=== PATIENT | male | born 1950 | race Caucasian/White ===

== ENCOUNTER → 2020-05-17 11:05 | Outpatient (CLI) | payer MEDICARE, SELFPAY ==
[2020-05-17] MEDS: COVID-19 VACC #1, MRNA(MOD) 100 MCG/0.5 ML VIAL IM (11:14)
== END ==
PROVIDERS: PCP Family Medicine; Visit Provider Internal Medicine
DX: Z23 Encounter for immunization (principal)
CPT/HCPCS: 0011A; 91301

== ENCOUNTER → 2020-06-14 09:38 | Outpatient (CLI) | payer MEDICARE, SELFPAY ==
[2020-06-14] MEDS: COVID-19 VACC #2, MRNA(MOD) 100 MCG/0.5 ML VIAL IM (09:42)
== END ==
PROVIDERS: PCP Family Medicine; Visit Provider Internal Medicine
DX: Z23 Encounter for immunization (principal)
CPT/HCPCS: 0012A; 91301

== ENCOUNTER → 2020-10-18 08:40 | Outpatient (CLI) | payer MEDICARE, SELFPAY ==
[2020-10-18 09:26] LABS: Add Manual Diff / Slide Review NO; Basophils Absolute Auto 0 /uL (0-100); Basophils Percent Auto 0.9 % (0-2); Eosinophils Absolute Auto 200 /uL (0-450); Eosinophils Percent Auto 3.5 % (2-4); Hematocrit 41.4 % (41-53); Lymphocytes Absolute Auto 1400 /uL (1100-4500); Lymphocytes Percent Auto 29.1 % (25-40); Mean Corpuscular HGB Conc 33.8 % (30-36); Mean Corpuscular Hemoglobin 32.1 PG (26-34); Mean Corpuscular Volume 95.1 fL (80-100); Monocytes Absolute Auto 300 /uL (0-900); Monocytes Percent Auto 6.5 % (3-14); Neutrophils Absolute Auto 2900 /uL (1500-7000); Platelet Count 146 X10^3/uL (150-400); Red Blood Cell Count 4.35 X10^6/uL (4.5-5.9); Red Cell Distribution Width 13.5 % (11.6-14.8); White Blood Cell Count 4.8 X10^3/uL (4.5-11.0)
[2020-10-18 09:35] LABS: Hemoglobin A1C% w Est Avg Glu 5.3 % (4.0-6.0)
[2020-10-18 09:40] LABS: Alanine Aminotransferase 24 IU/L (<50); Albumin 3.6 g/dL (3.5-5.0); Albumin Globulin Ratio 1.4 (1.0-2.8); Alkaline Phosphatase 62 U/L (38-126); Aspartate Aminotransferase 30 IU/L (17-59); BUN Creatinine Ratio 21.3 (6-22); Bilirubin Total 0.4 mg/dL (0.2-1.3); Blood Urea Nitrogen 16 mg/dL (9-20); Calcium 8.9 mg/dL (8.4-10.2); Carbon Dioxide 28 mmol/L (22-32); Chloride 108 mmol/L (98-107); Cholesterol 142 mg/dL (140-199); Estimated Glomerular Filt Rate > 60.0 mL/min (>60); Globulin 2.5 g/dL (1.7-4.1); Glucose 93 mg/dL (80-110); HDL Cholesterol 62 mg/dL (40-60); HEMOLYSIS < 15 (0-50); LDL Cholesterol Calculated 73 mg/dL (<100); Potassium 4.5 mmol/L (3.4-5.1); Sodium 138 mmol/L (137-145); Total Protein 6.1 g/dL (6.3-8.2); Triglycerides 35 mg/dL (35-150)
[2020-10-18 10:10] LABS: Prostate Specific Antigen Scrn 1.15 ng/mL (0.1-4.0)
== END ==
PROVIDERS: PCP Family Medicine; Referring Provider Family Medicine; Visit Provider Family Medicine
DX: E78.2 Mixed hyperlipidemia (principal); G25.0 Essential tremor; N40.1 Benign prostatic hyperplasia with lower urinary tract symptoms; Z12.5 Encounter for screening for malignant neoplasm of prostate; Z85.828 Personal history of other malignant neoplasm of skin
CPT/HCPCS: 36415; 80053; 80061; 83036; 85025; G0103

== ENCOUNTER → 2021-07-31 08:16 | Outpatient (CLI) | payer MEDICARE, SELFPAY ==
[2021-07-31 09:42] LABS: Add Manual Diff / Slide Review NO; Basophils Absolute Auto 0 /uL (0-100); Basophils Percent Auto 1.1 % (0-2); Eosinophils Absolute Auto 200 /uL (0-450); Eosinophils Percent Auto 4.4 % (2-4); Hematocrit 40.9 % (41-53); Lymphocytes Absolute Auto 1700 /uL (1100-4500); Lymphocytes Percent Auto 36.4 % (25-40); Mean Corpuscular HGB Conc 34.2 % (30-36); Mean Corpuscular Hemoglobin 32.6 PG (26-34); Mean Corpuscular Volume 95.1 fL (80-100); Monocytes Absolute Auto 300 /uL (0-900); Monocytes Percent Auto 6.2 % (3-14); Neutrophils Absolute Auto 2400 /uL (1500-7000); Neutrophils Percent Auto 51.9 % (50-75); Platelet Count 145 X10^3/uL (150-400); Red Cell Distribution Width 13.2 % (11.6-14.8); White Blood Cell Count 4.6 X10^3/uL (4.5-11.0)
[2021-07-31 10:02] LABS: Alanine Aminotransferase 21 IU/L (<50); Albumin 3.5 g/dL (3.5-5.0); Albumin Globulin Ratio 1.5 (1.0-2.8); Alkaline Phosphatase 59 U/L (38-126); Aspartate Aminotransferase 27 IU/L (17-59); BUN Creatinine Ratio 20.3 (6-22); Bilirubin Total 0.4 mg/dL (0.2-1.3); Blood Urea Nitrogen 16 mg/dL (9-20); Calcium 8.8 mg/dL (8.4-10.2); Carbon Dioxide 28 mmol/L (22-32); Chloride 106 mmol/L (98-107); Cholesterol 172 mg/dL (140-199); Estimated Glomerular Filt Rate > 60 mL/min (>60); Globulin 2.3 g/dL (1.7-4.1); Glucose 91 mg/dL (80-110); HDL Cholesterol 60 mg/dL (40-60); HEMOLYSIS < 15 (0-50); LDL Cholesterol Calculated 98 mg/dL (<100); Potassium 4.4 mmol/L (3.4-5.1); Sodium 140 mmol/L (137-145); Total Protein 5.8 g/dL (6.3-8.2); Triglycerides 69 mg/dL (35-150)
[2021-07-31 10:31] LABS: Prostate Specific Antigen Scrn 1.37 ng/mL (0.1-4.0)
== END ==
PROVIDERS: PCP Family Medicine; Referring Provider Family Medicine; Visit Provider Family Medicine
DX: E78.2 Mixed hyperlipidemia (principal); Z12.5 Encounter for screening for malignant neoplasm of prostate; G25.0 Essential tremor; N40.1 Benign prostatic hyperplasia with lower urinary tract symptoms
CPT/HCPCS: 36415; 80053; 80061; 85025; G0103

== ENCOUNTER → 2021-08-13 07:44 | Outpatient (CLI) | payer MEDICARE, SELFPAY ==
--- NOTE | 2021-09-05 08:48 | P.HOLT.S_ITS ---
[employer] Report Referral & Results Date Patient Seen: 08/12/21 Requesting provider: Papo Collins Indication: Palpitations Duration of monitoring (days): 14 Diary information: There was 1 patient triggered event and no patient diary entries Patient triggered event was associated with sinus rhythm only Data: Minimum heart rate identified was 30 beats per minute at 06:50 on 08/22/2021 Maximum heart rate was 152 beats per minute at 10:37 on 08/22/2021 Less than 1% of identified beats were ventricular or supraventricular ectopic in origin, which would classify them as rare. Atrial flutter did occur, approximately less than 1% burden, with heart rate ranging between 96 and 141 beats per minute. The longest run was 1 minute 9 seconds in duration No pauses of 3 seconds or longer or runs of SVT or atrial fibrillation or ventricular tachycardia identified on this study Impression: 14 day patient monitor demonstrating rare PACs and PVCs as well as some atrial flutter that was less than 1% burden with above rate ranges Clinical correlation suggested
== END ==
PROVIDERS: Family Provider Family Medicine; PCP Family Medicine; Referring Provider Family Medicine; Visit Provider Family Medicine
DX: R00.2 Palpitations (principal)
CPT/HCPCS: 93246; 93248

== ENCOUNTER → 2021-10-22 08:19 | Outpatient (CLI) | payer MEDICARE, SELFPAY ==
[2021-10-22 09:29] LABS: Add Manual Diff / Slide Review NO; Basophils Absolute Auto 0 /uL (0-100); Basophils Percent Auto 0.9 % (0-2); Eosinophils Absolute Auto 100 /uL (0-450); Eosinophils Percent Auto 2.4 % (2-4); Hematocrit 41.6 % (41-53); Hemoglobin 14.2 g/dL (13.5-17.5); Lymphocytes Absolute Auto 1500 /uL (1100-4500); Lymphocytes Percent Auto 31.8 % (25-40); Mean Corpuscular HGB Conc 34.2 % (30-36); Mean Corpuscular Hemoglobin 32.6 PG (26-34); Mean Corpuscular Volume 95.6 fL (80-100); Monocytes Absolute Auto 300 /uL (0-900); Monocytes Percent Auto 6.4 % (3-14); Neutrophils Absolute Auto 2700 /uL (1500-7000); Neutrophils Percent Auto 58.5 % (50-75); Platelet Count 146 X10^3/uL (150-400); Red Blood Cell Count 4.36 X10^6/uL (4.5-5.9); Red Cell Distribution Width 13.2 % (11.6-14.8); White Blood Cell Count 4.6 X10^3/uL (4.5-11.0)
[2021-10-22 09:54] LABS: BUN Creatinine Ratio 19.5 (6-22); Blood Urea Nitrogen 15 mg/dL (9-20); Calcium 8.8 mg/dL (8.4-10.2); Carbon Dioxide 25 mmol/L (22-32); Chloride 105 mmol/L (98-107); Estimated Glomerular Filt Rate > 60 mL/min (>60); Glucose 91 mg/dL (80-110); HEMOLYSIS 18 (0-50); Potassium 4.4 mmol/L (3.4-5.1); Sodium 138 mmol/L (137-145)
[2021-10-22 10:23] LABS: TSH w/ Reflex to FT4 2.29 uIU/mL (0.47-4.68)
== END ==
PROVIDERS: Family Provider Family Medicine; PCP Family Medicine; Referring Provider Internal Medicine Cardiovascular Disease; Visit Provider Internal Medicine Cardiovascular Disease
DX: I47.1 Supraventricular tachycardia (principal); R00.2 Palpitations
CPT/HCPCS: 36415; 80048; 84443; 85025

== ENCOUNTER → 2021-12-26 13:11 | Outpatient (CLI) | payer MEDICARE, SELFPAY ==
--- NOTE | 2021-12-26 | DI.NM.S_ITS ---
PROCEDURE: NM EXERCISE TREADMILL NON NUC COMPARISON: None. INDICATIONS: Bradycardia, unspecified FINDINGS: The patient exercised for 7 minutes and 4 seconds reaching 99% of maximum predicted heart rate. 10.1 METS, LATONIA -11%. Target heart rate achieved. Mildly hypertensive response to exercise (resting BP 120/80, max BP 220/100mmHg). No angina and no diagnostic ST changes with exercise or during recovery. Occasional PACs during recovery. IMPRESSION: Low risk, normal stress test from ischemia standpoint. No angina during the study. Mildly hypertensive response to exercise (resting BP 120/80, max BP 220/100mmHg). Occasional PACs during recovery. Dictated by: Adrienne Teixeira MD on 12/26/2021 at 17:40 Approved by: Adrienne Teixeira MD on 12/26/2021 at 17:43
--- NOTE | 2021-12-26 | DI.ECHO.S_ITS ---
[facility] +---------+ : : [address] : : : : [id number] : : : : Phone: [phone]+ Echocardiogram Report + + :Name: CYNTHIA MUHAMMAD Study Date: 12/26/2021 Height: 69 in : :[facility] ReadingLocation: Weight: 165 lb : : Gender: Male BSA: 1.9 m2 : :: 1950 Age: 71 yrs BP: 127/74 mmHg: :Reason For Study: BRADYCARDIA : :Ordering Physician: ALIX, : :HI Performed By: Frances Hu : :Referring: HI TEIXEIRA : + + Interpretation Summary 1) Normal left ventricular thickness, size, wall motion, and systolic function (EF 55-60%). 2) The right ventricle is mildly dilated. Right ventricular systolic function is mildly reduced. 3) There is mild to moderate mitral regurgitation. 4) No prior Echo available for comparison. Procedure: A two-dimensional transthoracic echocardiogram with color flow and Doppler was performed. The study quality was technically adequate. There is no prior echocardiogram noted for this patient. The patient was in sinus bradycardia with heart rates between 42-50 bpm during the exam. Left Ventricle: The left ventricle is normal in size and wall thickness. The ejection fraction is estimated to be 55-60%. Left ventricular systolic function appears normal without focal wall motion abnormalities. Diastolic parameters suggest a relaxation abnormality of the left ventricle, consistent with probable normal filling pressures. Right Ventricle: The right ventricle is mildly dilated. Right ventricular systolic function is mildly reduced. Atria: The left atrium is moderately dilated. The right atrium is moderately dilated. There is no Doppler evidence for an interatrial shunt. Mitral Valve: There is mild mitral annular calcification. The mitral valve leaflets appear borderline thickened, but open well. There is mild to moderate mitral regurgitation. Aortic Valve: The aortic valve is trileaflet. The aortic valve opens well. There is no aortic valve stenosis. No aortic regurgitation is present. Tricuspid Valve: The tricuspid valve leaflets are thin and pliable. There is mild tricuspid regurgitation. The right ventricular systolic pressure is estimated to be at least 19 mmHg based on an estimated right atrial pressure of 3 mm Hg. Pulmonic Valve: The pulmonic valve is not well visualized. There is no pulmonic valvular regurgitation. Great Vessels: The aortic root is normal size. The dimensions of the ascending aorta are normal. The IVC is of normal diameter and collapses greater than 50% with a sniff. This suggests a low right atrial pressure of 3 mm Hg. Pericardium/ Pleura There is no pericardial effusion. There is no pleural effusion. MMode/2D Measurements & Calculations LVIDd: 5.1 cm LVOT diam: 2.4 cm LVIDs: 3.8 cm Ao root diam: 3.6 cm FS: 26.2 % asc Aorta Diam: 3.2 cm IVSd: 0.72 cm LVPWd: 0.89 cm LV hill. diameter/BSA (cm/m^2): 2.7 LV sys. diameter/BSA (cm/m^2): 2.0 LA A2 area: 26.6 cm2 RA long axis: 6.0 cm LA A4 area: 23.3 cm2 RA area: 24.9 cm2 LA length (vol): 6.0 cm RA vol: 88.3 ml LA vol: 88.2 ml RA : 46.4 ml/m2 LA vol index: 46.4 ml/m2 IVC diam: 1.5 cm RVD1 (basal): 4.7 cm RVD2 (mid): 4.1 cm TAPSE: 1.4 cm Doppler Measurements & Calculations Ao V2 max: 120.9 cm/sec LVOT Max Reagan: 99.8 cm/sec Ao V2 mean: 76.6 cm/sec LV V1 max P.0 mmHg Ao max P.8 mmHg LV V1 VTI: 22.4 cm Ao mean P.8 mmHg GOLDY(I,D): 4.0 cm2 Ao V2 VTI: 26.2 cm GOLDY(V,D): 3.9 cm2 sev ratio: 0.85 GOLDY indexed to BSA (cm^2/m^2): 2.1 MV E max reagan: 63.7 cm/sec TR max reagan: 200.1 cm/sec MV A max reagan: 45.8 cm/sec TR max P.0 mmHg MV E/A: 1.4 PA pr(Accel): 12.2 mmHg Med Peak E' Reagan: 7.2 cm/sec E/E' med: 8.9 Lat Peak E' Reagan: 9.9 cm/sec E/E' lat: 6.4 E/e' average: 7.6 MV dec time: 0.17 sec MR ERO: 0.11 cm2 MR PISA: 1.6 cm2 SV(LVOT): 104.6 ml MR flow rate: 58.0 cm3/sec MR PISA radius: 0.50 cm Reading Physician:04:55 PM
[2021-12-26 14:41] LABS: COVID19 -Nasal RAPID Negative (Negative)
== END ==
PROVIDERS: Family Provider Family Medicine; PCP Family Medicine; Referring Provider Internal Medicine Cardiovascular Disease; Visit Provider Internal Medicine Cardiovascular Disease
DX: R00.1 Bradycardia, unspecified (principal); I47.1 Supraventricular tachycardia
CPT/HCPCS: 87635; 93017; 93306

== ENCOUNTER → 2022-08-02 08:04 | Outpatient (CLI) | payer MEDICARE, SELFPAY ==
[2022-08-02 09:36] LABS: Basophils Absolute Auto 0 /uL (0-100); Basophils Percent Auto 0.8 % (0-2); Eosinophils Absolute Auto 200 /uL (0-450); Eosinophils Percent Auto 4.7 % (2-4); Hematocrit 41.7 % (41-53); Hemoglobin 14.2 g/dL (13.5-17.5); Lymphocytes Absolute Auto 1400 /uL (1100-4500); Lymphocytes Percent Auto 30.2 % (25-40); Mean Corpuscular Hemoglobin 32.3 PG (26-34); Mean Corpuscular Volume 94.8 fL (80-100); Monocytes Absolute Auto 400 /uL (0-900); Monocytes Percent Auto 7.9 % (3-14); Neutrophils Absolute Auto 2600 /uL (1500-7000); Neutrophils Percent Auto 56.4 % (50-75); Platelet Count 135 X10^3/uL (150-400); White Blood Cell Count 4.7 X10^3/uL (4.5-11.0)
[2022-08-02 09:38] LABS: Add Manual Diff / Slide Review SLIDE REVIEW
[2022-08-02 09:58] LABS: Alanine Aminotransferase 29 IU/L (<50); Albumin 3.6 g/dL (3.5-5.0); Albumin Globulin Ratio 1.4 (1.0-2.8); Alkaline Phosphatase 63 U/L (38-126); Aspartate Aminotransferase 29 IU/L (17-59); BUN Creatinine Ratio 20.5 (6-22); Bilirubin Total 0.8 mg/dL (0.2-1.3); Blood Urea Nitrogen 16 mg/dL (9-20); Calcium 9.4 mg/dL (8.4-10.2); Carbon Dioxide 28 mmol/L (22-32); Chloride 104 mmol/L (98-107); Cholesterol 177 mg/dL (140-199); Estimated Glomerular Filt Rate > 60 mL/min (>60); Globulin 2.6 g/dL (1.7-4.1); Glucose 91 mg/dL (80-110); HDL Cholesterol 64 mg/dL (40-60); HEMOLYSIS < 15 (0-50); LDL Cholesterol Calculated 102 mg/dL (<100); Potassium 4.7 mmol/L (3.4-5.1); Sodium 137 mmol/L (137-145); Total Protein 6.2 g/dL (6.3-8.2); Triglycerides 53 mg/dL (35-150)
[2022-08-02 10:28] LABS: Prostate Specific Antigen Scrn 1.75 ng/mL (0.1-4.0)
[2022-08-02 11:06] LABS: RBC Morphology Normal Morphology
== END ==
PROVIDERS: Family Provider Family Medicine; PCP Family Medicine; Referring Provider Family Medicine; Visit Provider Family Medicine
DX: E78.2 Mixed hyperlipidemia (principal); Z12.5 Encounter for screening for malignant neoplasm of prostate; G25.0 Essential tremor; N40.1 Benign prostatic hyperplasia with lower urinary tract symptoms
CPT/HCPCS: 36415; 80053; 80061; 85025; G0103

== ENCOUNTER 2022-10-04 00:43 | Inpatient (IN) | payer MEDICARE, SELFPAY ==
[2022-10-04] VITALS (16 sets, daily range): BP systolic 104–144; BP diastolic 47–70; PULSE 48–75; RESP 16–20; TEMP 36.1–37.5; O2SAT 92–99; BMI 25.1
--- NOTE | 2022-10-04 00:45 | ED_ITS ---
HPI - Abdominal Pain General Chief Complaint: Abdominal Pain Stated Complaint: abd pain, vomiting Time Seen by Provider: 10/04/22 00:45 History of Present Illness HPI narrative: 72-year-old male nonsmoker without any significant medical history presents with his in the chief complaint of a few hours of worsening and severe abdominal pain. He had been in his normal state of health and they went out to dinner this evening, both eating the same meal and a few hours later he developed gradually worsening severe pain. It is persistent at baseline but has waves of significantly worsening pain. He denies any obvious provocation or palliation nor radiation. He is had multiple episodes of nausea and vomiting without any impact on his symptoms. He is now having difficulty passing gas. He denies any fever or chills. He denies urinary complaints such as dysuria, frequency or urgency. He denies any history of the same. Related Data Previous Rx's Medication Instructions Recorded tamsulosin 0.4 mg capsule 0.4 mg PO DAILY #90 caps 07/25/22 diazepam 5 mg tablet 5 mg PO DAILY PRN anxiety #30 tabs 08/05/22 Allergies Allergy/AdvReac Type Severity Reaction Status Date / Time No Known Drug Allergies Allergy Verified 02/05/22 10:18 Review of Systems Review of Systems Narrative: GENERAL: See HPI HEENT: Denies sinus pain, ear pain, sore throat, difficulty swallowing, dizziness. RESPIRATORY: Denies dyspnea, cough, wheezing, hemoptysis, sputum. CARDIOVASCULAR: Denies chest pain, palpitations, orthopnea, edema, GASTROINTESTINAL: See HPI : Denies dysuria, frequency, incontinence, hematuria, urinary retention. MUSCULOSKELETAL: denies weakness, joint pain, or bony pain SKIN: Denies rash, skin lesions, or other NEUROLOGIC: Denies weakness, headache, numbness, change in speech, confusion, seizures, incoordination. PSYCHIATRIC: No concerning psychosocial issues. 12 point review of systems is negative except for those stated above Patient History Medical History BPH (benign prostatic hyperplasia) Essential tremor History of basal cell carcinoma Hyperlipidemia Medicare annual wellness visit, subsequent Preventative health care Witnessed episode of apnea Social History Smoking Status: Never smoker alcohol intake: current (4 drinks per week wine and beer ) substance use type: does not use Smoking Status: Never smoker Exam Narrative Exam Narrative: GENERAL: [72] year old patient appears stated age. Well-developed patient, in mi ld distress. HEAD: Atraumatic. Normocephalic. EYES: Pupils equal round and reactive. Extraocular motions intact. No scleral icterus. No injection or drainage. ENT: Nose without bleeding, purulent drainage. Throat without erythema, tonsillar hypertrophy or exudate. Airway patent. NECK: Trachea midline. Non tender CARDIOVASCULAR: Regular rate and rhythm without murmurs, gallops, or rubs. RESPIRATORY: Clear to auscultation. Breath sounds equal bilaterally. No wheezes, rales, or rhonchi. GASTROINTESTINAL: Abdomen soft, non-tender, nondistended. EXTREMITIES: No edema or joint tenderness. BACK: Nontender without deformity or crepitance. No flank tenderness. NEURO: AOx3. SKIN: No rash or erythema of visible areas Initial Vital Signs Initial Vital Signs: Vital Signs Temperature 97.8 F 10/04/22 01:06 Pulse Rate 62 10/04/22 01:06 Respiratory Rate 20 10/04/22 01:06 Blood Pressure 138/70 10/04/22 01:06 Pulse Oximetry 99 10/04/22 01:06 Oxygen Delivery Method Room Air 10/04/22 01:06 Course Orders Ordered: ED Orders 10/04/22 00:52 CT abdomen pelvis w con Stat 10/04/22 00:55 Complete Blood Count AUTO DIFF Stat Comprehensive Metabolic Panel Stat Lactate (Lactic Acid) Stat Lipase Stat Magnesium Stat Hydromorphone HCl (Hydromorphone 1 Mg Inj) 1 mg IV NOW ONE Stop: 10/04/22 04:43 Discontinued Medications Hydromorphone HCl (Hydromorphone 0.5 Mg Inj) 0.5 mg IV NOW ONE Stop: 10/04/22 00:52 Last Admin: 10/04/22 01:02 Dose: 0.5 mg Documented By: SEBAS Hydromorphone HCl (Hydromorphone 1 Mg Inj) 1 mg IV NOW ONE Stop: 10/04/22 01:23 Last Admin: 10/04/22 01:25 Dose: 1 mg Documented By: GC Sodium Chloride (Normal Saline 0.9%) 1,000 mls @ 1,000 mls/hr IV BOLUS ONE Stop: 10/04/22 01:50 Last Infusion: 10/04/22 02:02 Dose: 0 mls/hr Documented By: Admin: 10/04/22 01:02 Dose: 1,000 mls/hr Documented By: SEBAS Ondansetron HCl (Ondansetron 4 Mg/2 Ml Inj) 4 mg IV NOW ONE Stop: 10/04/22 00:52 Last Admin: 10/04/22 01:02 Dose: 4 mg Documented By: SEBAS Pantoprazole Sodium (Pantoprazole 40 Mg Vial) 40 mg IV NOW ONE Stop: 10/04/22 00:52 Last Admin: 10/04/22 01:01 Dose: 40 mg Documented By: SEBAS Vital Signs Vital signs: Vital Signs - 8 hr 10/04/22 01:06 10/04/22 02:27 10/04/22 02:28 Temperature 97.8 F Pulse Rate 62 57 L Respiratory Rate 20 Blood Pressure 138/70 129/62 Pulse Oximetry 99 94 Oxygen Delivery Method Room Air 10/04/22 02:28 10/04/22 02:30 10/04/22 02:30 Temperature Pulse Rate 60 60 Respiratory Rate Blood Pressure 127/59 L Pulse Oximetry 92 92 Oxygen Delivery Method 10/04/22 03:00 10/04/22 03:00 10/04/22 03:30 Temperature Pulse Rate 48 L Respiratory Rate Blood Pressure 131/60 124/58 L Pulse Oximetry 93 Oxygen Delivery Method 10/04/22 03:30 Temperature Pulse Rate 51 L Respiratory Rate Blood Pressure Pulse Oximetry 93 Oxygen Delivery Method MDM - Abdominal Pain Lab Data 10/04/22 00:55 10/04/22 00:55 Labs: Lab Results 10/04/22 10/04/22 10/04/22 Range/Units 00:55 00:55 00:55 WBC 11.3 H (4.5-11.0) X10^3/uL RBC 4.65 (4.5-5.9) X10^6/uL Hgb 15.2 (13.5-17.5) g/dL Hct 44.2 (41-53) % MCV 95.0 (80-100) fL MCH 32.6 (26-34) PG MCHC 34.4 (30-36) % RDW 13.4 (11.6-14.8) % Plt Count 155 (150-400) X10^3/uL Neut % (Auto) 82.5 H (50-75) % Lymph % (Auto) 12.4 L (25-40) % [place] % (Auto) 3.5 (3-14) % Eos % (Auto) 1.2 L (2-4) % Baso % (Auto) 0.4 (0-2) % Neut # (Auto) 9300 H (2216-7647) /uL Lymph # (Auto) 1400 (4923-1633) /uL [place] # (Auto) 400 (0-900) /uL Eos # (Auto) 100 (0-450) /uL Baso # (Auto) 0 (0-100) /uL Sodium 135 L (137-145) mmol/L Potassium 3.8 (3.4-5.1) mmol/L Chloride 99 (98-107) mmol/L Carbon Dioxide 28 (22-32) mmol/L BUN 15 (9-20) mg/dL Creatinine 0.84 (0.66-1.25) mg/dL Estimated GFR > 60 (>60) mL/min BUN/Creatinine Ratio 17.9 (6-22) Glucose 98 (80-110) mg/dL Lactate 1.7 (0.7-2.1) mmol/L Calcium 9.5 (8.4-10.2) mg/dL Magnesium 2.0 (1.6-2.3) mg/dL Total Bilirubin 1.0 (0.2-1.3) mg/dL AST 33 (17-59) IU/L ALT 30 (<50) IU/L Alkaline Phosphatase 71 (38-126) U/L Total Protein 7.3 (6.3-8.2) g/dL Albumin 4.3 (3.5-5.0) g/dL Globulin 3.0 (1.7-4.1) g/dL Albumin/Globulin Ratio 1.4 (1.0-2.8) Lipase 150 (23-300) U/L Point of care testing: Urine Dip Bedside Urine Glucose Negative Bedside Urine Bilirubin - Negative Bedside Urine Ketone - Negative Urine Specific Jean 1.015 Bedside Urine Occult Blood - Negative Bedside Urine pH 7.0 Bedside Urine Protein - Negative Bedside Urine Urobilinogen - Negative Bedside Urine Nitrite - Negative Bedside Urine Leukocytes - Negative Esterase MDM Narrative Medical decision making narrative: 72-year-old male with relatively sudden onset and severe periumbilical pain that is largely persistent but associated with waves of unprovoked pain. Labs largely reassuring, imaging demonstrates no surgical finding but does suggest presence of distended bowel loops without a transition point suggesting against the likelihood of bowel obstruction. Patient has had 3 doses of IV pain medications and multiple doses of antiemetics but still has severe pain and is unable to tolerate orals. Thankfully there is no obvious evidence of a surgical diagnosis but patient is not appropriate for discharge and will require hospitalization for ongoing pain control and evaluation. Patient and family understand and agree with the diagnosis and plan. Hospitalist (Mejia) happy to accept patient on her service Discharge Plan Departure Patient Disposition: Admitted as Observation Clinical Impression: Gastroenteritis, Intractable abdominal pain Prescriptions: No Action tamsulosin 0.4 mg capsule 0.4 mg PO DAILY Qty: 90 3RF diazepam 5 mg tablet 5 mg PO DAILY PRN (Reason: anxiety) Qty: 30 5RF Referrals: Papo Collins MD [Primary Care Provider] - Admit Date/Time: 10/04/22 04:47 Admit Provider: Mary Ba
--- NOTE | 2022-10-04 00:52 | DI.CT.S_ITS ---
PROCEDURE: CT ABDOMEN PELVIS W CON INDICATIONS: severe abdominal pain, N/V TECHNIQUE: After the administration of IV contrast, axial sections were acquired from the lung bases to the pubic symphysis. Coronal and sagittal reformats were performed. For radiation dose reduction, the following was used: automated exposure control, adjustment of mA and/or kV according to patient size. COMPARISON: None. FINDINGS: Image quality: Excellent. Lung bases: There is mild dependent atelectasis bilaterally. Heart: Heart is normal in size. ABDOMEN: Liver: There are 2 lobulated cysts within the left hepatic lobe measuring up to 2.6 cm and 1.8 cm. Gallbladder: Appears surgically absent. Biliary ducts: There is mild biliary ductal dilatation, with the common bile duct measuring up to 1.2 cm. No calcified common duct stones or discrete obstructing mass visualized Pancreas: No pancreatic duct dilatation or discrete pancreatic mass. Spleen: Normal in size. Adrenal Glands: No adrenal nodules. Kidneys and Ureters: No hydronephrosis. Stomach and Bowel: There are few mildly fluid distended loops of small bowel measuring up to 3.2 cm in diameter without a single focal transition point. The findings are suggestive of a gastroenteritis. Stomach, small bowel loops, and colon are otherwise normal in caliber and wall thickness. No pericecal inflammatory changes to suggest appendicitis. There is colonic diverticulosis without acute diverticulitis. Peritoneum: No abnormal intraperitoneal fluid. No free air. Ventral Wall: No hernia. Abdominal Nodes: No retroperitoneal or mesenteric adenopathy by size criteria. Vessels: Aorta and inferior vena cava are normal in size. PELVIS: Pelvic Organs: Unremarkable. Bladder: Unremarkable. Pelvic Nodes: No enlarged lymph nodes. Miscellaneous: No inguinal hernias are seen. Bones: Visualized osseous structures demonstrate no suspicious focal lesions. IMPRESSION: 1. Mild fluid distention of the few small bowel loops without a focal transition point to suggest obstruction. The findings are suggestive of a gastroenteritis. 2. Mild biliary ductal dilatation is nonspecific and may reflect sequelae of prior cholecystectomy. Recommend correlation clinically including with laboratory values. Dictated by: Jayme Mathew M.D. on 10/04/2022 at 2:19 Approved by: Jayme Mathew M.D. on 10/04/2022 at 2:25
[2022-10-04] MEDS: PANTOPRAZOLE 40 MG VIAL IV (01:01)
[2022-10-04] MEDS: HYDROMORPHONE 0.5 MG INJ IV ×6 (01:02→18:43)
[2022-10-04] MEDS: ONDANSETRON 4 MG/2 ML INJ IV ×4 (01:02→15:02)
[2022-10-04] MEDS: SODIUM CHLORIDE 0.9% 1,000 ML 1000 ML IV (01:02)
[2022-10-04 01:20] LABS: Lactate (Lactic Acid) 1.7 mmol/L (0.7-2.1)
[2022-10-04 01:21] LABS: Alanine Aminotransferase 30 IU/L (<50); Albumin 4.3 g/dL (3.5-5.0); Albumin Globulin Ratio 1.4 (1.0-2.8); Alkaline Phosphatase 71 U/L (38-126); Aspartate Aminotransferase 33 IU/L (17-59); BUN Creatinine Ratio 17.9 (6-22); Blood Urea Nitrogen 15 mg/dL (9-20); Calcium 9.5 mg/dL (8.4-10.2); Carbon Dioxide 28 mmol/L (22-32); Chloride 99 mmol/L (98-107); Estimated Glomerular Filt Rate > 60 mL/min (>60); Glucose 98 mg/dL (80-110); HEMOLYSIS 17 (0-50); Lipase 150 U/L (23-300); Potassium 3.8 mmol/L (3.4-5.1); Sodium 135 mmol/L (137-145); Total Protein 7.3 g/dL (6.3-8.2)
[2022-10-04 01:23] LABS: Add Manual Diff / Slide Review NO; Basophils Absolute Auto 0 /uL (0-100); Basophils Percent Auto 0.4 % (0-2); Eosinophils Absolute Auto 100 /uL (0-450); Eosinophils Percent Auto 1.2 % (2-4); Hematocrit 44.2 % (41-53); Hemoglobin 15.2 g/dL (13.5-17.5); Lymphocytes Absolute Auto 1400 /uL (1100-4500); Lymphocytes Percent Auto 12.4 % (25-40); Mean Corpuscular HGB Conc 34.4 % (30-36); Mean Corpuscular Hemoglobin 32.6 PG (26-34); Monocytes Absolute Auto 400 /uL (0-900); Monocytes Percent Auto 3.5 % (3-14); Neutrophils Absolute Auto 9300 /uL (1500-7000); Neutrophils Percent Auto 82.5 % (50-75); Platelet Count 155 X10^3/uL (150-400); Red Blood Cell Count 4.65 X10^6/uL (4.5-5.9); Red Cell Distribution Width 13.4 % (11.6-14.8); White Blood Cell Count 11.3 X10^3/uL (4.5-11.0)
[2022-10-04] MEDS: HYDROMORPHONE 1 MG INJ IV ×2 (01:25→04:55)
--- NOTE | 2022-10-04 05:12 | P.HP_ITS ---
History of Present Illness History of Present Illness Date Patient Seen: 10/04/22 Time Patient Seen: 05:13 Chief complaint: abd pain, vomiting Narrative: Margarito lai a 72-year-old male with a past medical history of BPH with lower tract symptoms, basal cell carcinoma, HLD, essential tremor, arterial tachycardia, anxiety, cholecystectomy, YUDITH with CPAP who presented to the ED this evening after having dinner had acute onset of periumbilical abdominal pain without radiation or provocation. In the ED patient's acute abdominal pain continued to come in waves, with continued nausea and vomiting, and failed oral trial despite pain medication and antiemetics. On admit patient's nausea and abdominal pain continues, states he is no longer passing gas, BMs have been normal every other day. He endorses a history of UTI, and urinary retention secondary to BPH, but feels like he is currently emptying his bladder. On admit patient denies chest pain, shortness in breath, headache, changes in vision, difficulty swallowing, speech impairment, weakness, numbness, tingling, difficulty with ambulation, recent falls, head injury, LOC, fever, body aches, chills, cough, recent exposure to illness, urinary incontinence/retention, dysuria, frequency, urgency, hematuria, bowel changes, constipation, incontinence, melena, rashes, recent changes to medication, illness, injury, or trauma. Patient's vitals are stable 97.8, 124/58, 51, 20, 93% on room air. WBC 11.3 with mild left shift neutrophils 9800, remainder of CBC CMP, and liver enzymes are all WNL. Lactate normal, abdominal CT mild fluid distention of the few small bowel loops without a focal transition point-possible gastritis. S/P cholecystectomy- mild biliary duct dilation. Patient admitted for acute abdominal pain with intractable pain, nausea, vomiting. ON LICENSE OF [facility] Medical History BPH (benign prostatic hyperplasia) Essential tremor History of basal cell carcinoma Hyperlipidemia Medicare annual wellness visit, subsequent Preventative health care Witnessed episode of apnea Social History Smoking Status: Never smoker alcohol intake: current (4 drinks per week wine and beer ) substance use type: does not use Meds Home Medications and Allergies Home Medications Medication Instructions Recorded Confirmed Type tamsulosin 0.4 mg capsule 0.4 mg PO DAILY #90 caps 07/25/22 10/04/22 Rx diazepam 5 mg tablet 5 mg PO DAILY PRN anxiety #30 tabs 08/05/22 10/04/22 Rx Allergies Allergy/AdvReac Type Severity Reaction Status Date / Time No Known Drug Allergies Allergy Verified 02/05/22 10:18 Review of Systems Review of Systems Narrative: All 12 point systems reviewed with the patient and are negative except otherwise documented. Exam Vital Signs (past 8 hours): - 10/04/22 01:06 10/04/22 02:27 10/04/22 02:28 Temperature 97.8 F Pulse Rate 62 57 L Respiratory Rate 20 Blood Pressure 138/70 129/62 Pulse Oximetry 99 94 Oxygen Delivery Method Room Air 10/04/22 02:28 10/04/22 02:30 10/04/22 02:30 Temperature Pulse Rate 60 60 Respiratory Rate Blood Pressure 127/59 L Pulse Oximetry 92 92 Oxygen Delivery Method 10/04/22 03:00 10/04/22 03:00 10/04/22 03:30 Temperature Pulse Rate 48 L Respiratory Rate Blood Pressure 131/60 124/58 L Pulse Oximetry 93 Oxygen Delivery Method 10/04/22 03:30 10/04/22 04:09 10/04/22 04:10 Temperature Pulse Rate 51 L 52 L Respiratory Rate Blood Pressure 131/61 Pulse Oximetry 93 98 Oxygen Delivery Method 10/04/22 04:10 10/04/22 04:30 10/04/22 04:30 Temperature Pulse Rate 48 L 57 L Respiratory Rate Blood Pressure 123/61 Pulse Oximetry 98 95 Oxygen Delivery Method Oxygen Delivery Method Room Air Narrative Exam Narrative: General: Patient is a well-developed, well-nourished in no distress at this time. HEENT: Normocephalic, atraumatic, extraocular muscles intact, oral pharynx is clear and mucous membranes are moist. Neck is supple and symmetric, trachea is midline, no adenopathy, no thyroid enlargement, nontender, no masses palpated. Negative for JVD Chest: Normal AP diameter and contour without kyphoscoliosis, Equal chest rise without nasal flaring, retractions, tachypneic or labored breathing. Lungs: Auscultation of all lung epstein are clear without adventitious sounds, wheezes, rhonchi, or rales. Cardio: regular rate and rhythm without murmur, rubs, or gallops, no carotid bruit, no cardiac pulsations present. Abdomen: Soft diffuse mild tenderness with palpation, no distention, negative for organomegaly, or masses. Bowel sounds are hypoactive present in all 4 quadrants without guarding or rebound, no CVA tenderness. Musculoskeletal: Muscle strength and tone are equal, no deformity, crepitus, effusions, cyanosis, clubbing or edema present. Full range of motion intact radial and pedal pulses are normal. Skin: Warm dry and intact without rashes, ulcerations or petechiae. Neuro: Alert and orientated x3, moves all extremities, sensation to touch in tact, no gross deficits noted of cranial nerves. Psych: Patient has a well-kept appearance, appropriate affect, mental status attitude thought context and judgment are appropriate for age. Objective Labs 10/04/22 00:55 10/04/22 00:55 Labs: Laboratory Results - last 24 hr 10/04/22 10/04/22 10/04/22 00:55 00:55 00:55 WBC 11.3 H RBC 4.65 Hgb 15.2 Hct 44.2 MCV 95.0 MCH 32.6 MCHC 34.4 RDW 13.4 Plt Count 155 Neut % (Auto) 82.5 H Lymph % (Auto) 12.4 L [place] % (Auto) 3.5 Eos % (Auto) 1.2 L Baso % (Auto) 0.4 Neut # (Auto) 9300 H Lymph # (Auto) 1400 [place] # (Auto) 400 Eos # (Auto) 100 Baso # (Auto) 0 Sodium 135 L Potassium 3.8 Chloride 99 Carbon Dioxide 28 BUN 15 Creatinine 0.84 Estimated GFR > 60 BUN/Creatinine Ratio 17.9 Glucose 98 Lactate 1.7 Calcium 9.5 Magnesium 2.0 Total Bilirubin 1.0 AST 33 ALT 30 Alkaline Phosphatase 71 Total Protein 7.3 Albumin 4.3 Globulin 3.0 Albumin/Globulin Ratio 1.4 Lipase 150 Assessment & Plan Assessment & Plan narrative: Margarito lai a 72-year-old male with a past medical history of BPH with lower tract symptoms, basal cell carcinoma, HLD, essential tremor, arterial tachycardia, anxiety, cholecystectomy, YUDITH with CPAP admitted for acute abdominal pain with intractable pain, nausea, vomiting. Abdominal pain, acute, periumbilical, with intractable nausea vomiting, acute, present on admission * Possible gastroenteritis, developing SBO, UTI secondary to BPH obstruction. * WBC 11.3, neutrophils 9800, remainder of CBC CMP, and liver enzymes are all WNL. Lactate normal, * Abdominal CT mild fluid distention of the few small bowel loops without a focal transition point-possible gastritis. S/P cholecystectomy- mild biliary duct dilation. * Repeat CBC, CMP, lactate, procalcitonin in a.m. Blood cultures ordered * Continue pain medication, antiemetics * NPO except for sips, chips, meds- until vomiting resolved * BS q.6 while NPO * NS at 80 * Ordered abdominal ultrasound * Occult blood PRN BPH with lower urinary tract symptoms, chronic, present on admission * Continue Flomax * Bladder scans as needed * Urine culture Anxiety, chronic, present on admission * Continue diazepam Code status:full Surrogate decision maker: Gilda Price DVT/VTE prophylaxis: Lovenox and SCDs Disposition: Patient is expected length of stay not to exceed 2 midnights, continue to monitor goal to discharge resolution as the vomiting and acute abdominal pain, monitor for developing SBO. I have utilized all available immediate resources to obtain, update, or review the patient's current medications. I confirmed that the patient's advanced care plan is present, Code status is documented and/or surrogate decision maker is listed in the patient's medical record. I have personally reviewed patient's chart notes from PCP, specialists, diagnostic imaging, and laboratory results.
--- NOTE | 2022-10-04 05:45 | DI.US.S_ITS ---
PROCEDURE: US ABDOMEN LIMITED INDICATIONS: N/V; INTRACTIBLE RANDY-UMBILICAL PAIN; CONCERN FOR ILEUS TECHNIQUE: Real-time scanning was performed of the abdominal, with image documentation. COMPARISON: [facility], CR, XR ABDOMEN MIN 2V, 10/04/2022, 18:27. [facility], CT, CT ABDOMEN PELVIS W CON, 10/04/2022, 1:36. FINDINGS: Prominent fluid-filled loops of small bowel in the right and left abdomen. IMPRESSION: Prominent loops of small bowel in the right and left abdomen. Likely similar to CT abdomen and pelvis earlier today. Dictated by: Byron Mullins M.D. on 10/04/2022 at 19:33 Approved by: Byron Mullins M.D. on 10/04/2022 at 19:35
[2022-10-04] MEDS: SODIUM CHLORIDE 0.9% 1,000 ML 80 ML IV ×2 (05:59→18:43)
[2022-10-04 06:00] LABS: Add Manual Diff / Slide Review NO; Basophils Absolute Auto 0 /uL (0-100); Basophils Percent Auto 0.3 % (0-2); Eosinophils Absolute Auto 0 /uL (0-450); Eosinophils Percent Auto 0.1 % (2-4); Hemoglobin 14.1 g/dL (13.5-17.5); Lymphocytes Absolute Auto 700 /uL (1100-4500); Lymphocytes Percent Auto 7.6 % (25-40); Mean Corpuscular HGB Conc 34.5 % (30-36); Mean Corpuscular Hemoglobin 32.5 PG (26-34); Mean Corpuscular Volume 94.2 fL (80-100); Monocytes Absolute Auto 200 /uL (0-900); Monocytes Percent Auto 1.9 % (3-14); Neutrophils Absolute Auto 7900 /uL (1500-7000); Neutrophils Percent Auto 90.1 % (50-75); Platelet Count 134 X10^3/uL (150-400); Red Blood Cell Count 4.35 X10^6/uL (4.5-5.9); Red Cell Distribution Width 13.2 % (11.6-14.8); White Blood Cell Count 8.7 X10^3/uL (4.5-11.0)
--- NOTE | 2022-10-04 06:00 | PC.NURSE ---
0510 Patient admitted to room 203 accompanied by his spouse Gilda. Oriented to his room showed him how to use his call light, TV & bed controls. Denies any fall for the past 3 months, encouraged to call nursing staff if he needed to get up OOB to the BR. Call light with in reach, will cont. POC & monitor.
[2022-10-04 06:12] LABS: Alanine Aminotransferase 28 IU/L (<50); Albumin 3.7 g/dL (3.5-5.0); Albumin Globulin Ratio 1.5 (1.0-2.8); Alkaline Phosphatase 57 U/L (38-126); Aspartate Aminotransferase 32 IU/L (17-59); BUN Creatinine Ratio 19.2 (6-22); Blood Urea Nitrogen 14 mg/dL (9-20); Calcium 8.8 mg/dL (8.4-10.2); Carbon Dioxide 27 mmol/L (22-32); Chloride 101 mmol/L (98-107); Estimated Glomerular Filt Rate > 60 mL/min (>60); Globulin 2.5 g/dL (1.7-4.1); Glucose 110 mg/dL (80-110); HEMOLYSIS < 15 (0-50); Lactate (Lactic Acid) 0.9 mmol/L (0.7-2.1); Potassium 4.5 mmol/L (3.4-5.1); Sodium 135 mmol/L (137-145); Total Protein 6.2 g/dL (6.3-8.2)
[2022-10-04 06:28] LABS: Procalcitonin 0.04 ng/mL (<0.5)
--- NOTE | 2022-10-04 06:40 | PC.NURSE ---
WAYNE Ba notified with bladder scanned results of 424 cc. Ordered to let pt. void & bladder scan him again checking for PVR. Pt. in the bathroom @ this time trying to urinate. Agustin Mora states I'm okay now after I vomited . Will report to day RN.
--- NOTE | 2022-10-04 08:00 | DI.RAD.S_ITS ---
PROCEDURE: XR CHEST 1V INDICATIONS: acute ABD pain TECHNIQUE: One view of the chest was acquired. COMPARISON: None. FINDINGS: Surgical changes and devices: None. Lungs and pleura: Lungs are clear. No pleural effusions or pneumothorax. Mediastinum: Mediastinal contours appear normal. Heart size is normal. Bones and chest wall: No suspicious bony lesions. Overlying soft tissues appear unremarkable. IMPRESSION: No acute cardiopulmonary findings Approved by: Edward Snyder M.D. on 10/04/2022 at 8:54
[2022-10-04] MEDS: ENOXAPARIN 40 MG/0.4 ML SYRINGE SUBCUT (08:10)
[2022-10-04] MEDS: TAMSULOSIN 0.4 MG CAPSULE PO (08:10)
--- NOTE | 2022-10-04 08:42 | PM.PN.1 ---
Subjective Subjective Interval history: Patient persistently having nausea and vomiting. Some abdominal discomfort with nausea and vomiting is the biggest complaint. Exam Vital Signs (past 8 hours): - 10/04/22 01:06 10/04/22 02:27 10/04/22 02:28 Temperature 97.8 F Pulse Rate 62 57 L Respiratory Rate 20 Blood Pressure 138/70 129/62 Pulse Oximetry 99 94 Oxygen Delivery Method Room Air Oxygen Flow Rate 10/04/22 02:28 10/04/22 02:30 10/04/22 02:30 Temperature Pulse Rate 60 60 Respiratory Rate Blood Pressure 127/59 L Pulse Oximetry 92 92 Oxygen Delivery Method Oxygen Flow Rate 10/04/22 03:00 10/04/22 03:00 10/04/22 03:30 Temperature Pulse Rate 48 L Respiratory Rate Blood Pressure 131/60 124/58 L Pulse Oximetry 93 Oxygen Delivery Method Oxygen Flow Rate 10/04/22 03:30 10/04/22 04:09 10/04/22 04:10 Temperature Pulse Rate 51 L 52 L Respiratory Rate Blood Pressure 131/61 Pulse Oximetry 93 98 Oxygen Delivery Method Oxygen Flow Rate 10/04/22 04:10 10/04/22 04:30 10/04/22 04:30 Temperature Pulse Rate 48 L 57 L Respiratory Rate Blood Pressure 123/61 Pulse Oximetry 98 95 Oxygen Delivery Method Oxygen Flow Rate 10/04/22 05:27 10/04/22 05:05 Temperature 97.0 F L Pulse Rate 51 L Respiratory Rate 16 Blood Pressure 131/57 L Pulse Oximetry 94 94 Oxygen Delivery Method Room Air Oxygen Flow Rate 0 Oxygen Delivery Method Room Air Oxygen Flow Rate 0 Narrative Exam Narrative: General:? In no acute medical distress at this time. Does not appear exhausted however. HEENT:? Normocephalic, atraumatic, extraocular muscles intact. Chest:? Normal AP diameter and contour without kyphoscoliosis. Lungs:? Auscultation of all lung epstein are clear without adventitious sounds, wheezes, rhonchi, or rales. Cardio: regular rate and rhythm without extra sounds or murmurs. Abdomen:? Soft diffuse mild tenderness with palpation, no distention, negative for organomegaly, or masses.? Bowel sounds present. Musculoskeletal:? Muscle strength and tone are equal Neuro:? Alert and orientated x3, moves all extremities, sensation to touch intact Psych:?Mental status attitude thought context and judgment are appropriate for age. Objective Labs 10/04/22 05:48 10/04/22 05:48 Labs: Laboratory Results - last 24 hr 10/04/22 10/04/22 10/04/22 00:55 00:55 00:55 WBC 11.3 H RBC 4.65 Hgb 15.2 Hct 44.2 MCV 95.0 MCH 32.6 MCHC 34.4 RDW 13.4 Plt Count 155 Neut % (Auto) 82.5 H Lymph % (Auto) 12.4 L [place] % (Auto) 3.5 Eos % (Auto) 1.2 L Baso % (Auto) 0.4 Neut # (Auto) 9300 H Lymph # (Auto) 1400 [place] # (Auto) 400 Eos # (Auto) 100 Baso # (Auto) 0 Sodium 135 L Potassium 3.8 Chloride 99 Carbon Dioxide 28 BUN 15 Creatinine 0.84 Estimated GFR > 60 BUN/Creatinine Ratio 17.9 Glucose 98 Lactate 1.7 Calcium 9.5 Magnesium 2.0 Total Bilirubin 1.0 AST 33 ALT 30 Alkaline Phosphatase 71 Total Protein 7.3 Albumin 4.3 Globulin 3.0 Albumin/Globulin Ratio 1.4 Lipase 150 Procalcitonin 10/04/22 10/04/22 10/04/22 05:48 05:48 05:48 WBC 8.7 RBC 4.35 L Hgb 14.1 Hct 41.0 MCV 94.2 MCH 32.5 MCHC 34.5 RDW 13.2 Plt Count 134 L Neut % (Auto) 90.1 H Lymph % (Auto) 7.6 L [place] % (Auto) 1.9 L Eos % (Auto) 0.1 L Baso % (Auto) 0.3 Neut # (Auto) 7900 H Lymph # (Auto) 700 L [place] # (Auto) 200 Eos # (Auto) 0 Baso # (Auto) 0 Sodium 135 L Potassium 4.5 Chloride 101 Carbon Dioxide 27 BUN 14 Creatinine 0.73 Estimated GFR > 60 BUN/Creatinine Ratio 19.2 Glucose 110 Lactate 0.9 Calcium 8.8 Magnesium Total Bilirubin 1.0 AST 32 ALT 28 Alkaline Phosphatase 57 Total Protein 6.2 L Albumin 3.7 Globulin 2.5 Albumin/Globulin Ratio 1.5 Lipase Procalcitonin 0.04 [facility] Medical History BPH (benign prostatic hyperplasia) Essential tremor History of basal cell carcinoma Hyperlipidemia Medicare annual wellness visit, subsequent Preventative health care Witnessed episode of apnea Social History household members: spouse Smoking Status: Never smoker alcohol intake: current substance use type: does not use Assessment & Plan Assessment & Plan narrative: Margarito Price is a 72-year-old male with a past medical history of BPH with lower tract symptoms, basal cell carcinoma, HLD, essential tremor, tachycardia, anxiety, cholecystectomy, YUDITH with CPAP admitted for acute abdominal pain with intractable pain, nausea, vomiting. Abdominal pain, acute, periumbilical, with intractable nausea vomiting, acute, present on admission Possible gastroenteritis, developing SBO, UTI secondary to BPH obstruction - imaging thus far no SBO, cultures pending. WBC 11.3, neutrophils 9800, remainder of CBC CMP, and liver enzymes are all WNL on admission.? Lactate normal. Labs remain unremarkable with WBC now normal, Procalcitonin normal. Abdominal CT mild fluid distention of the few small bowel loops without a focal transition point-possible gastritis. S/P cholecystectomy- mild biliary duct dilation. Consistent only with ileus development Continue pain medication, antiemetics, add haldol for nausea, since still persistent. Order 3 regular scheduled doses to settle. NPO except for sips, chips, meds- until vomiting resolved BS q.6 while NPO NS at 80 Ordered abdominal ultrasound - remains pending Occult blood PRN BPH with lower urinary tract symptoms, chronic, present on admission Continue Flomax Bladder scans as needed Urine culture -pending Anxiety, chronic, present on admission Continue diazepam Code status:full Surrogate decision maker:? Gilda Price DVT/VTE prophylaxis:? Lovenox and SCDs
[2022-10-04] MEDS: HALOPERIDOL 5 MG/ML VIAL 1 MG IV ×3 (09:46→17:02)
--- NOTE | 2022-10-04 10:45 | CM.DANOTE ---
DCP: Patient is a 72yo M that lives in [place], here for abdominal pain and gastroenteritis. Payer: [facility] and self pay PCP: Papo Collins ENTERTAINMENT MANAGER reviewed EMR. ENTERTAINMENT MANAGER spoke with nurse, reported likely home with family no needs. Nurse reports it could be too early in patient's care to determine at this time if patient will have any needs. CM team will continue to monitor throughout patient's stay. From rounds, provider reported that he will have three doses of IV antibiotics and then they will reassess how patient is doing. ENTERTAINMENT MANAGER entered room and introduced self and role. Patient appeared A/Ox4 and appeared to be in a great deal of pain as evidenced by holding stomach, delayed verbal responses, and grimacing throughout the interaction. Patient was accompanied at bedside by spouse/SOFI Vo ([phone]). Patient reported he drives at baseline, uses no DME, and is independent with all ADLs. Patient reports his can transport him home upon d/c. Plan: d/c home with family when medically stable, no needs from CM team at this time, CM team will continue to follow closely. transport home with spouse in POV. CLAUDIO Suazo Discharge Planning/Care Management Advanced directive, confirm from FAMILY Start: 10/04/22 05:36 Freq: Q24H Status: Active Protocol: Document 10/04/22 05:36 MP (Rec: 10/04/22 06:14 MP [id number]) Advance Directive, confirm on record Time 05:36 Person contacted Spouse Copy received No CM Discharge Assessment Start: 10/04/22 10:43 Freq: Status: Active Protocol: Document 10/04/22 10:44 SL (Rec: 10/04/22 10:45 [id number]) Discharge Planning Assessment Assigned Field Seismologist CLAUDIO Suazo DPLAURO/Assigned Designee Name Gilda Price (spouse) Contact Information [phone] Advance Directives? Yes Advance Directives on File Yes History Provided By Patient,Family Member,Medical Record Prior Living Arrangements House Household Members spouse Type of transporation used prior to Drives own vehicle admit Independent with ADL's Yes Is patient alert and oriented? Yes Discharge Plan Home Transportation Arrangement spouse in POV Whiteboard Updated in Patient Room with Yes name and ext. # of Field Seismologist Review Status In Process Next Review Type Continued Stay Review
[2022-10-04] MEDS: METOCLOPRAMIDE 10 MG/2 ML INJ IV (13:46)
[2022-10-04] MEDS: SCOPOLAMINE 1 PATCH TOP (15:26)
--- NOTE | 2022-10-04 16:10 | PC.NURSE ---
Day shift: Patient continues to have nausea and vomiting. Has received zofran, reglan, haldol, scopalamine patch and ativan. MD Gary aware. Emesis is approximately every hour, brownish-yellow in color. Abdominal ultrasound and xray done at 1800. Pt unable to urinate this AM. Bladder scanned after voiding 30mL. Bladder scanned approximately 500cc. Did I&O cath and emptied 450mL at 1040am. Pt complaining of sharp pain in abdomen. Pt has received 0.5mg IV dilaudid Q2-3hours this shift for pain. MD Gary assessed at bedside. No changes in plan for now. Abdomen is not distended. Active bowel sounds. Will continue to monitor.
[2022-10-04] MEDS: LORazepam 2 MG/ML INJ 1 MG IV (17:55)
--- NOTE | 2022-10-04 18:26 | DI.RAD.S_ITS ---
PROCEDURE: XR ABDOMEN MIN 2V INDICATIONS: assess for ileus TECHNIQUE: 2 views of the abdomen were acquired. COMPARISON: None. FINDINGS: Surgical changes and devices: None. Bowel: No pneumoperitoneum. The bowel gas pattern is normal. Moderate fecal debris in the right colon Soft tissues: No masses; visualized solid organ contours appear normal in size. No suspicious abdominal calcifications. Bones: No suspicious bony abnormalities. IMPRESSION: Moderate fecal debris in the right colon. No evidence of ileus Approved by: Edward Snyder M.D. on 10/04/2022 at 18:20
--- NOTE | 2022-10-04 19:39 | PC.NURSE ---
Pt resting at the moment, at the bedside, will wait for wake up before doing a full assessment, in agreement with plan.
[2022-10-05] VITALS (13 sets, daily range): BP systolic 116–144; BP diastolic 42–66; PULSE 48–69; RESP 17–18; TEMP 36.4–38; O2SAT 91–98
[2022-10-05] MEDS: HYDROMORPHONE 0.5 MG INJ IV ×5 (01:06→15:41)
[2022-10-05] MEDS: METOCLOPRAMIDE 10 MG/2 ML INJ IV ×2 (01:07→09:29)
[2022-10-05 05:53] LABS: Add Manual Diff / Slide Review NO; Basophils Absolute Auto 0 /uL (0-100); Basophils Percent Auto 0.3 % (0-2); Eosinophils Absolute Auto 0 /uL (0-450); Eosinophils Percent Auto 0.1 % (2-4); Hematocrit 42.7 % (41-53); Hemoglobin 14.6 g/dL (13.5-17.5); Lymphocytes Absolute Auto 1100 /uL (1100-4500); Lymphocytes Percent Auto 9.6 % (25-40); Mean Corpuscular HGB Conc 34.3 % (30-36); Mean Corpuscular Hemoglobin 32.5 PG (26-34); Mean Corpuscular Volume 94.9 fL (80-100); Monocytes Absolute Auto 700 /uL (0-900); Monocytes Percent Auto 6.4 % (3-14); Neutrophils Absolute Auto 9400 /uL (1500-7000); Neutrophils Percent Auto 83.6 % (50-75); Platelet Count 142 X10^3/uL (150-400); Red Cell Distribution Width 13.3 % (11.6-14.8); White Blood Cell Count 11.3 X10^3/uL (4.5-11.0)
[2022-10-05] MEDS: ONDANSETRON 4 MG/2 ML INJ IV ×2 (05:56→15:09)
[2022-10-05] MEDS: SODIUM CHLORIDE 0.9% 1,000 ML 80 ML IV ×2 (05:57→18:06)
[2022-10-05 05:59] LABS: Alanine Aminotransferase 23 IU/L (<50); Albumin 3.2 g/dL (3.5-5.0); Albumin Globulin Ratio 1.3 (1.0-2.8); Alkaline Phosphatase 43 U/L (38-126); Aspartate Aminotransferase 24 IU/L (17-59); Blood Urea Nitrogen 18 mg/dL (9-20); Calcium 8.3 mg/dL (8.4-10.2); Carbon Dioxide 29 mmol/L (22-32); Chloride 102 mmol/L (98-107); Estimated Glomerular Filt Rate > 60 mL/min (>60); Globulin 2.4 g/dL (1.7-4.1); Glucose 114 mg/dL (80-110); HEMOLYSIS < 15 (0-50); Potassium 4.7 mmol/L (3.4-5.1); Sodium 133 mmol/L (137-145); Total Protein 5.6 g/dL (6.3-8.2)
[2022-10-05] MEDS: TAMSULOSIN 0.4 MG CAPSULE PO (09:29)
[2022-10-05] MEDS: ENOXAPARIN 40 MG/0.4 ML SYRINGE SUBCUT (09:29)
[2022-10-05] MEDS: polyethylene glycoL 3350 17 GM POWD.PACK PO (09:38)
--- NOTE | 2022-10-05 10:06 | P.PN_ITS ---
Subjective Subjective Interval history: Feel somewhat better today. Less pain and no vomiting at this time. Would like some oral intake. Discussed with the patient that his ultrasound of the abdomen and the plain film of the abdomen suggests that the patient's constipation in his right colon has contributed to the gas collections noted on the ultrasound of the abdomen. We will approach this with clear fluids and sennosides at night as well as MiraLax during the day. Patient is aware of this plan and agreeable. Exam Vital Signs (past 8 hours): - 10/05/22 05:09 10/05/22 08:00 Temperature 98.3 F 99.2 F Pulse Rate 50 L 48 L Respiratory Rate 18 17 Blood Pressure 116/46 L 122/42 L Pulse Oximetry 93 93 Oxygen Flow Rate 0 0 Oxygen Delivery Method Room Air Oxygen Flow Rate 0 Narrative Exam Narrative: General:?? In no acute medical distress at this time.? HEENT:? Normocephalic, atraumatic, extraocular muscles intact. Chest:? Normal AP diameter and contour without kyphoscoliosis. Lungs:? Auscultation of all lung epstein are clear without adventitious sounds, wheezes, rhonchi, or rales. Cardio: regular rate and rhythm without extra sounds or murmurs. Abdomen:? Soft diffuse no tenderness with palpation currently, no distention, negative for organomegaly, or masses.? Bowel sounds present. Musculoskeletal:? Muscle strength and tone are equal Neuro:? Alert and orientated x3, moves all extremities, sensation to touch intact Psych:?Mental status attitude thought context and judgment are appropriate for age. Objective Labs 10/05/22 05:36 10/05/22 05:36 Labs: Laboratory Results - last 24 hr 10/05/22 10/05/22 05:36 05:36 WBC 11.3 H RBC 4.50 Hgb 14.6 Hct 42.7 MCV 94.9 MCH 32.5 MCHC 34.3 RDW 13.3 Plt Count 142 L Neut % (Auto) 83.6 H Lymph % (Auto) 9.6 L [place] % (Auto) 6.4 Eos % (Auto) 0.1 L Baso % (Auto) 0.3 Neut # (Auto) 9400 H Lymph # (Auto) 1100 [place] # (Auto) 700 Eos # (Auto) 0 Baso # (Auto) 0 Sodium 133 L Potassium 4.7 Chloride 102 Carbon Dioxide 29 BUN 18 Creatinine 0.90 Estimated GFR > 60 BUN/Creatinine Ratio 20.0 Glucose 114 H Calcium 8.3 L Total Bilirubin 1.0 AST 24 ALT 23 Alkaline Phosphatase 43 Total Protein 5.6 L Albumin 3.2 L Globulin 2.4 Albumin/Globulin Ratio 1.3 [facility] Medical History BPH (benign prostatic hyperplasia) Essential tremor History of basal cell carcinoma Hyperlipidemia Medicare annual wellness visit, subsequent Preventative health care Witnessed episode of apnea Social History household members: spouse Smoking Status: Never smoker alcohol intake: current substance use type: does not use Assessment & Plan Assessment & Plan narrative: Abdominal pain, acute, periumbilical, with intractable nausea vomiting, acute, present on admission * Possible gastroenteritis, developing SBO, UTI secondary to BPH obstruction - imaging thus far no SBO, cultures pending. * WBC 11.3 yesterday and again today., neutrophils 9800 yesterday and 9400 today. Platelets improving.? * Abdominal CT mild fluid distention of the few small bowel loops without a focal transition point-possible gastritis. S/P cholecystectomy- mild biliary duct dilation. Consistent only with ileus development * Continue pain medication, antiemetics, add haldol for nausea, since still persistent. Order 3 regular scheduled doses to settle. Scopolamine was added yesterday for nausea and vomiting. * NPO except for sips, chips, meds-now can progress to clear fluids today. * BS q.6 while NPO * NS at 80 continue. * Ordered abdominal ultrasound -shows loops of small bowel. * Abdomen x-ray shows stool in the right colon. * Occult blood PRNBPH with lower urinary tract symptoms, chronic, present on admission * Continue Flomax * Bladder scans as needed * Urine culture -negative * Blood culture negative * Anxiety, chronic, present on admission-likely contributing to chronic constipation * Continue diazepam * Constipation. Start MiraLax daily and sennosides 17.5 mg q.h.s. daily Code status:full Surrogate decision maker:? Gilda Price DVT/VTE prophylaxis:? Lovenox and SCDs
--- NOTE | 2022-10-05 10:38 | CM.DPC ---
DCP Cont: Per MD, pt making some progress but still lots of stool in his colon and will begin bowel regimen and started on clears today to see how he tolerates. Supportive spouse has remained bedside. Plan: SW to follow for plan of likely d/c home tomorrow Mon if continues to improve and tolerate advancing diet and has more bms. CLAUDIO Lindo
[2022-10-05] MEDS: LORazepam 2 MG/ML INJ 0.5 MG IV (15:41)
--- NOTE | 2022-10-05 18:34 | PC.NURSE ---
Day shift: Pt experiencing urinary retention. Notified MD Gary since PVR was 350. stated not necessary to place Bird unless bladder scan showed over 500mL. Called MD Gary again at 1600 due to continued urinary retention, inability to void, and having 500+ mL still in bladder. She ok'ed Bird placement. Pt stated less discomfort after Bird placed. Pt continues to have mild nausea - controlled today with zofran and reglan. No emesis today. Started on clear liquid diet which pt tolerated. Pt's spouse remains at bedside. Will continue to monitor.
[2022-10-05] MEDS: SENNOSIDES 8.6 MG TABLET 17.2 MG PO (21:41)
[2022-10-05] MEDS: ACETAMINOPHEN 325 MG TABLET 650 MG PO (21:49)
[2022-10-06] VITALS (13 sets, daily range): BP systolic 114–146; BP diastolic 55–88; PULSE 55–105; RESP 17–24; TEMP 36.3–37.8; O2SAT 85–99
[2022-10-06] MEDS: KETOROLAC 10 MG TABLET PO ×3 (01:32→21:22)
[2022-10-06] MEDS: HYDROMORPHONE 0.5 MG INJ IV ×5 (06:19→21:21)
[2022-10-06] MEDS: SODIUM CHLORIDE 0.9% 1,000 ML 80 ML IV (06:19)
[2022-10-06] MEDS: ONDANSETRON 4 MG/2 ML INJ IV (06:19)
[2022-10-06] MEDS: polyethylene glycoL 3350 17 GM POWD.PACK PO (08:25)
[2022-10-06] MEDS: MAGNESIUM HYDROXIDE 30 ML UDC PO (08:25)
[2022-10-06] MEDS: ENOXAPARIN 40 MG/0.4 ML SYRINGE SUBCUT (08:25)
[2022-10-06] MEDS: TAMSULOSIN 0.4 MG CAPSULE PO (08:25)
[2022-10-06] MEDS: BISACODYL 5 MG TABLET 10 MG PO (10:11)
[2022-10-06] MEDS: METOCLOPRAMIDE 10 MG/2 ML INJ IV ×3 (10:17→23:45)
[2022-10-06] MEDS: LORazepam 2 MG/ML INJ 0.5 MG IV (13:10)
--- NOTE | 2022-10-06 13:14 | PM.PN.1 ---
Subjective Subjective Interval history: 72 M admitted with constipation, no bowel movement today thus far. Increased laxitive therapies today. He is tolerating minimal clears thus far. Symptoms have not improved since yesterday. Exam Vital Signs (past 8 hours): - 10/06/22 09:00 10/06/22 09:00 Temperature 97.3 F L Pulse Rate 67 Respiratory Rate 17 Blood Pressure 114/55 L Pulse Oximetry 96 96 Oxygen Flow Rate 0 Oxygen Delivery Method Room Air Oxygen Flow Rate 0 Narrative Exam Narrative: General:?WDWN,? In no acute distress at this time.? HEENT:? Normocephalic, atraumatic, extraocular muscles intact. Chest:? Normal AP diameter and contour without kyphoscoliosis. Lungs:? Auscultation of all lung epstein are clear without adventitious sounds, wheezes, rhonchi, or rales. Cardio: regular rate and rhythm without extra sounds or murmurs. Abdomen: soft with mild distension, tenderness suprapubic area most prominently. Musculoskeletal:? Muscle strength and tone are equal Neuro:? Alert and orientated x3, moves all extremities, sensation to touch intact Psych:?Mental status attitude thought context and judgment are appropriate for age. Objective Labs 10/05/22 05:36 10/05/22 05:36 [facility] Medical History BPH (benign prostatic hyperplasia) Essential tremor History of basal cell carcinoma Hyperlipidemia Medicare annual wellness visit, subsequent Preventative health care Witnessed episode of apnea Social History household members: spouse Smoking Status: Never smoker alcohol intake: current substance use type: does not use Assessment & Plan Assessment & Plan narrative: Abdominal pain, acute, periumbilical, with intractable nausea vomiting, acute, present on admission - Essentially infectious workup has been unremarkable -continue laxitive therapies for constipation, leading to urinary retention requiring gonzalez placement. - currently on miralax, senna. Will add 10 mg bisacodyl, with 5 mg BID PRN. Then progress to suppository or enema if ineffective. Acute urinary retention in setting of chronic BPH - suspect due to constipation and history of BPH - continue flomax, may attempt gonzalez removal prior to discharge if laxitive therapies are successful. - check UA to rule out infection as etiology of retention, though suspect less likely. Code status:full Surrogate decision maker:? Gilda Price DVT/VTE prophylaxis:? Lovenox and SCDs
[2022-10-06 15:39] LABS: Appearance Urine UA CLEAR; Bilirubin Urine UA 1+ (NEGATIVE); Color Urine UA YELLOW; Glucose Urine UA NEGATIVE (Negative); Ketones Urine UA 3+ (NEGATIVE); Leukocyte Esterase Urine UA TRACE (NEGATIVE); Nitrite Urine UA NEGATIVE (Negative); Occult Blood Urine UA 3+ (Negative); Protein Urine UA 1+ (Negative)
[2022-10-06 15:49] LABS: Ictotest Urine Negative (Negative); RBC Urine 10-30/HPF (0-5/HPF); WBC Urine 5-10/HPF (0-5/HPF)
[2022-10-06 15:50] LABS: Bacteria Urine Few (2-10); Culture Indicated Urine Specimen Cultured; Mucus Urine 3+ (Negative); Squamous Epithelial Cell Urine 1-5 /HPF (0-5/HPF)
[2022-10-06] MEDS: BISACODYL 10 MG SUPP PR (16:55)
[2022-10-06] MEDS: cefTRIAXone 1,000 MG in SODIUM CHLORIDE 0.9% 100 ML 200 MG IV (16:55)
--- NOTE | 2022-10-06 18:27 | PC.NURSE ---
Day shift: Pt continues to have nausea and abdominal pain. IV 0.5mg dilaudid, IV reglan, IV zofran, IV ativan given this shift + PO toradol. Pt drank and ate very little. PIV increased to 125ml/hr of NS. Bird has dark yellow/eron output. UA cultured today - bacteria found. Now on IV antibx. Abdomen has hypoactive bowel sounds. Distended across umbilicus area, more on the right than the left. Pt states he hasn't passed any gas. Given PO and FL ducolax today, no BM or flatus yet. OOB with SBA, pt denies dizziness, though he states he feels weak. Will continue to monitor.
[2022-10-06] MEDS: SODIUM CHLORIDE 0.9% 1,000 ML 125 ML IV (18:47)
[2022-10-06] MEDS: ACETAMINOPHEN 325 MG TABLET 650 MG PO (21:22)
[2022-10-06] MEDS: SENNOSIDES 8.6 MG TABLET 17.2 MG PO (21:23)
[2022-10-06] MEDS: BISACODYL 5 MG TABLET PO (23:45)
[2022-10-07] VITALS (70 sets, daily range): BP systolic 92–147; BP diastolic 48–92; PULSE 69–168; RESP 15–31; TEMP 36.6–37.7; O2SAT 87–95
--- NOTE | 2022-10-07 00:16 | PC.NURSE ---
2000: O2 reading 85%, 4L NC placed sating 95%, continuous pulse ox. T: 100.1, tylenol given. RT and hospitalist WAYNE Ba made aware. 2199: HR between 100-110. WAYNE Ba made aware, verbal order parameter for HR < 110.
[2022-10-07] MEDS: dilTIAZem 5 MG/ML SDV 10 MG IV (03:18)
--- NOTE | 2022-10-07 03:20 | DI.ECHO.S_ITS ---
[facility]---------+ [facility] +---------+ : : [address] [place] : : : : [id number] : : : : Phone: [phone]+ Echocardiogram Report + + :Name: CYNTHIA MUHAMMAD Study Date: 10/08/2022 Height: 69 in : :[facility] ReadingLocation: Weight: 173 lb : : Gender: Male BSA: 1.9 m2 : :: 1950 Age: 72 yrs BP: 140/64 mmHg: :Reason For Study: Atrial fibrillation : :Ordering Physician: CAYLA, : :MICHELLE Performed By: Frances Hu : :Referring: MICHELLE KULKARNI : + + Interpretation Summary The left ventricle is normal in size and wall thickness. The ejection fraction is estimated to be 55-60%. LVEF has not changed. There are no focal wall motion abnormalities. Diastolic parameters suggest probable normal left ventricular diastolic function and normal filling pressures. The right ventricle is normal in size and function. The right ventricular systolic pressure is estimated to be at least 31 mmHg based on an estimated right atrial pressure of 3 mm Hg. The left atrium is borderline dilated. Right atrial size is normal. There is mild mitral regurgitation. MR has decreased since prior study. There is no other significant valvular heart disease. The aortic root is normal size. Procedure: A two-dimensional transthoracic echocardiogram with color flow and Doppler was performed. The study quality was technically adequate. Comparison is made with the echocardiogram of 12/26/2021. The patient was in sinus rhythm with heart rates between 70-87 bpm during the exam. Left Ventricle: The left ventricle is normal in size and wall thickness. The ejection fraction is estimated to be 55-60%. There are no focal wall motion abnormalities. Diastolic parameters suggest probable normal left ventricular diastolic function and normal filling pressures. Right Ventricle: The right ventricle is normal in size and function. Atria: The left atrium is borderline dilated. Right atrial size is normal. There is no Doppler evidence for an interatrial shunt. Mitral Valve: There is mild mitral annular calcification. The mitral valve leaflets appear borderline thickened, but open well. There is mild mitral regurgitation. Aortic Valve: The aortic valve is trileaflet. The aortic valve opens well. There is no aortic valve stenosis. No aortic regurgitation is present. Tricuspid Valve: The tricuspid valve leaflets are thin and pliable. There is mild tricuspid regurgitation. The right ventricular systolic pressure is estimated to be at least 31 mmHg based on an estimated right atrial pressure of 3 mm Hg. Pulmonic Valve: The pulmonic valve leaflets are thin and pliable; valve motion is normal. There is a trace or physiologic amount of pulmonic regurgitation. There is no other significant valvular heart disease. Great Vessels: The aortic root is normal size. The dimensions of the ascending aorta are normal. The IVC is of normal diameter and collapses greater than 50% with a sniff. This suggests a low right atrial pressure of 3 mm Hg. Pericardium/ Pleura There is no pericardial effusion. There is no pleural effusion. MMode/2D Measurements & Calculations LVIDd: 5.2 cm LVOT diam: 2.4 cm LVIDs: 3.4 cm Ao root diam: 3.6 cm FS: 33.7 % asc Aorta Diam: 3.4 cm EPSS: 0.63 cm IVSd: 1.1 cm LVPWd: 0.88 cm LV hill. diameter/BSA (cm/m^2): 2.7 LV sys. diameter/BSA (cm/m^2): 1.8 LA A2 area: 21.8 cm2 RA long axis: 4.6 cm LA A4 area: 17.9 cm2 RA area: 16.3 cm2 LA length (vol): 5.3 cm RA vol: 48.6 ml LA vol: 62.4 ml RA : 25.0 ml/m2 LA vol index: 32.1 ml/m2 IVC diam: 1.4 cm RVD1 (basal): 3.6 cm RVD2 (mid): 2.8 cm TAPSE: 2.0 cm Doppler Measurements & Calculations Ao V2 max: 147.1 cm/sec LVOT Max Reagan: 119.9 cm/sec Ao V2 mean: 102.2 cm/sec LV V1 max P.8 mmHg Ao max P.7 mmHg LV V1 VTI: 22.4 cm Ao mean P.7 mmHg GOLDY(I,D): 3.4 cm2 Ao V2 VTI: 29.2 cm GOLDY(V,D): 3.6 cm2 sev ratio: 0.77 GOLDY indexed to BSA (cm^2/m^2): 1.7 MV E max reagan: 70.2 cm/sec TR max reagan: 263.6 cm/sec MV A max reagan: 59.0 cm/sec TR max P.8 mmHg MV E/A: 1.2 PA V2 max: 103.0 cm/sec Med Peak E' Reagan: 10.3 cm/sec PA V2 mean: 75.2 cm/sec E/E' med: 6.8 PA mean P.4 mmHg Lat Peak E' Reagan: 13.0 cm/sec PA pr(Accel): 36.2 mmHg E/E' lat: 5.4 E/e' average: 6.1 MV dec time: 0.16 sec SV(LVOT): 98.2 ml Reading Physician:08:15 AM
--- NOTE | 2022-10-07 03:31 | PC.NURSE ---
Addendum entered by Michael Pearson R.N. 10/07/22 05:21: 0400: Gave report to Ankit SENIOR PRODUCT DESIGNER. Transferred pt to ICU w/ nurse coordinator. Original Note: 0250: This RN noticed pulse ox was off, placed back on finger, HR 150s. Pulse check was irregular and rapid. Nurse Coordinator, RT, SENIOR PRODUCT DESIGNER and Hospitalist WAYNE Ba called. 113/48(70) RR 16 93% 4LNC. EKG completed, brought to hospitalist. Tele placed. SENIOR PRODUCT DESIGNER states A fib RVR, heart rate up to 180s. 0310: 103/57 (64) 92% 4LNC T: 98.5. States 'chest pressure' 3/10, dizzyness, headache 5/10, slight SOB. 0318: 10mg IV Diltiazem given
[2022-10-07 03:33] LABS: Add Manual Diff / Slide Review NO; Basophils Absolute Auto 0 /uL (0-100); Basophils Percent Auto 0.4 % (0-2); Eosinophils Absolute Auto 0 /uL (0-450); Eosinophils Percent Auto 0.7 % (2-4); Hematocrit 43.4 % (41-53); Hemoglobin 14.9 g/dL (13.5-17.5); Lymphocytes Absolute Auto 500 /uL (1100-4500); Lymphocytes Percent Auto 17.3 % (25-40); Mean Corpuscular HGB Conc 34.3 % (30-36); Mean Corpuscular Hemoglobin 32.9 PG (26-34); Mean Corpuscular Volume 95.9 fL (80-100); Monocytes Absolute Auto 300 /uL (0-900); Monocytes Percent Auto 9.2 % (3-14); Neutrophils Absolute Auto 2200 /uL (1500-7000); Neutrophils Percent Auto 72.4 % (50-75); Platelet Count 121 X10^3/uL (150-400); Red Blood Cell Count 4.53 X10^6/uL (4.5-5.9); Red Cell Distribution Width 13.2 % (11.6-14.8); White Blood Cell Count 3.1 X10^3/uL (4.5-11.0)
[2022-10-07 03:41] LABS: Alanine Aminotransferase 20 IU/L (<50); Albumin Globulin Ratio 1.2 (1.0-2.8); Alkaline Phosphatase 38 U/L (38-126); Aspartate Aminotransferase 25 IU/L (17-59); BUN Creatinine Ratio 23.5 (6-22); Bilirubin Total 1.1 mg/dL (0.2-1.3); Blood Urea Nitrogen 19 mg/dL (9-20); Calcium 7.8 mg/dL (8.4-10.2); Carbon Dioxide 26 mmol/L (22-32); Chloride 98 mmol/L (98-107); Estimated Glomerular Filt Rate > 60 mL/min (>60); Globulin 2.6 g/dL (1.7-4.1); Glucose 112 mg/dL (80-110); HEMOLYSIS 17 (0-50); Magnesium 2.3 mg/dL (1.6-2.3); Potassium 4.1 mmol/L (3.4-5.1); Sodium 131 mmol/L (137-145); Total Protein 5.6 g/dL (6.3-8.2)
[2022-10-07 03:52] LABS: Troponin I 0.012 ng/mL (0.01-0.034)
[2022-10-07 04:13] LABS: Free T4, Direct Thyroxine 1.53 ng/dL (0.78-2.19)
[2022-10-07] MEDS: AMIODARONE 150 MG/100 ML PIGGYBACK 600 MG IV (04:15)
[2022-10-07 04:27] LABS: Thyroid Stimulating Hormone 1.39 uIU/mL (0.47-4.68)
--- NOTE | 2022-10-07 04:29 | P.TELICUCN_ITS ---
History of Present Illness Consult details IF CAMERA ACTIVATED, patient seen via real-time interactive audiovisual communication: Camera activated Date Patient Seen: 10/07/22 Chief complaint: abd pain, vomiting Requesting provider: Mary Ba Consent obtained for tele-forex trader care: Yes Patient Location: ICU Provider location (State): [place] Other participants/roles: Bedside RN Narrative: Patient is a 72 year old male with history of YUDITH on CPAP and atrial tachycardia who presents with N/V and abdominal pain. CT abdomen/pelvis showed mild fluid distention in small bowel. UA suggestive of UTI which patient was started on ceftriaone. Early this morning patient went into narrow complex tachycardai with HR 170s. Received diltiazem 10 mg IV and developed hypotension. Transferred to ICU for further management. [facility] Medical History BPH (benign prostatic hyperplasia) Essential tremor History of basal cell carcinoma Hyperlipidemia Medicare annual wellness visit, subsequent Preventative health care Witnessed episode of apnea Social History household members: spouse Smoking Status: Never smoker alcohol intake: current substance use type: does not use Current Medications Current Medications Medications: Home Medications tamsulosin 0.4 mg capsule 0.4 mg PO DAILY #90 caps 07/25/22 [Rx Confirmed 10/04/22] diazepam 5 mg tablet 5 mg PO DAILY PRN anxiety #30 tabs 08/05/22 [Rx Confirmed 10/04/22] Visit Medications (administered) Generic Name Dose Route Start Last Admin Trade Name Freq PRN Reason Stop Dose Admin Acetaminophen 650 mg 10/04/22 05:05 10/06/22 21:22 Acetaminophen 325 Mg Tablet PO 650 mg Q6H PRN Administration Fever/Mild Pain (1-3) Bisacodyl 5 mg 10/06/22 09:15 10/06/22 23:45 Bisacodyl 5 Mg Tablet PO 5 mg BID PRN Administration Constipation Bisacodyl 10 mg 10/06/22 15:52 10/06/22 16:55 Bisacodyl 10 Mg Supp CO 10 mg DAILY PRN Administration Constipation Enoxaparin Sodium 40 mg 10/04/22 09:00 10/06/22 08:25 Enoxaparin 40 Mg/0.4 Ml Syringe SUBCUT 40 mg DAILY REY Administration Hydromorphone HCl 0.5 mg 10/04/22 05:05 10/06/22 21:21 Hydromorphone 0.5 Mg Inj IV 0.5 mg Q2H PRN Administration Pain, Severe (7-10) Sodium Chloride 1,000 mls @ 125 mls/hr 10/04/22 05:15 10/06/22 18:47 Normal Saline 0.9% IV 125 mls/hr CONT REY Administration Ceftriaxone Sodium 1,000 mg/ 100 mls @ 200 mls/hr 10/06/22 16:00 10/06/22 17:25 Sodium Chloride IV 10/13/22 15:59 Infused Q24H REY Infusion Ketorolac Tromethamine 10 mg 10/06/22 09:16 10/06/22 21:22 Ketorolac 10 Mg Tablet PO 10/11/22 09:16 10 mg Q6HR PRN Administration Pain, Mild (1-3) Lorazepam 0.5 mg 10/04/22 18:23 10/06/22 13:10 Lorazepam 2 Mg/Ml Inj IV 0.5 mg Q4HR PRN Administration Anxiety Magnesium Hydroxide 30 ml 10/05/22 21:55 10/06/22 08:25 Magnesium Hydroxide 30 Ml Udc PO 30 ml DAILY PRN Administration Constipation Metoclopramide HCl 10 mg 10/04/22 06:45 10/06/22 23:45 Metoclopramide 10 Mg/2 Ml Inj IV 10 mg Q6HR PRN Administration Nausea And Vomiting Polyethylene Glycol 17 gm 10/06/22 09:00 10/06/22 08:25 Polyethylene Glycol 3350 17 Gm Powd.Pack PO 17 gm DAILY REY Administration Scopolamine 1 patch 10/04/22 15:15 10/04/22 15:26 Scopolamine 1 Patch TOP 1 patch Q72H REY Administration Sennosides 17.2 mg 10/05/22 21:00 10/06/22 21:23 Sennosides 8.6 Mg Tablet PO 17.2 mg BEDTIME REY Administration Tamsulosin HCl 0.4 mg 10/04/22 09:00 10/06/22 08:25 Tamsulosin 0.4 Mg Capsule PO 0.4 mg DAILY REY Administration Exam Vital Signs (past 8 hours): - 10/06/22 21:22 10/06/22 21:22 10/06/22 20:37 Temperature 100.1 F H 100.1 F H Pulse Rate 99 H Respiratory Rate 24 Blood Pressure Pulse Oximetry 93 Oxygen Delivery Method Nasal Cannula Oxygen Flow Rate 4 Fraction of Inspired Oxygen 36 10/06/22 22:38 10/06/22 21:00 10/07/22 00:10 Temperature 99.9 F H 99.1 F Pulse Rate 105 H 88 Respiratory Rate 18 Blood Pressure 129/60 Pulse Oximetry 93 93 Oxygen Delivery Method Nasal Cannula Oxygen Flow Rate 4 4 Fraction of Inspired Oxygen 10/07/22 03:13 10/07/22 03:18 10/07/22 03:36 Temperature Pulse Rate 133 H 154 H 162 H Respiratory Rate 20 Blood Pressure 103/57 L Pulse Oximetry 93 94 Oxygen Delivery Method Nasal Cannula Oximask Oxygen Flow Rate 6 10 Fraction of Inspired Oxygen 44 10/07/22 00:10 10/06/22 22:38 10/07/22 02:50 Temperature 99.9 F H 98.5 F Pulse Rate 160 H Respiratory Rate 18 Blood Pressure 113/48 L Pulse Oximetry 93 93 Oxygen Delivery Method Nasal Cannula Humidification Oxygen Flow Rate 4 4 Fraction of Inspired Oxygen 10/07/22 03:10 10/07/22 03:30 Temperature 98.5 F 98.5 F Pulse Rate 160 H 160 H Respiratory Rate 18 18 Blood Pressure 103/57 L 92/60 Pulse Oximetry 92 93 Oxygen Delivery Method Oxygen Flow Rate 4 4 Fraction of Inspired Oxygen Fraction of Inspired Oxygen 44 SaO2/FiO2 Ratio 211 Oxygen Delivery Method Oximask Oxygen Flow Rate 10 Narrative Exam Narrative: NAD. Sitting up on 10 liters NC. Objective Labs 10/07/22 03:27 10/07/22 03:27 Labs: Laboratory Results - last 24 hr 10/06/22 10/07/22 10/07/22 14:00 03:27 03:27 WBC 3.1 L D RBC 4.53 Hgb 14.9 Hct 43.4 MCV 95.9 MCH 32.9 MCHC 34.3 RDW 13.2 Plt Count 121 L Neut % (Auto) 72.4 Lymph % (Auto) 17.3 L Daniels % (Auto) 9.2 Eos % (Auto) 0.7 L Baso % (Auto) 0.4 Neut # (Auto) 2200 Lymph # (Auto) 500 L Daniels # (Auto) 300 Eos # (Auto) 0 Baso # (Auto) 0 Sodium 131 L Potassium 4.1 Chloride 98 Carbon Dioxide 26 BUN 19 Creatinine 0.81 Estimated GFR > 60 BUN/Creatinine Ratio 23.5 H Glucose 112 H Calcium 7.8 L Magnesium 2.3 Total Bilirubin 1.1 AST 25 ALT 20 Alkaline Phosphatase 38 Troponin I Total Protein 5.6 L Albumin 3.0 L Globulin 2.6 Albumin/Globulin Ratio 1.2 TSH Free T4 Urine Color Yellow Urine Appearance Clear Urine pH 6.0 Ur Specific [place] 1.020 Urine Protein 1+ H Urine Glucose (UA) Negative Urine Ketones 3+ H Urine Occult Blood 3+ H Urine Nitrate Negative Urine Bilirubin 1+ H Ur Bilirubin Confirm Negative Urine Urobilinogen 1.0 Ur Leukocyte Esterase Trace H Urine RBC 10-30/hpf H Urine WBC 5-10/hpf H Ur Squamous Epith Cells 1-5 /hpf Urine Bacteria Few (2-10) H Urine Mucus 3+ H Ur Culture Indicated? Specimen cultured 10/07/22 10/07/22 03:27 03:27 WBC RBC Hgb Hct MCV MCH MCHC RDW Plt Count Neut % (Auto) Lymph % (Auto) Daniels % (Auto) Eos % (Auto) Baso % (Auto) Neut # (Auto) Lymph # (Auto) Daniels # (Auto) Eos # (Auto) Baso # (Auto) Sodium Potassium Chloride Carbon Dioxide BUN Creatinine Estimated GFR BUN/Creatinine Ratio Glucose Calcium Magnesium Total Bilirubin AST ALT Alkaline Phosphatase Troponin I 0.012 Total Protein Albumin Globulin Albumin/Globulin Ratio TSH 1.39 Free T4 1.53 Urine Color Urine Appearance Urine pH Ur Specific [place] Urine Protein Urine Glucose (UA) Urine Ketones Urine Occult Blood Urine Nitrate Urine Bilirubin Ur Bilirubin Confirm Urine Urobilinogen Ur Leukocyte Esterase Urine RBC Urine WBC Ur Squamous Epith Cells Urine Bacteria Urine Mucus Ur Culture Indicated? Assessment & Plan Assessment & Plan narrative: NEURO: -- PT/OT consultation RESP: # Acute hypoxemia respiratory failure -- Secondary to PNA vs volume overload vs PE -- Check CXR -- If CXR remains clear then recommend checking CTA PE study -- HOB elevation -- Aspiration precaution -- Goal SpO2 > 88% CVS: # A fib w/ RVR -- Started on amiodarone gtt -- CHADVASC score 1 -- Check TTE -- High lytes goal -- Goal HR < 110 ID: # UTI -- On ceftriaxone -- Follow up urine cx ENDO: -- Goal BS < 180
[2022-10-07 04:32] LABS: INR 1.2 (0.9-1.3)
[2022-10-07] MEDS: AMIODARONE 360 MG/200 ML PIGGYBACK 33.3 MG IV (04:36)
--- NOTE | 2022-10-07 04:37 | DI.RAD.S_ITS ---
PROCEDURE: XR CHEST 1V INDICATIONS: respiratoru failure TECHNIQUE: One view of the chest was acquired. COMPARISON: Located Within [facility], , XR CHEST 1V, 10/04/2022, 8:35. FINDINGS: Surgical changes and devices: None. Lungs and pleura: Bilateral pulmonary opacities are new when compared to the radiographs from 10/04/2022. No pneumothorax. Questionable small left pleural effusion. No right-sided pleural effusion. Mediastinum: Mediastinal contours appear normal. Heart size is normal. Bones and chest wall: No suspicious bony lesions. Overlying soft tissues appear unremarkable. IMPRESSION: New bilateral pulmonary opacities are suspicious for pneumonia. Questionable small left pleural effusion. There is no significant discrepancy when compared to the overnight preliminary report. Approved by: Jaciel Samuels M.D. on 10/07/2022 at 7:49
[2022-10-07 06:04] LABS: MRSA (Nasal) PCR Not Detected (Not Detect)
[2022-10-07] MEDS: METOCLOPRAMIDE 10 MG/2 ML INJ IV ×2 (06:35→14:30)
[2022-10-07] MEDS: HYDROMORPHONE 0.5 MG INJ IV ×4 (06:35→20:14)
[2022-10-07] MEDS: ENOXAPARIN 40 MG/0.4 ML SYRINGE SUBCUT (08:12)
[2022-10-07] MEDS: TAMSULOSIN 0.4 MG CAPSULE PO (08:13)
[2022-10-07] MEDS: polyethylene glycoL 3350 17 GM POWD.PACK PO (08:13)
[2022-10-07] MEDS: METOPROLOL ER 25 MG TABLET PO (09:29)
[2022-10-07 09:33] LABS: NT-proBNP (BNP-Adult 18+) 1310 pg/mL (<125); Troponin I 0.027 ng/mL (0.01-0.034)
--- NOTE | 2022-10-07 09:55 | PM.PN.EICU ---
Subjective Subjective IF CAMERA ACTIVATED, patient seen via real-time interactive audiovisual communication: Camera activated Consent obtained for tele-segmental paver installer care: Yes Patient Location: ICU Provider location (State): [place] Other participants/roles: bedside nurse, bedside provider Dr. Hanson Interval history: no acute events since admit to ICU Current Medications Current Medications Medications: Home Medications tamsulosin 0.4 mg capsule 0.4 mg PO DAILY #90 caps 07/25/22 [Rx Confirmed 10/04/22] diazepam 5 mg tablet 5 mg PO DAILY PRN anxiety #30 tabs 08/05/22 [Rx Confirmed 10/04/22] Visit Medications (administered) Generic Name Dose Route Start Last Admin Trade Name Freq PRN Reason Stop Dose Admin Acetaminophen 650 mg 10/04/22 05:05 10/06/22 21:22 Acetaminophen 325 Mg Tablet PO 650 mg Q6H PRN Administration Fever/Mild Pain (1-3) Bisacodyl 5 mg 10/06/22 09:15 10/06/22 23:45 Bisacodyl 5 Mg Tablet PO 5 mg BID PRN Administration Constipation Bisacodyl 10 mg 10/06/22 15:52 10/06/22 16:55 Bisacodyl 10 Mg Supp [place] 10 mg DAILY PRN Administration Constipation Hydromorphone HCl 0.5 mg 10/04/22 05:05 10/07/22 06:35 Hydromorphone 0.5 Mg Inj IV 0.5 mg Q2H PRN Administration Pain, Severe (7-10) Ceftriaxone Sodium 1,000 mg/ 100 mls @ 200 mls/hr 10/06/22 16:00 10/06/22 17:25 Sodium Chloride IV 10/13/22 15:59 Infused Q24H REY Infusion Amiodarone HCl/Dextrose 360 mg in 200 mls @ 33.333 mls/hr 10/07/22 03:58 10/07/22 04:36 Nexterone IV 10/07/22 09:57 33.3 mls/hr NOW ONE 33.3 mls/hr Administration Protocol Lorazepam 0.5 mg 10/04/22 18:23 10/06/22 13:10 Lorazepam 2 Mg/Ml Inj IV 0.5 mg Q4HR PRN Administration Anxiety Magnesium Hydroxide 30 ml 10/05/22 21:55 10/06/22 08:25 Magnesium Hydroxide 30 Ml Udc PO 30 ml DAILY PRN Administration Constipation Metoclopramide HCl 10 mg 10/04/22 06:45 10/07/22 06:35 Metoclopramide 10 Mg/2 Ml Inj IV 10 mg Q6HR PRN Administration Nausea And Vomiting Polyethylene Glycol 17 gm 10/06/22 09:00 10/07/22 08:13 Polyethylene Glycol 3350 17 Gm Powd.Pack PO 17 gm DAILY REY Administration Sennosides 17.2 mg 10/05/22 21:00 10/06/22 21:23 Sennosides 8.6 Mg Tablet PO 17.2 mg BEDTIME REY Administration Tamsulosin HCl 0.4 mg 10/04/22 09:00 10/07/22 08:13 Tamsulosin 0.4 Mg Capsule PO 0.4 mg DAILY REY Administration Objective Labs 10/07/22 03:27 10/07/22 03:27 Labs: Laboratory Results - last 24 hr 10/06/22 10/07/22 10/07/22 14:00 03:27 03:27 WBC 3.1 L D RBC 4.53 Hgb 14.9 Hct 43.4 MCV 95.9 MCH 32.9 MCHC 34.3 RDW 13.2 Plt Count 121 L Neut % (Auto) 72.4 Lymph % (Auto) 17.3 L [place] % (Auto) 9.2 Eos % (Auto) 0.7 L Baso % (Auto) 0.4 Neut # (Auto) 2200 Lymph # (Auto) 500 L [place] # (Auto) 300 Eos # (Auto) 0 Baso # (Auto) 0 PT INR Sodium 131 L Potassium 4.1 Chloride 98 Carbon Dioxide 26 BUN 19 Creatinine 0.81 Estimated GFR > 60 BUN/Creatinine Ratio 23.5 H Glucose 112 H Calcium 7.8 L Magnesium 2.3 Total Bilirubin 1.1 AST 25 ALT 20 Alkaline Phosphatase 38 Troponin I NT-Pro-B Natriuret Pep Total Protein 5.6 L Albumin 3.0 L Globulin 2.6 Albumin/Globulin Ratio 1.2 TSH Free T4 Urine Color Yellow Urine Appearance Clear Urine pH 6.0 Ur Specific [place] 1.020 Urine Protein 1+ H Urine Glucose (UA) Negative Urine Ketones 3+ H Urine Occult Blood 3+ H Urine Nitrate Negative Urine Bilirubin 1+ H Ur Bilirubin Confirm Negative Urine Urobilinogen 1.0 Ur Leukocyte Esterase Trace H Urine RBC 10-30/hpf H Urine WBC 5-10/hpf H Ur Squamous Epith Cells 1-5 /hpf Urine Bacteria Few (2-10) H Urine Mucus 3+ H Ur Culture Indicated? Specimen cultured Nasal Screen MRSA (PCR) 10/07/22 10/07/22 10/07/22 03:27 03:27 03:27 WBC RBC Hgb Hct MCV MCH MCHC RDW Plt Count Neut % (Auto) Lymph % (Auto) [place] % (Auto) Eos % (Auto) Baso % (Auto) Neut # (Auto) Lymph # (Auto) [place] # (Auto) Eos # (Auto) Baso # (Auto) PT 14.0 H INR 1.2 Sodium Potassium Chloride Carbon Dioxide BUN Creatinine Estimated GFR BUN/Creatinine Ratio Glucose Calcium Magnesium Total Bilirubin AST ALT Alkaline Phosphatase Troponin I 0.012 NT-Pro-B Natriuret Pep Total Protein Albumin Globulin Albumin/Globulin Ratio TSH 1.39 Free T4 1.53 Urine Color Urine Appearance Urine pH Ur Specific [place] Urine Protein Urine Glucose (UA) Urine Ketones Urine Occult Blood Urine Nitrate Urine Bilirubin Ur Bilirubin Confirm Urine Urobilinogen Ur Leukocyte Esterase Urine RBC Urine WBC Ur Squamous Epith Cells Urine Bacteria Urine Mucus Ur Culture Indicated? Nasal Screen MRSA (PCR) 10/07/22 10/07/22 04:15 08:55 WBC RBC Hgb Hct MCV MCH MCHC RDW Plt Count Neut % (Auto) Lymph % (Auto) [place] % (Auto) Eos % (Auto) Baso % (Auto) Neut # (Auto) Lymph # (Auto) [place] # (Auto) Eos # (Auto) Baso # (Auto) PT INR Sodium Potassium Chloride Carbon Dioxide BUN Creatinine Estimated GFR BUN/Creatinine Ratio Glucose Calcium Magnesium Total Bilirubin AST ALT Alkaline Phosphatase Troponin I 0.027 NT-Pro-B Natriuret Pep 1310 H Total Protein Albumin Globulin Albumin/Globulin Ratio TSH Free T4 Urine Color Urine Appearance Urine pH Ur Specific [place] Urine Protein Urine Glucose (UA) Urine Ketones Urine Occult Blood Urine Nitrate Urine Bilirubin Ur Bilirubin Confirm Urine Urobilinogen Ur Leukocyte Esterase Urine RBC Urine WBC Ur Squamous Epith Cells Urine Bacteria Urine Mucus Ur Culture Indicated? Nasal Screen MRSA (PCR) Not detected Exam Vital Signs (past 8 hours): - 10/07/22 03:13 10/07/22 03:18 10/07/22 03:36 Temperature Pulse Rate 133 H 154 H 162 H Respiratory Rate 20 Blood Pressure 103/57 L Pulse Oximetry 93 94 Oxygen Delivery Method Nasal Cannula Oximask Oxygen Flow Rate 6 10 Fraction of Inspired Oxygen 44 10/07/22 02:50 10/07/22 03:10 10/07/22 03:30 Temperature 98.5 F 98.5 F 98.5 F Pulse Rate 160 H 160 H 160 H Respiratory Rate 18 18 18 Blood Pressure 113/48 L 103/57 L 92/60 Pulse Oximetry 93 92 93 Oxygen Delivery Method Oxygen Flow Rate 4 4 4 Fraction of Inspired Oxygen 10/07/22 04:09 10/07/22 04:09 10/07/22 04:19 Temperature Pulse Rate 145 H Respiratory Rate 28 H Blood Pressure 138/78 100/58 L Pulse Oximetry 91 Oxygen Delivery Method Oxygen Flow Rate Fraction of Inspired Oxygen 10/07/22 04:19 10/07/22 04:24 10/07/22 04:24 Temperature Pulse Rate 158 H 165 H Respiratory Rate 23 22 Blood Pressure 93/54 L Pulse Oximetry 94 94 Oxygen Delivery Method Oxygen Flow Rate Fraction of Inspired Oxygen 10/07/22 04:29 10/07/22 05:00 10/07/22 04:30 Temperature Pulse Rate 156 H Respiratory Rate 22 Blood Pressure 110/51 L Pulse Oximetry 94 93 Oxygen Delivery Method Oximask Oxygen Flow Rate 10 10 Fraction of Inspired Oxygen 10/07/22 04:30 10/07/22 04:39 10/07/22 04:39 Temperature Pulse Rate 156 H 150 H Respiratory Rate 20 24 Blood Pressure 115/58 L Pulse Oximetry 94 94 Oxygen Delivery Method Oxygen Flow Rate 10 10 10 Fraction of Inspired Oxygen 10/07/22 04:56 10/07/22 04:56 10/07/22 05:00 Temperature Pulse Rate 152 H Respiratory Rate 24 Blood Pressure 105/77 99/61 Pulse Oximetry 92 Oxygen Delivery Method Oxygen Flow Rate 10 10 10 Fraction of Inspired Oxygen 10/07/22 05:00 10/07/22 05:17 10/07/22 05:17 Temperature Pulse Rate 160 H 161 H Respiratory Rate 26 H 23 Blood Pressure 108/57 L Pulse Oximetry 93 93 Oxygen Delivery Method Oxygen Flow Rate 10 10 10 Fraction of Inspired Oxygen 10/07/22 05:30 10/07/22 05:30 10/07/22 06:00 Temperature Pulse Rate 148 H 168 H Respiratory Rate 25 H 31 H Blood Pressure 126/56 L Pulse Oximetry 92 91 Oxygen Delivery Method Oxygen Flow Rate 10 10 10 Fraction of Inspired Oxygen 10/07/22 06:00 10/07/22 06:13 10/07/22 06:18 Temperature Pulse Rate 143 H Respiratory Rate 30 H Blood Pressure 139/68 114/59 L Pulse Oximetry 87 L Oxygen Delivery Method Oxygen Flow Rate 10 10 Fraction of Inspired Oxygen 10/07/22 06:18 10/07/22 06:30 10/07/22 06:30 Temperature Pulse Rate 140 H 147 H Respiratory Rate 23 25 H Blood Pressure 100/58 L Pulse Oximetry 94 93 Oxygen Delivery Method Oxygen Flow Rate Fraction of Inspired Oxygen 10/07/22 06:51 10/07/22 06:51 10/07/22 07:00 Temperature Pulse Rate 138 H Respiratory Rate 19 Blood Pressure 109/64 118/60 Pulse Oximetry 92 Oxygen Delivery Method Oxygen Flow Rate Fraction of Inspired Oxygen 10/07/22 07:00 10/07/22 07:52 10/07/22 09:29 Temperature 97.9 F Pulse Rate 143 H 145 H Respiratory Rate 18 Blood Pressure 109/74 Pulse Oximetry 91 Oxygen Delivery Method Oximask Oxygen Flow Rate Fraction of Inspired Oxygen Fraction of Inspired Oxygen 44 SaO2/FiO2 Ratio 211 Oxygen Delivery Method Oximask Oxygen Flow Rate 10 Assessment & Plan Assessment & Plan narrative: patient seen chart/labs/imaging reviewed case discussed on MTD rounds with Dr. Hanson 72 year old male with PMHx of admitted to ICU for acute resp failure afib rvr sepsis 2/2 to UTI currently afebrile, HD stable HR 130s afib on amio drip mental status intact on sat 90s on venturi mask wbc 3.4 cxs -ve to date bnp 1300 trops -veX2 cxr pulm edema suggest -check abg -keep sat above 88% -can use bipap/high flow -check echo -check venous duplex -continue amio -can use esmolol/cardizem drip if bp can tolerate -can do digoxin -lasix 40mg ivp -abx -check final cxs -monitor ins/outs -replace lytes prn -keep glucose 140-180s -gi/dvt ppx -please call eICU if condition changes total ccm time 45 mins
[2022-10-07] MEDS: FUROSEMIDE 20 MG/2 ML VIAL IV (10:00)
[2022-10-07] MEDS: APIXABAN 5 MG TABLET PO (10:21)
[2022-10-07 11:06] LABS: PCO2 ABG 36.1 mmHg (35-45)
[2022-10-07 11:07] LABS: Fractionated Inspired Oxygen 60; HCO3 ABG 25 mmol/L (23-27); Oxygen Saturation ABG 92 % (95-100); PO2 ABG 59 mmHg (80-100); TCO2 ABG 26 mmol/L (23-27)
[2022-10-07 11:08] LABS: pH ABG 7.45 (7.35-7.45)
[2022-10-07] MEDS: ONDANSETRON 4 MG/2 ML INJ IV ×2 (11:17→17:26)
[2022-10-07] MEDS: AMIODARONE 360 MG/200 ML PIGGYBACK 16.7 MG IV (13:15)
--- NOTE | 2022-10-07 14:55 | P.PN_ITS ---
Subjective Subjective Interval history: 72 M admitted with constipation and UTI. Overall he feels quite miserable today. He was able to have a small liquid bowel movement yesterday, but overnight he developed rapid afib with RVR. His BP was soft, started on amiodarone infusion. BP was a bit improved, CXR shows volume overload vs pneumonia. He continues to have abdominal pain, new nausea and emesis again today. Developing respiratory failure as well requiring up to 10 L this morning but improved to 6 this aft ernoon. UPDATE: CTA with aspiration and closed loop bowel obstruction, surgery consult and discussed NG tube placement with patient whom was agreeable. Exam Vital Signs (past 8 hours): - 10/07/22 07:00 10/07/22 07:00 10/07/22 07:52 Temperature 97.9 F Pulse Rate 143 H Respiratory Rate 18 Blood Pressure 118/60 Pulse Oximetry 91 Oxygen Delivery Method Oximask Oxygen Flow Rate 10/07/22 09:29 10/07/22 09:59 10/07/22 09:00 Temperature Pulse Rate 145 H 150 H Respiratory Rate Blood Pressure 109/74 104/67 Pulse Oximetry 92 Oxygen Delivery Method Oximask Oxygen Flow Rate 10/07/22 10:40 10/07/22 07:30 10/07/22 07:30 Temperature 99.8 F H Pulse Rate 138 H Respiratory Rate 19 Blood Pressure 106/58 L Pulse Oximetry 92 Oxygen Delivery Method Oxygen Flow Rate 10/07/22 08:00 10/07/22 08:00 10/07/22 08:30 Temperature Pulse Rate 150 H Respiratory Rate 19 Blood Pressure 95/66 115/60 Pulse Oximetry 92 Oxygen Delivery Method Oxygen Flow Rate 10/07/22 08:30 10/07/22 09:00 10/07/22 09:00 Temperature Pulse Rate 133 H 142 H Respiratory Rate 19 21 Blood Pressure 109/74 Pulse Oximetry 91 91 Oxygen Delivery Method Oxygen Flow Rate 10/07/22 09:30 10/07/22 09:30 10/07/22 10:00 Temperature Pulse Rate 126 H Respiratory Rate 23 Blood Pressure 104/67 119/73 Pulse Oximetry 92 Oxygen Delivery Method Oxygen Flow Rate 10/07/22 10:00 10/07/22 10:30 10/07/22 10:31 Temperature Pulse Rate 137 H 130 H Respiratory Rate 22 24 Blood Pressure 147/58 H Pulse Oximetry 92 91 Oxygen Delivery Method Oxygen Flow Rate 10/07/22 10:31 10/07/22 10:59 10/07/22 11:00 Temperature Pulse Rate 124 H 136 H Respiratory Rate 25 H 22 Blood Pressure 110/60 Pulse Oximetry 91 91 Oxygen Delivery Method Oxygen Flow Rate 10/07/22 11:59 10/07/22 11:00 10/07/22 11:30 Temperature Pulse Rate 137 H Respiratory Rate 23 Blood Pressure 119/74 Pulse Oximetry 91 Oxygen Delivery Method Oximask Oxygen Flow Rate 10/07/22 11:30 10/07/22 12:00 10/07/22 12:00 Temperature Pulse Rate 140 H 136 H Respiratory Rate 25 H 17 Blood Pressure 120/65 Pulse Oximetry 92 93 Oxygen Delivery Method Oxygen Flow Rate 10/07/22 13:21 10/07/22 14:00 10/07/22 12:30 Temperature 98.9 F Pulse Rate Respiratory Rate Blood Pressure 122/92 H Pulse Oximetry 92 Oxygen Delivery Method Oximask Oxygen Flow Rate 10 10/07/22 12:30 10/07/22 13:00 10/07/22 13:00 Temperature Pulse Rate 147 H 133 H Respiratory Rate 17 17 Blood Pressure 103/68 Pulse Oximetry 92 92 Oxygen Delivery Method Oxygen Flow Rate 10/07/22 13:30 10/07/22 13:30 10/07/22 14:00 Temperature Pulse Rate 150 H Respiratory Rate 17 Blood Pressure 103/73 116/78 Pulse Oximetry 91 Oxygen Delivery Method Oxygen Flow Rate 10/07/22 14:00 10/07/22 14:30 Temperature Pulse Rate 135 H 90 Respiratory Rate 17 24 Blood Pressure Pulse Oximetry 91 90 L Oxygen Delivery Method Oxygen Flow Rate 6 Fraction of Inspired Oxygen 44 SaO2/FiO2 Ratio 211 Oxygen Delivery Method Oximask Oxygen Flow Rate 6 Narrative Exam Narrative: General:?fatigued, ill appearing HEENT:? Normocephalic, atraumatic, extraocular muscles intact. Chest:? Normal AP diameter and contour without kyphoscoliosis. Lungs:? Auscultation of all lung epstein are clear without adventitious sounds, wheezes, rhonchi, or rales. Cardio: tachycardic, irregularly irregular without m/r/g. Abdomen: moderate distension with epigastric tenderness, less so suprapubic region today. Musculoskeletal:? Muscle strength and tone are equal Neuro:? Alert and orientated x3, moves all extremities, sensation to touch intact Psych:?Mental status attitude thought context and judgment are appropriate for age. Objective Labs 10/07/22 03:27 10/07/22 03:27 Labs: Laboratory Results - last 24 hr 10/06/22 10/07/22 10/07/22 14:00 03:27 03:27 WBC 3.1 L D RBC 4.53 Hgb 14.9 Hct 43.4 MCV 95.9 MCH 32.9 MCHC 34.3 RDW 13.2 Plt Count 121 L Neut % (Auto) 72.4 Lymph % (Auto) 17.3 L [place] % (Auto) 9.2 Eos % (Auto) 0.7 L Baso % (Auto) 0.4 Neut # (Auto) 2200 Lymph # (Auto) 500 L [place] # (Auto) 300 Eos # (Auto) 0 Baso # (Auto) 0 PT INR ABG pH ABG pCO2 ABG pO2 ABG HCO3 ABG Total CO2 ABG O2 Saturation ABG Base Excess FiO2 Sodium 131 L Potassium 4.1 Chloride 98 Carbon Dioxide 26 BUN 19 Creatinine 0.81 Estimated GFR > 60 BUN/Creatinine Ratio 23.5 H Glucose 112 H Calcium 7.8 L Magnesium 2.3 Total Bilirubin 1.1 AST 25 ALT 20 Alkaline Phosphatase 38 Troponin I NT-Pro-B Natriuret Pep Total Protein 5.6 L Albumin 3.0 L Globulin 2.6 Albumin/Globulin Ratio 1.2 TSH Free T4 Urine Color Yellow Urine Appearance Clear Urine pH 6.0 Ur Specific [place] 1.020 Urine Protein 1+ H Urine Glucose (UA) Negative Urine Ketones 3+ H Urine Occult Blood 3+ H Urine Nitrate Negative Urine Bilirubin 1+ H Ur Bilirubin Confirm Negative Urine Urobilinogen 1.0 Ur Leukocyte Esterase Trace H Urine RBC 10-30/hpf H Urine WBC 5-10/hpf H Ur Squamous Epith Cells 1-5 /hpf Urine Bacteria Few (2-10) H Urine Mucus 3+ H Ur Culture Indicated? Specimen cultured Nasal Screen MRSA (PCR) 10/07/22 10/07/22 10/07/22 03:27 03:27 03:27 WBC RBC Hgb Hct MCV MCH MCHC RDW Plt Count Neut % (Auto) Lymph % (Auto) [place] % (Auto) Eos % (Auto) Baso % (Auto) Neut # (Auto) Lymph # (Auto) [place] # (Auto) Eos # (Auto) Baso # (Auto) PT 14.0 H INR 1.2 ABG pH ABG pCO2 ABG pO2 ABG HCO3 ABG Total CO2 ABG O2 Saturation ABG Base Excess FiO2 Sodium Potassium Chloride Carbon Dioxide BUN Creatinine Estimated GFR BUN/Creatinine Ratio Glucose Calcium Magnesium Total Bilirubin AST ALT Alkaline Phosphatase Troponin I 0.012 NT-Pro-B Natriuret Pep Total Protein Albumin Globulin Albumin/Globulin Ratio TSH 1.39 Free T4 1.53 Urine Color Urine Appearance Urine pH Ur Specific [place] Urine Protein Urine Glucose (UA) Urine Ketones Urine Occult Blood Urine Nitrate Urine Bilirubin Ur Bilirubin Confirm Urine Urobilinogen Ur Leukocyte Esterase Urine RBC Urine WBC Ur Squamous Epith Cells Urine Bacteria Urine Mucus Ur Culture Indicated? Nasal Screen MRSA (PCR) 10/07/22 10/07/22 10/07/22 04:15 08:55 10:15 WBC RBC Hgb Hct MCV MCH MCHC RDW Plt Count Neut % (Auto) Lymph % (Auto) [place] % (Auto) Eos % (Auto) Baso % (Auto) Neut # (Auto) Lymph # (Auto) [place] # (Auto) Eos # (Auto) Baso # (Auto) PT INR ABG pH 7.45 ABG pCO2 36.1 ABG pO2 59 L ABG HCO3 25 ABG Total CO2 26 ABG O2 Saturation 92 L ABG Base Excess 1.0 FiO2 60 Sodium Potassium Chloride Carbon Dioxide BUN Creatinine Estimated GFR BUN/Creatinine Ratio Glucose Calcium Magnesium Total Bilirubin AST ALT Alkaline Phosphatase Troponin I 0.027 NT-Pro-B Natriuret Pep 1310 H Total Protein Albumin Globulin Albumin/Globulin Ratio TSH Free T4 Urine Color Urine Appearance Urine pH Ur Specific [place] Urine Protein Urine Glucose (UA) Urine Ketones Urine Occult Blood Urine Nitrate Urine Bilirubin Ur Bilirubin Confirm Urine Urobilinogen Ur Leukocyte Esterase Urine RBC Urine WBC Ur Squamous Epith Cells Urine Bacteria Urine Mucus Ur Culture Indicated? Nasal Screen MRSA (PCR) Not detected [facility] Medical History BPH (benign prostatic hyperplasia) Essential tremor History of basal cell carcinoma Hyperlipidemia Medicare annual wellness visit, subsequent Preventative health care Witnessed episode of apnea Social History household members: spouse Smoking Status: Never smoker alcohol intake: current substance use type: does not use Assessment & Plan Assessment & Plan narrative: #closed loop bowel obstruction -continued laxitive therapies for constipation initially thinking aws solution architect to urinary retention requiring gonzalez placement based on presenting imaging - worsening distension today on 10/07, consistent with closed loop obstruction. Surgery consulted and NG tube pending placement now. #sepsis secondary to acute cystitis, possible pneumonia, and closed loop obstruction with acute respiratory failure with hypoxia, thrombocytopenia - continue ceftriaxone 1 g q24 which was added with positive UA initially. add flagyl given aspiration and abdominal closed loop obstruction. - lactate 1.4 - CTA showed aspiration likely due to obstruction, will add flagyl and pending surgery consult as above. - respiratory failure complicated by possible heart failure as well as discussed below #paorxysmal atrial fibrillation with RVR - started apixaban with concern for PE, CHADSVASC 1 pending echo however. Will stop given obstruction. - has converted now with amiodarone. Continue amiodarone infusion, transition after to 200 mg BID for 1 week then 100 mg daily after. - patient reports prior history of afib in the past. - no response to oral metoprolol trial today. - most likely #acute heart failure, previously normal EF in 12/2021. - TTE pending - probNp 1310, CXR consistent with volume overload. Did diurese with 20 mg of I V lasix but limited by soft BP. Will stop given obstruction now. -CTA as noted above, started on apixaban for apib with RVR but will stop #hyponatremia - stable, watch closely with obstruction #Acute urinary retention in setting of chronic BPH with acute cystitis - suspect due to constipation and history of BPH - continue flomax, may attempt gonzalez removal prior to discharge if laxitive therapies are successful. - UA positive, started on ceftriaxone as noted above. #myocardial injury - no chest pain, EKG without acute ischemia, trop up to 0.036, will trend until downtrending. Code status:full Surrogate decision maker:? Gilda Price DVT/VTE prophylaxis:? Lovenox and SCDs I spent 45 minutes providing critical care management this patient. This excludes time spent in performing separately billed procedures. Dispo: ICU
--- NOTE | 2022-10-07 15:05 | DI.CT.S_ITS ---
PROCEDURE: CT ANGIO CHEST PE PROTOCOL INDICATIONS: r/o PE, acute respiratory failure TECHNIQUE: After the administration of intravenous contrast, 2 mm thick sections acquired from the pulmonary apices to the posterior costophrenic angles. 3-dimensional maximum intensity projection (MIP) coronal and sagittal reformats were then acquired through the thorax. For radiation dose reduction, the following was used: automated exposure control, adjustment of mA and/or kV according to patient size. COMPARISON: None. FINDINGS: Image quality: Excellent. Pulmonary arteries: Pulmonary arteries are normal in size, and demonstrate no intraluminal filling defects to suggest central pulmonary embolism. Lungs and pleura: Dependent consolidation in the upper lobes. Mixed atelectasis and consolidation in the dependent lower lobes. Small pleural effusions. Mediastinum: Heart size is enlarged, without pericardial effusion. No mediastinal or hilar adenopathy. Thoracic aorta is normal in caliber and enhancement. The esophagus is significantly distended with fluid. Bones and chest wall: No suspicious bony lesions. Ribs and thoracic spine appear intact throughout. Thyroid gland is unremarkable. No axillary or supraclavicular adenopathy. Abdomen: Please see dedicated abdomen pelvis CT. IMPRESSION: Dependent consolidation in the upper and lower lobes, with associated pleural effusions. Differential includes multifocal infection or aspiration. The esophagus is significantly fluid distended, again favoring aspiration in this setting. Please see dedicated abdominal CT for further discussion. No pulmonary embolus. Dictated by: Roberto Nelson M.D. on 10/07/2022 at 15:42 Approved by: Roberto Nelson M.D. on 10/07/2022 at 15:46
--- NOTE | 2022-10-07 15:12 | DI.CT.S_ITS ---
PROCEDURE: CT ABDOMEN PELVIS W CON INDICATIONS: worsening abdominal distension, nausea vomiting TECHNIQUE: After the administration of oral and intravenous contrast, axial sections were acquired from the lung bases to the pubic symphysis. Coronal and sagittal reformats were performed. For radiation dose reduction, the following was used: automated exposure control, adjustment of mA and/or kV according to patient size. COMPARISON:[facility], CT, CT ABDOMEN PELVIS W CON, 10/04/2022, 1:36. FINDINGS: Image quality: Excellent. Lung bases: Please see dedicated chest CT for further discussion. Heart: No significant findings. ABDOMEN: Liver: Hepatic cysts are present. Gallbladder: Absent. Biliary ducts: Within normal limits, status post cholecystectomy. Pancreas: Unremarkable. Spleen: Unremarkable. Adrenal Glands: Unremarkable. Kidneys and Ureters: Unremarkable. Stomach and Bowel: Severe distension of the stomach and small bowel. There are 2 transition points in the right mid abdomen (series 4, image 20 and series 4, image 21), most consistent with a closed loop bowel obstruction. The distal bowel is significantly decompressed. There is enhancement of the bowel. Peritoneum: No free air. Moderate volume ascites. Ventral Wall: No hernia. Abdominal Nodes: No retroperitoneal or mesenteric adenopathy by size criteria. Vessels: Aorta and inferior vena cava are normal in size. PELVIS: Pelvic Organs: Unremarkable. Bladder: Decompressed around a Bird catheter. Pelvic Nodes: No enlarged lymph nodes. Miscellaneous: No inguinal hernias are seen. Bones: Unremarkable. IMPRESSION: Closed loop bowel obstruction. Moderate volume ascites. Please see dedicated chest CT for further discussion. Findings discussed with Dr. Hanson at time of report. Dictated by: Roberto Nelson M.D. on 10/07/2022 at 15:47 Approved by: Roberto Nelson M.D. on 10/07/2022 at 15:54
--- NOTE | 2022-10-07 15:46 | PC.NURSE ---
Addendum entered by Shikha Jewell R.N. 10/07/22 18:35: Pt ordered NG tube to LIS. Ordered anxiety medication given prior to insertion per Dr. Hanson (see MAR). NG tube insertion x3, pt vomited NG out, third attempt was placed, 1L out in canister within 15 mins. Auscultation for placement. CXR ordered and obtained, awaiting results for placement. Pt resting comfortably in bed, HOB 45 degrees, watching TV with spouse. Pt reports less discomfort in abdomen. Care ongoing. Will continue to monitor. Original Note: Day shift: Pt A&Ox4. O2 90-92% 10L on oxymask. Telemetry atrial fib RVR, pt c/o SOB and a headache, pain in epigastric/diaphragm/chest. Provider Dr. Hanson and teleICU provider aware. Ordered pain medication provided (See MAR). HR 130's-160's Afib, provider aware. . Pt on amiodarone gtt. Pt experienced emesis, treated with ordered antiemetic (See MAR). Pt O2 90-92% weaned down to 6L NC. Pt rested comfortable. Pt experienced another episode of emesis. Pt cardiac rhythm converted to NSR, provider notified and at bedside. EKG confirmed. Pt transported to CT scan with this RN and pulmonology technician. Pt back in room at approximately 1540, VSS, 93% on 6L NC, call light within reach, pt able to makes needs known, bed alarm active. Spouse at bedside. Will continue to monitor, care ongoing.
[2022-10-07 16:17] LABS: Lactate (Lactic Acid) 1.4 mmol/L (0.7-2.1)
[2022-10-07 16:18] LABS: BUN Creatinine Ratio 20.4 (6-22); Blood Urea Nitrogen 20 mg/dL (9-20); Calcium 7.6 mg/dL (8.4-10.2); Carbon Dioxide 30 mmol/L (22-32); Chloride 94 mmol/L (98-107); Estimated Glomerular Filt Rate > 60 mL/min (>60); Glucose 125 mg/dL (80-110); HEMOLYSIS < 15 (0-50); Sodium 131 mmol/L (137-145)
[2022-10-07 16:29] LABS: Troponin I 0.036 ng/mL (0.01-0.034)
[2022-10-07] MEDS: LORazepam 2 MG/ML INJ 0.5 MG IV (16:43)
[2022-10-07] MEDS: cefTRIAXone 1,000 MG in SODIUM CHLORIDE 0.9% 100 ML 200 MG IV (16:56)
--- NOTE | 2022-10-07 17:07 | PM.EICU.INT ---
Teleintensivist Intervention Date/Time Was camera activated?: Yes Time Patient Seen: 17:07 Issue(s) Addressed Issue(s): Abnormal labs, Arrhythmia and Fluid/Nutrition Other:: CT findings of closed loop obstruction Intervention(s) :: patient with persistent nausea and vomting no ab pain noted lactate 1.3 CT results noted, ?closed loop obstruction suggest -npo, place NGT -restart ivf -start abx -repeat lactate -surgery contacted by Dr. Hanson Plan discussed with: Physician/provider
--- NOTE | 2022-10-07 17:52 | DI.RAD.S_ITS ---
PROCEDURE: XR CHEST 1V INDICATIONS: NG tube placement TECHNIQUE: One view of the chest was acquired. COMPARISON: [facility], CR, XR CHEST 1V, 10/07/2022, 4:48. FINDINGS: Surgical changes and devices: There is a new nasogastric tube extending to the gastroesophageal junction. The side port is demonstrated in the distal esophagus. Lungs and pleura: There are persistent confluent bibasilar airspace opacities consistent with consolidation. Small left and probable small right pleural effusions are demonstrated. No pneumothorax. Mediastinum: Mediastinal contours appear unchanged. Heart size is normal. Bones and chest wall: No suspicious bony lesions. Overlying soft tissues appear unremarkable. IMPRESSION: 1. Bibasilar confluent consolidation likely representing pneumonia appear increased. 2. Nasogastric tube extends to the gastroesophageal junction. Recommend further advancement into the stomach. 3. Small left and probable small right pleural effusions redemonstrated. Dictated by: Jayme Mathew M.D. on 10/07/2022 at 20:32 Approved by: Jayme Mathew M.D. on 10/07/2022 at 20:38
[2022-10-07] MEDS: metroNIDAZOLE 500 MG/100 ML PIGGYBACK 100 MG IV (18:05)
[2022-10-07] MEDS: LACTATED RINGERS 1,000 ML 100 ML IV (18:33)
--- NOTE | 2022-10-07 20:39 | PM.ICURNDS ---
- Date Patient Seen: 10/07/22 Time Patient Seen: 20:39 :: This patient was seen via real time interactive two-way audiovisual telecommunication. Note: no change since last eval. 1000c from NGT surgery eval pending check lactate q4 please call eICU if condition changes
--- NOTE | 2022-10-07 20:47 | P.CONS_ITS ---
History of Present Illness Consult details Date Patient Seen: 10/07/22 Time Patient Seen: 20:49 Chief complaint: abd pain, vomiting Reason for consult: SBO Requesting provider: Ruben Hanson Narrative: Presented feeling unwell with abdominal pain and vomiting. Last BM was watery stool yesterday. SOB, Hypoxia, poorly compensated new Afib. Workup with CXR, labs and CT scans show pneumonia, SBO, urinary retention, hyponatremia. Radiology read of SBO was possible closed loop that is not supported with physical exam and normal lactic acid. Meds Home Medications and Allergies Home Medications Medication Instructions Recorded Confirmed Type tamsulosin 0.4 mg capsule 0.4 mg PO DAILY #90 caps 07/25/22 10/04/22 Rx diazepam 5 mg tablet 5 mg PO DAILY PRN anxiety #30 tabs 08/05/22 10/04/22 Rx Allergies Allergy/AdvReac Type Severity Reaction Status Date / Time No Known Drug Allergies Allergy Verified 02/05/22 10:18 Review of Systems Review of Systems ROS: Yes All systems reviewed with the patient and are negative except as otherwise documented Exam Vital Signs (past 8 hours): - 10/07/22 13:21 10/07/22 14:00 10/07/22 13:00 Temperature 98.9 F Pulse Rate Respiratory Rate Blood Pressure 103/68 Pulse Oximetry 92 Oxygen Delivery Method Oximask Oxygen Flow Rate 10 10/07/22 13:00 10/07/22 13:30 10/07/22 13:30 Temperature Pulse Rate 133 H 150 H Respiratory Rate 17 17 Blood Pressure 103/73 Pulse Oximetry 92 91 Oxygen Delivery Method Oxygen Flow Rate 10/07/22 14:00 10/07/22 14:00 10/07/22 14:30 Temperature Pulse Rate 135 H 90 Respiratory Rate 17 24 Blood Pressure 116/78 Pulse Oximetry 91 90 L Oxygen Delivery Method Oxygen Flow Rate 6 10/07/22 15:05 10/07/22 15:59 10/07/22 17:57 Temperature Pulse Rate 77 Respiratory Rate Blood Pressure Pulse Oximetry 91 93 Oxygen Delivery Method Oximask Oximask Oxygen Flow Rate 6 10 10/07/22 18:02 10/07/22 15:00 10/07/22 15:00 Temperature Pulse Rate 85 79 Respiratory Rate 20 15 Blood Pressure 128/59 L 117/57 L Pulse Oximetry 90 L Oxygen Delivery Method Oxygen Flow Rate 10/07/22 15:14 10/07/22 15:32 10/07/22 15:33 Temperature Pulse Rate 80 80 Respiratory Rate 16 Blood Pressure 112/55 L Pulse Oximetry 90 L Oxygen Delivery Method Oxygen Flow Rate 10/07/22 16:00 10/07/22 16:00 10/07/22 16:30 Temperature Pulse Rate 73 75 Respiratory Rate 19 20 Blood Pressure 120/57 L Pulse Oximetry 93 94 Oxygen Delivery Method Oxygen Flow Rate 10/07/22 17:00 10/07/22 17:00 10/07/22 17:30 Temperature Pulse Rate 69 79 Respiratory Rate 16 24 Blood Pressure 113/58 L Pulse Oximetry 93 90 L Oxygen Delivery Method Oxygen Flow Rate 10/07/22 18:00 10/07/22 18:00 10/07/22 18:30 Temperature Pulse Rate 79 75 Respiratory Rate 22 18 Blood Pressure 128/59 L Pulse Oximetry 91 94 Oxygen Delivery Method Oxygen Flow Rate 10/07/22 19:00 10/07/22 19:01 10/07/22 19:01 Temperature Pulse Rate 73 78 Respiratory Rate 23 24 Blood Pressure 109/66 Pulse Oximetry 92 91 Oxygen Delivery Method Oxygen Flow Rate Fraction of Inspired Oxygen 44 SaO2/FiO2 Ratio 211 Oxygen Delivery Method Oximask Oxygen Flow Rate 10 Narrative Exam Narrative: NGT in place with grossly heme positive in tubing. sitting up in bed. No complaint of abdominal pain. supplimental oxygen. Const General: cooperative, in distress, ill appearing and lethargic Nutritional Appearance: average body habitus Orientation: alert, awake and oriented x3 HENMT Head: normocephalic and atraumatic Ears: hearing grossly normal bilaterally Face and sinus: normal facial exam Mouth: oral mucosae normal Eyes Sclera: sclerae normal Neck Neck: trachea midline Resp Effort & Inspection: abnormal respiratory pattern Cardio Rate: regular rate GI Palpation: soft Other: not tender, small bowel visible through thin abdominal wall as dilated. Skin General: atrophy Neuro Cognition: normal cognition Speech: speech normal Psych Mental Status: mental status grossly normal Judgment: judgment good Objective Labs 10/07/22 03:27 10/07/22 15:50 Labs: Laboratory Results - last 24 hr 10/07/22 10/07/22 10/07/22 03:27 03:27 03:27 WBC 3.1 L D RBC 4.53 Hgb 14.9 Hct 43.4 MCV 95.9 MCH 32.9 MCHC 34.3 RDW 13.2 Plt Count 121 L Neut % (Auto) 72.4 Lymph % (Auto) 17.3 L Parmer % (Auto) 9.2 Eos % (Auto) 0.7 L Baso % (Auto) 0.4 Neut # (Auto) 2200 Lymph # (Auto) 500 L Parmer # (Auto) 300 Eos # (Auto) 0 Baso # (Auto) 0 PT INR ABG pH ABG pCO2 ABG pO2 ABG HCO3 ABG Total CO2 ABG O2 Saturation ABG Base Excess FiO2 Sodium 131 L Potassium 4.1 Chloride 98 Carbon Dioxide 26 BUN 19 Creatinine 0.81 Estimated GFR > 60 BUN/Creatinine Ratio 23.5 H Glucose 112 H Lactate Calcium 7.8 L Magnesium 2.3 Total Bilirubin 1.1 AST 25 ALT 20 Alkaline Phosphatase 38 Troponin I 0.012 NT-Pro-B Natriuret Pep Total Protein 5.6 L Albumin 3.0 L Globulin 2.6 Albumin/Globulin Ratio 1.2 TSH Free T4 Nasal Screen MRSA (PCR) 10/07/22 10/07/22 10/07/22 03:27 03:27 04:15 WBC RBC Hgb Hct MCV MCH MCHC RDW Plt Count Neut % (Auto) Lymph % (Auto) Parmer % (Auto) Eos % (Auto) Baso % (Auto) Neut # (Auto) Lymph # (Auto) Parmer # (Auto) Eos # (Auto) Baso # (Auto) PT 14.0 H INR 1.2 ABG pH ABG pCO2 ABG pO2 ABG HCO3 ABG Total CO2 ABG O2 Saturation ABG Base Excess FiO2 Sodium Potassium Chloride Carbon Dioxide BUN Creatinine Estimated GFR BUN/Creatinine Ratio Glucose Lactate Calcium Magnesium Total Bilirubin AST ALT Alkaline Phosphatase Troponin I NT-Pro-B Natriuret Pep Total Protein Albumin Globulin Albumin/Globulin Ratio TSH 1.39 Free T4 1.53 Nasal Screen MRSA (PCR) Not detected 10/07/22 10/07/22 10/07/22 08:55 10:15 15:50 WBC RBC Hgb Hct MCV MCH MCHC RDW Plt Count Neut % (Auto) Lymph % (Auto) Parmer % (Auto) Eos % (Auto) Baso % (Auto) Neut # (Auto) Lymph # (Auto) Parmer # (Auto) Eos # (Auto) Baso # (Auto) PT INR ABG pH 7.45 ABG pCO2 36.1 ABG pO2 59 L ABG HCO3 25 ABG Total CO2 26 ABG O2 Saturation 92 L ABG Base Excess 1.0 FiO2 60 Sodium 131 L Potassium 4.0 Chloride 94 L Carbon Dioxide 30 BUN 20 Creatinine 0.98 Estimated GFR > 60 BUN/Creatinine Ratio 20.4 Glucose 125 H Lactate Calcium 7.6 L Magnesium Total Bilirubin AST ALT Alkaline Phosphatase Troponin I 0.027 0.036 H NT-Pro-B Natriuret Pep 1310 H Total Protein Albumin Globulin Albumin/Globulin Ratio TSH Free T4 Nasal Screen MRSA (PCR) 10/07/22 15:50 WBC RBC Hgb Hct MCV MCH MCHC RDW Plt Count Neut % (Auto) Lymph % (Auto) Parmer % (Auto) Eos % (Auto) Baso % (Auto) Neut # (Auto) Lymph # (Auto) Parmer # (Auto) Eos # (Auto) Baso # (Auto) PT INR ABG pH ABG pCO2 ABG pO2 ABG HCO3 ABG Total CO2 ABG O2 Saturation ABG Base Excess FiO2 Sodium Potassium Chloride Carbon Dioxide BUN Creatinine Estimated GFR BUN/Creatinine Ratio Glucose Lactate 1.4 Calcium Magnesium Total Bilirubin AST ALT Alkaline Phosphatase Troponin I NT-Pro-B Natriuret Pep Total Protein Albumin Globulin Albumin/Globulin Ratio TSH Free T4 Nasal Screen MRSA (PCR) PFSH Medical History BPH (benign prostatic hyperplasia) Essential tremor History of basal cell carcinoma Hyperlipidemia Medicare annual wellness visit, subsequent Preventative health care Witnessed episode of apnea Surgical History Hx laparoscopic cholecystectomy Previous back surgery S/P laparoscopic hernia repair Social History household members: spouse Tobacco & Substance Use Smoking Status: Never smoker alcohol intake: current substance use type: does not use Assessment & Plan Assessment & Plan narrative: Multiple issues in play: poorly compensated new Afib hypoxia with possible pneumonia neutropenia SBO w/o evidence of ischemia likely adhesive disease electrolyte embalance UTI with urinary retention Plan: close observation, NPO, NGT decompression for SBO. Medical team managing pulmonary, cardiac and urinary retention with efforts to correct electrolytes. Time Spent With Patient Time with patient: 30 to 49 minutes with 50% spent counseling/coordinating care
[2022-10-07 21:15] LABS: Lactate (Lactic Acid) 1.6 mmol/L (0.7-2.1)
[2022-10-08] VITALS (58 sets, daily range): BP systolic 109–143; BP diastolic 55–92; PULSE 67–145; RESP 15–36; TEMP 36.7–37.2; O2SAT 87–94
--- NOTE | 2022-10-08 | DI.RAD.S_ITS ---
PROCEDURE: XR GASTROGRAFIN CHALLENGE COMPARISON: [facility], CT, CT ABDOMEN PELVIS W CON, 10/07/2022, 15:14. INDICATIONS: SBO FINDINGS: Multiple moderately distended small bowel loops are present. No significant filling of the colon. IMPRESSION: Small-bowel obstruction. Dictated by: Arianne Marquez M.D. on 10/08/2022 at 18:08 Approved by: Arianne Marquez M.D. on 10/08/2022 at 18:08
[2022-10-08] MEDS: AMIODARONE 360 MG/200 ML PIGGYBACK 16.7 MG IV ×2 (01:33→16:57)
[2022-10-08] MEDS: metroNIDAZOLE 500 MG/100 ML PIGGYBACK 100 MG IV ×3 (01:34→17:04)
[2022-10-08] MEDS: HYDROMORPHONE 0.5 MG INJ IV ×4 (01:35→23:50)
[2022-10-08 03:34] LABS: Add Manual Diff / Slide Review NO; Basophils Absolute Auto 0 /uL (0-100); Basophils Percent Auto 0.1 % (0-2); Eosinophils Absolute Auto 100 /uL (0-450); Eosinophils Percent Auto 0.9 % (2-4); Hematocrit 41.9 % (41-53); Hemoglobin 14.3 g/dL (13.5-17.5); Lymphocytes Absolute Auto 700 /uL (1100-4500); Lymphocytes Percent Auto 7.3 % (25-40); Mean Corpuscular HGB Conc 34.2 % (30-36); Mean Corpuscular Hemoglobin 32.6 PG (26-34); Mean Corpuscular Volume 95.1 fL (80-100); Monocytes Absolute Auto 400 /uL (0-900); Monocytes Percent Auto 4.7 % (3-14); Neutrophils Absolute Auto 8100 /uL (1500-7000); Platelet Count 129 X10^3/uL (150-400); Red Cell Distribution Width 13.1 % (11.6-14.8); White Blood Cell Count 9.3 X10^3/uL (4.5-11.0)
[2022-10-08 03:38] LABS: Lactate (Lactic Acid) 1.2 mmol/L (0.7-2.1)
[2022-10-08 03:40] LABS: Alanine Aminotransferase 19 IU/L (<50); Albumin 2.8 g/dL (3.5-5.0); Alkaline Phosphatase 37 U/L (38-126); Aspartate Aminotransferase 22 IU/L (17-59); Bilirubin Total 0.7 mg/dL (0.2-1.3); Blood Urea Nitrogen 22 mg/dL (9-20); Calcium 7.7 mg/dL (8.4-10.2); Carbon Dioxide 29 mmol/L (22-32); Chloride 96 mmol/L (98-107); Estimated Glomerular Filt Rate > 60 mL/min (>60); Globulin 2.8 g/dL (1.7-4.1); Glucose 117 mg/dL (80-110); HEMOLYSIS < 15 (0-50); Magnesium 2.4 mg/dL (1.6-2.3); Potassium 3.9 mmol/L (3.4-5.1); Sodium 131 mmol/L (137-145); Total Protein 5.6 g/dL (6.3-8.2)
[2022-10-08] MEDS: BENZOCAINE/MENTHOL 1 LOZ PKT 1 EACH PO ×2 (07:51→17:03)
[2022-10-08] MEDS: LACTATED RINGERS 1,000 ML 100 ML IV (08:46)
--- NOTE | 2022-10-08 09:13 | PM.PN.1 ---
Subjective Subjective Interval history: Patient feeling better overall today. Belly feels less distended with NG tube. Surg to order gastrografin today. Went back into A-fib RVR while on amio drip this morning. Exam Vital Signs (past 8 hours): - 10/08/22 03:00 10/08/22 05:00 10/08/22 07:55 Temperature 98.4 F Pulse Rate 67 Respiratory Rate 18 Blood Pressure 121/58 L Pulse Oximetry 91 93 91 Oxygen Delivery Method Oximask Oximask Oxygen Flow Rate 10 10 9 10/08/22 07:00 10/08/22 07:00 10/08/22 01:30 Temperature Pulse Rate 75 Respiratory Rate 28 H Blood Pressure Pulse Oximetry 93 91 Oxygen Delivery Method Oximask Oximask Oxygen Flow Rate 9 10/08/22 02:00 10/08/22 02:01 10/08/22 02:01 Temperature Pulse Rate 82 76 Respiratory Rate 16 20 Blood Pressure 137/61 Pulse Oximetry 90 L 91 Oxygen Delivery Method Oxygen Flow Rate 10/08/22 02:30 10/08/22 03:00 10/08/22 03:00 Temperature Pulse Rate 68 75 Respiratory Rate 15 21 Blood Pressure 133/63 Pulse Oximetry 92 89 L Oxygen Delivery Method Oxygen Flow Rate 10/08/22 03:30 10/08/22 04:00 10/08/22 04:00 Temperature Pulse Rate 75 67 Respiratory Rate 23 18 Blood Pressure 116/57 L Pulse Oximetry 91 93 Oxygen Delivery Method Oxygen Flow Rate 10/08/22 04:30 10/08/22 05:00 10/08/22 05:00 Temperature Pulse Rate 70 68 Respiratory Rate 20 19 Blood Pressure 121/58 L Pulse Oximetry 94 93 Oxygen Delivery Method Oxygen Flow Rate 10/08/22 05:30 10/08/22 06:00 10/08/22 06:00 Temperature Pulse Rate 70 82 Respiratory Rate 20 27 H Blood Pressure 140/64 Pulse Oximetry 92 92 Oxygen Delivery Method Oxygen Flow Rate 10/08/22 06:30 10/08/22 07:00 10/08/22 07:00 Temperature Pulse Rate 74 71 Respiratory Rate 22 19 Blood Pressure 131/63 Pulse Oximetry 92 91 Oxygen Delivery Method Oxygen Flow Rate 10/08/22 07:30 10/08/22 08:00 10/08/22 08:00 Temperature Pulse Rate 74 78 Respiratory Rate 20 26 H Blood Pressure 143/67 H Pulse Oximetry 93 92 Oxygen Delivery Method Oxygen Flow Rate 10/08/22 07:45 10/08/22 08:45 10/08/22 08:46 Temperature 98.1 F 99.0 F Pulse Rate 83 Respiratory Rate 18 Blood Pressure Pulse Oximetry 92 93 Oxygen Delivery Method Oximask Oxygen Flow Rate 9 9 Fraction of Inspired Oxygen 44 SaO2/FiO2 Ratio 211 Oxygen Delivery Method Oximask Oxygen Flow Rate 9 Narrative Exam Narrative: General:?fatigued appearing, NG in place HEENT:? Normocephalic, atraumatic, extraocular muscles intact. Chest:? Normal AP diameter and contour without kyphoscoliosis. Lungs:? Auscultation of all lung epstein are clear without adventitious sounds, wheezes, rhonchi, or rales. Cardio: tachycardic, irregularly irregular without m/r/g. Abdomen: moderate distension now with less tenderness, soft Musculoskeletal:? Muscle strength and tone are equal Neuro:? Alert and orientated x3, moves all extremities, sensation to touch intact Psych:?Mental status attitude thought context and judgment are appropriate for age. Objective Labs 10/08/22 03:18 10/08/22 03:18 Labs: Laboratory Results - last 24 hr 10/07/22 10/07/22 10/07/22 08:55 10:15 15:50 WBC RBC Hgb Hct MCV MCH MCHC RDW Plt Count Neut % (Auto) Lymph % (Auto) Coffey % (Auto) Eos % (Auto) Baso % (Auto) Neut # (Auto) Lymph # (Auto) [place]offey # (Auto) Eos # (Auto) Baso # (Auto) ABG pH 7.45 ABG pCO2 36.1 ABG pO2 59 L ABG HCO3 25 ABG Total CO2 26 ABG O2 Saturation 92 L ABG Base Excess 1.0 FiO2 60 Sodium 131 L Potassium 4.0 Chloride 94 L Carbon Dioxide 30 BUN 20 Creatinine 0.98 Estimated GFR > 60 BUN/Creatinine Ratio 20.4 Glucose 125 H Lactate Calcium 7.6 L Magnesium Total Bilirubin AST ALT Alkaline Phosphatase Troponin I 0.027 0.036 H NT-Pro-B Natriuret Pep 1310 H Total Protein Albumin Globulin Albumin/Globulin Ratio 10/07/22 10/07/22 10/08/22 15:50 20:58 03:18 WBC 9.3 D RBC 4.40 L Hgb 14.3 Hct 41.9 MCV 95.1 MCH 32.6 MCHC 34.2 RDW 13.1 Plt Count 129 L Neut % (Auto) 87.0 H Lymph % (Auto) 7.3 L [place]offey % (Auto) 4.7 Eos % (Auto) 0.9 L Baso % (Auto) 0.1 Neut # (Auto) 8100 H Lymph # (Auto) 700 L Coffey # (Auto) 400 Eos # (Auto) 100 Baso # (Auto) 0 ABG pH ABG pCO2 ABG pO2 ABG HCO3 ABG Total CO2 ABG O2 Saturation ABG Base Excess FiO2 Sodium Potassium Chloride Carbon Dioxide BUN Creatinine Estimated GFR BUN/Creatinine Ratio Glucose Lactate 1.4 1.6 Calcium Magnesium Total Bilirubin AST ALT Alkaline Phosphatase Troponin I NT-Pro-B Natriuret Pep Total Protein Albumin Globulin Albumin/Globulin Ratio 10/08/22 10/08/22 03:18 03:18 WBC RBC Hgb Hct MCV MCH MCHC RDW Plt Count Neut % (Auto) Lymph % (Auto) [place]offey % (Auto) Eos % (Auto) Baso % (Auto) Neut # (Auto) Lymph # (Auto) [place]offey # (Auto) Eos # (Auto) Baso # (Auto) ABG pH ABG pCO2 ABG pO2 ABG HCO3 ABG Total CO2 ABG O2 Saturation ABG Base Excess FiO2 Sodium 131 L Potassium 3.9 Chloride 96 L Carbon Dioxide 29 BUN 22 H Creatinine 0.88 Estimated GFR > 60 BUN/Creatinine Ratio 25.0 H Glucose 117 H Lactate 1.2 Calcium 7.7 L Magnesium 2.4 H Total Bilirubin 0.7 AST 22 ALT 19 Alkaline Phosphatase 37 L Troponin I NT-Pro-B Natriuret Pep Total Protein 5.6 L Albumin 2.8 L Globulin 2.8 Albumin/Globulin [facility] 1.0 [facility] Medical History BPH (benign prostatic hyperplasia) Essential tremor History of basal cell carcinoma Hyperlipidemia Medicare annual wellness visit, subsequent Preventative health care Witnessed episode of apnea Surgical History Hx laparoscopic cholecystectomy Previous back surgery S/P laparoscopic hernia repair Social History household members: spouse Smoking Status: Never smoker alcohol intake: current substance use type: does not use Assessment & Plan Assessment & Plan narrative: #closed loop bowel obstruction - per CT abd on 10/07 - worsening distension on 10/07, consistent with closed loop obstruction. Surgery consulted and NG tube now in place. - f/u gastrografin study #sepsis secondary to acute cystitis, possible pneumonia, with acute respiratory failure with hypoxia, thrombocytopenia - continue ceftriaxone 1 g q24 which was added with positive UA initially. added flagyl given aspiration and abdominal closed loop obstruction. - CTA showed aspiration likely due to obstruction, will add flagyl and pending surgery consult as above. - respiratory failure complicated by possible heart failure as well as discussed below - held IVF and will likely trial lasix due to effusions seen on CT chest - still on 9L oxymask, wean as able #paroxysmal atrial fibrillation with RVR - started apixaban with concern for PE, CHADSVASC 1 so does not meet criteria for anticoag. - has converted now with amiodarone, but went back into RVR AM of 10/08 so amio bolus given and amio rate increased. - patient reports prior history of afib in the past. - will start metop succ once tolerating po - echo as below #acute diastolic heart failure, previously normal EF in 12/2021. - Echo 10/07 with EF 55-60%, RVSP 31, improved mild MR, and borderline dilated LA - probNp 1310, CXR consistent with volume overload. Did diurese with 20 mg of IV lasix but limited by soft BP. Will stop given obstruction now. - will trial lasix if BP can handle it #hyponatremia - stable, watch closely with obstruction #Acute urinary retention in setting of chronic BPH with acute cystitis - suspect due to constipation and history of BPH - continue flomax, may attempt gonzalez removal prior to discharge - UA positive, started on ceftriaxone as noted above. #myocardial injury - no chest pain, EKG without acute ischemia, trop up to 0.036, will trend until downtrending Code status:full Surrogate decision maker:? Gilda Price DVT/VTE prophylaxis:? Lovenox and SCDs I spent 45 minutes providing critical care management this patient. This excludes time spent in performing separately billed procedures. Dispo: ICU
--- NOTE | 2022-10-08 09:22 | PM.PN.EICU ---
Subjective Subjective IF CAMERA ACTIVATED, patient seen via real-time interactive audiovisual communication: Camera activated Consent obtained for tele-eyelet operator care: Yes Patient Location: ICU Provider location (State): [place] Other participants/roles: Bedside RN and hospitalist Dr. Hedrick Interval history: No acute issues overnight. Converted to SR. Cx negative to date. Current Medications Current Medications Medications: Home Medications tamsulosin 0.4 mg capsule 0.4 mg PO DAILY #90 caps 07/25/22 [Rx Confirmed 10/04/22] diazepam 5 mg tablet 5 mg PO DAILY PRN anxiety #30 tabs 08/05/22 [Rx Confirmed 10/04/22] Visit Medications (administered) Generic Name Dose Route Start Last Admin Trade Name Freq PRN Reason Stop Dose Admin Acetaminophen 650 mg 10/04/22 05:05 10/06/22 21:22 Acetaminophen 325 Mg Tablet PO 650 mg Q6H PRN Administration Fever/Mild Pain (1-3) Benzocaine 1 each 10/08/22 07:44 10/08/22 07:51 Benzocaine/Menthol 1 Dominic Pkt PO 1 each Q1HR PRN Administration Sore Throat Bisacodyl 5 mg 10/06/22 09:15 10/06/22 23:45 Bisacodyl 5 Mg Tablet PO 5 mg BID PRN Administration Constipation Bisacodyl 10 mg 10/06/22 15:52 10/06/22 16:55 Bisacodyl 10 Mg Supp IA 10 mg DAILY PRN Administration Constipation Hydromorphone HCl 0.5 mg 10/04/22 05:05 10/08/22 01:35 Hydromorphone 0.5 Mg Inj IV 0.5 mg Q2H PRN Administration Pain, Severe (7-10) Ceftriaxone Sodium 1,000 mg/ 100 mls @ 200 mls/hr 10/06/22 16:00 10/07/22 18:05 Sodium Chloride IV 10/13/22 15:59 Infused Q24H REY Infusion Metronidazole 500 mg in 100 mls @ 100 mls/hr 10/07/22 17:15 10/08/22 08:44 Flagyl IV 100 mls/hr Q8H REY Administration Lorazepam 0.5 mg 10/04/22 18:23 10/07/22 16:43 Lorazepam 2 Mg/Ml Inj IV 0.5 mg Q4HR PRN Administration Anxiety Magnesium Hydroxide 30 ml 10/05/22 21:55 10/06/22 08:25 Magnesium Hydroxide 30 Ml Udc PO 30 ml DAILY PRN Administration Constipation Metoclopramide HCl 10 mg 10/04/22 06:45 10/07/22 14:30 Metoclopramide 10 Mg/2 Ml Inj IV 10 mg Q6HR PRN Administration Nausea And Vomiting Ondansetron HCl 4 mg 10/07/22 11:12 10/07/22 17:26 Ondansetron 4 Mg/2 Ml Inj IV 4 mg Q4HR PRN Administration Nausea And Vomiting Polyethylene Glycol 17 gm 10/06/22 09:00 10/08/22 08:20 Polyethylene Glycol 3350 17 Gm Powd.Pack PO Not Given DAILY [facility] Sennosides 17.2 mg 10/05/22 21:00 10/07/22 20:15 Sennosides 8.6 Mg Tablet PO Not Given BEDTIME [facility] Tamsulosin HCl 0.4 mg 10/04/22 09:00 10/08/22 08:20 Tamsulosin 0.4 Mg Capsule PO Not Given DAILY REY Objective Labs 10/08/22 03:18 10/08/22 03:18 Labs: Laboratory Results - last 24 hr 10/07/22 10/07/22 10/07/22 08:55 10:15 15:50 WBC RBC Hgb Hct MCV MCH MCHC RDW Plt Count Neut % (Auto) Lymph % (Auto) [place] % (Auto) Eos % (Auto) Baso % (Auto) Neut # (Auto) Lymph # (Auto) [place] # (Auto) Eos # (Auto) Baso # (Auto) ABG pH 7.45 ABG pCO2 36.1 ABG pO2 59 L ABG HCO3 25 ABG Total CO2 26 ABG O2 Saturation 92 L ABG Base Excess 1.0 FiO2 60 Sodium 131 L Potassium 4.0 Chloride 94 L Carbon Dioxide 30 BUN 20 Creatinine 0.98 Estimated GFR > 60 BUN/Creatinine Ratio 20.4 Glucose 125 H Lactate Calcium 7.6 L Magnesium Total Bilirubin AST ALT Alkaline Phosphatase Troponin I 0.027 0.036 H NT-Pro-B Natriuret Pep 1310 H Total Protein Albumin Globulin Albumin/Globulin Ratio 10/07/22 10/07/22 10/08/22 15:50 20:58 03:18 WBC 9.3 D RBC 4.40 L Hgb 14.3 Hct 41.9 MCV 95.1 MCH 32.6 MCHC 34.2 RDW 13.1 Plt Count 129 L Neut % (Auto) 87.0 H Lymph % (Auto) 7.3 L [place] % (Auto) 4.7 Eos % (Auto) 0.9 L Baso % (Auto) 0.1 Neut # (Auto) 8100 H Lymph # (Auto) 700 L [place] # (Auto) 400 Eos # (Auto) 100 Baso # (Auto) 0 ABG pH ABG pCO2 ABG pO2 ABG HCO3 ABG Total CO2 ABG O2 Saturation ABG Base Excess FiO2 Sodium Potassium Chloride Carbon Dioxide BUN Creatinine Estimated GFR BUN/Creatinine Ratio Glucose Lactate 1.4 1.6 Calcium Magnesium Total Bilirubin AST ALT Alkaline Phosphatase Troponin I NT-Pro-B Natriuret Pep Total Protein Albumin Globulin Albumin/Globulin Ratio 10/08/22 10/08/22 03:18 03:18 WBC RBC Hgb Hct MCV MCH MCHC RDW Plt Count Neut % (Auto) Lymph % (Auto) [place] % (Auto) Eos % (Auto) Baso % (Auto) Neut # (Auto) Lymph # (Auto) [place] # (Auto) Eos # (Auto) Baso # (Auto) ABG pH ABG pCO2 ABG pO2 ABG HCO3 ABG Total CO2 ABG O2 Saturation ABG Base Excess FiO2 Sodium 131 L Potassium 3.9 Chloride 96 L Carbon Dioxide 29 BUN 22 H Creatinine 0.88 Estimated GFR > 60 BUN/Creatinine Ratio 25.0 H Glucose 117 H Lactate 1.2 Calcium 7.7 L Magnesium 2.4 H Total Bilirubin 0.7 AST 22 ALT 19 Alkaline Phosphatase 37 L Troponin I NT-Pro-B Natriuret Pep Total Protein 5.6 L Albumin 2.8 L Globulin 2.8 Albumin/Globulin Ratio 1.0 Exam Vital Signs (past 8 hours): - 10/08/22 03:00 10/08/22 05:00 10/08/22 07:55 Temperature 98.4 F Pulse Rate 67 Respiratory Rate 18 Blood Pressure 121/58 L Pulse Oximetry 91 93 91 Oxygen Delivery Method Oximask Oximask Oxygen Flow Rate 10 10 9 10/08/22 07:00 10/08/22 07:00 10/08/22 01:30 Temperature Pulse Rate 75 Respiratory Rate 28 H Blood Pressure Pulse Oximetry 93 91 Oxygen Delivery Method Oximask Oximask Oxygen Flow Rate 9 10/08/22 02:00 10/08/22 02:01 10/08/22 02:01 Temperature Pulse Rate 82 76 Respiratory Rate 16 20 Blood Pressure 137/61 Pulse Oximetry 90 L 91 Oxygen Delivery Method Oxygen Flow Rate 10/08/22 02:30 10/08/22 03:00 10/08/22 03:00 Temperature Pulse Rate 68 75 Respiratory Rate 15 21 Blood Pressure 133/63 Pulse Oximetry 92 89 L Oxygen Delivery Method Oxygen Flow Rate 10/08/22 03:30 10/08/22 04:00 10/08/22 04:00 Temperature Pulse Rate 75 67 Respiratory Rate 23 18 Blood Pressure 116/57 L Pulse Oximetry 91 93 Oxygen Delivery Method Oxygen Flow Rate 10/08/22 04:30 10/08/22 05:00 10/08/22 05:00 Temperature Pulse Rate 70 68 Respiratory Rate 20 19 Blood Pressure 121/58 L Pulse Oximetry 94 93 Oxygen Delivery Method Oxygen Flow Rate 10/08/22 05:30 10/08/22 06:00 10/08/22 06:00 Temperature Pulse Rate 70 82 Respiratory Rate 20 27 H Blood Pressure 140/64 Pulse Oximetry 92 92 Oxygen Delivery Method Oxygen Flow Rate 10/08/22 06:30 10/08/22 07:00 10/08/22 07:00 Temperature Pulse Rate 74 71 Respiratory Rate 22 19 Blood Pressure 131/63 Pulse Oximetry 92 91 Oxygen Delivery Method Oxygen Flow Rate 10/08/22 07:30 10/08/22 08:00 10/08/22 08:00 Temperature Pulse Rate 74 78 Respiratory Rate 20 26 H Blood Pressure 143/67 H Pulse Oximetry 93 92 Oxygen Delivery Method Oxygen Flow Rate 10/08/22 07:45 10/08/22 08:45 10/08/22 08:46 Temperature 98.1 F 99.0 F Pulse Rate 83 Respiratory Rate 18 Blood Pressure Pulse Oximetry 92 93 Oxygen Delivery Method Oximask Oxygen Flow Rate 9 9 Fraction of Inspired Oxygen 44 SaO2/FiO2 Ratio 211 Oxygen Delivery Method Oximask Oxygen Flow Rate 9 Narrative Exam Narrative: NAD Assessment & Plan Assessment & Plan narrative: NEURO: -- PT/OT -- Encourage early mobility RESP: # Acute hypoxemia respiratory failure -- Secondary to PNA vs volume overload -- CTA PE study negative -- STop IVF -- If remains hypoxemia then may need gentle diuresis to seek net negative fluid balance -- HOB elevation -- Aspiration precaution -- Goal SpO2 > 88% CVS: # A fib w/ RVR -- Converted to SR -- CHADVASC score 1 -- High lytes goal -- Goal HR < 110 ID: # UTI -- Cx negative to date -- Cont ceftriaxone X 5 days ENDO: -- Goal BS < 180
[2022-10-08] MEDS: AMIODARONE 150 MG/100 ML PIGGYBACK 600 MG IV (10:36)
[2022-10-08] MEDS: AMIODARONE 360 MG/200 ML PIGGYBACK 33.3 MG IV (10:53)
[2022-10-08] MEDS: METOCLOPRAMIDE 10 MG/2 ML INJ IV ×2 (11:01→18:50)
--- NOTE | 2022-10-08 11:33 | PM.PN.1 ---
Subjective Subjective Date Patient Seen: 10/08/22 Time Patient Seen: 11:33 Interval history: Patient feeling better, no flatus, NGT causing sore throat. Exam Vital Signs (past 8 hours): - 10/08/22 05:00 10/08/22 07:55 10/08/22 07:00 Temperature 98.4 F Pulse Rate 67 Respiratory Rate 18 Blood Pressure 121/58 L Pulse Oximetry 93 91 Oxygen Delivery Method Oximask Oximask Oxygen Flow Rate 10 9 10/08/22 07:00 10/08/22 04:00 10/08/22 04:00 Temperature Pulse Rate 67 Respiratory Rate 18 Blood Pressure 116/57 L Pulse Oximetry 93 93 Oxygen Delivery Method Oximask Oxygen Flow Rate 9 10/08/22 04:30 10/08/22 05:00 10/08/22 05:00 Temperature Pulse Rate 70 68 Respiratory Rate 20 19 Blood Pressure 121/58 L Pulse Oximetry 94 93 Oxygen Delivery Method Oxygen Flow Rate 10/08/22 05:30 10/08/22 06:00 10/08/22 06:00 Temperature Pulse Rate 70 82 Respiratory Rate 20 27 H Blood Pressure 140/64 Pulse Oximetry 92 92 Oxygen Delivery Method Oxygen Flow Rate 10/08/22 06:30 10/08/22 07:00 10/08/22 07:00 Temperature Pulse Rate 74 71 Respiratory Rate 22 19 Blood Pressure 131/63 Pulse Oximetry 92 91 Oxygen Delivery Method Oxygen Flow Rate 10/08/22 07:30 10/08/22 08:00 10/08/22 08:00 Temperature Pulse Rate 74 78 Respiratory Rate 20 26 H Blood Pressure 143/67 H Pulse Oximetry 93 92 Oxygen Delivery Method Oxygen Flow Rate 10/08/22 07:45 10/08/22 08:45 10/08/22 08:46 Temperature 98.1 F 99.0 F Pulse Rate 83 Respiratory Rate 18 Blood Pressure Pulse Oximetry 92 93 Oxygen Delivery Method Oximask Oxygen Flow Rate 9 9 10/08/22 08:30 10/08/22 09:00 10/08/22 09:00 Temperature Pulse Rate 79 76 Respiratory Rate 22 24 Blood Pressure 132/60 Pulse Oximetry 91 93 Oxygen Delivery Method Oxygen Flow Rate Fraction of Inspired Oxygen 44 SaO2/FiO2 Ratio 211 Oxygen Delivery Method Oximask Oxygen Flow Rate 9 Narrative Exam Narrative: abdomen is soft and non tender. decreased distention and prominent small bowel loops. NGT dark green c/w past the pylorus. NGT output with ice chip consumption is modest. Objective Labs 10/08/22 03:18 10/08/22 03:18 Labs: Laboratory Results - last 24 hr 10/07/22 10/07/22 10/07/22 15:50 15:50 20:58 WBC RBC Hgb Hct MCV MCH MCHC RDW Plt Count Neut % (Auto) Lymph % (Auto) [place] % (Auto) Eos % (Auto) Baso % (Auto) Neut # (Auto) Lymph # (Auto) [place] # (Auto) Eos # (Auto) Baso # (Auto) Sodium 131 L Potassium 4.0 Chloride 94 L Carbon Dioxide 30 BUN 20 Creatinine 0.98 Estimated GFR > 60 BUN/Creatinine Ratio 20.4 Glucose 125 H Lactate 1.4 1.6 Calcium 7.6 L Magnesium Total Bilirubin AST ALT Alkaline Phosphatase Troponin I 0.036 H Total Protein Albumin Globulin Albumin/Globulin Ratio 10/08/22 10/08/22 10/08/22 03:18 03:18 03:18 WBC 9.3 D RBC 4.40 L Hgb 14.3 Hct 41.9 MCV 95.1 MCH 32.6 MCHC 34.2 RDW 13.1 Plt Count 129 L Neut % (Auto) 87.0 H Lymph % (Auto) 7.3 L [place] % (Auto) 4.7 Eos % (Auto) 0.9 L Baso % (Auto) 0.1 Neut # (Auto) 8100 H Lymph # (Auto) 700 L [place] # (Auto) 400 Eos # (Auto) 100 Baso # (Auto) 0 Sodium 131 L Potassium 3.9 Chloride 96 L Carbon Dioxide 29 BUN 22 H Creatinine 0.88 Estimated GFR > 60 BUN/Creatinine Ratio 25.0 H Glucose 117 H Lactate 1.2 Calcium 7.7 L Magnesium 2.4 H Total Bilirubin 0.7 AST 22 ALT 19 Alkaline Phosphatase 37 L Troponin I Total Protein 5.6 L Albumin 2.8 L Globulin 2.8 Albumin/Globulin Ratio 1.0 [facility] Medical History BPH (benign prostatic hyperplasia) Essential tremor History of basal cell carcinoma Hyperlipidemia Medicare annual wellness visit, subsequent Preventative health care Witnessed episode of apnea Surgical History Hx laparoscopic cholecystectomy Previous back surgery S/P laparoscopic hernia repair Social History household members: spouse Smoking Status: Never smoker alcohol intake: current substance use type: does not use Assessment & Plan Assessment & Plan narrative: Multiple medical issues, all improving. SBO appears clinically to be resolving Plan: Gastrografin challenge. Time Spent With Patient Time with patient: 30 to 49 minutes with 50% spent counseling/coordinating care
[2022-10-08] MEDS: ONDANSETRON 4 MG/2 ML INJ IV (13:17)
[2022-10-08] MEDS: cefTRIAXone 1,000 MG in SODIUM CHLORIDE 0.9% 100 ML 200 MG IV (16:33)
[2022-10-08] MEDS: ENOXAPARIN 40 MG/0.4 ML SYRINGE SUBCUT (16:57)
--- NOTE | 2022-10-08 20:28 | PM.ICURNDS ---
- Date Patient Seen: 10/08/22 Time Patient Seen: 20:29 :: This patient was seen via real time interactive two-way audiovisual telecommunication. Note: Patient went back in A fib w/ RVR. Restarted back on amiodarone gtt per protocol. NGT output ~2 liters. Will hold off on diuresis given concern for ? dehydration. D/w bedside RN.
[2022-10-09] VITALS (60 sets, daily range): BP systolic 107–189; BP diastolic 55–105; PULSE 71–136; RESP 15–32; TEMP 36.1–37.4; O2SAT 70–95; BMI 25.6
--- NOTE | 2022-10-09 | PATH_ITS ---
[facility] Accession Number: [id number] No. of containers..01 Tissue . 01 Material submitted: . small bowel - SMALL BOWL . 01 Diagnosis: Small Bowel, Segmental Resection: Segment of small bowel with gross stricture and focal erosion, consistent with mucosal ischemia. Negative for granulomas, dysplasia or malignancy. MRV 10/16/2022 1724 Local . 01 Electronically signed: . Vazquez Bonilla MD, PhD, Pathologist NPI- [id number] . 01 Gross description: . The specimen is received in formalin, labeled with the patient's name, , and small bowel, and consists of a single unopened segment of small bowel measuring 11.5 cm in length and up to 3.5 cm in diameter. A moderate amount of attached yellow mesenteric fat is noted. The serosal surface is shrestha, smooth, and unremarkable. Both ends are stapled. The bowel is opened to reveal a possible area of constriction measuring 2.8 cm in circumference and located 1.8 cm from the closest surgical edge. The remaining bowel wall shows the usual shrestha, plicated folds with no polyps or lesions seen, and measuring 5.8 cm in circumference. No further abnormalities are seen. [employer] sections are submitted as follows: A1: [employer] shave of each margin. A2: Area of constriction in relation to closest margin, perpendicular (inked blue). A3: [employer] of normal appearing bowel wall. ([id number]) /Logan 10/11/2022 1627 Local . 01 Pathologist provided ICD-10: K56.609 . 01 CPT . 755926 Specimen Comment: A courtesy copy of this report has been sent to [phone] Performed at: 01 [facility] [address] [facility], [place], [place] [id number] MD Jayme Castle MD Phone: [phone]
[2022-10-09] MEDS: metroNIDAZOLE 500 MG/100 ML PIGGYBACK 100 MG IV ×3 (00:58→18:35)
[2022-10-09] MEDS: BENZOCAINE/MENTHOL 1 LOZ PKT 1 EACH PO ×2 (04:25→08:29)
[2022-10-09] MEDS: AMIODARONE 180 MG/100 ML PIGGYBACK 16.7 MG IV (04:28)
[2022-10-09 05:00] LABS: Add Manual Diff / Slide Review NO; Basophils Absolute Auto 0 /uL (0-100); Basophils Percent Auto 0.1 % (0-2); Eosinophils Absolute Auto 100 /uL (0-450); Hematocrit 41.7 % (41-53); Hemoglobin 14.3 g/dL (13.5-17.5); Lymphocytes Absolute Auto 600 /uL (1100-4500); Lymphocytes Percent Auto 4.8 % (25-40); Mean Corpuscular HGB Conc 34.4 % (30-36); Mean Corpuscular Hemoglobin 32.5 PG (26-34); Mean Corpuscular Volume 94.3 fL (80-100); Monocytes Absolute Auto 600 /uL (0-900); Monocytes Percent Auto 4.9 % (3-14); Neutrophils Absolute Auto 11700 /uL (1500-7000); Neutrophils Percent Auto 89.2 % (50-75); Platelet Count 167 X10^3/uL (150-400); Red Blood Cell Count 4.42 X10^6/uL (4.5-5.9); Red Cell Distribution Width 13.1 % (11.6-14.8); White Blood Cell Count 13.1 X10^3/uL (4.5-11.0)
--- NOTE | 2022-10-09 05:00 | DI.RAD.S_ITS ---
PROCEDURE: XR ABDOMEN 1V INDICATIONS: follow up gastrografin study TECHNIQUE: One view of the abdomen acquired. COMPARISON: [facility], CT, CT ABDOMEN PELVIS W CON, 10/07/2022, 15:14. [facility], CR, XR GASTROGRAFIN CHALLENGE, 10/08/2022, 14:56. FINDINGS: Surgical changes and devices: There is a nasogastric tube in the stomach. Bowel: Oral contrast is present. Small bowel loops remains dilated measuring up to 4.4 cm in diameter. Distal small bowel is not well seen. There may be oral contrast in colon. Soft tissues: No suspicious abdominal calcifications. Visualized solid organ contours appear normal in size. Bones: No suspicious bony lesions. IMPRESSION: 1. Persistent small bowel obstruction. 2. There may be oral contrast in colon. Obstruction may be partial. No significant discrepancy with the generation engineer radiology preliminary report. Dictated by: Dylon Donald M.D. on 10/09/2022 at 8:42 Approved by: Dylon oDnald M.D. on 10/09/2022 at 8:47
[2022-10-09 05:13] LABS: Alanine Aminotransferase 17 IU/L (<50); Albumin 2.9 g/dL (3.5-5.0); Albumin Globulin Ratio 1.1 (1.0-2.8); Alkaline Phosphatase 47 U/L (38-126); Aspartate Aminotransferase 21 IU/L (17-59); BUN Creatinine Ratio 25.6 (6-22); Bilirubin Total 0.5 mg/dL (0.2-1.3); Blood Urea Nitrogen 22 mg/dL (9-20); Calcium 8.1 mg/dL (8.4-10.2); Carbon Dioxide 35 mmol/L (22-32); Chloride 95 mmol/L (98-107); Estimated Glomerular Filt Rate > 60 mL/min (>60); Globulin 2.6 g/dL (1.7-4.1); Glucose 117 mg/dL (80-110); HEMOLYSIS < 15 (0-50); Magnesium 2.4 mg/dL (1.6-2.3); Potassium 3.6 mmol/L (3.4-5.1); Sodium 135 mmol/L (137-145); Total Protein 5.5 g/dL (6.3-8.2)
[2022-10-09 05:24] LABS: Troponin I 0.013 ng/mL (0.01-0.034)
--- NOTE | 2022-10-09 05:35 | PC.NURSE ---
Patient converted from A-fib 120s to SR 73 @ 0308 10/09 per tele. patient's Vital signs remain stable.
[2022-10-09] MEDS: ENOXAPARIN 40 MG/0.4 ML SYRINGE SUBCUT (08:29)
--- NOTE | 2022-10-09 08:34 | CM.DPC ---
Addendum entered by CLAUDIO Lindo 10/09/22 14:07: ADD: Per MD and Surgeon, plan is exploratory lap today due to pt's ongoing lack of bowel function return. BF Original Note: DCP Cont: Per MD, pt did not tolerate advancing diet and now with SBO and NG tube initiated and pt moved to ICU due to AFIB and medical needs and pt currently on 9LO2 oximask. Pt remains not medically stable to discharge and MD will order PT eval when pt more medically appropriate. Plan: SW to follow closely for pt's medical progress and eventual PT eval to confirm if pt still safe for return home with spouse or if HH vs SNF needed at d/c. CLAUDIO Lindo
[2022-10-09] MEDS: HYDROMORPHONE 0.5 MG INJ IV ×6 (08:37→23:52)
--- NOTE | 2022-10-09 09:25 | P.CALLCOV_ITS ---
Call Coverage Note Note Date of Patient Contact: 10/09/22 Time of Patient Contact: 09:26 Narrative of Care Provided: 72-year-old man history of abdominal surgery open cholecystectomy and laparoscopic inguinal hernia repair were admitted hospital with a small-bowel obstruction. He is developed pneumonia likely aspiration secondary to the bowel obstruction as well as AFib with RVR. He is failing to progress in regards to his bowel obstruction. Gastrografin challenge reviewed demonstrates no passage into the colon and he is had no return of bowel function after nearly a week in the hospital with a nasogastric tube. Discussed with the patient and his courtney barrios recommendations that we proceed to the operating room today for an exploratory laparotomy. Overview of the operation was discussed. Operative risks including infection, hemorrhage, damage to surrounding structures, anastomotic leak, embolism, stroke, heart attack and were discussed. Questions have been answered and they are in agreement with this plan. Exploratory laparotomy today
--- NOTE | 2022-10-09 09:27 | P.TELICUPN_ITS ---
Subjective Subjective IF CAMERA ACTIVATED, patient seen via real-time interactive audiovisual communication: Camera activated Date Patient Seen: 10/09/22 Consent obtained for tele-commercial carpet installer care: Yes Patient Location: ICU Provider location (State): [place] Other participants/roles: Bedside WINSTON Pimentel Interval history: COnverted back to SR this morning around 3:45 am. AXR showed persistent SBO and plan for OR today. Current Medications Current Medications Medications: Home Medications tamsulosin 0.4 mg capsule 0.4 mg PO DAILY #90 caps 07/25/22 [Rx Confirmed 10/04/22] diazepam 5 mg tablet 5 mg PO DAILY PRN anxiety #30 tabs 08/05/22 [Rx Confirmed 10/04/22] Visit Medications (administered) Generic Name Dose Route Start Last Admin Trade Name Freq PRN Reason Stop Dose Admin Acetaminophen 650 mg 10/04/22 05:05 10/06/22 21:22 Acetaminophen 325 Mg Tablet PO 650 mg Q6H PRN Administration Fever/Mild Pain (1-3) Benzocaine 1 each 10/08/22 07:44 10/09/22 08:29 Benzocaine/Menthol 1 Dominic Pkt PO 1 each Q1HR PRN Administration Sore Throat Bisacodyl 5 mg 10/06/22 09:15 10/06/22 23:45 Bisacodyl 5 Mg Tablet PO 5 mg BID PRN Administration Constipation Bisacodyl 10 mg 10/06/22 15:52 10/06/22 16:55 Bisacodyl 10 Mg Supp RI 10 mg DAILY PRN Administration Constipation Enoxaparin Sodium 40 mg 10/08/22 16:45 10/09/22 08:29 Enoxaparin 40 Mg/0.4 Ml Syringe SUBCUT 40 mg DAILY REY Administration Hydromorphone HCl 0.5 mg 10/04/22 05:05 10/09/22 08:37 Hydromorphone 0.5 Mg Inj IV 0.5 mg Q2H PRN Administration Pain, Severe (7-10) Ceftriaxone Sodium 1,000 mg/ 100 mls @ 200 mls/hr 10/06/22 16:00 10/08/22 16:33 Sodium Chloride IV 10/13/22 15:59 200 mls/hr Q24H REY Administration Metronidazole 500 mg in 100 mls @ 100 mls/hr 10/07/22 17:15 10/09/22 08:29 Flagyl IV 100 mls/hr Q8H REY Administration Amiodarone HCl/Dextrose 180 mg in 100 mls @ 16.7 mls/hr 10/09/22 05:00 10/09/22 04:28 Nexterone IV 10/09/22 11:00 16.7 mls/hr CONT REY Administration Protocol Lorazepam 0.5 mg 10/04/22 18:23 10/07/22 16:43 Lorazepam 2 Mg/Ml Inj IV 0.5 mg Q4HR PRN Administration Anxiety Magnesium Hydroxide 30 ml 10/05/22 21:55 10/06/22 08:25 Magnesium Hydroxide 30 Ml Udc PO 30 ml DAILY PRN Administration Constipation Metoclopramide HCl 10 mg 10/04/22 06:45 10/08/22 18:50 Metoclopramide 10 Mg/2 Ml Inj IV 10 mg Q6HR PRN Administration Nausea And Vomiting Metoprolol Succinate 12.5 mg 10/09/22 09:00 10/09/22 08:25 Metoprolol Er 25 Mg Tablet PO Not Given DAILY [facility] Ondansetron HCl 4 mg 10/07/22 11:12 10/08/22 13:17 Ondansetron 4 Mg/2 Ml Inj IV 4 mg Q4HR PRN Administration Nausea And Vomiting Polyethylene Glycol 17 gm 10/06/22 09:00 10/09/22 08:25 Polyethylene Glycol 3350 17 Gm Powd.Pack PO Not Given DAILY [facility] Sennosides 17.2 mg 10/05/22 21:00 10/08/22 20:08 Sennosides 8.6 Mg Tablet PO Not Given BEDTIME [facility] Tamsulosin HCl 0.4 mg 10/04/22 09:00 10/09/22 08:25 Tamsulosin 0.4 Mg Capsule PO Not Given DAILY [facility] Objective Labs 10/09/22 04:13 10/09/22 04:13 Labs: Laboratory Results - last 24 hr 10/09/22 10/09/22 10/09/22 04:13 04:13 04:13 WBC 13.1 H RBC 4.42 L Hgb 14.3 Hct 41.7 MCV 94.3 MCH 32.5 MCHC 34.4 RDW 13.1 Plt Count 167 Neut % (Auto) 89.2 H Lymph % (Auto) 4.8 L [place] % (Auto) 4.9 Eos % (Auto) 1.0 L Baso % (Auto) 0.1 Neut # (Auto) 83586 H Lymph # (Auto) 600 L [place] # (Auto) 600 Eos # (Auto) 100 Baso # (Auto) 0 Sodium 135 L Potassium 3.6 Chloride 95 L Carbon Dioxide 35 H BUN 22 H Creatinine 0.86 Estimated GFR > 60 BUN/Creatinine Ratio 25.6 H Glucose 117 H Calcium 8.1 L Magnesium 2.4 H Total Bilirubin 0.5 AST 21 ALT 17 Alkaline Phosphatase 47 Troponin I 0.013 Total Protein 5.5 L Albumin 2.9 L Globulin 2.6 Albumin/Globulin Ratio 1.1 Exam Vital Signs (past 8 hours): - 10/09/22 03:00 10/09/22 03:19 10/09/22 06:55 Temperature Pulse Rate 114 H Respiratory Rate 20 Blood Pressure 107/60 128/62 Pulse Oximetry 91 90 L 92 Oxygen Delivery Method Oximask Oxygen Flow Rate 9 7 7 10/09/22 07:00 10/09/22 01:30 10/09/22 02:00 Temperature Pulse Rate 122 H Respiratory Rate 21 Blood Pressure 110/58 L Pulse Oximetry 92 91 Oxygen Delivery Method Oximask Oxygen Flow Rate 9 10/09/22 02:00 10/09/22 02:30 10/09/22 03:00 Temperature Pulse Rate 114 H 126 H Respiratory Rate 22 21 Blood Pressure 107/60 Pulse Oximetry 89 L 91 Oxygen Delivery Method Oxygen Flow Rate 10/09/22 03:00 10/09/22 03:30 10/09/22 04:00 Temperature Pulse Rate 122 H 120 H Respiratory Rate 22 23 Blood Pressure 112/55 L Pulse Oximetry 90 L 92 Oxygen Delivery Method Oxygen Flow Rate 10/09/22 04:00 10/09/22 04:30 10/09/22 05:00 Temperature Pulse Rate 71 76 Respiratory Rate 20 26 H Blood Pressure 143/66 H Pulse Oximetry 89 L 91 Oxygen Delivery Method Oxygen Flow Rate 10/09/22 05:00 10/09/22 05:30 10/09/22 06:00 Temperature Pulse Rate 82 75 Respiratory Rate 19 22 Blood Pressure 128/62 Pulse Oximetry 93 91 Oxygen Delivery Method Oxygen Flow Rate 10/09/22 06:00 10/09/22 06:30 10/09/22 07:00 Temperature Pulse Rate 75 76 Respiratory Rate 22 23 Blood Pressure 137/63 Pulse Oximetry 91 92 Oxygen Delivery Method Oxygen Flow Rate 10/09/22 07:00 10/09/22 07:00 10/09/22 08:51 Temperature 99.3 F Pulse Rate 83 Respiratory Rate 25 H Blood Pressure Pulse Oximetry 90 L Oxygen Delivery Method Oximask Oxygen Flow Rate 7 10/09/22 07:30 10/09/22 08:00 10/09/22 08:00 Temperature Pulse Rate 81 71 Respiratory Rate 25 H 26 H Blood Pressure 131/63 Pulse Oximetry 91 93 Oxygen Delivery Method Oxygen Flow Rate 10/09/22 08:30 Temperature Pulse Rate 80 Respiratory Rate 24 Blood Pressure Pulse Oximetry 92 Oxygen Delivery Method Oxygen Flow Rate Fraction of Inspired Oxygen 44 SaO2/FiO2 Ratio 211 Oxygen Delivery Method Oximask Oxygen Flow Rate 7 Assessment & Plan Assessment & Plan narrative: NEURO: -- PT/OT -- Encourage early mobility RESP: # Acute hypoxemia respiratory failure -- Secondary to PNA vs volume overload -- CTA PE study negative -- Down to 7 liters NC -- Strict I/O -- Encourage IS -- HOB elevation -- Aspiration precaution -- Goal SpO2 > 88% CVS: # A fib w/ RVR -- Converted to SR this morning -- CHADVASC score 1 -- High lytes goal -- Goal HR < 110 -- If goes back to rapid A fib then will start digoxin load GI: # SBO -- Repeat AXR showed persistent SBO -- Plan for OR today ID: # UTI -- Cx negative to date -- Cont ceftriaxone X 5 days ENDO: -- Goal BS < 180 Time Spent With Patient Time with patient: 30 to 49 minutes with 50% spent counseling/coordinating care
[2022-10-09] MEDS: METOCLOPRAMIDE 10 MG/2 ML INJ IV (12:59)
--- NOTE | 2022-10-09 13:25 | PM.PN.1 ---
Subjective Subjective Date Patient Seen: 10/09/22 Interval history: Pt with persistent SBO, scheduled for OR this afternoon. High output from NG. He converted back to SR, amio drip discontinued by tele road design draftsperson. Continued high O2 requirements, currently 8 L mask, and on abx for asp pneumonia. Exam Vital Signs (past 8 hours): - 10/09/22 06:55 10/09/22 07:00 10/09/22 05:30 Temperature Pulse Rate 75 Respiratory Rate 22 Blood Pressure 128/62 Pulse Oximetry 92 92 91 Oxygen Delivery Method Oximask Oxygen Flow Rate 7 9 10/09/22 06:00 10/09/22 06:00 10/09/22 06:30 Temperature Pulse Rate 75 76 Respiratory Rate 22 23 Blood Pressure 128/62 Pulse Oximetry 91 92 Oxygen Delivery Method Oxygen Flow Rate 10/09/22 07:00 10/09/22 07:00 10/09/22 07:00 Temperature Pulse Rate 83 Respiratory Rate 25 H Blood Pressure 137/63 Pulse Oximetry 90 L Oxygen Delivery Method Oximask Oxygen Flow Rate 10/09/22 08:51 10/09/22 07:30 10/09/22 08:00 Temperature 99.3 F Pulse Rate 81 Respiratory Rate 25 H Blood Pressure 131/63 Pulse Oximetry 91 Oxygen Delivery Method Oxygen Flow Rate 7 10/09/22 08:00 10/09/22 08:30 10/09/22 11:00 Temperature Pulse Rate 71 80 Respiratory Rate 26 H 24 Blood Pressure Pulse Oximetry 93 92 91 Oxygen Delivery Method Oximask Oxygen Flow Rate 8 10/09/22 11:00 10/09/22 09:00 10/09/22 09:00 Temperature Pulse Rate 83 Respiratory Rate 24 Blood Pressure 138/66 Pulse Oximetry 88 L Oxygen Delivery Method Oximask Oxygen Flow Rate 10/09/22 09:30 10/09/22 10:00 10/09/22 10:00 Temperature Pulse Rate 83 86 Respiratory Rate 22 27 H Blood Pressure 139/63 Pulse Oximetry 88 L 86 L Oxygen Delivery Method Oxygen Flow Rate 10/09/22 10:30 10/09/22 11:16 10/09/22 11:30 Temperature Pulse Rate 81 80 72 Respiratory Rate 24 23 Blood Pressure Pulse Oximetry 89 L 90 L 91 Oxygen Delivery Method Oxygen Flow Rate 10/09/22 12:00 Temperature Pulse Rate 75 Respiratory Rate 23 Blood Pressure Pulse Oximetry 93 Oxygen Delivery Method Oxygen Flow Rate Fraction of Inspired Oxygen 44 SaO2/FiO2 Ratio 211 Oxygen Delivery Method Oximask Oxygen Flow Rate 8 Narrative Exam Narrative: Gen: alert, pleasant cooperative, looks relatively comfortable Lungs: able to speak full sentences, rt base crackles, no wheeze CV: regular Ext: no edema Neuro: nl speech and affect Objective Labs 10/09/22 04:13 10/09/22 04:13 Labs: Laboratory Results - last 24 hr 10/09/22 10/09/22 10/09/22 04:13 04:13 04:13 WBC 13.1 H RBC 4.42 L Hgb 14.3 Hct 41.7 MCV 94.3 MCH 32.5 MCHC 34.4 RDW 13.1 Plt Count 167 Neut % (Auto) 89.2 H Lymph % (Auto) 4.8 L [place] % (Auto) 4.9 Eos % (Auto) 1.0 L Baso % (Auto) 0.1 Neut # (Auto) 25130 H Lymph # (Auto) 600 L [place] # (Auto) 600 Eos # (Auto) 100 Baso # (Auto) 0 Sodium 135 L Potassium 3.6 Chloride 95 L Carbon Dioxide 35 H BUN 22 H Creatinine 0.86 Estimated GFR > 60 BUN/Creatinine Ratio 25.6 H Glucose 117 H Calcium 8.1 L Magnesium 2.4 H Total Bilirubin 0.5 AST 21 ALT 17 Alkaline Phosphatase 47 Troponin I 0.013 Total Protein 5.5 L Albumin 2.9 L Globulin 2.6 Albumin/Globulin Ratio 1.1 PFSH Medical History BPH (benign prostatic hyperplasia) Essential tremor History of basal cell carcinoma Hyperlipidemia Medicare annual wellness visit, subsequent Preventative health care Witnessed episode of apnea Surgical History Hx laparoscopic cholecystectomy Previous back surgery S/P laparoscopic hernia repair Social History household members: spouse Smoking Status: Never smoker alcohol intake: current substance use type: does not use Assessment & Plan Assessment & Plan narrative: #closed loop bowel obstruction ?- per CT abd on 10/07 ?- worsening distension on 10/07, consistent with closed loop obstruction. Surgery consulted and NG tube now in place. ?- f/u gastrografin study indicated persistent obstruction - to OR 10/09 #sepsis secondary to aspiration pneumonia, with acute respiratory failure with hypoxia, thrombocytopenia ?- continue ceftriaxone and metronidazole ?- CTA showed aspiration likely due to obstruction ?- still on 7-8L oxymask, wean as able #paroxysmal atrial fibrillation with RVR ?- converted with amiodarone, but went back into RVR AM of 10/08 so amio bolus given and amio rate increased, converted to SR 10/09 and amio d/c'd ?- patient reports prior history of afib in the past. ?- will start metop succ once tolerating po ?- echo as below #possible acute diastolic heart failure, previously normal EF in 12/2021. ?- Echo 10/07 with EF 55-60%, RVSP 31, improved mild MR, and borderline dilated LA, low RA pressure ?- probNp 1310, CXR consistent with volume overload. Did diurese with 20 mg of IV lasix but limited by soft BP, and Lasix discontinued ?- resp failure is probably due to asp pneumonia - cont aff Lasix #hyponatremia ?- stable, watch closely with obstruction #Acute urinary retention in setting of chronic BPH with acute cystitis ?- suspect due to constipation and history of BPH ?- resume flomax when able to take po - urine cx negative #elevated troponin, non-significant ?- no chest pain, EKG without acute ischemia, trop up to 0.036, then declined Code status:full Surrogate decision maker:? Gilda Price DVT/VTE prophylaxis:? Lovenox and SCDs
[2022-10-09] MEDS: LACTATED RINGERS 1,000 ML 100 ML IV ×2 (15:38→20:00)
--- NOTE | 2022-10-09 15:53 | PM.PREOP ---
Pre-operative Note Interval Note History & Physical reviewed/Exam performed by Physician: Yes Changes to H&P: No
--- NOTE | 2022-10-09 16:19 | SUR.OPER ---
Supine on padded OR bed, head on pillow, arms secured on padded arm boards at <90 degrees abduction, legs uncrossed, safety belt at thigh, tape over blanket over lower legs.
--- NOTE | 2022-10-09 17:27 | P.OP_ITS ---
Operative Date/Time/Diagnoses Date of procedure: 10/09/22 Time of procedure: 17:27 Pre-op diagnosis: Small-bowel obstruction Post-op diagnosis: same Procedure & Clinicians Procedure: Exploratory laparotomy Small-bowel resection Same procedure as scheduled: Yes Indications: Small-bowel obstruction with failure to resolve with conservative therapy Surgeon: Sam Angel Click Yes if Unassisted: Yes Anesthesia Type: General Operative Notes Findings: Single tight adhesive band within the right lower quadrant. The bowel directly underlying the adhesion has a well demarcated area of ischemia Specimen(s): other (Small-bowel) Estimated Blood Loss (mL): 50 Procedure in detail: Patient was brought to the operating room placed supine on the table. Bilateral lower extremity compression devices were applied. General anesthesia was induced and he was intubated with an endotracheal tube. He received Zosyn prior skin incision. He was then prepped and draped in sterile fashion. Surgical time-out performed. A lower midline incision was made. The subcutaneous tissue was divided the fascia was grasped elevated and sharply incised the abdomen was entered atraumatically. Upon entry to the abdomen there was some simple fluid within the pelvis and dilated loops of small bowel. A single adhesive band within the right lower quadrant was identified as the point of transition over the mid small bowel. The band was divided and the small bowel was then run in its entirety from the ligament of Treitz to the terminal ileum. The area of the small bowel over which the adhesion had been had a sharply delineated line of white ischemia. My concern was the ischemia progressing to necrosis and the refore a small-bowel resection was performed. A window within the mesentery was made on either side and using the BETTY stapler the bowel was divided with the blue load 60 mm. The mesentery was then divided using the LigaSure. Specimen labeled small bowel was then passed off the field. A iorl-od-emsu anastomosis was then formed. An enterotomy was made in each limb and the bowel was decompressed with suction. The common channel was inspected it was widely patent and hemostatic. The common opening was then closed with running 3-0 PDS suture. The suture line was then imbricated with interrupted silk suture. Crotch stitch was placed with silk suture and the mesenteric defect was reapproximated using a running silk suture. The anastomosis was tested and content move freely across it with no expression of succus and it was well perfused. The abdomen was copiously irrigated and then the fascia was closed with a running 1. PDS suture. The subcutaneous tissue was reapproximated using Vicryl suture and skin closed with michelle. The patient was extubated and transferred to recovery in stable condition. Post-operative Condition: stable Disposition: ICU
--- NOTE | 2022-10-09 17:37 | DI.RAD.S_ITS ---
PROCEDURE: XR CHEST 1V INDICATIONS: low oxygen saturation TECHNIQUE: One view of the chest was acquired. COMPARISON: [facility], CR, XR CHEST 1V, 10/07/2022, 17:48. [facility], CR, XR CHEST 1V, 10/07/2022, 4:48. FINDINGS: Surgical changes and devices: Gastric tube tip and side port project over the stomach. Lungs and pleura: Worsening bibasilar airspace opacities. Mediastinum: Mediastinal contours appear normal. Heart size is normal. Bones and chest wall: No suspicious bony lesions. Overlying soft tissues appear unremarkable. IMPRESSION: Worsening bibasilar airspace opacities. Interval advancement of the gastric tube, which projects over the appropriate position. Dictated by: Roberto Nelson M.D. on 10/09/2022 at 18:02 Approved by: Roberto Nelson M.D. on 10/09/2022 at 18:03
--- NOTE | 2022-10-09 17:54 | SUR.PHASEI ---
attempted to call report to icu
--- NOTE | 2022-10-09 20:14 | PM.ICURNDS ---
- Date Patient Seen: 10/09/22 Time Patient Seen: 20:14 :: This patient was seen via real time interactive two-way audiovisual telecommunication. Note: Patient is s/p ex-lap w/ small bowel resection and extubated to NC. Remains in SR and off amiodarone gtt. On ceftriaxone/flagyl. D/w bedside RN.
[2022-10-09] MEDS: cefTRIAXone 1,000 MG in SODIUM CHLORIDE 0.9% 100 ML 200 MG IV (21:09)
[2022-10-10] VITALS (46 sets, daily range): BP systolic 120–158; BP diastolic 63–74; PULSE 63–114; RESP 13–33; TEMP 36.3–36.8; O2SAT 88–96
[2022-10-10] MEDS: LORazepam 2 MG/ML INJ 0.5 MG IV ×2 (01:01→18:44)
[2022-10-10] MEDS: metroNIDAZOLE 500 MG/100 ML PIGGYBACK 100 MG IV ×3 (01:15→16:31)
--- NOTE | 2022-10-10 02:30 | PC.NURSE ---
1245- Patient awoke very agitated and stated that he was having difficulty sleeping. Rn asked patient if he was in pain? Patient stated his pain was a 2/10. Rn asked if patient needed something to help him relax so he could sleep? Patient states I guess I do you see I am not sleeping. Medicated per order for anxiety. 4350- Patient resting comfortably at this time. Will monitor.
[2022-10-10] MEDS: HYDROMORPHONE 0.5 MG INJ IV (02:59)
--- NOTE | 2022-10-10 05:34 | PM.PN.EICU ---
Subjective Subjective IF CAMERA ACTIVATED, patient seen via real-time interactive audiovisual communication: Camera activated Consent obtained for tele-loan officer assistant care: Yes Patient Location: ICU Provider location (State): [place] Other participants/roles: RN, hospitalist Interval history: Patient Summary: 72 yo Man with PMH of YUDITH on CPA and atrial tachycardia who was admitted 10/04 with n/v and abdominal pain and found to have SBO. U/a suggestive of possible UTI but urine culture neg. 10/07: Patient then went into SVT and transferred to ICU for further management. Initially pt. was started on dilt drip but BP dropped so patient switched to Amio drip. Oxygen requirement increased to 10 L. Chest CTA neg for PE but did show aspiration PNA. CTA of abd confirmed closed loop bowel obstruction. 10/09: patient converted back to NSR and Amio drip stopped. Patient had persistent bowel obstruction despite NGT so went to OR for ex-lap and found to have tight adhesive band within RLQ with bowel underlying adhesion with small area of ischemia. Pt. had smal-bowel resection. EBL 50 cc. Recent events: Patient remains in NSR. Patient's pox is 88-90% on 10L mask. BP stable. CBC and renal function stable. Patient still has high NGT output and bowel sounds are absent. Nurse reports patient had some momentions of confusion and anxiety. Current Medications Current Medications Medications: Home Medications tamsulosin 0.4 mg capsule 0.4 mg PO DAILY #90 caps 07/25/22 [Rx Confirmed 10/04/22] diazepam 5 mg tablet 5 mg PO DAILY PRN anxiety #30 tabs 08/05/22 [Rx Confirmed 10/04/22] Visit Medications (administered) Generic Name Dose Route Start Last Admin Trade Name Freq PRN Reason Stop Dose Admin Acetaminophen 650 mg 10/04/22 05:05 10/06/22 21:22 Acetaminophen 325 Mg Tablet PO 650 mg Q6H PRN Administration Fever/Mild Pain (1-3) Benzocaine 1 each 10/08/22 07:44 10/09/22 08:29 Benzocaine/Menthol 1 Dominic Pkt PO 1 each Q1HR PRN Administration Sore Throat Bisacodyl 5 mg 10/06/22 09:15 10/06/22 23:45 Bisacodyl 5 Mg Tablet PO 5 mg BID PRN Administration Constipation Bisacodyl 10 mg 10/06/22 15:52 10/06/22 16:55 Bisacodyl 10 Mg Supp FL 10 mg DAILY PRN Administration Constipation Enoxaparin Sodium 40 mg 10/08/22 16:45 10/09/22 08:29 Enoxaparin 40 Mg/0.4 Ml Syringe SUBCUT 40 mg DAILY REY Administration Hydromorphone HCl 0.5 mg 10/09/22 18:27 10/10/22 02:59 Hydromorphone 0.5 Mg Inj IV 0.5 mg Q2H PRN Administration Pain, Moderate (4-6) Metronidazole 500 mg in 100 mls @ 100 mls/hr 10/07/22 17:15 10/10/22 02:25 Flagyl IV 10/13/22 18:14 Infused Q8H REY Infusion Lactated Ringer's 1,000 mls @ 100 mls/hr 10/09/22 20:00 10/09/22 20:00 Lactated Ringers IV 100 mls/hr CONT REY Administration Ceftriaxone Sodium 1,000 mg/ 100 mls @ 200 mls/hr 10/09/22 21:00 10/09/22 21:39 Sodium Chloride IV Infused Q24H REY Infusion Lorazepam 0.5 mg 10/04/22 18:23 10/10/22 01:01 Lorazepam 2 Mg/Ml Inj IV 0.5 mg Q4HR PRN Administration Anxiety Magnesium Hydroxide 30 ml 10/05/22 21:55 10/06/22 08:25 Magnesium Hydroxide 30 Ml Udc PO 30 ml DAILY PRN Administration Constipation Metoclopramide HCl 10 mg 10/04/22 06:45 10/09/22 12:59 Metoclopramide 10 Mg/2 Ml Inj IV 10 mg Q6HR PRN Administration Nausea And Vomiting Metoprolol Succinate 12.5 mg 10/09/22 09:00 10/09/22 08:25 Metoprolol Er 25 Mg Tablet PO Not Given DAILY [facility] Ondansetron HCl 4 mg 10/07/22 11:12 10/08/22 13:17 Ondansetron 4 Mg/2 Ml Inj IV 4 mg Q4HR PRN Administration Nausea And Vomiting Polyethylene Glycol 17 gm 10/06/22 09:00 10/09/22 08:25 Polyethylene Glycol 3350 17 Gm Powd.Pack PO Not Given DAILY [facility] Sennosides 17.2 mg 10/05/22 21:00 10/09/22 21:09 Sennosides 8.6 Mg Tablet PO Not Given BEDTIME [facility] Tamsulosin HCl 0.4 mg 10/04/22 09:00 10/09/22 08:25 Tamsulosin 0.4 Mg Capsule PO Not Given DAILY [facility] Objective Labs 10/10/22 04:07 10/10/22 04:07 Exam Vital Signs (past 8 hours): - 10/09/22 22:41 10/09/22 22:00 10/09/22 22:00 Temperature 97.5 F L Pulse Rate 78 85 Respiratory Rate 21 23 Blood Pressure 141/71 H 141/71 H Pulse Oximetry 88 L 90 L Oxygen Delivery Method Oxygen Flow Rate 7 10/09/22 22:30 10/09/22 23:00 10/09/22 23:00 Temperature Pulse Rate 80 Respiratory Rate 15 Blood Pressure Pulse Oximetry 88 L 88 L Oxygen Delivery Method CPAP CPAP Oxygen Flow Rate 7 10/10/22 01:52 10/10/22 03:00 10/10/22 03:00 Temperature 97.5 F L Pulse Rate 86 Respiratory Rate 19 Blood Pressure 138/65 Pulse Oximetry 88 L 89 L Oxygen Delivery Method Oximask Oximask Oxygen Flow Rate 11 10 10/10/22 04:39 Temperature 97.3 F L Pulse Rate 75 Respiratory Rate 17 Blood Pressure 145/68 H Pulse Oximetry 89 L Oxygen Delivery Method Oxygen Flow Rate 10 Fraction of Inspired Oxygen 44 SaO2/FiO2 Ratio 211 Oxygen Delivery Method Oximask Oxygen Flow Rate 10 Narrative Exam Narrative: Patient seen over [address] way audio visual system. He is currently calm, pleasant, and conversant. 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 Will switch from Dilaudid to morphine to see if patient prefers it over dilaudid as he felt he had very strange dreams while on dilaudid Ativan prn anxiety/agitation. If confusion worsens with ativan consider using Dex drip instead as Benzos can worsen delirium CV: Patient currently in NSR and BP stable. -keep K > 4, Mg > 2 Pulm: given pox is 88-90 % on 10L oximask, will switch to high flow nasal cannula ID: continue Ceftriaxone and Flagyl for aspiration PNA GI: NPO for now given absent bowel sounds and high NGT output still FEN/Renal: Replace K and Mag as needed. PPx: lovenox CCT spent 50 min
[2022-10-10 05:39] LABS: Add Manual Diff / Slide Review NO; Basophils Absolute Auto 0 /uL (0-100); Eosinophils Absolute Auto 0 /uL (0-450); Hemoglobin 14.2 g/dL (13.5-17.5); Lymphocytes Absolute Auto 400 /uL (1100-4500); Lymphocytes Percent Auto 3.5 % (25-40); Mean Corpuscular HGB Conc 33.8 % (30-36); Mean Corpuscular Hemoglobin 32.4 PG (26-34); Mean Corpuscular Volume 95.9 fL (80-100); Monocytes Absolute Auto 500 /uL (0-900); Monocytes Percent Auto 4.1 % (3-14); Neutrophils Absolute Auto 11500 /uL (1500-7000); Neutrophils Percent Auto 92.4 % (50-75); Platelet Count 190 X10^3/uL (150-400); Red Blood Cell Count 4.38 X10^6/uL (4.5-5.9); Red Cell Distribution Width 13.3 % (11.6-14.8); White Blood Cell Count 12.5 X10^3/uL (4.5-11.0)
[2022-10-10 05:44] LABS: BUN Creatinine Ratio 28.6 (6-22); Blood Urea Nitrogen 24 mg/dL (9-20); Calcium 7.8 mg/dL (8.4-10.2); Carbon Dioxide 34 mmol/L (22-32); Chloride 98 mmol/L (98-107); Estimated Glomerular Filt Rate > 60 mL/min (>60); Glucose 140 mg/dL (80-110); HEMOLYSIS < 15 (0-50); Potassium 3.9 mmol/L (3.4-5.1); Sodium 136 mmol/L (137-145)
[2022-10-10 05:53] LABS: Magnesium 2.4 mg/dL (1.6-2.3)
[2022-10-10] MEDS: LACTATED RINGERS 1,000 ML 100 ML IV (06:26)
[2022-10-10] MEDS: POTASSIUM CHLORIDE IN WATER 10 MEQ/100 ML PIGGYBACK 100 MEQ IV (06:42)
[2022-10-10] MEDS: BENZOCAINE/MENTHOL 1 LOZ PKT 1 EACH PO (08:13)
[2022-10-10] MEDS: ENOXAPARIN 40 MG/0.4 ML SYRINGE SUBCUT (08:13)
--- NOTE | 2022-10-10 09:37 | P.PN_ITS ---
Subjective Subjective Interval history: Patient's adhesion lysis surgery went well yesterday. He is in NSR and off amio drip. NG tube still with lots of output. He would like to work with PT today. No gas production yet. Exam Vital Signs (past 8 hours): - 10/10/22 01:52 10/10/22 03:00 10/10/22 03:00 Temperature 97.5 F L Pulse Rate 86 Respiratory Rate 19 Blood Pressure 138/65 Pulse Oximetry 88 L 89 L Oxygen Delivery Method Oximask Oximask Oxygen Flow Rate 11 10 10/10/22 04:39 10/10/22 06:47 10/10/22 07:00 Temperature 97.3 F L Pulse Rate 75 Respiratory Rate 17 18 Blood Pressure 145/68 H Pulse Oximetry 89 L 93 Oxygen Delivery Method Heated High Flow Oxygen Flow Rate 10 35 10/10/22 07:00 10/10/22 07:00 10/10/22 07:00 Temperature Pulse Rate 112 H Respiratory Rate 21 Blood Pressure 140/70 Pulse Oximetry 91 Oxygen Delivery Method Heated High Flow Oxygen Flow Rate 10/10/22 07:30 10/10/22 08:00 10/10/22 08:00 Temperature Pulse Rate 73 75 Respiratory Rate 17 19 Blood Pressure 150/69 H Pulse Oximetry 93 93 Oxygen Delivery Method Oxygen Flow Rate 10/10/22 08:30 Temperature 98 F Pulse Rate 72 Respiratory Rate 25 H Blood Pressure Pulse Oximetry 93 Oxygen Delivery Method Oxygen Flow Rate Fraction of Inspired Oxygen 44 SaO2/FiO2 Ratio 211 Oxygen Delivery Method Heated High Flow Oxygen Flow Rate 35 Narrative Exam Narrative: Gen: alert, pleasant cooperative, looks relatively comfortable Lungs: able to speak full sentences, rt base crackles, no wheeze Abd: Tender to palpation, absent bowel sounds CV: regular Ext: no edema Neuro: nl speech and affect Objective Labs 10/10/22 04:07 10/10/22 04:07 Labs: Laboratory Results - last 24 hr 10/10/22 10/10/22 10/10/22 04:07 04:07 04:07 WBC 12.5 H RBC 4.38 L Hgb 14.2 Hct 42.0 MCV 95.9 MCH 32.4 MCHC 33.8 RDW 13.3 Plt Count 190 Neut % (Auto) 92.4 H Lymph % (Auto) 3.5 L [place] % (Auto) 4.1 Eos % (Auto) 0.0 L Baso % (Auto) 0.0 Neut # (Auto) 66431 H Lymph # (Auto) 400 L [place] # (Auto) 500 Eos # (Auto) 0 Baso # (Auto) 0 Sodium 136 L Potassium 3.9 Chloride 98 Carbon Dioxide 34 H BUN 24 H Creatinine 0.84 Estimated GFR > 60 BUN/Creatinine Ratio 28.6 H Glucose 140 H Calcium 7.8 L Magnesium 2.4 H PFSH Medical History BPH (benign prostatic hyperplasia) Essential tremor History of basal cell carcinoma Hyperlipidemia Medicare annual wellness visit, subsequent Preventative health care Witnessed episode of apnea Surgical History Hx laparoscopic cholecystectomy Previous back surgery S/P laparoscopic hernia repair Social History household members: spouse Smoking Status: Never smoker alcohol intake: current substance use type: does not use Assessment & Plan Assessment & Plan narrative: #closed loop bowel obstruction ?- per CT abd on 10/07 ?- worsening distension on 10/07, consistent with closed loop obstruction. Surgery consulted and NG tube now in place. ?- gastrografin study indicated persistent obstruction - gen surg took to OR 10/09 and performed lysis of adhesions and partial small bowel resection due to necrotic tissue - continue NG per gen surg to suction - no gas or bowel sounds present yet - able to work with PT on 10/10 #sepsis secondary to aspiration pneumonia, with acute respiratory failure with hypoxia, thrombocytopenia ?- continue ceftriaxone and metronidazole ?- CTA showed aspiration likely due to obstruction ?- now on HFNC #paroxysmal atrial fibrillation, with RVR resolved ?- converted with amiodarone, but went back into RVR AM of 10/08 so amio bolus given and amio rate increased, converted to SR 10/09 and amio d/c'd - continues to be NSR currently ?- patient reports prior history of afib in the past. ?- will start metop succ once tolerating po ?- echo as below #possible acute diastolic heart failure, previously normal EF in 12/2021. ?- Echo 10/07 with EF 55-60%, RVSP 31, improved mild MR, and borderline dilated LA, low RA pressure ?- probNp 1310, CXR consistent with volume overload. Did diurese with 20 mg of IV lasix but limited by soft BP, and Lasix discontinued ?- resp failure is probably due to asp pneumonia #hyponatremia ?- stable, watch closely with obstruction #Acute urinary retention in setting of chronic BPH with acute cystitis ?- suspect due to constipation and history of BPH ?- resume flomax when able to take po - urine cx negative #elevated troponin, non-significant ?- no chest pain, EKG without acute ischemia, trop up to 0.036, then declined Code status: full Surrogate decision maker:? Gilda Price DVT/VTE prophylaxis:? Lovenox and SCDs Dispo: Pending improvement in resp failure, SBO. Multiple days.
--- NOTE | 2022-10-10 12:24 | PT.IIE ---
Current Diagnoses Noninfective gastroenteritis and colitis, unspecified (10/06/22) Surgery Performed Operation Date: 10/09/22 17:00 Actual Procedures p Exploratory Laparotomy with bowel resection - Sam Angel MD Surgical History (Last Reviewed 10/07/22 @ 20:52 by Yojana Blanchard MD) Hx laparoscopic cholecystectomy Previous back surgery S/P laparoscopic hernia repair Medical History (Last Reviewed 10/07/22 @ 20:52 by Yojana Blanchard MD) BPH (benign prostatic hyperplasia) Essential tremor History of basal cell carcinoma Hyperlipidemia Medicare annual wellness visit, subsequent Preventative health care Witnessed episode of apnea Physical Therapy Inpatient Evaluation/Re-Eval M1 PT/OT-IP Prior Functional Status Start: 10/10/22 12:09 Freq: NEEDED Status: Active Protocol: Document 10/10/22 12:09 ES (Rec: 10/10/22 12:24 ES [id number]) Medical Review Prior Functional Status Medical History Reviewed Yes Communication Indep Mobility and Gait Indep without AD Activities of Daily Living and IADL's Indep Prior Functional Level (Other details) Able to drive Social History Household Members spouse Living Arrangements House Number of Floors (Floors) One Floor Number of Stairs To Enter/Railing? 2 LINDA with B rails Additional Social History Comment No AD at home. No O2 at baseline, wears CPAP at night. Spouse will be available as needed. M2 PT-IP Current Condition Start: 10/10/22 12:09 Freq: NEEDED Status: Active Protocol: Document 10/10/22 12:09 ES (Rec: 10/10/22 12:24 ES [id number]) Physical Therapy Current Condition Current Condition Evaluation Date 10/10/22 Treatment Diagnosis S/p small bowel resection, weakness Onset Date 10/09/22 M3 PT-IP Subjective Start: 10/10/22 12:09 Freq: NEEDED Status: Active Protocol: Document 10/10/22 12:09 ES (Rec: 10/10/22 12:24 ES [id number]) Subjective Physical Therapy Visit Type Type Initial Evaluation Visit Start Time 11:44 Visit Stop Time 12:07 Total Visit Minutes 23 Physical Therapy Visit Comments Patient Comments Patient agreeable to work with PT, wanting to get out of bed . Spouse present. Therapy Pain Assessment Pain When Pain Assessed During Mobility Pain Present Pain Present Pain Reported Location Bilateral Lower Abdomen Intensity 10 Scale Used Numeric (0 - 10) Description With Movement Pain Management Techniques Modification of Treatment,Re- positioning M4 PT-IP Mobility and Gait Start: 10/10/22 12:09 Freq: NEEDED Status: Active Protocol: Document 10/10/22 12:09 ES (Rec: 10/10/22 12:24 ES [id number]) PT-Bed Mobility Assessment Rolling Type of Rolling Log Rolling,Roll to Left Level of Assist Minimal Assistance Supine to Sit Supine to Sit Moderate Assistance,Head of Bed Elevated,Bedrails Scooting Scooting to Edge of Bed Minimal Assistance PT-Transfer Assessment Sit to and From Stand Sit to and from Stand Minimal Assistance,Use of Upper Extremities Equipment Transfer Assistive Device Gait Belt,Front Wheeled Walker Transfers Transfer Destination Chair Transfer Technique Stand Step Pivot Transfer Ability Level of Assist Minimal Assistance Comments Mobility Comments Increased pain with transitional movements. Instructed patient in log rolling technique to reduce abdominal strain. Instructed in splinting abdominals with pillow during coughing to reduce pain. Increased time required during all activity due to pain, weakness, and management of lines. SPO2 maintained >90% on hiflow during all activity. Gait Assessment Comments Gait Comments Transfers only due to limitation with hiflow machine . PT-Balance Assessment Sitting Balance and Reactions Static Sitting Balance Ability Good Dynamic Sitting Balance Ability Good Standing Balance and Reactions Static Standing Balance Ability Fair Dynamic Standing Balance Ability Fair Device Used FWW M5 PT-IP Objective Assessments Start: 10/10/22 12:09 Freq: NEEDED Status: Active Protocol: Document 10/10/22 12:09 ES (Rec: 10/10/22 12:24 ES [id number]) Orientation Orientation/Cognition Level of Alertness Alert Orientation Name,Age,Birthday,Month,Date, Year,Day of Week,Place, Situation Language Function Ability No Deficits Noted Safety Awareness Understands Safety Issues Memory Description No Deficits Noted Gross Range of Motion Upper Extremity ROM Assessment Within Functional Limits Lower Extremity ROM Assessment Within Functional Limits Strength Comments Strength Comments Strength not formally tested due to abdominal precautions. ABle to move all limbs against gravity and able to fully WB in standing. M6 PT-IP Treatment Start: 10/10/22 12:09 Freq: NEEDED Status: Active Protocol: Document 10/10/22 12:09 ES (Rec: 10/10/22 12:24 ES [id number]) Physical Therapy Treatment Education Education Provided Safety M7 PT-IP Assessment and Plan Start: 10/10/22 12:09 Freq: NEEDED Status: Active Protocol: Document 10/10/22 12:09 ES (Rec: 10/10/22 12:24 ES [id number]) PT Summary Assessment and Plan Potential Rehabilitation Potential Excellent Status of Condition at Evaluation Unstable Summary Impairments Pain,Strength,Balance,Bed Mobility,Transfers,Gait, Activity Tolerance Assessment Summary Patient is a 72 year old male POD 1 s/p small bowel resection. He demonstrates general weakness and abdominal pain contributing to difficulty with bed mobility, transfers, and gait. He tolerated activity maintaining SPO2 >90% on hiflow throughout visit. He had increased abdominal pain with transitional movements and coughing. He had dizziness/ lightheadedness upon initial standing, though did not worsen with further activity. He will benefit from skilled therapy to increase strength and activity tolerance to be able to return to independent level for a safe d/c home. Goals Bed Mobility Goal Independent Transfer Goal Independent,Front Wheeled Walker Gait Goal Independent,Front Wheel Walker Gait Distance 150 ft Other Goals Patient will be able to ascend /descend 2 stairs with B rails with supervision. Days to Meet Goals 7 Frequency of Treatment Frequency Of Treatment Once a Day Treatment Plan Physical Therapy Treatment Plan Bed Mobility Training,Transfer Training,Gait Training, Therapeutic Exercise,Discharge Planning Precautions Abdominal Surgery Precautions Log Roll,Lifting Restrictions, Gait Belt above Incisional Area Other Precautions NG tube, hiflow Recommendations To Nursing Amount of Assist Needed 1 Person Assist Discharge Recommendations PT Discharge Recommendations Home with Assistance Equipment Needed for Home Before May need FWW Discharge Transportation Needs at Discharge Private Vehicle
[2022-10-10] MEDS: MORPHINE 2 MG/ML INJ 1 MG IV (16:35)
--- NOTE | 2022-10-10 19:32 | PM.PN.1 ---
Subjective Subjective Date Patient Seen: 10/10/22 Time Patient Seen: 19:32 Interval history: Doing fine without any major complaints today. Denies nausea denies flatus from below. He still has an NG tube in place the total 24 hour output is 800 cc. Exam Vital Signs (past 8 hours): - 10/10/22 12:00 10/10/22 13:02 10/10/22 15:00 Temperature Pulse Rate 82 80 Respiratory Rate 28 H 18 Blood Pressure Pulse Oximetry 88 L 92 94 Oxygen Delivery Method Heated High Flow Oxygen Flow Rate 35 10/10/22 15:00 10/10/22 12:30 10/10/22 13:00 Temperature Pulse Rate 110 H 73 Respiratory Rate 29 H 28 H Blood Pressure Pulse Oximetry 92 92 Oxygen Delivery Method Heated High Flow Oxygen Flow Rate 10/10/22 13:30 10/10/22 14:00 10/10/22 14:30 Temperature Pulse Rate 80 69 80 Respiratory Rate 22 13 28 H Blood Pressure Pulse Oximetry 93 96 94 Oxygen Delivery Method Oxygen Flow Rate 10/10/22 15:00 10/10/22 15:30 10/10/22 16:00 Temperature 97.8 F Pulse Rate 75 89 112 H Respiratory Rate 18 21 26 H Blood Pressure 120/66 Pulse Oximetry 93 92 95 Oxygen Delivery Method Oxygen Flow Rate 10/10/22 16:30 10/10/22 17:00 10/10/22 17:30 Temperature Pulse Rate 79 80 69 Respiratory Rate 23 23 18 Blood Pressure Pulse Oximetry 93 95 95 Oxygen Delivery Method Oxygen Flow Rate 10/10/22 18:00 10/10/22 18:38 10/10/22 19:14 Temperature 98.2 F Pulse Rate 73 75 Respiratory Rate 22 18 Blood Pressure Pulse Oximetry 95 95 Oxygen Delivery Method High Flow Nasal Cannula Oxygen Flow Rate 10/10/22 19:16 Temperature Pulse Rate 75 Respiratory Rate 18 Blood Pressure Pulse Oximetry 95 Oxygen Delivery Method Oxygen Flow Rate Fraction of Inspired Oxygen 44 SaO2/FiO2 Ratio 211 Oxygen Delivery Method High Flow Nasal Cannula Oxygen Flow Rate 35 Narrative Exam Narrative: Patient is awake alert oriented and in no acute distress he is thin and frail appearing. He has an O2 support in his nose and an NG tube in place. The wound is clean dry and intact with the OR dressing in place. Appropriately tender The abdomen is still moderately distended. Objective Labs 10/10/22 04:07 10/10/22 04:07 Labs: Laboratory Results - last 24 hr 10/10/22 10/10/22 10/10/22 04:07 04:07 04:07 WBC 12.5 H RBC 4.38 L Hgb 14.2 Hct 42.0 MCV 95.9 MCH 32.4 MCHC 33.8 RDW 13.3 Plt Count 190 Neut % (Auto) 92.4 H Lymph % (Auto) 3.5 L [place] % (Auto) 4.1 Eos % (Auto) 0.0 L Baso % (Auto) 0.0 Neut # (Auto) 41090 H Lymph # (Auto) 400 L [place] # (Auto) 500 Eos # (Auto) 0 Baso # (Auto) 0 Sodium 136 L Potassium 3.9 Chloride 98 Carbon Dioxide 34 H BUN 24 H Creatinine 0.84 Estimated GFR > 60 BUN/Creatinine Ratio 28.6 H Glucose 140 H Calcium 7.8 L Magnesium 2.4 H PFSH Medical History BPH (benign prostatic hyperplasia) Essential tremor History of basal cell carcinoma Hyperlipidemia Medicare annual wellness visit, subsequent Preventative health care Witnessed episode of apnea Surgical History Hx laparoscopic cholecystectomy Previous back surgery S/P laparoscopic hernia repair Social History household members: spouse Smoking Status: Never smoker alcohol intake: current substance use type: does not use Assessment & Plan Assessment and plan (1) Intractable abdominal pain: Status: Acute Assessment & Plan narrative: Postop day 1 status post exploratory laparotomy for small bowel obstruction. He had a small-bowel resection. Intraoperative findings included: Single tight adhesive band within the right lower quadrant.? The bowel directly underlying the adhesion has a well demarcated area of ischemia Today he has an NG tube on low intermittent suction. He still has a distended abdomen and I would continue the NG tube. It is okay to clamp the tube for physical therapy I would continue to attempt to mobilize the patient as much as he can tolerate. Pain control, and DVT prophylaxis.
--- NOTE | 2022-10-10 20:30 | PM.ICURNDS ---
- :: This patient was seen via real time interactive two-way audiovisual telecommunication. pt remians on HFNC, he is no NAD, no majopr change in plan for now, will hold further IVF HR in NSr, and HD sobeida remains on abx will monitor
[2022-10-10] MEDS: cefTRIAXone 1,000 MG in SODIUM CHLORIDE 0.9% 100 ML 200 MG IV (21:02)
[2022-10-10] MEDS: MORPHINE 2 MG/ML INJ IV (21:02)
[2022-10-11] VITALS (60 sets, daily range): BP systolic 134–148; BP diastolic 65–71; PULSE 39–146; RESP 17–36; TEMP 36.7–37.1; O2SAT 90–97
[2022-10-11] MEDS: BENZOCAINE/MENTHOL 1 LOZ PKT 1 EACH PO (00:09)
[2022-10-11] MEDS: LORazepam 2 MG/ML INJ 0.5 MG IV ×3 (00:09→07:49)
[2022-10-11] MEDS: MORPHINE 2 MG/ML INJ IV (01:31)
--- NOTE | 2022-10-11 03:37 | PC.NURSE ---
Addendum entered by Suzie Pandey R.N. 10/11/22 05:19: 0515- Patient still restless. Abdomen assessed. Faint hypoactive bowel tones appreciated. Abdomen is slightly distended but soft. will monitor. Original Note: 0330- Patient has been restless and has not slept since 1:30AM. Medicated for pain and anxiety per orders. Patient unable to express what is bothering him. He is oriented but appears uncomfortable. Repositioned and reassessed physical assessment unchanged. Will monitor.
[2022-10-11 04:50] LABS: Add Manual Diff / Slide Review NO; Basophils Absolute Auto 0 /uL (0-100); Basophils Percent Auto 0.1 % (0-2); Eosinophils Absolute Auto 0 /uL (0-450); Eosinophils Percent Auto 0.1 % (2-4); Hematocrit 38.9 % (41-53); Hemoglobin 13.2 g/dL (13.5-17.5); Lymphocytes Absolute Auto 800 /uL (1100-4500); Lymphocytes Percent Auto 5.6 % (25-40); Mean Corpuscular HGB Conc 33.9 % (30-36); Mean Corpuscular Hemoglobin 32.4 PG (26-34); Mean Corpuscular Volume 95.7 fL (80-100); Monocytes Absolute Auto 900 /uL (0-900); Neutrophils Absolute Auto 13200 /uL (1500-7000); Neutrophils Percent Auto 88.2 % (50-75); Platelet Count 207 X10^3/uL (150-400); Red Blood Cell Count 4.07 X10^6/uL (4.5-5.9); Red Cell Distribution Width 13.4 % (11.6-14.8); White Blood Cell Count 14.9 X10^3/uL (4.5-11.0)
[2022-10-11 05:00] LABS: BUN Creatinine Ratio 34.6 (6-22); Blood Urea Nitrogen 27 mg/dL (9-20); Calcium 7.6 mg/dL (8.4-10.2); Carbon Dioxide 35 mmol/L (22-32); Chloride 101 mmol/L (98-107); Estimated Glomerular Filt Rate > 60 mL/min (>60); Glucose 123 mg/dL (80-110); HEMOLYSIS < 15 (0-50); Potassium 3.3 mmol/L (3.4-5.1); Sodium 140 mmol/L (137-145)
--- NOTE | 2022-10-11 08:52 | PM.PN.1 ---
Subjective Subjective Interval history: Patient had some delirium overnight. Still on 40L/40% HFNC. Less output from NG today. Exam Vital Signs (past 8 hours): - 10/11/22 01:00 10/11/22 04:00 10/11/22 04:00 Temperature Pulse Rate 66 Respiratory Rate 23 Blood Pressure Pulse Oximetry 94 92 Oxygen Delivery Method Heated High Flow Heated High Flow Oxygen Flow Rate 40 10/11/22 01:30 10/11/22 02:00 10/11/22 02:30 Temperature Pulse Rate 71 61 72 Respiratory Rate 25 H 18 19 Blood Pressure Pulse Oximetry 94 95 95 Oxygen Delivery Method Oxygen Flow Rate 10/11/22 03:00 10/11/22 03:30 10/11/22 04:00 Temperature Pulse Rate 61 124 H 61 Respiratory Rate 18 17 21 Blood Pressure Pulse Oximetry 95 93 92 Oxygen Delivery Method Oxygen Flow Rate 10/11/22 04:30 10/11/22 05:00 10/11/22 05:23 Temperature 98.0 F Pulse Rate 146 H 80 65 Respiratory Rate 27 H 19 22 Blood Pressure 148/65 H Pulse Oximetry 93 92 93 Oxygen Delivery Method Oxygen Flow Rate 10/11/22 03:00 10/11/22 08:00 10/11/22 08:00 Temperature Pulse Rate 70 Respiratory Rate 18 Blood Pressure Pulse Oximetry 94 91 Oxygen Delivery Method Heated High Flow Heated High Flow Oxygen Flow Rate Fraction of Inspired Oxygen 44 SaO2/FiO2 Ratio 211 Oxygen Delivery Method Heated High Flow Oxygen Flow Rate 40 Narrative Exam Narrative: Gen: alert, pleasant cooperative, ill-appearing Lungs: able to speak full sentences, rt base crackles, no wheeze Abd: Tender to palpation, potentially minimal vs absent bowel sounds CV: regular rate Ext: no edema Neuro: nl speech and affect Objective Labs 10/11/22 04:25 10/11/22 04:25 Labs: Laboratory Results - last 24 hr 10/11/22 10/11/22 04:25 04:25 WBC 14.9 H RBC 4.07 L Hgb 13.2 L Hct 38.9 L MCV 95.7 MCH 32.4 MCHC 33.9 RDW 13.4 Plt Count 207 Neut % (Auto) 88.2 H Lymph % (Auto) 5.6 L [place] % (Auto) 6.0 Eos % (Auto) 0.1 L Baso % (Auto) 0.1 Neut # (Auto) 55364 H Lymph # (Auto) 800 L [place] # (Auto) 900 Eos # (Auto) 0 Baso # (Auto) 0 Sodium 140 Potassium 3.3 L Chloride 101 Carbon Dioxide 35 H BUN 27 H Creatinine 0.78 Estimated GFR > 60 BUN/Creatinine Ratio 34.6 H Glucose 123 H Calcium 7.6 L PFSH Medical History BPH (benign prostatic hyperplasia) Essential tremor History of basal cell carcinoma Hyperlipidemia Medicare annual wellness visit, subsequent Preventative health care Witnessed episode of apnea Surgical History Hx laparoscopic cholecystectomy Previous back surgery S/P laparoscopic hernia repair Social History household members: spouse Smoking Status: Never smoker alcohol intake: current substance use type: does not use Assessment & Plan Assessment & Plan narrative: #closed loop bowel obstruction ?- per CT abd on 10/07 ?- worsening distension on 10/07, consistent with closed loop obstruction. Surgery consulted and NG tube now in place. ?- gastrografin study indicated persistent obstruction - gen surg took to OR 10/09 and performed lysis of adhesions and partial small bowel resection due to necrotic tissue - continue NG per gen surg to suction - no gas, possible slight BS present - able to work with PT on 10/10 and get up to chair -changed morphine to fentanyl IV due to delirium -started TPN on 10/11 #sepsis secondary to aspiration pneumonia, with acute respiratory failure with hypoxia, thrombocytopenia ?- changed abx to zosyn given lack of improvement in O2 ?- CTA showed aspiration likely due to obstruction ?- now on HFNC #paroxysmal atrial fibrillation, with RVR resolved ?- converted with amiodarone, but went back into RVR AM of 10/08 so amio bolus given and amio rate increased, converted to SR 10/09 and amio d/c'd - continues to be NSR currently ?- patient reports prior history of afib in the past. ?- will start metop succ once tolerating po ?- echo as below #possible acute diastolic heart failure, previously normal EF in 12/2021. ?- Echo 10/07 with EF 55-60%, RVSP 31, improved mild MR, and borderline dilated LA, low RA pressure ?- probNp 1310, CXR consistent with volume overload. Did diurese with 20 mg of IV lasix but limited by soft BP, and Lasix discontinued ?- resp failure is probably due to asp pneumonia #hyponatremia ?- stable, watch closely with obstruction #Acute urinary retention in setting of chronic BPH ?- suspect due to constipation and history of BPH ?- resume flomax when able to take po - urine cx negative - gonzalez in place #elevated troponin, non-significant ?- no chest pain, EKG without acute ischemia, trop up to 0.036, then declined Code status: full Surrogate decision maker:? Gilda Price DVT/VTE prophylaxis:? Lovenox and SCDs Dispo: Pending improvement in resp failure, SBO. Multiple days.
[2022-10-11] MEDS: ENOXAPARIN 40 MG/0.4 ML SYRINGE SUBCUT (09:16)
[2022-10-11] MEDS: POTASSIUM CHLORIDE IN WATER 10 MEQ/100 ML PIGGYBACK 100 MEQ IV ×2 (09:17→11:21)
[2022-10-11] MEDS: PIPERACILLIN/TAZO 4.5 GM in SODIUM CHLORIDE 0.9% 100 ML IV (09:30)
[2022-10-11] MEDS: LACTATED RINGERS 1,000 ML 100 ML IV (10:03)
--- NOTE | 2022-10-11 10:41 | PC.NURSE ---
3518--rounds w/ Dr Darby; at bedside; order to place PICC and start TPN per pharmacy
--- NOTE | 2022-10-11 10:46 | PC.NURSE ---
1025--pt's HR dropping to low 40s; walked down and gave Dr Hedrick a status report
--- NOTE | 2022-10-11 11:27 | PT-IP ANOTE ---
per rounds, pt has not eaten since 10/06 and plan is to have TPN given today. talked with nurse and stated that pt has cardiac issues going on and per spouse, pt has not eaten since 10/03. pt still waiting for TPN tube set up and per nurse maybe in an hour or so. pt is also still on high flow O2. nurse stated that ICU doctor wants pt to mobilize and get out of the bed. talked with hospitalist and agreed to hold PT today. Pt can transfer to the chair with nursing care. informed nurse of pt's mobility assistance for transfers of min A. Talked with pt and spouse on holding PT today and agreed. also agreed to get out of the bed with nursing staff. will f/u.
--- NOTE | 2022-10-11 12:23 | P.PN_ITS ---
Subjective Subjective Date Patient Seen: 10/11/22 Time Patient Seen: 12:23 Interval history: Doing well postop day 2 following small-bowel resection. He does not believe he is passed any gas yet. NG tube output has decreased significantly since yesterday. Exam Vital Signs (past 8 hours): - 10/11/22 04:30 10/11/22 05:00 10/11/22 05:23 Temperature 98.0 F Pulse Rate 146 H 80 65 Respiratory Rate 27 H 19 22 Blood Pressure 148/65 H Pulse Oximetry 93 92 93 Oxygen Delivery Method Oxygen Flow Rate 10/11/22 08:00 10/11/22 08:00 10/11/22 08:53 Temperature 98.1 F Pulse Rate 62 Respiratory Rate 23 Blood Pressure 134/65 Pulse Oximetry 91 93 Oxygen Delivery Method Heated High Flow Heated High Flow Oxygen Flow Rate 40 10/11/22 05:19 10/11/22 05:19 10/11/22 05:30 Temperature Pulse Rate 52 L 52 L Respiratory Rate 20 19 Blood Pressure 148/65 H Pulse Oximetry 94 93 Oxygen Delivery Method Oxygen Flow Rate 10/11/22 06:00 10/11/22 06:30 10/11/22 07:00 Temperature Pulse Rate 52 L 64 52 L Respiratory Rate 19 25 H 23 Blood Pressure Pulse Oximetry 94 95 93 Oxygen Delivery Method Oxygen Flow Rate 10/11/22 07:30 10/11/22 08:00 10/11/22 08:22 Temperature Pulse Rate 54 L 57 L Respiratory Rate 23 18 Blood Pressure 134/65 Pulse Oximetry 90 L 91 Oxygen Delivery Method Oxygen Flow Rate 10/11/22 08:22 10/11/22 08:30 10/11/22 09:00 Temperature Pulse Rate 52 L 65 49 L Respiratory Rate 22 20 Blood Pressure 134/65 Pulse Oximetry 93 95 Oxygen Delivery Method Oxygen Flow Rate 10/11/22 09:34 Temperature Pulse Rate 55 L Respiratory Rate 18 Blood Pressure 134/65 Pulse Oximetry 93 Oxygen Delivery Method Oxygen Flow Rate Fraction of Inspired Oxygen 44 SaO2/FiO2 Ratio 211 Oxygen Delivery Method Heated High Flow Oxygen Flow Rate 40 Narrative Exam Narrative: Abdomen soft, appropriately tender to palpation Dressings intact Objective Labs 10/11/22 04:25 10/11/22 04:25 Labs: Laboratory Results - last 24 hr 10/11/22 10/11/22 04:25 04:25 WBC 14.9 H RBC 4.07 L Hgb 13.2 L Hct 38.9 L MCV 95.7 MCH 32.4 MCHC 33.9 RDW 13.4 Plt Count 207 Neut % (Auto) 88.2 H Lymph % (Auto) 5.6 L [place] % (Auto) 6.0 Eos % (Auto) 0.1 L Baso % (Auto) 0.1 Neut # (Auto) 85385 H Lymph # (Auto) 800 L [place] # (Auto) 900 Eos # (Auto) 0 Baso # (Auto) 0 Sodium 140 Potassium 3.3 L Chloride 101 Carbon Dioxide 35 H BUN 27 H Creatinine 0.78 Estimated GFR > 60 BUN/Creatinine Ratio 34.6 H Glucose 123 H Calcium 7.6 L PFSH Medical History BPH (benign prostatic hyperplasia) Essential tremor History of basal cell carcinoma Hyperlipidemia Medicare annual wellness visit, subsequent Preventative health care Witnessed episode of apnea Surgical History Hx laparoscopic cholecystectomy Previous back surgery S/P laparoscopic hernia repair Social History household members: spouse Smoking Status: Never smoker alcohol intake: current substance use type: does not use Assessment & Plan Assessment and plan (1) Postoperative examination: Status: Acute Plan Okay to discontinue NG tube Start clear liquid diet when he is passing gas.
--- NOTE | 2022-10-11 12:23 | PC.NURSE ---
1215--Dr Lopez here to see pt; spoke w/ pt and ; orders rec'd; NG discontinued; pt tolerated well
--- NOTE | 2022-10-11 12:42 | P.TELICUPN_ITS ---
Subjective Subjective IF CAMERA ACTIVATED, patient seen via real-time interactive audiovisual communication: Camera activated Consent obtained for tele-senior training specialist care: Yes Patient Location: ICU Provider location (State): [place] Other participants/roles: RN Interval history: pt remains on lws, absent bowel sounds, still on 40% HFNC Current Medications Current Medications Medications: Home Medications tamsulosin 0.4 mg capsule 0.4 mg PO DAILY #90 caps 07/25/22 [Rx Confirmed ] diazepam 5 mg tablet 5 mg PO DAILY PRN anxiety #30 tabs 08/05/22 [Rx Confirmed 10/04/22] Visit Medications (administered) Generic Name Dose Route Start Last Admin Trade Name Freq PRN Reason Stop Dose Admin Acetaminophen 650 mg 10/04/22 05:05 10/06/22 21:22 Acetaminophen 325 Mg Tablet PO 650 mg Q6H PRN Administration Fever/Mild Pain (1-3) Benzocaine 1 each 10/08/22 07:44 10/11/22 00:09 Benzocaine/Menthol 1 Dominic Pkt PO 1 each Q1HR PRN Administration Sore Throat Bisacodyl 5 mg 10/06/22 09:15 10/06/22 23:45 Bisacodyl 5 Mg Tablet PO 5 mg BID PRN Administration Constipation Bisacodyl 10 mg 10/06/22 15:52 10/06/22 16:55 Bisacodyl 10 Mg Supp [place] 10 mg DAILY PRN Administration Constipation Enoxaparin Sodium 40 mg 10/08/22 16:45 10/11/22 09:16 Enoxaparin 40 Mg/0.4 Ml Syringe SUBCUT 40 mg DAILY REY Administration Lactated Ringer's 1,000 mls @ 100 mls/hr 10/09/22 20:00 10/11/22 10:03 Lactated Ringers IV 100 mls/hr CONT REY Administration POTASSIUM CHLORIDE IN WATER 10 meq in 100 mls @ 100 mls/hr 10/11/22 09:00 10/11/22 11:21 Potassium Cl 10 Meq/100 Ml Malu IV 10/11/22 12:59 100 mls/hr Q1H REY Administration Lorazepam 0.5 mg 10/04/22 18:23 10/11/22 07:49 Lorazepam 2 Mg/Ml Inj IV 0.5 mg Q4HR PRN Administration Anxiety Magnesium Hydroxide 30 ml 10/05/22 21:55 10/06/22 08:25 Magnesium Hydroxide 30 Ml Udc PO 30 ml DAILY PRN Administration Constipation Metoclopramide HCl 10 mg 10/04/22 06:45 10/09/22 12:59 Metoclopramide 10 Mg/2 Ml Inj IV 10 mg Q6HR PRN Administration Nausea And Vomiting Ondansetron HCl 4 mg 10/07/22 11:12 10/08/22 13:17 Ondansetron 4 Mg/2 Ml Inj IV 4 mg Q4HR PRN Administration Nausea And Vomiting Polyethylene Glycol 17 gm 10/06/22 09:00 10/11/22 09:01 Polyethylene Glycol 3350 17 Gm Powd.Pack PO Not Given DAILY [facility] Sennosides 17.2 mg 10/05/22 21:00 10/10/22 21:03 Sennosides 8.6 Mg Tablet PO Not Given BEDTIME [facility] Tamsulosin HCl 0.4 mg 10/04/22 09:00 10/11/22 09:01 Tamsulosin 0.4 Mg Capsule PO Not Given DAILY [facility] Objective Labs 10/11/22 04:25 10/11/22 04:25 Labs: Laboratory Results - last 24 hr 10/11/22 10/11/22 04:25 04:25 WBC 14.9 H RBC 4.07 L Hgb 13.2 L Hct 38.9 L MCV 95.7 MCH 32.4 MCHC 33.9 RDW 13.4 Plt Count 207 Neut % (Auto) 88.2 H Lymph % (Auto) 5.6 L [place] % (Auto) 6.0 Eos % (Auto) 0.1 L Baso % (Auto) 0.1 Neut # (Auto) 36956 H Lymph # (Auto) 800 L [place] # (Auto) 900 Eos # (Auto) 0 Baso # (Auto) 0 Sodium 140 Potassium 3.3 L Chloride 101 Carbon Dioxide 35 H BUN 27 H Creatinine 0.78 Estimated GFR > 60 BUN/Creatinine Ratio 34.6 H Glucose 123 H Calcium 7.6 L Exam Vital Signs (past 8 hours): - 10/11/22 05:00 10/11/22 05:23 10/11/22 08:00 Temperature 98.0 F Pulse Rate 80 65 Respiratory Rate 19 22 Blood Pressure 148/65 H Pulse Oximetry 92 93 Oxygen Delivery Method Heated High Flow Oxygen Flow Rate 10/11/22 08:00 10/11/22 08:53 10/11/22 05:19 Temperature 98.1 F Pulse Rate 62 Respiratory Rate 23 Blood Pressure 134/65 148/65 H Pulse Oximetry 91 93 Oxygen Delivery Method Heated High Flow Oxygen Flow Rate 40 10/11/22 05:19 10/11/22 05:30 10/11/22 06:00 Temperature Pulse Rate 52 L 52 L 52 L Respiratory Rate 20 19 19 Blood Pressure Pulse Oximetry 94 93 94 Oxygen Delivery Method Oxygen Flow Rate 10/11/22 06:30 10/11/22 07:00 10/11/22 07:30 Temperature Pulse Rate 64 52 L 54 L Respiratory Rate 25 H 23 23 Blood Pressure Pulse Oximetry 95 93 90 L Oxygen Delivery Method Oxygen Flow Rate 10/11/22 08:00 10/11/22 08:22 10/11/22 08:22 Temperature Pulse Rate 57 L 52 L Respiratory Rate 18 22 Blood Pressure 134/65 Pulse Oximetry 91 93 Oxygen Delivery Method Oxygen Flow Rate 10/11/22 08:30 10/11/22 09:00 10/11/22 09:34 Temperature Pulse Rate 65 49 L 55 L Respiratory Rate 20 18 Blood Pressure 134/65 134/65 Pulse Oximetry 95 93 Oxygen Delivery Method Oxygen Flow Rate 10/11/22 12:00 10/11/22 12:00 Temperature Pulse Rate Respiratory Rate Blood Pressure Pulse Oximetry 94 Oxygen Delivery Method Heated High Flow Heated High Flow Oxygen Flow Rate 40 Fraction of Inspired Oxygen 44 SaO2/FiO2 Ratio 211 Oxygen Delivery Method Heated High Flow Oxygen Flow Rate 40 Narrative Exam Narrative: surrogate ofr exam is primary team Assessment & Plan Assessment & Plan narrative: Assessment SBP s/p exlap and small bowel resection 10/09/22 Aspiration PNA acute hypoxic respiratory failure Delirium SVT(afib/aflutter)-now resolved h/o of YUDITH on CPAP 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 on morphine, may need to consider fentanyl CV: Patient currently in NSR and BP stable. -keep K > 4, Mg > 2 Pulm: cont HFNC ID: continue Ceftriaxone and Flagyl for aspiration PNA GI: NPO for now given absent bowel sounds and high NGT output still. plan to start TPN FEN/Renal: Replace K and Mag as needed. PPx: lovenox pt encuraged to walk from bed to chair as tolerated with assistnace CCT spent 50 min
[2022-10-11] MEDS: POTASSIUM CHLORIDE IN WATER 10 MEQ/100 ML PIGGYBACK 50 MEQ IV ×2 (13:07→15:23)
[2022-10-11] MEDS: PIPERACILLIN/TAZO 3.375 GM in SODIUM CHLORIDE 0.9% 100 ML IV ×2 (13:30→21:00)
--- NOTE | 2022-10-11 14:33 | DI.RAD.S_ITS ---
PROCEDURE: XR CHEST FOR PICC 1V INDICATIONS: post PICC placement COMPARISON: [facility], CR, XR CHEST 1V, 10/09/2022, 17:33. FINDINGS: PICC was placed by the intravenous therapy team from the right side. Fluoroscopic spot film demonstrates the tip of PICC projecting to the area of superior right SVC. Bibasilar airspace opacities described on the prior study on 10/09/2022 demonstrate significantly improved aeration. There is tenting of the right hemidiaphragm, unchanged. IMPRESSION: 1. The tip of the PICC line projects to the superior SVC. 2. Bibasilar airspace opacities demonstrate improved aeration. Dictated by: Jay Jay Bautista M.D. on 10/11/2022 at 14:24 Approved by: Jay Jay Bautista M.D. on 10/11/2022 at 14:25
[2022-10-11] MEDS: ACETAMINOPHEN IV 1,000 MG/100 ML VIAL 400 MG IV (17:20)
[2022-10-11] MEDS: AA 5 %/CALCIUM/LYTES/DEXT 20 % 1,000 ML with MULTIVITAMIN 10 ML, TRACE ELEMENTS 1 ML, F... 42.208 ML IV (18:10)
[2022-10-11] MEDS: LACTATED RINGERS 1,000 ML 50 ML IV (19:42)
--- NOTE | 2022-10-11 20:50 | P.ICUMDRN_ITS ---
- Date Patient Seen: 10/11/22 :: This patient was seen via real time interactive two-way audiovisual telecommunic ation. Note: 72 yo. male w/ SBO s/p laparotomy 10/09 on TPN; also w/ acute hypoxic respiratory failure due aspiration pneumonia; on metronidazole and Zosyn. Remains on HFNC. Spoke w/ RN; no changes to plan @ present.
[2022-10-11] MEDS: SENNOSIDES 8.6 MG TABLET 17.2 MG PO (21:00)
--- NOTE | 2022-10-11 21:28 | PC.NURSE ---
2100- Patient resting comfortably denies pain. Taking PO without nausea or vomiting. C/O feeling tired. BT hypoactive but present. NGT out. Will monitor closely.
[2022-10-12] VITALS (42 sets, daily range): BP systolic 120–158; BP diastolic 56–69; PULSE 44–194; RESP 16–30; TEMP 36.8–37.1; O2SAT 89–98
[2022-10-12] MEDS: LORazepam 2 MG/ML INJ 0.5 MG IV (01:56)
[2022-10-12] MEDS: fentaNYL 100 MCG/2 ML INJ 25 MCG IV (03:48)
[2022-10-12] MEDS: PIPERACILLIN/TAZO 3.375 GM in SODIUM CHLORIDE 0.9% 100 ML IV ×3 (05:19→21:37)
[2022-10-12 06:10] LABS: Add Manual Diff / Slide Review NO; Basophils Absolute Auto 0 /uL (0-100); Basophils Percent Auto 0.1 % (0-2); Eosinophils Absolute Auto 100 /uL (0-450); Hematocrit 39.9 % (41-53); Hemoglobin 13.4 g/dL (13.5-17.5); Lymphocytes Absolute Auto 1200 /uL (1100-4500); Lymphocytes Percent Auto 8.5 % (25-40); Mean Corpuscular HGB Conc 33.5 % (30-36); Mean Corpuscular Hemoglobin 32.4 PG (26-34); Mean Corpuscular Volume 96.6 fL (80-100); Monocytes Absolute Auto 800 /uL (0-900); Monocytes Percent Auto 5.8 % (3-14); Neutrophils Absolute Auto 11500 /uL (1500-7000); Neutrophils Percent Auto 84.6 % (50-75); Platelet Count 200 X10^3/uL (150-400); Red Blood Cell Count 4.13 X10^6/uL (4.5-5.9); Red Cell Distribution Width 13.5 % (11.6-14.8); White Blood Cell Count 13.6 X10^3/uL (4.5-11.0)
[2022-10-12 06:20] LABS: BUN Creatinine Ratio 32.4 (6-22); Blood Urea Nitrogen 23 mg/dL (9-20); Calcium 7.7 mg/dL (8.4-10.2); Carbon Dioxide 30 mmol/L (22-32); Chloride 104 mmol/L (98-107); Estimated Glomerular Filt Rate > 60 mL/min (>60); Glucose 139 mg/dL (80-110); HEMOLYSIS < 15 (0-50); Magnesium 2.2 mg/dL (1.6-2.3); Phosphorous 2.1 mg/dL (2.3-3.7); Potassium 3.3 mmol/L (3.4-5.1); Sodium 138 mmol/L (137-145); Triglycerides 86 mg/dL (35-150)
[2022-10-12 06:27] LABS: Prealbumin 9.5 mg/dL (17.6-36.0)
--- NOTE | 2022-10-12 07:13 | P.TELICUPN_ITS ---
Subjective Subjective IF CAMERA ACTIVATED, patient seen via real-time interactive audiovisual communication: Camera activated Consent obtained for tele-counselor nurses' association care: Yes Patient Location: ICU Provider location (State): [place] Other participants/roles: RN, hospitalist Interval history: Patient Summary: 72 yo Man with PMH of YUDITH on CPA and atrial tachycardia who was admitted 10/04 with n/v and abdominal pain and found to have SBO.? U/a suggestive of possible UTI but urine culture neg.? 10/07: Patient then went into SVT and transferred to ICU for further management.? Initially pt. was started on dilt drip but BP dropped so patient switched to Amio drip. Oxygen requirement increased to 10 L. Chest CTA neg for PE but did show aspiration PNA.? CTA of abd confirmed closed loop bowel obstruction. 10/09: patient converted back to NSR and Amio drip stopped. Patient had persistent bowel obstruction despite NGT so went to OR for ex-lap and found to have tight adhesive band within RLQ with bowel underlying adhesion with small area of ischemia. Pt. had smal-bowel resection. EBL 50 cc. 10/10: Patient remains in NSR.? Patient's pox is 88-90% on 10L maskn so switched to HFNC. Patient still has high NGT output and bowel sounds are absent.? 10/11: bowel sounds still absent so TPN started. Pt. switched from Ceftriaxone and Flagul to Zosyn. Recent events: Patient still on HFNC 40L fIO2 40%. Pt. remains in NSR. BP stable. Current Medications Current Medications Medications: Home Medications tamsulosin 0.4 mg capsule 0.4 mg PO DAILY #90 caps 07/25/22 [Rx Confirmed ] diazepam 5 mg tablet 5 mg PO DAILY PRN anxiety #30 tabs 08/05/22 [Rx Confirmed 10/04/22] Visit Medications (administered) Generic Name Dose Route Start Last Admin Trade Name Freq PRN Reason Stop Dose Admin Acetaminophen 650 mg 10/04/22 05:05 10/06/22 21:22 Acetaminophen 325 Mg Tablet PO 650 mg Q6H PRN Administration Fever/Mild Pain (1-3) Benzocaine 1 each 10/08/22 07:44 10/11/22 00:09 Benzocaine/Menthol 1 Dominic Pkt PO 1 each Q1HR PRN Administration Sore Throat Bisacodyl 5 mg 10/06/22 09:15 10/06/22 23:45 Bisacodyl 5 Mg Tablet PO 5 mg BID PRN Administration Constipation Bisacodyl 10 mg 10/06/22 15:52 10/06/22 16:55 Bisacodyl 10 Mg Supp [place] 10 mg DAILY PRN Administration Constipation Enoxaparin Sodium 40 mg 10/08/22 16:45 10/11/22 09:16 Enoxaparin 40 Mg/0.4 Ml Syringe SUBCUT 40 mg DAILY REY Administration Fentanyl 25 mcg 10/11/22 18:37 10/12/22 03:48 Fentanyl 100 Mcg/2 Ml Inj IV 25 mcg Q3H PRN Administration Pain, Severe (7-10) Piperacillin Sod/Tazobactam 100 mls @ 25 mls/hr 10/11/22 13:00 10/12/22 05:19 Sod 3.375 gm/ Sodium Chloride IV 25 mls/hr Q8H REY Administration Multivitamins 10 ml/ Chromium/ 1,013 mls @ 42.208 mls/hr 10/11/22 18:00 10/11/22 18:10 Copper/Manganese/Seleni/Zn 1 IV 10/12/22 17:59 42.208 mls/hr ml/ Famotidine 20 mg/ Amino 1800 ONE Administration Acids/Electrolytes Acetaminophen 1,000 mg in 100 mls @ 400 mls/hr 10/11/22 15:24 10/11/22 17:57 Ofirmev IV Infused Q6H PRN Infusion Pain, Mild (1-3) Lactated Ringer's 1,000 mls @ 50 mls/hr 10/11/22 19:00 10/11/22 19:42 Lactated Ringers IV 50 mls/hr CONT REY Administration Magnesium Hydroxide 30 ml 10/05/22 21:55 10/06/22 08:25 Magnesium Hydroxide 30 Ml Udc PO 30 ml DAILY PRN Administration Constipation Metoclopramide HCl 10 mg 10/04/22 06:45 10/09/22 12:59 Metoclopramide 10 Mg/2 Ml Inj IV 10 mg Q6HR PRN Administration Nausea And Vomiting Ondansetron HCl 4 mg 10/07/22 11:12 10/08/22 13:17 Ondansetron 4 Mg/2 Ml Inj IV 4 mg Q4HR PRN Administration Nausea And Vomiting Polyethylene Glycol 17 gm 10/06/22 09:00 10/11/22 09:01 Polyethylene Glycol 3350 17 Gm Powd.Pack PO Not Given DAILY [facility] Sennosides 17.2 mg 10/05/22 21:00 10/11/22 21:00 Sennosides 8.6 Mg Tablet PO 17.2 mg BEDTIME REY Administration Tamsulosin HCl 0.4 mg 10/04/22 09:00 10/11/22 09:01 Tamsulosin 0.4 Mg Capsule PO Not Given DAILY [facility] Objective Labs 10/12/22 05:10 10/12/22 05:10 Labs: Laboratory Results - last 24 hr 10/12/22 10/12/22 10/12/22 05:10 05:10 05:10 WBC 13.6 H RBC 4.13 L Hgb 13.4 L Hct 39.9 L MCV 96.6 MCH 32.4 MCHC 33.5 RDW 13.5 Plt Count 200 Neut % (Auto) 84.6 H Lymph % (Auto) 8.5 L [place] % (Auto) 5.8 Eos % (Auto) 1.0 L Baso % (Auto) 0.1 Neut # (Auto) 85628 H Lymph # (Auto) 1200 [place] # (Auto) 800 Eos # (Auto) 100 Baso # (Auto) 0 Sodium 138 Potassium 3.3 L Chloride 104 Carbon Dioxide 30 BUN 23 H Creatinine 0.71 Estimated GFR > 60 BUN/Creatinine Ratio 32.4 H Glucose 139 H Calcium 7.7 L Phosphorus 2.1 L Magnesium 2.2 Prealbumin 9.5 L Triglycerides 86 Exam Vital Signs (past 8 hours): - 10/12/22 00:00 10/11/22 23:34 10/12/22 00:00 Temperature 98.3 F Pulse Rate 55 L Respiratory Rate 22 Blood Pressure 138/67 Pulse Oximetry 94 94 Oxygen Delivery Method Heated High Flow Heated High Flow Oxygen Flow Rate 40 10/12/22 04:07 10/12/22 04:00 10/12/22 04:00 Temperature 98.2 F Pulse Rate 54 L Respiratory Rate 30 H Blood Pressure 120/56 L Pulse Oximetry 94 94 Oxygen Delivery Method Heated High Flow Heated High Flow Oxygen Flow Rate 40 10/11/22 23:21 10/11/22 23:21 10/11/22 23:30 Temperature Pulse Rate 55 L 45 L Respiratory Rate 27 H 23 Blood Pressure 138/67 Pulse Oximetry 93 95 Oxygen Delivery Method Oxygen Flow Rate 10/12/22 00:00 10/12/22 00:30 10/12/22 01:00 Temperature Pulse Rate 44 L 57 L 50 L Respiratory Rate 23 29 H 23 Blood Pressure Pulse Oximetry 94 95 93 Oxygen Delivery Method Oxygen Flow Rate 10/12/22 01:30 10/12/22 02:00 10/12/22 02:30 Temperature Pulse Rate 49 L 45 L 44 L Respiratory Rate 22 25 H 27 H Blood Pressure Pulse Oximetry 95 94 94 Oxygen Delivery Method Oxygen Flow Rate 10/12/22 03:00 10/12/22 03:30 10/12/22 03:41 Temperature Pulse Rate 194 H 56 L Respiratory Rate 25 H 29 H Blood Pressure 120/56 L Pulse Oximetry 94 94 Oxygen Delivery Method Oxygen Flow Rate 10/12/22 03:41 10/12/22 04:00 10/12/22 02:00 Temperature Pulse Rate 53 L 53 L 60 Respiratory Rate 27 H 22 18 Blood Pressure Pulse Oximetry 94 94 96 Oxygen Delivery Method Oxygen Flow Rate Fraction of Inspired Oxygen 40 SaO2/FiO2 Ratio 211 Oxygen Delivery Method Heated High Flow Oxygen Flow Rate 40 Assessment & Plan Assessment & Plan narrative: Assessment SBP s/p exlap and small bowel resection 10/09/22 Aspiration PNA acute hypoxic respiratory failure Delirium SVT(afib/aflutter)-now resolved h/o of YUDITH on CPAP 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 -keep K > 4, Mg > 2 Pulm: Currently on HFNC 40L 40% with Pox in 90's ID: continue Zosyn for aspiration PNA GI: continue TPN -defer to surgeon when ok to try clear liquid PO diet FEN/Renal: Repl replace electrolytes as needed. PPx: lovenox CCT spent 35 min
[2022-10-12] MEDS: POTASSIUM PHOSPHATE 15 MMOL in SODIUM CHLORIDE 0.9% 250 ML 63.75 MMOL IV (08:11)
[2022-10-12] MEDS: POTASSIUM CHLORIDE IN WATER 10 MEQ/100 ML PIGGYBACK 100 MEQ IV ×2 (08:11→09:49)
--- NOTE | 2022-10-12 08:32 | PT.IPTN ---
Current Diagnoses Noninfective gastroenteritis and colitis, unspecified (10/06/22) Unspecified abdominal pain (10/06/22) Encounter for follow-up examination after completed treatment for conditions other than malignant neoplasm (10/06/22) Surgery Performed Operation Date: 10/09/22 17:00 Actual Procedures p Exploratory Laparotomy with bowel resection - Sam Angel MD Physical Therapy Treatment Note M2 PT-IP Current Condition Start: 10/10/22 12:09 Freq: NEEDED Status: Active Protocol: Document 10/10/22 12:09 ES (Rec: 10/10/22 12:24 ES [id number]) Physical Therapy Current Condition Current Condition Evaluation Date 10/10/22 Treatment Diagnosis S/p small bowel resection, weakness Onset Date 10/09/22 M3 PT-IP Subjective Start: 10/10/22 12:09 Freq: NEEDED Status: Active Protocol: Document 10/12/22 08:25 MB (Rec: 10/12/22 08:32 MB [id number]) Subjective Physical Therapy Visit Type Type Treatment Note Visit Start Time 08:00 Visit Stop Time 08:25 Total Visit Minutes 25 Number of WORD PROCESSOR Visits 0 Physical Therapy Visit Comments Patient Comments Okay when PT asks pt how he is doing. Therapy Pain Assessment Pain When Pain Assessed During Mobility Pain Present Pain Present Pain Reported Location R ear area Intensity 4 Scale Used Watson-Bell (Faces) Description Acute,Tender,With Movement Pain Behaviors Facial Grimacing,Guarding, Holding Area Pain Management Techniques Modification of Treatment,Re- positioning M4 PT-IP Mobility and Gait Start: 10/10/22 12:09 Freq: NEEDED Status: Active Protocol: Document 10/12/22 08:25 MB (Rec: 10/12/22 08:32 MB [id number]) PT-Transfer Assessment Sit to and From Stand Sit to and from Stand Contact Guard Assistance,1 Person Assistance,Use of Upper Extremities Equipment Transfer Assistive Device Gait Belt,Front Wheeled Walker Orthotic/Prosthetic Devices or Brace: No Comments Mobility Comments Pt with many lines donned, PICC often beeping and nsg checking it. Cleared to work with PT and sit to stands chosen for strengthening and mobility in setting of many lines including HFNC. Pt performs two sets of 5 reps of sit to stand from chair to RW requiring cues for hand placement, increased time, pushing up from chair and then reaching for walker and standing tall once standing. PT manages lines. HR stays in the low 50s-60s BPM and O2 sats in the mid 90s on HFNC during treatment. PT-Balance Assessment Sitting Balance and Reactions Static Sitting Balance Ability Good Dynamic Sitting Balance Ability Good Comments Other Balance Tests/Deviations/Treatment 2WW used for standing balance : today, UE support on chair and walker for balance M5 PT-IP Objective Assessments Start: 10/10/22 12:09 Freq: NEEDED Status: Active Protocol: Document 10/10/22 12:09 ES (Rec: 10/10/22 12:24 ES [id number]) Orientation Orientation/Cognition Level of Alertness Alert Orientation Name,Age,Birthday,Month,Date, Year,Day of Week,Place, Situation Language Function Ability No Deficits Noted Safety Awareness Understands Safety Issues Memory Description No Deficits Noted Gross Range of Motion Upper Extremity ROM Assessment Within Functional Limits Lower Extremity ROM Assessment Within Functional Limits Strength Comments Strength Comments Strength not formally tested due to abdominal precautions. ABle to move all limbs against gravity and able to fully WB in standing. M6 PT-IP Treatment Start: 10/10/22 12:09 Freq: NEEDED Status: Active Protocol: Document 10/12/22 08:25 MB (Rec: 10/12/22 08:32 MB [id number]) Physical Therapy Treatment Exercises Exercises Ankle Pumps,Gluteal Sets,Quad Sets Other Treatments Other Treatment Performed Sitting exercises: 10 reps QS and GS, AP x20 reps, shoulder rolls, re-ed pt in use of incentive spirometer M7 PT-IP Assessment and Plan Start: 10/10/22 12:09 Freq: NEEDED Status: Active Protocol: Document 10/12/22 08:25 MB (Rec: 10/12/22 08:32 MB [id number]) PT Summary Assessment and Plan Potential Rehabilitation Potential Good Status of Condition at Evaluation Evolving Summary Assessment Summary Pt progressing well towards mobility today in setting of ICU, many lines and HFNC. He feels better since tube feeding started. Frequency of Treatment Frequency Of Treatment Once a Day
[2022-10-12] MEDS: ENOXAPARIN 40 MG/0.4 ML SYRINGE SUBCUT (08:54)
[2022-10-12] MEDS: polyethylene glycoL 3350 17 GM POWD.PACK PO (08:54)
[2022-10-12] MEDS: TAMSULOSIN 0.4 MG CAPSULE PO (08:54)
[2022-10-12 09:23] LABS: Magnesium 2.1 mg/dL (1.6-2.3)
[2022-10-12] MEDS: diazePAM 5 MG TABLET PO ×2 (09:47→20:09)
--- NOTE | 2022-10-12 10:40 | DIET.CONS2 ---
Dietary Inpatient Consultation Note Admission Date: 10/06/2022 09:55 Pt initiated on TPN last evening due to 5d little/no PO with NG on LIS. Pt started on Clinimix E 1L at 42mL/h with 250mL IVFE. This morning pts K+ 3.3 L, Mg 2.1 WNL, phos 2.1 L. Recc continuing TPN at current rate with 100mg thiamine daily. Pt NG out this morning with 10% full liquid breakfast consumed. Will follow for TPN d/c vs. advancement. Diet: 10/12/22 Breakfast Full Liquid Diet Diet Modifications: Nutrition Percent Meal Consumed 10% 10/12/22 09:23 Electronically Signed by: Sabina Jett 10/12/22 10:40 Clinical Dietitian [address] [id number]
--- NOTE | 2022-10-12 12:55 | PM.PN.1 ---
Subjective Subjective Interval history: Feels much better. Beginning to take in full fluids. No bowel movement yet but feels that things are beginning to move in his abdomen. Eager to get better. Still on 40L/40% HFNC. Less output from NG today. Exam Vital Signs (past 8 hours): - 10/12/22 08:00 10/12/22 05:03 10/12/22 05:30 Temperature 98.7 F Pulse Rate 56 L 54 L 50 L Respiratory Rate 21 24 27 H Blood Pressure 120/56 L Pulse Oximetry 94 95 96 Oxygen Delivery Method Oxygen Flow Rate 40 Fraction of Inspired Oxygen 40 10/12/22 06:00 10/12/22 06:30 10/12/22 07:00 Temperature Pulse Rate 50 L 75 57 L Respiratory Rate 26 H 27 H 25 H Blood Pressure Pulse Oximetry 96 95 95 Oxygen Delivery Method Oxygen Flow Rate Fraction of Inspired Oxygen 10/12/22 07:30 10/12/22 08:00 10/12/22 08:30 Temperature Pulse Rate 56 L 58 L 63 Respiratory Rate 28 H 28 H 19 Blood Pressure Pulse Oximetry 94 97 Oxygen Delivery Method Oxygen Flow Rate Fraction of Inspired Oxygen 10/12/22 08:00 10/12/22 08:00 10/12/22 10:13 Temperature Pulse Rate 53 L Respiratory Rate 18 Blood Pressure Pulse Oximetry 96 98 Oxygen Delivery Method Heated High Flow Heated High Flow Oxygen Flow Rate 40 Fraction of Inspired Oxygen 10/12/22 12:00 10/12/22 12:00 10/12/22 09:00 Temperature Pulse Rate 58 L Respiratory Rate 30 H Blood Pressure Pulse Oximetry 97 Oxygen Delivery Method Heated High Flow Heated High Flow Oxygen Flow Rate 40 Fraction of Inspired Oxygen 10/12/22 09:30 10/12/22 10:00 10/12/22 10:30 Temperature Pulse Rate 55 L 55 L 55 L Respiratory Rate 25 H 24 26 H Blood Pressure Pulse Oximetry 97 98 97 Oxygen Delivery Method Oxygen Flow Rate Fraction of Inspired Oxygen 10/12/22 11:00 10/12/22 11:30 10/12/22 12:00 Temperature Pulse Rate 54 L 61 58 L Respiratory Rate 27 H 28 H 21 Blood Pressure Pulse Oximetry 89 L 92 97 Oxygen Delivery Method Oxygen Flow Rate Fraction of Inspired Oxygen 10/12/22 12:14 10/12/22 12:14 10/12/22 12:30 Temperature Pulse Rate 62 53 L Respiratory Rate Blood Pressure 133/60 Pulse Oximetry 96 98 Oxygen Delivery Method Oxygen Flow Rate Fraction of Inspired Oxygen Fraction of Inspired Oxygen 40 SaO2/FiO2 Ratio 211 Oxygen Delivery Method Heated High Flow Oxygen Flow Rate 40 Narrative Exam Narrative: Gen: alert, pleasant cooperative, in no acute medical distress Lungs: able to speak full sentences, rt base minimal crackles, no wheeze Abd: Tender to palpation, essentially minimal vs absent bowel sounds CV: regular rate Ext: no edema Neuro: nl speech and affect Objective Labs 10/12/22 05:10 10/12/22 05:10 Labs: Laboratory Results - last 24 hr 10/12/22 10/12/22 10/12/22 05:10 05:10 05:10 WBC 13.6 H RBC 4.13 L Hgb 13.4 L Hct 39.9 L MCV 96.6 MCH 32.4 MCHC 33.5 RDW 13.5 Plt Count 200 Neut % (Auto) 84.6 H Lymph % (Auto) 8.5 L [place] % (Auto) 5.8 Eos % (Auto) 1.0 L Baso % (Auto) 0.1 Neut # (Auto) 74249 H Lymph # (Auto) 1200 [place] # (Auto) 800 Eos # (Auto) 100 Baso # (Auto) 0 Sodium 138 Potassium 3.3 L Chloride 104 Carbon Dioxide 30 BUN 23 H Creatinine 0.71 Estimated GFR > 60 BUN/Creatinine Ratio 32.4 H Glucose 139 H Calcium 7.7 L Phosphorus 2.1 L Magnesium 2.2 Prealbumin 9.5 L Triglycerides 86 10/12/22 09:05 WBC RBC Hgb Hct MCV MCH MCHC RDW Plt Count Neut % (Auto) Lymph % (Auto) [place] % (Auto) Eos % (Auto) Baso % (Auto) Neut # (Auto) Lymph # (Auto) [place] # (Auto) Eos # (Auto) Baso # (Auto) Sodium Potassium Chloride Carbon Dioxide BUN Creatinine Estimated GFR BUN/Creatinine Ratio Glucose Calcium Phosphorus Magnesium 2.1 Prealbumin Triglycerides [facility] Medical History BPH (benign prostatic hyperplasia) Essential tremor History of basal cell carcinoma Hyperlipidemia Medicare annual wellness visit, subsequent Preventative health care Witnessed episode of apnea Surgical History Hx laparoscopic cholecystectomy Previous back surgery S/P laparoscopic hernia repair Social History household members: spouse Smoking Status: Never smoker alcohol intake: current substance use type: does not use Assessment & Plan Assessment & Plan narrative: #closed loop bowel obstruction ?- per CT abd on 10/07 ?- worsening distension on 10/07, consistent with closed loop obstruction. Surgery consulted and NG tube now in place. ?- gastrografin study indicated persistent obstruction ?- gen surg took to OR 10/09 and performed lysis of adhesions and partial small bowel resection due to necrotic tissue ?- continue NG per gen surg to suction ?- no gas, possible slight BS present ?- able to work with PT on 10/10 and get up to chair ?-changed morphine to fentanyl IV due to delirium. No delirium today ?-started TPN on 10/11, continuing #sepsis secondary to aspiration pneumonia, with acute respiratory failure with hypoxia, thrombocytopenia ?- changed abx to Zosyn given lack of improvement in O2, Zosyn has been completed. ?- CTA showed aspiration likely due to obstruction ?- now on HFNC #paroxysmal atrial fibrillation, with RVR resolved ?- converted with amiodarone, but went back into RVR AM of 10/08 so amio bolus given and amio rate increased, converted to SR 10/09 and amio d/c'd ?- continues to be NSR currently ?- patient reports prior history of afib in the past. ?- will start metop succ once tolerating po ?- echo as below #possible acute diastolic heart failure, previously normal EF in 12/2021. ?- Echo 10/07 with EF 55-60%, RVSP 31, improved mild MR, and borderline dilated LA, low RA pressure ?- probNp 1310, CXR consistent with volume overload. Did diurese with 20 mg of IV lasix but limited by soft BP, and Lasix discontinued, we will recheck BNP tomorrow ?- resp failure is probably due to asp pneumonia, continue to monitor #hyponatremia ?- stable, watch closely with obstruction #Acute urinary retention in setting of chronic BPH ?- suspect due to constipation and history of BPH ?- resume flomax when able to take po, this has been restarted ?- urine cx negative ?- gonzalez in place, draining well #elevated troponin, non-significant ?- no chest pain, EKG without acute ischemia, trop up to 0.036, then declined Code status: full Surrogate decision maker:? Gilda Price DVT/VTE prophylaxis:? Lovenox and SCDs Dispo: Pending improvement in resp failure, SBO. Multiple days.
--- NOTE | 2022-10-12 15:42 | P.PN_ITS ---
Subjective Subjective Date Patient Seen: 10/12/22 Time Patient Seen: 15:42 Interval history: Patient is sleeping. Per there has been no flatus yet. Nausea or vomiting. Exam Vital Signs (past 8 hours): - 10/12/22 08:00 10/12/22 08:00 10/12/22 08:30 Temperature 98.7 F Pulse Rate 56 L 58 L 63 Respiratory Rate 21 28 H 19 Blood Pressure 120/56 L Pulse Oximetry 94 97 Oxygen Delivery Method Oxygen Flow Rate 40 Fraction of Inspired Oxygen 40 10/12/22 08:00 10/12/22 08:00 10/12/22 10:13 Temperature Pulse Rate 53 L Respiratory Rate 18 Blood Pressure Pulse Oximetry 96 98 Oxygen Delivery Method Heated High Flow Heated High Flow Oxygen Flow Rate 40 Fraction of Inspired Oxygen 10/12/22 12:00 10/12/22 12:00 10/12/22 09:00 Temperature Pulse Rate 58 L Respiratory Rate 30 H Blood Pressure Pulse Oximetry 97 Oxygen Delivery Method Heated High Flow Heated High Flow Oxygen Flow Rate 40 Fraction of Inspired Oxygen 10/12/22 09:30 10/12/22 10:00 10/12/22 10:30 Temperature Pulse Rate 55 L 55 L 55 L Respiratory Rate 25 H 24 26 H Blood Pressure Pulse Oximetry 97 98 97 Oxygen Delivery Method Oxygen Flow Rate Fraction of Inspired Oxygen 10/12/22 11:00 10/12/22 11:30 10/12/22 12:00 Temperature Pulse Rate 54 L 61 58 L Respiratory Rate 27 H 28 H 21 Blood Pressure Pulse Oximetry 89 L 92 97 Oxygen Delivery Method Oxygen Flow Rate Fraction of Inspired Oxygen 10/12/22 12:14 10/12/22 12:14 10/12/22 12:30 Temperature Pulse Rate 62 53 L Respiratory Rate Blood Pressure 133/60 Pulse Oximetry 96 98 Oxygen Delivery Method Oxygen Flow Rate Fraction of Inspired Oxygen 10/12/22 12:55 10/12/22 12:00 10/12/22 13:00 Temperature Pulse Rate 54 L 119 H Respiratory Rate 16 Blood Pressure 133/60 133/60 Pulse Oximetry 97 97 Oxygen Delivery Method Oxygen Flow Rate 40 Fraction of Inspired Oxygen 40 Fraction of Inspired Oxygen 40 SaO2/FiO2 Ratio 211 Oxygen Delivery Method Heated High Flow Oxygen Flow Rate 40 Narrative Exam Narrative: Abdomen soft Sleeping Objective Labs 10/12/22 05:10 10/12/22 05:10 Labs: Laboratory Results - last 24 hr 10/12/22 10/12/22 10/12/22 05:10 05:10 05:10 WBC 13.6 H RBC 4.13 L Hgb 13.4 L Hct 39.9 L MCV 96.6 MCH 32.4 MCHC 33.5 RDW 13.5 Plt Count 200 Neut % (Auto) 84.6 H Lymph % (Auto) 8.5 L [place] % (Auto) 5.8 Eos % (Auto) 1.0 L Baso % (Auto) 0.1 Neut # (Auto) 51650 H Lymph # (Auto) 1200 [place] # (Auto) 800 Eos # (Auto) 100 Baso # (Auto) 0 Sodium 138 Potassium 3.3 L Chloride 104 Carbon Dioxide 30 BUN 23 H Creatinine 0.71 Estimated GFR > 60 BUN/Creatinine Ratio 32.4 H Glucose 139 H Calcium 7.7 L Phosphorus 2.1 L Magnesium 2.2 Prealbumin 9.5 L Triglycerides 86 10/12/22 09:05 WBC RBC Hgb Hct MCV MCH MCHC RDW Plt Count Neut % (Auto) Lymph % (Auto) [place] % (Auto) Eos % (Auto) Baso % (Auto) Neut # (Auto) Lymph # (Auto) [place] # (Auto) Eos # (Auto) Baso # (Auto) Sodium Potassium Chloride Carbon Dioxide BUN Creatinine Estimated GFR BUN/Creatinine Ratio Glucose Calcium Phosphorus Magnesium 2.1 Prealbumin Triglycerides [facility] Medical History BPH (benign prostatic hyperplasia) Essential tremor History of basal cell carcinoma Hyperlipidemia Medicare annual wellness visit, subsequent Preventative health care Witnessed episode of apnea Surgical History Hx laparoscopic cholecystectomy Previous back surgery S/P laparoscopic hernia repair Social History household members: spouse Smoking Status: Never smoker alcohol intake: current substance use type: does not use Assessment & Plan Assessment and plan (1) Postoperative examination: Status: Acute Plan Await flatus before advancing diet
--- NOTE | 2022-10-12 16:15 | PC.NURSE ---
1600--pt has been on o2/4l/nc and o2 sat mid 90s; pt oob and ambulated approx 100ft in halls w/ walker and gait belt; returned to chair; o2 sat 95%; pt tolerated well
[2022-10-12] MEDS: [UNRECOGNIZED DRUG - OTHER] IV (18:21)
[2022-10-12] MEDS: POTASSIUM CHLORIDE IV (18:21)
[2022-10-12] MEDS: LYTES IV (18:21)
[2022-10-12] MEDS: DEXT IV (18:21)
[2022-10-12] MEDS: CALCIUM IV (18:21)
--- NOTE | 2022-10-12 19:02 | PC.NURSE ---
1849--pt called and reported passing flatus; up to bathroom ; feels like he needs to have a BM; he will call when done
[2022-10-12] MEDS: ACETAMINOPHEN 325 MG TABLET 650 MG PO (20:09)
[2022-10-13] VITALS (11 sets, daily range): BP systolic 118–149; BP diastolic 58–70; PULSE 56–65; RESP 15–20; TEMP 36.2–37.2; O2SAT 92–96
--- NOTE | 2022-10-13 01:55 | PC.NURSE ---
Spoke with Dr Rdz about difficult patency of Piccline, patient has had multiple IV sites, some of them being Ultrasound guided PIVs, patient refusing another poke at this time. Tolerating full liquid diet without nausea, passing flatus, and having loose BMs now. Verbal order to stop TPN, LR DC'd, keep abx ordered, reassess in am. Patient wore own C-pap for awhile, now on RA SpO2 94% VSS.
[2022-10-13 04:50] LABS: Add Manual Diff / Slide Review NO; Basophils Absolute Auto 0 /uL (0-100); Basophils Percent Auto 0.1 % (0-2); Eosinophils Absolute Auto 200 /uL (0-450); Eosinophils Percent Auto 1.5 % (2-4); Hematocrit 38.7 % (41-53); Lymphocytes Absolute Auto 1400 /uL (1100-4500); Lymphocytes Percent Auto 11.1 % (25-40); Mean Corpuscular HGB Conc 33.6 % (30-36); Mean Corpuscular Hemoglobin 32.3 PG (26-34); Mean Corpuscular Volume 96.2 fL (80-100); Monocytes Absolute Auto 500 /uL (0-900); Monocytes Percent Auto 4.1 % (3-14); Neutrophils Absolute Auto 10900 /uL (1500-7000); Neutrophils Percent Auto 83.2 % (50-75); Platelet Count 175 X10^3/uL (150-400); Red Blood Cell Count 4.02 X10^6/uL (4.5-5.9); Red Cell Distribution Width 13.5 % (11.6-14.8)
[2022-10-13 05:05] LABS: BUN Creatinine Ratio 25.8 (6-22); Blood Urea Nitrogen 16 mg/dL (9-20); Calcium 7.7 mg/dL (8.4-10.2); Carbon Dioxide 25 mmol/L (22-32); Chloride 106 mmol/L (98-107); Estimated Glomerular Filt Rate > 60 mL/min (>60); Glucose 101 mg/dL (80-110); HEMOLYSIS < 15 (0-50); Potassium 3.5 mmol/L (3.4-5.1); Sodium 136 mmol/L (137-145)
[2022-10-13 05:07] LABS: Phosphorous 2.9 mg/dL (2.3-3.7)
[2022-10-13 05:15] LABS: NT-proBNP (BNP-Adult 18+) 1290 pg/mL (<125)
[2022-10-13] MEDS: PIPERACILLIN/TAZO 3.375 GM in SODIUM CHLORIDE 0.9% 100 ML IV ×3 (05:36→21:00)
[2022-10-13] MEDS: diazePAM 5 MG TABLET PO (09:20)
[2022-10-13] MEDS: ENOXAPARIN 40 MG/0.4 ML SYRINGE SUBCUT (09:20)
[2022-10-13] MEDS: TAMSULOSIN 0.4 MG CAPSULE PO (09:20)
[2022-10-13] MEDS: FUROSEMIDE 40 MG TABLET PO (09:20)
--- NOTE | 2022-10-13 09:48 | PT.IPTN ---
Current Diagnoses Noninfective gastroenteritis and colitis, unspecified (10/06/22) Unspecified abdominal pain (10/06/22) Encounter for follow-up examination after completed treatment for conditions other than malignant neoplasm (10/06/22) Surgery Performed Operation Date: 10/09/22 17:00 Actual Procedures p Exploratory Laparotomy with bowel resection - Sam Angel MD Physical Therapy Treatment Note M2 PT-IP Current Condition Start: 10/10/22 12:09 Freq: NEEDED Status: Active Protocol: Document 10/10/22 12:09 ES (Rec: 10/10/22 12:24 ES [id number]) Physical Therapy Current Condition Current Condition Evaluation Date 10/10/22 Treatment Diagnosis S/p small bowel resection, weakness Onset Date 10/09/22 M3 PT-IP Subjective Start: 10/10/22 12:09 Freq: NEEDED Status: Active Protocol: Document 10/13/22 09:48 JH (Rec: 10/13/22 11:15 [id number]) Subjective Physical Therapy Visit Type Type Treatment Note Visit Start Time 09:22 Visit Stop Time 09:48 Total Visit Minutes 26 Physical Therapy Visit Comments Patient Comments Pt feels okay. better than previous day when PT asked how he was doing. He was willing to get up and walk. Spouse present. Therapy Pain Assessment Location Bilateral Lower Abdomen Scale Used verbal doable Description With Movement M4 PT-IP Mobility and Gait Start: 10/10/22 12:09 Freq: NEEDED Status: Active Protocol: Document 10/13/22 09:48 JH (Rec: 10/13/22 11:15 [id number]) PT-Transfer Assessment Sit to and From Stand Sit to and from Stand Contact Guard Assistance,1 Person Assistance,Use of Upper Extremities Equipment Transfer Assistive Device Gait Belt,Front Wheeled Walker Transfers Transfer Destination Toilet Transfer Technique Stand Step Pivot Transfer Ability Level of Assist Contact Guard Assistance Comments Mobility Comments Nurse disconnected from IV for gait training. Pt was sitting in chair when encountered by PT. Required minimal assistance to scoot forawrd and stand with walker. Pt walked 110ft down [place] and back to toilet. cueing for trunk posture and position of walker while walking was needed. SpO2 on monitor was 92 pinky;96 index finger. Portable SpO2 on index finger while walking was 88-93. Pt was left on toilet with call light. Gait Assessment Gait Gait Assistance Required: Contact Guard Assistance Distance (Feet) 110 Able to Maintain Weight Bearing Status Yes During Gait Assistive Devices Assistive Device Gait Belt,Front Wheeled Walker Gait Deviations General Gait Pattern Step-to Gait Factors Limiting Gait Function Factors Limiting Gait Function Decreased Activity Tolerance, Decreased Strength,Pain,Poor Balance M5 PT-IP Objective Assessments Start: 10/10/22 12:09 Freq: NEEDED Status: Active Protocol: Document 10/10/22 12:09 ES (Rec: 10/10/22 12:24 ES [id number]) Orientation Orientation/Cognition Level of Alertness Alert Orientation Name,Age,Birthday,Month,Date, Year,Day of Week,Place, Situation Language Function Ability No Deficits Noted Safety Awareness Understands Safety Issues Memory Description No Deficits Noted Gross Range of Motion Upper Extremity ROM Assessment Within Functional Limits Lower Extremity ROM Assessment Within Functional Limits Strength Comments Strength Comments Strength not formally tested due to abdominal precautions. ABle to move all limbs against gravity and able to fully WB in standing. M6 PT-IP Treatment Start: 10/10/22 12:09 Freq: NEEDED Status: Active Protocol: Document 10/12/22 08:25 MB (Rec: 10/12/22 08:32 MB [id number]) Physical Therapy Treatment Exercises Exercises Ankle Pumps,Gluteal Sets,Quad Sets Other Treatments Other Treatment Performed Sitting exercises: 10 reps QS and GS, AP x20 reps, shoulder rolls, re-ed pt in use of incentive spirometer M7 PT-IP Assessment and Plan Start: 10/10/22 12:09 Freq: NEEDED Status: Active Protocol: Document 10/13/22 09:48 (Rec: 10/13/22 11:15 [id number]) PT Summary Assessment and Plan Potential Rehabilitation Potential Good Status of Condition at Evaluation Evolving Summary Impairments Pain,Strength,Balance,Bed Mobility,Gait,Activity Tolerance Assessment Summary Pt is progressing well and is willing to move. Pt is walking on room air w/ stable SpO2. He does have pain with mobility that may be affecting his ROM . Is feeling better from food intake, hopes it will stay down. PT continues to recommend home discharge w/ assist. Pt may benefit from home health therapy services to progress towards baseline. Goals Bed Mobility Goal Independent Transfer Goal Independent,Front Wheeled Walker Gait Goal Independent,Front Wheel Walker Gait Distance 150 ft Other Goals Patient will be able to ascend /descend 2 stairs with B rails with supervision. Days to Meet Goals 7 Frequency of Treatment Frequency Of Treatment Once a Day Treatment Plan Physical Therapy Treatment Plan Bed Mobility Training,Transfer Training,Gait Training, Therapeutic Exercise,Discharge Planning Precautions Abdominal Surgery Precautions Log Roll,Lifting Restrictions, Gait Belt above Incisional Area Recommendations To Nursing Amount of Assist Needed 1 Person Assist Discharge Recommendations PT Discharge Recommendations Home with Assistance,Home Health Equipment Needed for Home Before Will likely need FWW Discharge Transportation Needs at Discharge Private Vehicle Treatment was provided by Maryam Briones, SPT and supervised by Nora Christie, PT, DPT. I personally reviewed this note and agree with its contents.
--- NOTE | 2022-10-13 09:52 | P.PN_ITS ---
Subjective Subjective Date Patient Seen: 10/13/22 Time Patient Seen: 09:52 Interval history: Margarito had several bowel movements last night. He is feeling better overall. Exam Vital Signs (past 8 hours): - 10/13/22 04:00 10/13/22 03:00 Temperature 97.2 F L Pulse Rate 57 L Respiratory Rate 20 Blood Pressure 149/67 H Pulse Oximetry 93 94 Oxygen Delivery Method Room Air Oxygen Flow Rate 0 Fraction of Inspired Oxygen 40 SaO2/FiO2 Ratio 211 Oxygen Delivery Method Room Air Oxygen Flow Rate 0 Narrative Exam Narrative: Sitting in the chair Const General: No acute distress Objective Labs 10/13/22 04:00 10/13/22 04:00 Labs: Laboratory Results - last 24 hr 10/13/22 10/13/22 10/13/22 04:00 04:00 04:00 WBC 13.0 H RBC 4.02 L Hgb 13.0 L Hct 38.7 L MCV 96.2 MCH 32.3 MCHC 33.6 RDW 13.5 Plt Count 175 Neut % (Auto) 83.2 H Lymph % (Auto) 11.1 L [place] % (Auto) 4.1 Eos % (Auto) 1.5 L Baso % (Auto) 0.1 Neut # (Auto) 23403 H Lymph # (Auto) 1400 [place] # (Auto) 500 Eos # (Auto) 200 Baso # (Auto) 0 Sodium 136 L Potassium 3.5 Chloride 106 Carbon Dioxide 25 BUN 16 Creatinine 0.62 L Estimated GFR > 60 BUN/Creatinine Ratio 25.8 H Glucose 101 Calcium 7.7 L Phosphorus 2.9 Magnesium 2.0 NT-Pro-B Natriuret Pep 10/13/22 04:00 WBC RBC Hgb Hct MCV MCH MCHC RDW Plt Count Neut % (Auto) Lymph % (Auto) [place] % (Auto) Eos % (Auto) Baso % (Auto) Neut # (Auto) Lymph # (Auto) [place] # (Auto) Eos # (Auto) Baso # (Auto) Sodium Potassium Chloride Carbon Dioxide BUN Creatinine Estimated GFR BUN/Creatinine Ratio Glucose Calcium Phosphorus Magnesium NT-Pro-B Natriuret Pep 1290 H [facility] Medical History BPH (benign prostatic hyperplasia) Essential tremor History of basal cell carcinoma Hyperlipidemia Medicare annual wellness visit, subsequent Preventative health care Witnessed episode of apnea Surgical History Hx laparoscopic cholecystectomy Previous back surgery S/P laparoscopic hernia repair Social History household members: spouse Smoking Status: Never smoker alcohol intake: current substance use type: does not use Assessment & Plan Assessment and plan (1) Postoperative examination: Status: Acute Plan Advance diet We can stop the parenteral nutrition after the current bag finishes
--- NOTE | 2022-10-13 11:23 | OT.IP.EVAL ---
Current Diagnoses Noninfective gastroenteritis and colitis, unspecified (10/06/22) Unspecified abdominal pain (10/06/22) Encounter for follow-up examination after completed treatment for conditions other than malignant neoplasm (10/06/22) Surgery Performed Operation Date: 10/09/22 17:00 Actual Procedures p Exploratory Laparotomy with bowel resection - Sam Angel MD Past Medical History (Last Reviewed 10/07/22 @ 20:52 by Yojana Blanchard MD) BPH (benign prostatic hyperplasia) Essential tremor History of basal cell carcinoma Hyperlipidemia Medicare annual wellness visit, subsequent Preventative health care Witnessed episode of apnea Surgical History (Last Reviewed 10/07/22 @ 20:52 by Yojana Blanchard MD) Hx laparoscopic cholecystectomy Previous back surgery S/P laparoscopic hernia repair Occupational Therapy Inpatient Evaluation/Re-Eval M1 PT/OT-IP Prior Functional Status Start: 10/10/22 12:09 Freq: NEEDED Status: Active Protocol: Document 10/13/22 11:27 CGR (Rec: 10/13/22 11:40 CGR [id number]) Medical Review Prior Functional Status Medical History Reviewed Yes Communication Indep Mobility and Gait Indep without AD Activities of Daily Living and IADL's Indep Prior Functional Level (Other details) Able to drive Social History Household Members spouse Living Arrangements House Number of Floors (Floors) One Floor Number of Stairs To Enter/Railing? 2 LINDA with B rails Home Environment Standard Height Toilet,Walk in Shower,Tub/Shower,Built-In Shower Seat Home Equipment Hand Held Shower,Grab Bars In Shower Employment Status Retired Additional Social History Comment No AD at home. No O2 at baseline, wears CPAP at night. Spouse will be available as needed. M2 OT-IP Current Condition Start: 10/13/22 11:26 Freq: Status: Active Protocol: Document 10/13/22 11:27 CGR (Rec: 10/13/22 11:40 CGR [id number]) Occupational Therapy Current Condition Current Condition Evaluation Date 10/13/22 Treatment Diagnosis small bowel resection Diagnosis Onset Date 10/06/22 M3 OT- IP Subjective and Pain Start: 10/13/22 11:26 Freq: Status: Active Protocol: Document 10/13/22 11:27 CGR (Rec: 10/13/22 11:40 CGR [id number]) OT- Subjective Occupational Therapy Visit Type Type Initial Evaluation Visit Start Time 11:00 Visit Stop Time 11:23 Total Visit Minutes 23 Notes Pt resting in chair when OT entered. Pt's is present throughout session. OT Pain Assessment Pain When Pain Assessed At Rest Pain Present Pain Present Denied Pain M4 OT- IP ADL's Start: 10/13/22 11:26 Freq: Status: Active Protocol: Document 10/13/22 11:27 CGR (Rec: 10/13/22 11:40 CGR [id number]) OT [id number] Comments OT Self-Feeding Comments not meal time OT ADL-Grooming General Evaluation Grooming Ability Standby Assistance Areas Needing Assistance Face Washing Comments OT Grooming Comments standing at sink OT ADL-Oral Care General Eval Oral Care Ability Standby Assistance Areas of Assistance Brushing Teeth,Retrieving/Set- Up of Items Comments Oral Care Comments standing at sink for brushing teeth. OT ADL-Dressing General Eval Lower Body Dressing Ability Standby Assistance Areas Needing Assistance Socks Comments OT Dressing Comments Pt was able to doff and don socks seated in chair OT ADL-Toileting General Evaluation Toileting Ability Standby Assistance Comments OT Toileting Comments simulated toileting seated on toilet OT ADL-Bathing Comments OT Bathing Comments not performed M5 OT- IP IADL's Start: 10/13/22 11:26 Freq: Status: Active Protocol: Document 10/13/22 11:27 CGR (Rec: 10/13/22 11:40 CGR [id number]) OT-Instrumental Activities of Daily Living Deficits IADL Deficits Identified No Deficits Home Safety Awareness Awareness of Need for Assistance at Home Good Awareness Ability to Problem Solve Emergency Able to Problem Solve Situations Medication Management Medication Management No Deficits Identified Money Management Money Management No Deficits Identified Meal Preparation Meal Preparation Caregiver Provides Assist Pulp Cooker Pulp Cooker Caregiver Provides Assist Driving Driving Comments 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 M6 OT- IP Functional Cognition Start: 10/13/22 11:26 Freq: Status: Active Protocol: Document 10/13/22 11:27 CGR (Rec: 10/13/22 11:40 CGR [id number]) Cognitive Factors Limiting Selfcare Function Cognitive Ability Level of Alertness Alert Patient Orientation Name,Age,Birthday,Month,Date, Year,Day of Week,Place, Situation Attention Span Ability Capable of Focused Attention, Capable of Sustained Attention Ability to Follow Commands Able to Follow Multi-Step Commands OT- Vision and Hearing OT- Hearing Assessment OT- Hearing Assessment WFL OT- Vision Assessment Visual Acuity WFL Visual Attentiveness WFL Occular Pursuits WFL Visual Convergence WFL Vision Assessment Comments Pt has bifocals present in the hospital M7 OT- IP Mobility and Balance Start: 10/13/22 11:26 Freq: Status: Active Protocol: Document 10/13/22 11:27 CGR (Rec: 10/13/22 11:40 CGR [id number]) OT-Transfer Assessment Sit to and From Stand Sit to and from Stand Standby Assistance Transfers Transfer Ability Standby Assistance Technique Transfer Destination Chair,Toilet Transfer Technique Stand Step Pivot Devices Transfer Assistive Devices Gait Belt,Front Wheeled Walker Comments Mobility Comments Pt ambulates slowly with FWW and SBA OT- Balance Assessment Sitting Balance and Reactions Static Sitting Balance Ability Good Dynamic Sitting Balance Ability Good M8 OT- IP Objective Assessments Start: 10/13/22 11:26 Freq: Status: Active Protocol: Document 10/13/22 11:27 CGR (Rec: 10/13/22 11:40 CGR [id number]) OT Gross Range of Motion Upper Extremity Range of Motion Assessment Within Functional Limits OT Strength Upper Extremity Strength Assessment Within Functional Limits Comments Strength Comments 4+/5 OT- Coordination Assessment Upper Extremity Finger to Nose Test Within Functional Limits Finger Tapping Test Within Functional Limits OT-Muscle Tone Assessment Muscle Tone WNL Yes OT Sensation Assessment Edema Edema Present Edema Comments BLE with edema and RUE at PICC line site. M9 OT- IP Assessment and Plan Start: 10/13/22 11:26 Freq: Status: Active Protocol: Document 10/13/22 11:27 CGR (Rec: 10/13/22 11:40 CGR [id number]) OT Summary Assessment and Plan Potential Rehabilitation Potential Good Analytic Complexity at Evaluation Moderate Summary OT Impairments Balance,Functional Mobility, Dressing,Toileting,Bathing, Toilet Transfers,Shower Transfers,Activity Tolerance Progress Towards Goals Progressing Toward Goals Assessment Summary Pt presents as a moderate complexity evaluation s/p admit for small bowel resection. Pt presents with poor endurance, limited functional mobility and deficits to his balance that will impact his ability to perform ADLs. Pt is likely safe for discharge home when medically appropriate but could benefit from OT services while hospitalized. Goals Dressing Goal Independent Toileting Goal Independent Bathing Goal Independent Toilet Transfer Goal Independent Shower Transfer Goal Independent Days to Meet Goals 10 Frequency of Treatment Frequency Of Treatment Once a Day Treatment Plan OT Treatment Plan ADL Training,Functional Mobility,Patient/Family Education,Discharge Planning Other Treatment Recommendations and Next shower, endurance training. Treatment Focus Discharge Recommendations OT Discharge Recommendations Home with Assistance Home Equipment Needs 2ww Transportation Needs at Discharge Private Vehicle
--- NOTE | 2022-10-13 14:00 | PM.PN.1 ---
Subjective Subjective Interval history: Eating well and having adequate bowel movements. Eager to have his Gonzalez removed. We will do trial of void. Stability of his vitals does not need to have telemetry monitoring. Exam Vital Signs (past 8 hours): - 10/13/22 07:00 10/13/22 07:00 10/13/22 08:00 Temperature 98.1 F Pulse Rate 62 Respiratory Rate 16 Blood Pressure 134/64 Pulse Oximetry 93 93 Oxygen Delivery Method Room Air Room Air Oxygen Flow Rate 0 10/13/22 11:00 10/13/22 12:00 Temperature 97.9 F Pulse Rate 65 Respiratory Rate 15 Blood Pressure 118/58 L Pulse Oximetry 95 95 Oxygen Delivery Method Room Air Oxygen Flow Rate 0 Fraction of Inspired Oxygen 40 SaO2/FiO2 Ratio 211 Oxygen Delivery Method Room Air Oxygen Flow Rate 0 Narrative Exam Narrative: Gen: alert, pleasant cooperative, in no acute medical distress Lungs: speaks full sentences, rt base no crackles, no wheeze Abd: Minimal tender to palpation, bowel sounds present CV: regular rate Ext: no edema Neuro: nl speech and affect Objective Labs 10/13/22 04:00 10/13/22 04:00 Labs: Laboratory Results - last 24 hr 10/13/22 10/13/22 10/13/22 04:00 04:00 04:00 WBC 13.0 H RBC 4.02 L Hgb 13.0 L Hct 38.7 L MCV 96.2 MCH 32.3 MCHC 33.6 RDW 13.5 Plt Count 175 Neut % (Auto) 83.2 H Lymph % (Auto) 11.1 L Buchanan % (Auto) 4.1 Eos % (Auto) 1.5 L Baso % (Auto) 0.1 Neut # (Auto) 32007 H Lymph # (Auto) 1400 Buchanan # (Auto) 500 Eos # (Auto) 200 Baso # (Auto) 0 Sodium 136 L Potassium 3.5 Chloride 106 Carbon Dioxide 25 BUN 16 Creatinine 0.62 L Estimated GFR > 60 BUN/Creatinine Ratio 25.8 H Glucose 101 Calcium 7.7 L Phosphorus 2.9 Magnesium 2.0 NT-Pro-B Natriuret Pep 10/13/22 04:00 WBC RBC Hgb Hct MCV MCH MCHC RDW Plt Count Neut % (Auto) Lymph % (Auto) Buchanan % (Auto) Eos % (Auto) Baso % (Auto) Neut # (Auto) Lymph # (Auto) Buchanan # (Auto) Eos # (Auto) Baso # (Auto) Sodium Potassium Chloride Carbon Dioxide BUN Creatinine Estimated GFR BUN/Creatinine Ratio Glucose Calcium Phosphorus Magnesium NT-Pro-B Natriuret Pep 1290 H [facility] Medical History BPH (benign prostatic hyperplasia) Essential tremor History of basal cell carcinoma Hyperlipidemia Medicare annual wellness visit, subsequent Preventative health care Witnessed episode of apnea Surgical History Hx laparoscopic cholecystectomy Previous back surgery S/P laparoscopic hernia repair Social History household members: spouse Smoking Status: Never smoker alcohol intake: current substance use type: does not use Assessment & Plan Assessment & Plan narrative: #closed loop bowel obstruction ?- per CT abd on 10/07 ?- worsening distension on 10/07, consistent with closed loop obstruction. Surgery consulted and NG tube now in place. ?- gastrografin study indicated persistent obstruction ?- gen surg took to OR 10/09 and performed lysis of adhesions and partial small bowel resection due to necrotic tissue ?- continue NG per gen surg to suction ?- no gas, possible slight BS present ?- able to work with PT on 10/10 and get up to chair ?-changed morphine to fentanyl IV due to delirium.? No delirium today ?-started TPN on 10/11, now has been stopped due to eating well #sepsis secondary to aspiration pneumonia, with acute respiratory failure with hypoxia, thrombocytopenia ?- changed abx to Zosyn given lack of improvement in O2, Zosyn has been completed. ?- CTA showed aspiration likely due to obstruction ?- was on HFNC, now tapered off O2 #paroxysmal atrial fibrillation, with RVR resolved ?- converted with amiodarone, but went back into RVR AM of 10/08 so amio bolus given and amio rate increased, converted to SR 10/09 and amio d/c'd ?- continues to be NSR currently ?- patient reports prior history of afib in the past. ?- will start metop succ once tolerating po ?- echo as below #possible acute diastolic heart failure, previously normal EF in 12/2021. ?- Echo 10/07 with EF 55-60%, RVSP 31, improved mild MR, and borderline dilated LA, low RA pressure ?- probNp 1310, CXR consistent with volume overload. Did diurese with 20 mg of IV lasix but limited by soft BP, and Lasix discontinued, BNP 1290, initiated furosemide 40 mg daily. ?- resp failure is probably due to asp pneumonia, continue to monitor #hyponatremia ?- stable, watch closely with obstruction #Acute urinary retention in setting of chronic BPH ?- suspect due to constipation and history of BPH ?- resume flomax when able to take po, this has been restarted ?- urine cx negative ?- gonzalez in place, draining well, today will do trial of void with gonzalez out #elevated troponin, non-significant ?- no chest pain, EKG without acute ischemia, trop up to 0.036, then declined - vitals stable, can go off telemtry Code status: full Surrogate decision maker:? Gilda Price DVT/VTE prophylaxis:? Lovenox and SCDs Dispo: Multiple days. Expect discharge directly home.
[2022-10-13] MEDS: POTASSIUM CHLORIDE 20 MEQ/15 ML UDC 40 MEQ PO (15:20)
--- NOTE | 2022-10-13 15:48 | DIET.CONS2 ---
Dietary Inpatient Consultation Note Admission Date: 10/06/2022 09:55 Pt having multiple BMs, TPN to stop once bag complete this afternoon per surgery. Pt on general diet. Diet: 10/13/22 Lunch Regular [General (Regular) Diet] Diet Modifications: Nutrition Percent Meal Consumed 50% 10/13/22 12:00 Percent Meal Consumed 50% 10/13/22 10:06 Percent Meal Consumed 15% 10/12/22 18:08 Percent Meal Consumed 10% 10/12/22 13:05 Percent Meal Consumed 10% 10/12/22 09:23 Electronically Signed by: Sabina Jett 10/13/22 15:48 Clinical Dietitian [address] [address]
--- NOTE | 2022-10-13 16:01 | CM.DPC ---
DCP Continued: [facility] reviewed EMR. Per rounds, patient could benefit from a PT/OT eval. [facility] placed orders for PT/OT initial eval. Per rounds, TPN has been stopped due to patient eating well. Per PT/OT note, they recommend home with assistance from family at this time. PT/OT recommended a walker upon d/c. [facility] unable to meet with patient today. Follow up with patient and family in morning for d/c plan. Plan: d/c home with family assistance when medically stable. Patient will need a walker upon d/c. Transport in POV. CM team will continue to follow closely. CLAUDIO Suazo
[2022-10-14 02:00] VITALS: O2SAT 96
[2022-10-14 04:00] VITALS: BP 151/71; PULSE 56; RESP 16; TEMP 36.8; O2SAT 96
[2022-10-14 04:48] LABS: Add Manual Diff / Slide Review NO; Basophils Absolute Auto 0 /uL (0-100); Basophils Percent Auto 0.1 % (0-2); Eosinophils Absolute Auto 300 /uL (0-450); Eosinophils Percent Auto 2.1 % (2-4); Hematocrit 37.8 % (41-53); Hemoglobin 12.8 g/dL (13.5-17.5); Lymphocytes Absolute Auto 1500 /uL (1100-4500); Mean Corpuscular HGB Conc 33.8 % (30-36); Mean Corpuscular Hemoglobin 32.1 PG (26-34); Monocytes Absolute Auto 600 /uL (0-900); Monocytes Percent Auto 4.9 % (3-14); Neutrophils Absolute Auto 10200 /uL (1500-7000); Neutrophils Percent Auto 80.9 % (50-75); Platelet Count 187 X10^3/uL (150-400); Red Blood Cell Count 3.98 X10^6/uL (4.5-5.9); Red Cell Distribution Width 13.2 % (11.6-14.8); White Blood Cell Count 12.6 X10^3/uL (4.5-11.0)
[2022-10-14] MEDS: PIPERACILLIN/TAZO 3.375 GM in SODIUM CHLORIDE 0.9% 100 ML IV (04:56)
[2022-10-14 05:02] LABS: Alanine Aminotransferase 44 IU/L (<50); Albumin 2.3 g/dL (3.5-5.0); Albumin Globulin Ratio 0.9 (1.0-2.8); Alkaline Phosphatase 56 U/L (38-126); Aspartate Aminotransferase 60 IU/L (17-59); BUN Creatinine Ratio 18.8 (6-22); Bilirubin Total 0.7 mg/dL (0.2-1.3); Blood Urea Nitrogen 13 mg/dL (9-20); C-Reactive Protein Quant 6.7 mg/dL (<1.0); Calcium 7.5 mg/dL (8.4-10.2); Carbon Dioxide 24 mmol/L (22-32); Chloride 104 mmol/L (98-107); Estimated Glomerular Filt Rate > 60 mL/min (>60); Globulin 2.5 g/dL (1.7-4.1); Glucose 93 mg/dL (80-110); HEMOLYSIS < 15 (0-50); Potassium 3.7 mmol/L (3.4-5.1); Sodium 133 mmol/L (137-145); Total Protein 4.8 g/dL (6.3-8.2)
--- NOTE | 2022-10-14 05:47 | PC.NURSE ---
0545- Patient slept soundly most of the night. He has no distress and did not require any pain medication. Lungs are dim at the bases and otherwise clear. Stable will monitor.
[2022-10-14 06:00] VITALS: O2SAT 96
[2022-10-14 09:00] VITALS: BP 149/67; PULSE 64; RESP 15; O2SAT 95
--- NOTE | 2022-10-14 09:20 | PT.IPTN ---
Current Diagnoses Noninfective gastroenteritis and colitis, unspecified (10/06/22) Unspecified abdominal pain (10/06/22) Encounter for follow-up examination after completed treatment for conditions other than malignant neoplasm (10/06/22) Surgery Performed Operation Date: 10/09/22 17:00 Actual Procedures p Exploratory Laparotomy with bowel resection - Sam Angel MD Physical Therapy Treatment Note M2 PT-IP Current Condition Start: 10/10/22 12:09 Freq: NEEDED Status: Active Protocol: Document 10/10/22 12:09 ES (Rec: 10/10/22 12:24 ES [id number]) Physical Therapy Current Condition Current Condition Evaluation Date 10/10/22 Treatment Diagnosis S/p small bowel resection, weakness Onset Date 10/09/22 M3 PT-IP Subjective Start: 10/10/22 12:09 Freq: NEEDED Status: Active Protocol: Document 10/14/22 09:20 AB (Rec: 10/14/22 12:44 AB [id number]) Subjective Physical Therapy Visit Type Type Treatment Note Visit Start Time 09:20 Visit Stop Time 10:00 Total Visit Minutes 40 Number of TIRE WORKER Visits 0 Physical Therapy Visit Comments Patient Comments agreeable to do PT M4 PT-IP Mobility and Gait Start: 10/10/22 12:09 Freq: NEEDED Status: Active Protocol: Document 10/14/22 09:20 AB (Rec: 10/14/22 12:44 AB [id number]) PT-Bed Mobility Assessment Rolling Type of Rolling Log Rolling Level of Assist Maximal Assistance Supine to Sit Supine to Sit Maximum Assistance Sit to Supine Sit to Supine Maximum Assistance PT-Transfer Assessment Sit to and From Stand Sit to and from Stand Contact Guard Assistance,1 Person Assistance,Use of Upper Extremities Equipment Transfer Assistive Device Gait Belt,Front Wheeled Walker Orthotic/Prosthetic Devices or Brace: No Gait Assessment Gait Gait Assistance Required: Contact Guard Assist,1 Person Assist Distance (Feet) 60 Able to Maintain Weight Bearing Status Yes During Gait Assistive Devices Assistive Device Gait Belt,Front Wheeled Walker Orthotic/Prosthetic Devices or Brace: No Gait Deviations General Gait Pattern Decreased Stride Length, Decreased Feet Clearance, Narrow Based Gait,Step-to Gait Factors Limiting Gait Function Factors Limiting Gait Function Decreased Activity Tolerance, Decreased Strength,Limited Range of Motion,Pain,Poor Balance,Poor Safety Awareness Comments Gait Comments pt sitting on the chair. spouse in room with pt. pt and spouse hoping for pt to go home today. O2 sat at RA 97%. Caregiver training conducted. educated spouse on how to put and use safety belt and how to assist pt. spouse was able to put safety belt on pt and assisted pt with sit to stand CGA. spouse ambulated pt in the hallway using FWW CGA ~ 60 ft. assisted pt to the stairs. educated pt and spouse on stair climbing. pt completed up/down steps using B rails min A provided by spouse. assisted pt back to his room. ambulated from w/c to EOB using FWW with spouse assistiing. pt completed sit< >supine log roll max A with spouse assisting. educated spouse on how to assist pt and completed safely. pt wanting to sit on the chair. ambulated from EOB to chair using FWW ~ 12 ft. positioned on the chair. call light and table placed within reach. pt and spouse wanting a FWW dispensed through the hospital . Obtained FWW order. Checked back on pt and pt stated that his spouse went to borrow a FWW from the [employer]ist. Stair Climbing Assessment Evaluation Level of Assist On Stairs Minimal Assistance Devices Stair Climbing Assistive Devices Left Railing,Right Railing Technique/Endurance Stair Climbing Direction Ascend and Descend Stair Climbing Technique Step to Step Number of Steps Climbed 3 Stair Climbing Set # Repetitions (reps) 1 M5 PT-IP Objective Assessments Start: 10/10/22 12:09 Freq: NEEDED Status: Active Protocol: Document 10/10/22 12:09 ES (Rec: 10/10/22 12:24 ES [id number]) Orientation Orientation/Cognition Level of Alertness Alert Orientation Name,Age,Birthday,Month,Date, Year,Day of Week,Place, Situation Language Function Ability No Deficits Noted Safety Awareness Understands Safety Issues Memory Description No Deficits Noted Gross Range of Motion Upper Extremity ROM Assessment Within Functional Limits Lower Extremity ROM Assessment Within Functional Limits Strength Comments Strength Comments Strength not formally tested due to abdominal precautions. ABle to move all limbs against gravity and able to fully WB in standing. M6 PT-IP Treatment Start: 10/10/22 12:09 Freq: NEEDED Status: Active Protocol: Document 10/14/22 09:20 AB (Rec: 10/14/22 12:44 AB [id number]) Physical Therapy Treatment Education Education Provided Precautions,Safety M7 PT-IP Assessment and Plan Start: 10/10/22 12:09 Freq: NEEDED Status: Active Protocol: Document 10/14/22 09:20 AB (Rec: 10/14/22 12:44 AB [id number]) PT Summary Assessment and Plan Potential Rehabilitation Potential Good Summary Impairments Pain,ROM,Strength,Balance, Coordination,Sensation,Tone, Cognition,Bed Mobility, Transfers,Gait,Activity Tolerance Progress Towards Goals Slow Progress due to Medical Issues,Slow Progress due to Activity Tolerance Assessment Summary pt requiring CGA to min A with mobility using FWW. Caregiver training was conducted and spouse was able to assist pt safely. Pt and spouse decided to borrow a FWW from the [employer]ist. pt plans to go home with spouse. pt may go home when medically stable. Goals Bed Mobility Goal Independent Transfer Goal Independent,Front Wheeled Walker Gait Goal Independent,Front Wheel Walker Gait Distance 150 ft Other Goals Patient will be able to ascend /descend 2 stairs with B rails with supervision. Days to Meet Goals 5 Frequency of Treatment Frequency Of Treatment Once a Day Treatment Plan Physical Therapy Treatment Plan Bed Mobility Training,Transfer Training,Gait Training, Therapeutic Exercise,Discharge Planning Precautions Abdominal Surgery Precautions Log Roll,Lifting Restrictions, Gait Belt above Incisional Area Recommendations To Nursing Amount of Assist Needed 1 Person Assist Discharge Recommendations PT Discharge Recommendations Home with Assistance,Home Health Transportation Needs at Discharge Private Vehicle
[2022-10-14] MEDS: ENOXAPARIN 40 MG/0.4 ML SYRINGE SUBCUT (10:15)
[2022-10-14] MEDS: FUROSEMIDE 40 MG TABLET PO (10:17)
[2022-10-14] MEDS: TAMSULOSIN 0.4 MG CAPSULE PO (10:17)
[2022-10-14] MEDS: ACETAMINOPHEN 325 MG TABLET 650 MG PO (10:21)
--- NOTE | 2022-10-14 10:35 | OT.IP.TRT ---
Current Diagnoses Noninfective gastroenteritis and colitis, unspecified (10/06/22) Unspecified abdominal pain (10/06/22) Encounter for follow-up examination after completed treatment for conditions other than malignant neoplasm (10/06/22) Surgery Performed Operation Date: 10/09/22 17:00 Actual Procedures p Exploratory Laparotomy with bowel resection - Sam Angel MD Occupational Therapy Treatment Note M2 OT-IP Current Condition Start: 10/13/22 11:26 Freq: Status: Active Protocol: Document 10/13/22 11:27 [facility] (Rec: 10/13/22 11:40 CGR [id number]) Occupational Therapy Current Condition Current Condition Evaluation Date 10/13/22 Treatment Diagnosis small bowel resection Diagnosis Onset Date 10/06/22 M3 OT- IP Subjective and Pain Start: 10/13/22 11:26 Freq: Status: Active Protocol: Document 10/14/22 10:36 [facility] (Rec: 10/14/22 10:41 [facility] [id number]) OT- Subjective Occupational Therapy Visit Type Type Treatment Note Visit Start Time 10:27 Visit Stop Time 10:35 Total Visit Minutes 8 Occupational Therapy Visit Comments Patient Comments Pt not wanting to shower as did yesterday. Patient/Caregiver Goals To go home OT Pain Assessment Pain When Pain Assessed At Rest Pain Present Pain Present Denied Pain M4 OT- IP ADL's Start: 10/13/22 11:26 Freq: Status: Active Protocol: Document 10/14/22 10:36 [facility] (Rec: 10/14/22 10:41 [facility] [id number]) OT [id number] Comments OT Self-Feeding Comments not meal time OT ADL-Grooming Comments OT Grooming Comments not performed OT ADL-Oral Care Comments Oral Care Comments Not performed OT ADL-Dressing Comments OT Dressing Comments Not performed. OT ADL-Toileting Comments OT Toileting Comments Not performed, suggested pt bring the urinal home to use at night. OT ADL-Bathing Comments OT Bathing Comments Pt states showered yesterday. M5 OT- IP IADL's Start: 10/13/22 11:26 Freq: Status: Active Protocol: Document 10/13/22 11:27 [facility] (Rec: 10/13/22 11:40 [facility] [id number]) OT-Instrumental Activities of Daily Living Deficits IADL Deficits Identified No Deficits Home Safety Awareness Awareness of Need for Assistance at Home Good Awareness Ability to Problem Solve Emergency Able to Problem Solve Situations Medication Management Medication Management No Deficits Identified Money Management Money Management No Deficits Identified Meal Preparation Meal Preparation Caregiver Provides Assist Middle Card Tender Middle Card Tender Caregiver Provides Assist Driving Driving Comments 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 M6 OT- IP Functional Cognition Start: 10/13/22 11:26 Freq: Status: Active Protocol: Document 10/13/22 11:27 [facility] (Rec: 10/13/22 11:40 [facility] [id number]) Cognitive Factors Limiting Selfcare Function Cognitive Ability Level of Alertness Alert Patient Orientation Name,Age,Birthday,Month,Date, Year,Day of Week,Place, Situation Attention Span Ability Capable of Focused Attention, Capable of Sustained Attention Ability to Follow Commands Able to Follow Multi-Step Commands OT- Vision and Hearing OT- Hearing Assessment OT- Hearing Assessment WFL OT- Vision Assessment Visual Acuity WFL Visual Attentiveness WFL Occular Pursuits WFL Visual Convergence WFL Vision Assessment Comments Pt has bifocals present in the hospital M7 OT- IP Mobility and Balance Start: 10/13/22 11:26 Freq: Status: Active Protocol: Document 10/13/22 11:27 [facility] (Rec: 10/13/22 11:40 [facility] [id number]) OT-Transfer Assessment Sit to and From Stand Sit to and from Stand Standby Assistance Transfers Transfer Ability Standby Assistance Technique Transfer Destination Chair,Toilet Transfer Technique Stand Step Pivot Devices Transfer Assistive Devices Gait Belt,Front Wheeled Walker Comments Mobility Comments Pt ambulates slowly with FWW and SBA OT- Balance Assessment Sitting Balance and Reactions Static Sitting Balance Ability Good Dynamic Sitting Balance Ability Good M8 OT- IP Objective Assessments Start: 10/13/22 11:26 Freq: Status: Active Protocol: Document 10/13/22 11:27 [facility] (Rec: 10/13/22 11:40 [facility] [id number]) OT Gross Range of Motion Upper Extremity Range of Motion Assessment Within Functional Limits OT Strength Upper Extremity Strength Assessment Within Functional Limits Comments Strength Comments 4+/5 OT- Coordination Assessment Upper Extremity Finger to Nose Test Within Functional Limits Finger Tapping Test Within Functional Limits OT-Muscle Tone Assessment Muscle Tone WNL Yes OT Sensation Assessment Edema Edema Present Edema Comments BLE with edema and RUE at PICC line site. M9 OT- IP Assessment and Plan Start: 10/13/22 11:26 Freq: Status: Active Protocol: Document 10/14/22 10:36 [facility] (Rec: 10/14/22 10:41 [facility] [id number]) OT Summary Assessment and Plan Potential Rehabilitation Potential Good Analytic Complexity at Evaluation Moderate Summary OT Impairments Balance,Functional Mobility, Dressing,Toileting,Bathing, Toilet Transfers,Shower Transfers,Activity Tolerance Progress Towards Goals Progressing Toward Goals Assessment Summary Able to go over energy conservations needs for ADL and mobility needs. Suggested to get a shower chair and FWW for home use. Pt has a supportive to assist with pt needs at home. Goals Dressing Goal Independent Toileting Goal Independent Bathing Goal Independent Toilet Transfer Goal Independent Days to Meet Goals 9 Frequency of Treatment Frequency Of Treatment Once a Day Treatment Plan OT Treatment Plan ADL Training,Functional Mobility,Patient/Family Education,Discharge Planning Discharge Recommendations OT Discharge Recommendations Home with Assistance Home Equipment Needs FWW, shower chair Transportation Needs at Discharge Private Vehicle
--- NOTE | 2022-10-14 12:29 | CM.DPC ---
DCP Continued: MEDICINAL CHEMIST reviewed EMR. from nursing staff, patient will d/c today home. From PT/OT note, patient only needs a walker for safe d/c. MEDICINAL CHEMIST entered room and reintroduced self and role. Patient was resting in chair and appeared A/Ox4. Patient was accompanied by Gilda Tran. Patient is eager to go home. Patient will transport home with spouse in POV. MEDICINAL CHEMIST placed verbal reback order for a walker for home per provider's approval in rounds. OT called MEDICINAL CHEMIST to let CM team know picked up a walker from outside the hospital. MEDICINAL CHEMIST confirmed with patient and spouse they have a walker. Spouse reports she has one in the car. Plan: D/c home today with spouse in POV with walker. CM team will continue to follow as needed. CLAUDIO Suazo
--- NOTE | 2022-10-14 12:48 | PM.DS.1 ---
History of Present Illness History of Present Illness Date Patient Seen: 10/14/22 Time Patient Seen: 12:48 Chief complaint: abd pain, vomiting Narrative: Per admitting provider, Margarito Price is a 72-year-old male with a past medical history of BPH with lower tract symptoms, basal cell carcinoma, HLD, essential tremor, arterial tachycardia, anxiety, cholecystectomy, YUDITH with CPAP who presented to the ED this evening after having dinner had acute onset of periumbilical abdominal pain without radiation or provocation. In the ED patient's acute abdominal pain continued to come in waves, with continued nausea and vomiting, and failed oral trial despite pain medication and antiemetics. On admit patient's nausea and abdominal pain continues, states he is no longer passing gas, BMs have been normal every other day. He endorses a history of UTI, and urinary retention secondary to BPH, but feels like he is currently emptying his bladder. On admit patient denies chest pain, shortness in breath, headache, changes in vision, difficulty swallowing, speech impairment, weakness, numbness, tingling, difficulty with ambulation, recent falls, head injury, LOC, fever, body aches, chills, cough, recent exposure to illness, urinary incontinence/retention, dysuria, frequency, urgency, hematuria, bowel changes, constipation, incontinence, melena, rashes, recent changes to medication, illness, injury, or trauma. Patient's vitals are stable 97.8, 124/58, 51, 20, 93% on room air. WBC 11.3 with mild left shift neutrophils 9800, remainder of CBC CMP, and liver enzymes are all WNL. Lactate normal, abdominal CT mild fluid distention of the few small bowel loops without a focal transition point-possible gastritis. S/P cholecystectomy- mild biliary duct dilation. Patient admitted for acute abdominal pain with intractable pain, nausea, vomiting. Discharge Providers Provider Date of admission: 10/06/22 09:55 Discharge Date: 10/14/22 Primary care physician: Papo Collins MD Consults: 10/07/22 04:01 Consult to Tele-software deployment engineer Routine Comment: Consulting Provider: Lauri [employer]intensiv[employer] Reason for consultation: [employer] Has provider been notified: Yes 10/07/22 09:30 Consult to Tele-software deployment engineer Routine Comment: Consulting Provider: Lauri [employer] Reason for consultation: [employer] 10/07/22 16:42 Consult to General Surgery Routine Comment: Consulting Provider: Yojana Blanchard Reason for consultation: closed loop bowel obstruction Has provider been notified: Yes 10/10/22 10:47 Consult to Physical Therapy Evaluate & Treat Comment: gen surg said can clamp NG for PT Physician Instructions: Evaluate and Treat 10/11/22 10:11 Consult After Hours PICC Line RN Routine Comment: 10/12/22 10:29 Consult to Dietitian, Adult Routine Comment: Reason For Exam: TPN 10/13/22 11:10 Consult to Physical Therapy Evaluate & Treat Comment: Physician Instructions: Evaluate and Treat 10/13/22 11:11 Consult to Occupational Therapy Evaluate & Treat Comment: Physician Instructions: Evaluate and treat 10/13/22 13:53 Consult to Occupational Therapy Evaluate & Treat Comment: Physician Instructions: Evaluate and treat 10/14/22 10:18 Consult to Home Health Routine Comment: Reason For Exam: FWW for home use Discharge provider: Ruben Hanson DO Summary Hospital Course Discharge Diagnosis: #closed loop bowel obstruction #sepsis secondary to aspiration pneumonia, with acute respiratory failure with hypoxia, thrombocytopenia #paroxysmal atrial fibrillation, with RVR, now resolved #hyponatremia #Acute urinary retention in setting of chronic BPH, with possible acute cystitis, likely present on admission now resolved. #elevated troponin, myocardial injury #ruled out diastolic heart failure. Hospital Course: This is a 72 year old male with a PMH fo BPH, paroxysmal afib who was initially admitted for urinary retention and UTI, thought to be due to constipation. He continued to have worsening abdominal pain, and subsequent vomiting despite aggressive laxitive therapies. He was started on ceftriaxone initially when UA resulted with probable infection though cultures provded to be negative. He also developed afib with RVR that due to hypotension required amiodarone infusion. Tele-software deployment engineer services were consulted while he was moved to the ICU. Repeat CT scan showed a possible closed loop bowel obstruction, general surgery was consulted whom did not believe it to be truly closed loop and attempted conservative management with NG tube decompression. This obstruction also led to likely aspiration that was noted on CT imaging with development of sepsis and acute respiratory failure with hypoxic. He was started on antibiotic therapy with improvement in respiratory status and was not requiring supplemental oxygen at the time of discharge. Acute heart failure in the setting of RVR was considered, however given clinical scenario and reassuring echocardiogram this is considered less likely though diuresis was attempted. He was also started on TPN given lack of oral intake for quite some time. He unfortunately did not have resolution of his obstruction with conservative management and underwent exploratory laparotomy with small bowel resection with general surgery with lysis of adhesions. He had slow return of bowel function after surgery, but overall continued to improve. At the time of discharge, he was having small liquid bowel movements and tolerating a diet, he was able to ambulate with a walker and was seen by therapies and recommended for discharge home. He will complete treatment for aspiration pneumonia at home with augmentin for another 4 days. Recommend discussion with primary care regarding anticoagulation for afib given his reported history, though at this time risks likely outweigh benefits after recent abdominal surgery and risk for bleeding and he has no significant risk factors (CHADS-VASC) for stroke other than his age. Time Spent with Patient Time spent: Greater than 30 minutes Exam Vital Signs (past 8 hours): - 10/14/22 06:00 10/14/22 09:00 10/14/22 08:00 Pulse Rate 64 Respiratory Rate 15 Blood Pressure 149/67 H Pulse Oximetry 96 95 Oxygen Delivery Method Room Air Room Air Oxygen Flow Rate 0 Fraction of Inspired Oxygen 40 SaO2/FiO2 Ratio 211 Oxygen Delivery Method Room Air Oxygen Flow Rate 0 Narrative Exam Narrative: Gen: alert, pleasant cooperative, in no acute medical distress Lungs: speaks full sentences, rt base no crackles, no wheeze Abd: Minimal tender to palpation, bowel sounds present CV: regular rate Ext: no edema Neuro: nl speech and affect Objective Labs 10/14/22 04:08 10/14/22 04:08 Labs: Laboratory Results - last 24 hr 10/14/22 10/14/22 04:08 04:08 WBC 12.6 H RBC 3.98 L Hgb 12.8 L Hct 37.8 L MCV 95.0 MCH 32.1 MCHC 33.8 RDW 13.2 Plt Count 187 Neut % (Auto) 80.9 H Lymph % (Auto) 12.0 L [place] % (Auto) 4.9 Eos % (Auto) 2.1 Baso % (Auto) 0.1 Neut # (Auto) 10892 H Lymph # (Auto) 1500 [place] # (Auto) 600 Eos # (Auto) 300 Baso # (Auto) 0 Sodium 133 L Potassium 3.7 Chloride 104 Carbon Dioxide 24 BUN 13 Creatinine 0.69 Estimated GFR > 60 BUN/Creatinine Ratio 18.8 Glucose 93 Calcium 7.5 L Total Bilirubin 0.7 AST 60 H ALT 44 Alkaline Phosphatase 56 C-Reactive Protein 6.7 H Total Protein 4.8 L Albumin 2.3 L Globulin 2.5 Albumin/Globulin Ratio 0.9 L PFSH Medical History BPH (benign prostatic hyperplasia) Essential tremor History of basal cell carcinoma Hyperlipidemia Medicare annual wellness visit, subsequent Preventative health care Witnessed episode of apnea Surgical History Hx laparoscopic cholecystectomy Previous back surgery S/P laparoscopic hernia repair Social History household members: spouse Smoking Status: Never smoker alcohol intake: current substance use type: does not use Discharge Plan Discharge Plan Patient Disposition: Home Provider Discharge Comment: You were admitted to the hospital initially with a UTI, this was complicated by a bowel obstruction that was later found and you had to have surgery to improve the obstruction. You have not had opiate pain medications while here, continue tylenol/acetaminophen at home, you can take up to 4g per day (8 tabs extra strenth or 12 tabs regular strength). Please follow up with primary care provider as soon as possible to review hospitalization. You are being continued on antiboitics for a presumed aspiration pneumonia that happened due to vomiting in the setting of your bowel obstruction. The surgical office will typically schedule a follow up visit for you in a couple of weeks. Discharge orders & Medications Prescriptions: New amoxicillin-pot clavulanate 875-125 mg tablet 1 tab PO BID 4 Days Qty: 8 0RF ondansetron HCl 4 mg tablet 4 mg PO Q8H PRN (Reason: nausea and vomiting) Qty: 30 0RF Continued tamsulosin 0.4 mg capsule 0.4 mg PO DAILY Qty: 90 3RF diazepam 5 mg tablet 5 mg PO DAILY PRN (Reason: anxiety) Qty: 30 5RF Follow up/Referrals: Papo Collins MD [Primary Care Provider] - Diet/Activity/Treatments Diet: Diet as Tolerated and Regular Activity: As tolerated, no heavy lifting more than 10-15 lbs after surgery for 6 weeks. Visit Report/Discharge Packet Instructions: DI for Small Bowel Obstruction, Ondansetron, Amoxicillin and Clavulanic Acid, [facility]: Wound Care Stand Alone Forms: Patient Portal/API, Stroke Signs & Symptoms Discharge Data Primary Care Provider: Papo Collins Discharges patient from system. Discharge Date/Time: 10/14/22 14:10
--- NOTE | 2022-10-14 15:03 | PC.NURSE ---
Patient looking forward to his discharge home today. Worked with PT and obtained FWW for home use. Patient tolerating breakfast and lunch today, denies nausea. Patient had another loose BM this morning, and voiding in toilet without difficulty. Rusty RN reviewed discharge instructions with patient. Aquacel dressing in place to his midline abdominal incision. Patient and his have no further questions or concerns prior to discharge. Patient was escorted out via WC with all his belongings to home with his .
== END 2022-10-14 14:10 | disposition home or self-care (01) | DRG 329 ==
LOC: ED 00:51 → AC 04:47 → ICU 10-07 06:39
PROVIDERS: Internal Medicine; Internal Medicine Critical Care Medicine; Neuromusculoskeletal Medicine, Sports Medicine; Student in an Organized Health Care Education/Training Program; Surgery; Admitting Provider Nurse Practitioner Family; Emergency Provider Emergency Medicine; Family Provider Family Medicine; PCP Family Medicine; Visit Provider Nurse Practitioner Family
PROC: 0DB80ZZ Excision of Small Intestine, Open Approach (ICD-10-PCS; CPT 49000; principal; 2022-10-09 17:00)
DX: K56.50 Intestinal adhesions [bands], unspecified as to partial versus complete obstruction (principal); A41.9 Sepsis, unspecified organism; J96.01 Acute respiratory failure with hypoxia; J69.0 Pneumonitis due to inhalation of food and vomit; R65.20 Severe sepsis without septic shock; N30.00 Acute cystitis without hematuria; K55.9 Vascular disorder of intestine, unspecified; E87.1 Hypo-osmolality and hyponatremia; N40.1 Benign prostatic hyperplasia with lower urinary tract symptoms; F41.9 Anxiety disorder, unspecified; R33.8 Other retention of urine; I48.0 Paroxysmal atrial fibrillation; D69.6 Thrombocytopenia, unspecified; Z20.822 Contact with and (suspected) exposure to COVID-19
CPT/HCPCS: 36415; 36569; 36600; 44120; 71045; 71275; 74018; 74019; 74177; 76705; 80048; 80053; 81001; 81003; 82805; 82962; 83605; 83690; 83735; 83880; 84100; 84134; 84145; 84439; 84443; 84478; 84484; 85025; 85610; 86140; 87040; 87086; 87797; 93005; 93306; 94667; 94760; 94762; 96374; 96375; 96376; 97110; 97116; 97162; 97166; 97530; 97535; 99284; G0378; B4189; C9113; J0131; J0282; J0696; J1100; J1170; J1630; J1642; J1650; J1940; J2060; J2270; J2405; J2543; J2765; J3010; J3480; Q9967

== ENCOUNTER 2023-06-17 09:49 | Day surgery (SDC) | payer MEDICARE, SELFPAY ==
[2023-05-21 10:32] VITALS: BMI 25.1
[2023-06-17] VITALS (14 sets, daily range): BP systolic 119–151; BP diastolic 53–77; PULSE 53–82; RESP 12–17; TEMP 36.2–36.6; O2SAT 93–97; BMI 24.7
[2023-06-17] MEDS: LACTATED RINGERS 1,000 ML 21 ML IV (10:03)
--- NOTE | 2023-06-17 11:04 | PM.PREOP ---
Pre-operative Note Interval Note History & Physical reviewed/Exam performed by Physician: Yes Changes to H&P: No
[2023-06-17] MEDS: CEFAZOLIN 2 GM/100 ML PREMIX 100 ML IV (11:20)
--- NOTE | 2023-06-17 11:39 | SUR.OPER ---
Supine on padded OR bed, head on pillow, arms secured on padded arm boards at <90 degrees abduction, legs uncrossed, safety belt at thigh, tape over blanket over lower legs.
[2023-06-17] MEDS: BUPIVACAINE 0.25% (PF) VIAL 30 ML INJ (11:41)
[2023-06-17] MEDS: BUPIVACAINE LIPOSOME 266 MG/20 ML VIAL INJ (12:15)
[2023-06-17] MEDS: HYDROMORPHONE 1 MG INJ IV ×4 (13:24→14:10)
[2023-06-17] MEDS: OXYCODONE IR 5 MG TABLET PO ×2 (13:26→13:57)
--- NOTE | 2023-06-17 13:28 | PM.OP.1 ---
Operative Date/Time/Diagnoses Date of procedure: 06/17/23 Time of procedure: 16:58 Pre-op diagnosis: Incisional hernia Post-op diagnosis: same Procedure & Clinicians Procedure: Open repair 8 cm incisional hernia Same procedure as scheduled: Yes Indications: Margarito is a 73-year-old man with a history of open cholecystectomy who developed a small-bowel obstruction requiring an emergency exploratory laparotomy and enterectomy. He has subsequently developed a symptomatic incisional hernia. He is here today for an elective open ventral hernia repair after discussing the risks benefits and alternatives to the operation. Surgeon: Sam Angel Click Yes if Unassisted: Yes Anesthesia Type: General Operative Notes Findings: 8 cm fascial defect superior to the umbilicus. Specimen(s): none sent Estimated Blood Loss (mL): 20 Procedure in detail: Patient was brought to the operating room placed supine on the table. Bilateral lower extremity compression devices were applied. They received 2 g of Ancef prior to skin incision. Prepped and draped in sterile fashion, ioban was placed. Time-out was performed. A midline incision was made superior to the umbilicus with a knife. The previous midline scar was excised. The subcutaneous tissue was divided to expose the midline fascia. The fascia had a 8 cm defect extending from the umbilicus. The fascia was grasped elevated and sharply opened. There was minimal adhesive tissue within the abdomen. A towel was then placed over the visceral content to protect it out of harms way. Hernia sac was excised. The retromuscular space was entered by incising the posterior rectus sheath approximately 1 cm from its edge. The retromuscular plane was developed using electrocautery with care to protect the neurovascular structures. The retrorectus space was developed in the same fashion on the contralateral side. The spaces were then connected superiorly and inferiorly near the umbilicus. The posterior sheath was then closed with 2-0 vicryl. I selected a Bard 12 cm polypropelene soft tissue mesh placed in the retro rectus space with the anti-adhesive surface towards the abdomen. The mesh was anchored with interrupted Ethibond in transfascial fashion in in multiple locations using the anthony rodriguez device such that the mesh lay under physiologic tension. The anterior sheath/ linea alba was then closed with a running Vicryl suture without tension. Hemostasis was checked. The subcutaneous tissue was then reapproximated using Vicryl skin closed with running 4-0 Monocryl followed by the application of Dermabond. Patient emerged from anesthesia was extubated and transferred to recovery room in stable condition. Complications: none Post-operative Condition: stable Disposition: same day surgery
[2023-06-17] MEDS: LACTATED RINGERS 1,000 ML 42 ML IV (13:40)
[2023-06-17] MEDS: ACETAMINOPHEN IV 1,000 MG/100 ML VIAL 400 MG IV (13:55)
--- NOTE | 2023-06-17 14:56 | SUR.PHASEII ---
Bladder scan shows 321 cc urine. unable to void. Spoke with Dr Angel. will give more IV fluids and see how patient does. If cannot void in an hour will discuss further care.
[2023-06-17] MEDS: ONDANSETRON 4 MG/2 ML INJ IV (15:10)
--- NOTE | 2023-06-17 17:01 | SUR.PHASEII ---
Updated Dr Angel via phone on patient status. Straight cath performed. 250 cc clear yellow urine drained from bladder without issue. Patient tolerated well. at bedside. DC instructions given in great detail. questions invited and answered. states understanding.
== END 2023-06-17 17:16 | disposition home or self-care (01) ==
PROVIDERS: Family Provider Family Medicine; PCP Family Medicine; Referring Provider Surgery; Visit Provider Surgery
PROC: (CPT 49593; principal; 2023-06-17 11:30)
DX: K43.2 Incisional hernia without obstruction or gangrene (principal)
CPT/HCPCS: 49593; C9290; J0136; J0690; J1170; J2405; J2704; J3010

== ENCOUNTER 2023-06-18 11:38 | Emergency (ER) | payer MEDICARE, SELFPAY ==
[2023-05-21 10:32] VITALS: BMI 25.1
[2023-06-18 11:40] VITALS: BP 148/65; PULSE 65; RESP 18; O2SAT 99; BMI 24.7
[2023-06-18] MEDS: LIDOCAINE 2% (GLYDO) 6 ML GEL TOP (12:06)
--- NOTE | 2023-06-18 12:08 | PC.NURSE ---
patient had surgery on the abd for ventral hernia repair yesterday. He cannot urinate well. he had scant urine amounts since his straight cath yesterday. He has 324 mls on bladder scan today. His surgical sight is covered with a aquacel type dressing. The skin around it appears well. no drainage, redness, swelling. he has not had a BM since before his surgery yesterday. He is taking opioids for pain. last dose was at 9am today
--- NOTE | 2023-06-18 12:15 | ED_ITS ---
<Statement entered by Lionel Davis MD - 06/18/23 18:11> I was immediately available in the department for consultation. Documentation has been reviewed. I agree with assessment and plan. HPI - Male Genitourinary General Chief complaint: Urogenital-Male Stated complaint: not urinating, had surgery t-1 Time Seen by Provider: 06/18/23 11:49 Source: patient Mode of arrival: Ambulatory History of Present Illness HPI Narrative: 73-year-old male with past medical history BPH, hyperlipidemia presents to the ED with 1 day of urinary hesitancy. Patient had a ventral hernia repair performed by Dr. Angel yesterday and discharged home. Patient states that since then he has not been able to fully empty his bladder. He has had just a small dribble of urine a few times. Patient takes tamsulosin daily for BPH. Patient also endorses some nausea and abdominal pain at the site of the incision. Patient denies fever, chills, chest pain, shortness of breath, lightheadedness, dizziness, syncope. Related Data Previous Rx's Medication Instructions Recorded tamsulosin 0.4 mg capsule 0.4 mg PO DAILY #90 caps 07/25/22 diazepam 5 mg tablet 5 mg PO DAILY PRN anxiety #30 tabs 08/05/22 ondansetron HCl 4 mg tablet 4 mg PO Q8H PRN nausea and 10/14/22 vomiting #30 tabs acetaminophen 325 mg capsule 650 mg (2 x 325 mg) PO QID PRN 06/17/23 (Tylenol) pain #60 caps docusate sodium 100 mg capsule 100 mg PO BID #30 caps 06/17/23 (Colace) ibuprofen 200 mg tablet 400 mg (2 x 200 mg) PO Q6H #60 tabs 06/17/23 ondansetron 4 mg disintegrating 4 mg PO Q6H PRN nausea and 06/17/23 tablet vomiting #20 tabs oxycodone 5 mg tablet 5 mg PO Q6H PRN pain #20 tabs 06/17/23 Allergies Allergy/AdvReac Type Severity Reaction Status Date / Time No Known Drug Allergies Allergy Verified 06/17/23 10:12 Review of Systems Constitutional Constitutional: Denies chills, Denies fatigue, Denies fever(s), Denies frequent falls, Denies lethargy and Denies weakness Eyes Eyes: Denies change in vision, Denies eye discharge, Denies irritation and Denies loss of vision ENT Ears, Nose, Mouth, and Throat: Denies change in voice, Denies dizziness, Denies neck pain, Denies sore throat and Denies throat swelling Cardiovascular Cardiovascular: Denies chest pain, Denies irregular heart rhythm, Denies lightheadedness, Denies palpitations, Denies dyspnea, Denies dyspnea on exertion and Denies orthopnea Respiratory Respiratory: Denies cough, Denies dyspnea, Denies dyspnea on exertion and Denies wheezing Gastrointestinal Gastrointestinal: Reports abdominal pain, Denies change in bowel habits, Denies diarrhea, Reports nausea and Denies vomiting Genitourinary Genitourinary: Reports urinary hesitancy Musculoskeletal Musculoskeletal: Denies neck pain and Denies numbness Integumentary/Breasts Skin/Breast: Denies pruritus, Denies erythema, Denies rash and Denies wounds Neurologic Neurologic: Denies behavioral changes, Denies confusion, Denies dizziness, Denies frequent falls, Denies loss of vision, Denies numbness and Denies weakness Psychiatric Psychiatric: Denies anxiety, Denies behavioral changes, Denies confusion, Denies depression, Denies homicidal ideation and Denies suicidal ideation Endocrine Endocrine: Denies fatigue, Denies flushing and Denies palpitations Hematologic/Lymphatic Hematologic/Lymphatic: Denies easy bruising Allergic/Immunologic Allergic/Immunologic: Denies urticaria, Denies throat swelling and Denies wheezing Patient History Medical History Witnessed episode of apnea Medicare annual wellness visit, subsequent Preventative health care Essential tremor History of basal cell carcinoma Hyperlipidemia BPH (benign prostatic hyperplasia) Surgical History Previous back surgery S/P laparoscopic hernia repair Hx laparoscopic cholecystectomy Social History household members: spouse Smoking Status: Never smoker alcohol intake: current substance use type: does not use Smoking Status: Never smoker alcohol intake frequency: a few times a week Alcohol type: beer Substance Use Type: does not use Exam Narrative Exam Narrative: Const General:?cooperative, healthy appearing and comfortable HENMT Head:?normal to inspection Ears:?hearing grossly normal bilaterally Nose:?external nose normal Face and sinus:?normal facial exam and sinuses nontender Mouth:?oral mucosae normal Throat:?posterior oropharynx normal Eyes General:?appearance normal, both eyes and all related structures Neck Neck:?normal visual inspection and no lymphadenopathy noted Resp Effort & Inspection:?normal respiratory effort Auscultation:?clear to auscultation bilaterally Cardio Rate:?regular rate Rhythm:?regular rhythm GI Incision from ventral hernia intact, appears normal. Normal bowel sounds. No tenderness to palpation of lower abdomen. Neuro General:?patient alert, patient awake and patient oriented x3 Initial Vital Signs Initial Vital Signs: Vital Signs Pulse Rate 65 06/18/23 11:40 Respiratory Rate 18 06/18/23 11:40 Blood Pressure 148/65 H 06/18/23 11:40 Pulse Oximetry 99 06/18/23 11:40 Oxygen Delivery Method Room Air 06/18/23 11:40 Course Orders Ordered: ED Orders 06/18/23 12:22 CBC Auto Diff [Complete Blood Count AUTO DIFF] Stat CMP [Comprehensive Metabolic Panel] Stat Lipase Stat Urine Culture Stat Urine Microscopic Stat Discontinued Medications Ibuprofen (Ibuprofen 400 Mg Tablet) 400 mg PO NOW ONE Stop: 06/18/23 12:14 Last Admin: 06/18/23 12:45 Dose: 400 mg Documented By: GUMARO Lidocaine HCl (Lidocaine 2% (Glydo) 6 Ml Gel) 6 ml TOP NOW ONE Stop: 06/18/23 11:57 Last Admin: 06/18/23 12:06 Dose: 6 ml Documented By: GUMARO Vital Signs Vital signs: Vital Signs - 8 hr 06/18/23 11:40 Pulse Rate 65 Respiratory Rate 18 Blood Pressure 148/65 H Pulse Oximetry 99 Oxygen Delivery Method Room Air MDM - Male Genitourinary Lab Data 06/18/23 12:22 06/18/23 12:22 Labs: Lab Results 06/18/23 Range/Units 12:22 WBC 11.3 H (4.5-11.0) X10^3/uL RBC 4.22 L (4.5-5.9) X10^6/uL Hgb 13.6 (13.5-17.5) g/dL Hct 39.9 L (41-53) % MCV 94.5 (80-100) fL MCH 32.3 (26-34) PG MCHC 34.2 (30-36) % RDW 13.6 (11.6-14.8) % Plt Count 141 L (150-400) X10^3/uL Neut % (Auto) 78.5 H (50-75) % Lymph % (Auto) 14.0 L (25-40) % [place] % (Auto) 6.6 (3-14) % Eos % (Auto) 0.2 L (2-4) % Baso % (Auto) 0.7 (0-2) % Neut # (Auto) 8900 H (9261-3589) /uL Lymph # (Auto) 1600 (5677-8883) /uL [place] # (Auto) 700 (0-900) /uL Eos # (Auto) 0 (0-450) /uL Baso # (Auto) 100 (0-100) /uL Sodium 130 L (137-145) mmol/L Potassium 4.3 (3.4-5.1) mmol/L Chloride 101 (98-107) mmol/L Carbon Dioxide 27 (22-32) mmol/L BUN 15 (9-20) mg/dL Creatinine 0.81 (0.66-1.25) mg/dL Estimated GFR > 60 (>60) mL/min BUN/Creatinine Ratio 18.5 (6-22) Glucose 102 (80-110) mg/dL Calcium 9.1 (8.4-10.2) mg/dL Total Bilirubin 0.9 (0.2-1.3) mg/dL AST 29 (17-59) IU/L ALT 20 (<50) IU/L Alkaline Phosphatase 49 (38-126) U/L Total Protein 6.3 (6.3-8.2) g/dL Albumin 3.7 (3.5-5.0) g/dL Globulin 2.6 (1.7-4.1) g/dL Albumin/Globulin Ratio 1.4 (1.0-2.8) Lipase 56 (23-300) U/L Urine RBC 0-1/hpf D (0-5/HPF) Urine WBC None seen (0-5/HPF) Ur Squamous Epith Cells 0-1 /hpf (0-5/HPF) Urine Bacteria None seen (None) Vol Urine Centrifuged 10ml (spun) Urine Dip Bedside Urine Glucose Negative Bedside Urine Bilirubin - Negative Bedside Urine Ketone +/- 5 Urine Specific [place] 1.025 Bedside Urine Occult Blood +/- Bedside Urine pH 6.0 Bedside Urine Protein - Negative Bedside Urine Urobilinogen - Negative Bedside Urine Nitrite - Negative Bedside Urine Leukocytes - Negative Esterase MDM Narrative Medical decision making narrative: 73-year-old male with past medical history BPH, hyperlipidemia presents to the ED with 1 day of urinary hesitancy. Concern for urinary retention versus UTI versus pyelonephritis versus other. Will obtain UA, labs. Bladder scan shows 324 mL of urine. Will insert Bird catheter. Will give ibuprofen since patient is due for his dose. Labs within normal limits. UA without UTI. Patient fitted with a Bird catheter. Recommend follow-up with Urology. Recommend follow-up with Dr. Angel as scheduled for postop. ED return precautions discussed with patient. Patient verbalized understanding. Medical records reviewed: Yes Discharge Plan Departure Patient Disposition: Home Clinical Impression: Acute urinary retention Instructions: How to Care for Your Bird Catheter -- Male, DI for Urinary Retention in Men Activity Restrictions/Additional Instructions: You were evaluated in the ED today for urinary difficulties. It appears that you were having some urinary retention after your hernia surgery, which is not uncommon. You have been fitted with a Bird catheter to aid with urinary drainage. Your kidney function today was normal and your urine is not infected. Please follow-up with [facility] at [phone] as soon as possible. Please follow-up with Dr. Angel as scheduled for postop. Return to the ED if you have worsening symptoms, persistent vomiting. Prescriptions: No Action tamsulosin 0.4 mg capsule 0.4 mg PO DAILY Qty: 90 3RF diazepam 5 mg tablet 5 mg PO DAILY PRN (Reason: anxiety) Qty: 30 5RF ondansetron HCl 4 mg tablet 4 mg PO Q8H PRN (Reason: nausea and vomiting) Qty: 30 0RF ibuprofen 200 mg tablet 400 mg PO Q6H Qty: 60 0RF acetaminophen [Tylenol] 325 mg capsule 650 mg PO QID PRN (Reason: pain) Qty: 60 0RF docusate sodium [Colace] 100 mg capsule 100 mg PO BID Qty: 30 0RF oxycodone 5 mg tablet 5 mg PO Q6H PRN (Reason: pain) Qty: 20 0RF ondansetron 4 mg tablet,disintegrating 4 mg PO Q6H PRN (Reason: nausea and vomiting) Qty: 20 0RF Referrals: Papo Collins MD [Primary Care Provider] - Stand Alone Forms: Patient Portal/API
[2023-06-18 12:43] LABS: Add Manual Diff / Slide Review NO; Basophils Absolute Auto 100 /uL (0-100); Basophils Percent Auto 0.7 % (0-2); Eosinophils Absolute Auto 0 /uL (0-450); Eosinophils Percent Auto 0.2 % (2-4); Hematocrit 39.9 % (41-53); Hemoglobin 13.6 g/dL (13.5-17.5); Lymphocytes Absolute Auto 1600 /uL (1100-4500); Mean Corpuscular HGB Conc 34.2 % (30-36); Mean Corpuscular Hemoglobin 32.3 PG (26-34); Mean Corpuscular Volume 94.5 fL (80-100); Monocytes Absolute Auto 700 /uL (0-900); Monocytes Percent Auto 6.6 % (3-14); Neutrophils Absolute Auto 8900 /uL (1500-7000); Neutrophils Percent Auto 78.5 % (50-75); Platelet Count 141 X10^3/uL (150-400); Red Blood Cell Count 4.22 X10^6/uL (4.5-5.9); Red Cell Distribution Width 13.6 % (11.6-14.8); White Blood Cell Count 11.3 X10^3/uL (4.5-11.0)
[2023-06-18] MEDS: IBUPROFEN 400 MG TABLET PO (12:45)
[2023-06-18 12:58] LABS: Alanine Aminotransferase 20 IU/L (<50); Albumin 3.7 g/dL (3.5-5.0); Albumin Globulin Ratio 1.4 (1.0-2.8); Alkaline Phosphatase 49 U/L (38-126); Aspartate Aminotransferase 29 IU/L (17-59); BUN Creatinine Ratio 18.5 (6-22); Bilirubin Total 0.9 mg/dL (0.2-1.3); Blood Urea Nitrogen 15 mg/dL (9-20); Calcium 9.1 mg/dL (8.4-10.2); Carbon Dioxide 27 mmol/L (22-32); Chloride 101 mmol/L (98-107); Estimated Glomerular Filt Rate > 60 mL/min (>60); Globulin 2.6 g/dL (1.7-4.1); Glucose 102 mg/dL (80-110); HEMOLYSIS < 15 (0-50); Lipase 56 U/L (23-300); Potassium 4.3 mmol/L (3.4-5.1); Sodium 130 mmol/L (137-145); Total Protein 6.3 g/dL (6.3-8.2)
[2023-06-18 12:59] LABS: Urine Volume 10mL (spun)
[2023-06-18 13:00] LABS: Bacteria Urine None Seen; RBC Urine 0-1/HPF (0-5/HPF); Squamous Epithelial Cell Urine 0-1 /HPF (0-5/HPF); WBC Urine None Seen (0-5/HPF)
== END 2023-06-18 13:19 | disposition home or self-care (01) ==
PROVIDERS: Emergency Provider Student in an Organized Health Care Education/Training Program; Family Provider Family Medicine; PCP Family Medicine
DX: R33.8 Other retention of urine (principal)
CPT/HCPCS: 51702; 51798; 80053; 81003; 81015; 83690; 85025; 87086; 99283

== ENCOUNTER 2023-06-20 10:25 | Observation (INO) | payer MEDICARE, SELFPAY ==
[2023-05-21 10:32] VITALS: BMI 25.1
[2023-06-20] VITALS (16 sets, daily range): BP systolic 142–214; BP diastolic 62–89; PULSE 62–98; RESP 17–32; TEMP 36.5–36.8; O2SAT 92–98; BMI 25.1
--- NOTE | 2023-06-20 10:34 | ED.GENADULT ---
HPI - General Adult General Chief complaint: Nausea/Vomiting/Diarrhea Stated complaint: surgery T-3/ pain and nausea Time Seen by Provider: 06/20/23 10:32 History of Present Illness HPI narrative: 73-year-old male with history of tremor, hyperlipidemia, BPH, cholecystectomy, small-bowel obstruction, enterectomy who presents with pain and nausea postoperatively. He states he felt overall okay after his hernia surgery a few days ago, then yesterday stopped his oxycodone as he felt he was constipated. Since then, he is developed worsening periumbilical pain, not radiating, without clear provoking or palliating factors factors. He has had nausea and vomiting, nonbloody. He has been passing some stool, also nonbloody, and passing gas. He denies trauma. No fevers or chills. He denies taking blood thinning medications. Spouse here with him. Per chart review, he recently had surgery with Dr. Angel for hernia. He was also seen in ER on May with urinary hesitancy, with Bird catheter placed. Related Data Previous Rx's Medication Instructions Recorded tamsulosin 0.4 mg capsule 0.4 mg PO DAILY #90 caps 07/25/22 diazepam 5 mg tablet 5 mg PO DAILY PRN anxiety #30 tabs 08/05/22 ondansetron HCl 4 mg tablet 4 mg PO Q8H PRN nausea and 10/14/22 vomiting #30 tabs acetaminophen 325 mg capsule 650 mg (2 x 325 mg) PO QID PRN 06/17/23 (Tylenol) pain #60 caps docusate sodium 100 mg capsule 100 mg PO BID #30 caps 06/17/23 (Colace) ibuprofen 200 mg tablet 400 mg (2 x 200 mg) PO Q6H #60 tabs 06/17/23 ondansetron 4 mg disintegrating 4 mg PO Q6H PRN nausea and 06/17/23 tablet vomiting #20 tabs oxycodone 5 mg tablet 5 mg PO Q6H PRN pain #20 tabs 06/17/23 Allergies Allergy/AdvReac Type Severity Reaction Status Date / Time No Known Drug Allergies Allergy Verified 06/17/23 10:12 Review of Systems Review of Systems Narrative: Constitutional: no fever, no chills Eyes: no visual disturbance, no discharge Ears, Nose, Mouth, Throat: no rhinorrhea, no sore throat Cardiovascular: no chest pain, no palpitations Respiratory: no cough, no shortness of breath Gastrointestinal: + abdominal pain, + vomiting, no diarrhea Genitourinary: no dysuria, no hematuria Musculoskeletal: no back pain, no neck stiffness Skin: no rash, no wound Neurological: no focal weakness, no focal numbness Patient History Medical History Witnessed episode of apnea Medicare annual wellness visit, subsequent Preventative health care Essential tremor History of basal cell carcinoma Hyperlipidemia BPH (benign prostatic hyperplasia) Surgical History Previous back surgery S/P laparoscopic hernia repair Hx laparoscopic cholecystectomy Social History household members: spouse Smoking Status: Never smoker alcohol intake: current substance use type: does not use Smoking Status: Never smoker alcohol intake frequency: a few times a week Alcohol type: beer Substance Use Type: does not use Exam Narrative Exam Narrative: Const: Appears uncomfortable from abdominal pain, non toxic appearing; anxious, remains conversant, pleasant Eyes: PERRLA, EOMI ENT: mucous membranes moist Neck: supple, non-tender Resp: no respiratory distress, clear to auscultation bilaterally Card: regular rate and rhythm, no murmurs Abd: Surgical wound appears clean, dry, intact without erythema, fluctuance, induration, discharge, and is only mildly tender; however, there is diffuse abdominal tenderness, though without rigidity or rebound or guarding Back: no T or L spine tenderness, no CVA tenderness bilaterally Extrem: no deformities, no swelling bilateral lower extremities Neuro: ANOx4, [employer] grossly intact, grossly intact sensation and strength all extremities Skin: no rash, warm and dry Initial Vital Signs Initial Vital Signs: Vital Signs Pulse Rate 92 H 06/20/23 10:35 Blood Pressure 145/72 H 06/20/23 10:35 Pulse Oximetry 98 06/20/23 10:35 Course Course Course Narrative: This patient presents with abdominal pain after recent hernia surgery that is most suggestive of postoperative pain in the setting of stopping narcotics, however with a broad differential I have considered including but not limited to intra-abdominal infection/abscess, seroma, hematoma, wound dehiscence, bowel obstruction, pyelonephritis, nephrolithiasis, among others. I am obtaining CBC, CMP, lipase, urinalysis, CT abdomen and pelvis with contrast. I am giving fluids, Zofran, Dilaudid and will closely reassessed. Patient and spouse agree with plan. EKG NSR without acute ischemia or immediately concerning interval prolongation on my review. CBC reassuring, with no leukocytosis or anemia or thrombocytopenia. There is neutrophilic predominance similar to prior. Chemistry with borderline hyponatremia, creatinine within normal limits, no LFT elevation. Lipase reassuring. UA with blood suitable for follow-up, no clear infection. Information given to patient about this. Note patient with no abdominal or flank pain, no clear urinary symptoms. CT with evidence of recurring ventral hernia with probable obstruction. Consulting General Surgery. Adding lactate. I spoke with Dr. Blanchard who kindly accepts on review of case with me. Adding NG tube, with chest x-ray to follow up. Updating patient who remains stable, more comfortable after medication. Lactate mildly elevated. Pain has improved. Radiology read of CT: FINDINGS: Lower thorax: The lung bases are clear. Heart size normal. Small hiatal hernia. Liver: Normal in size and attenuation. No contour deformity present. Biliary system: Cholecystectomy. Mild central intrahepatic bile duct prominence. Pancreas: Unremarkable without mass or inflammation evident. Spleen: Normal in size and density. Adrenals: Normal morphology and density. Reproductive system: Unremarkable as visualized. Urinary system: Normal renal size and attenuation. No renal calculi, hydronephrosis, or solid mass present. Bird catheter in the bladder Gastrointestinal system: Small-bowel obstruction associated with ventral hernia containing a small loop of bowel with dilated small bowel measure up to 4 cm decompressed bowel distal to the hernia. Trace intraperitoneal free air and subcutaneous ventral free air consistent with recent surgery. Small bowel side to side anastomosis noted in the left upper quadrant. Suture line appears intact. Small amount of free fluid in the pelvis as well. Perihepatic free fluid Appendix: No findings to suggest acute appendicitis. Peritoneal spaces: No mesenteric or retroperitoneal adenopathy. Vasculature: The IVC, aorta and iliac vasculature are unremarkable. Abdominal wall: Abdominal wall intact without evidence of ventral or inguinal hernias. Musculoskeletal: Normal bone mineralization. No acute fractures. IMPRESSION: 1. Small-bowel obstruction associated with ventral hernia containing trapped loop of distal small bowel. 2. Small amount of intraperitoneal free air as well as subcutaneous air in the ventral abdominal wall consistent with recent surgery. 3. Free fluid in the pelvis as well as adjacent to the liver without definitive evidence of mature abscess. Note: Critical results were discussed with patient's physician in the ER at 11:30 AM [place] time on 06/20/23 Approved by: Edward Snyder M.D. on 06/20/2023 at 11:33 NGT inserted. Patient reassessed and more comfortable, though additional dilaudid ordered per request. Suction on with brown, non bloody fluid draining. XR (awaiting formal read) to [place] shows NGT below diaphragm, appearing appropriate. Patient being admitted in stable condition. NOTE blood in urine suitable for but will require outpatient follow up. Orders Ordered: ED Orders 06/20/23 10:46 CBC Auto Diff [Complete Blood Count AUTO DIFF] Stat CMP [Comprehensive Metabolic Panel] Stat Lactate (Lactic Acid) Stat Lipase Stat 06/20/23 10:54 EKG-12 Lead Routine 06/20/23 10:58 CT abdomen pelvis w con Stat 06/20/23 11:38 Urinalysis and Microscopic Stat 06/20/23 12:29 XR chest 1V Stat Hydromorphone HCl (Hydromorphone 0.5 Mg Inj) 0.5 mg IV Q2H PRN PRN Reason: Pain, Severe (7-10) Lactated Ringer's (Lactated Ringers) 1,000 mls @ 100 mls/hr IV CONT REY Naloxone HCl (Naloxone 0.4 Mg/Ml Vial) 0.2 mg IV Q2MIN PRN PRN Reason: Opiate Reversal Discontinued Medications Hydromorphone HCl (Hydromorphone 0.5 Mg Inj) 0.5 mg IV NOW ONE Stop: 06/20/23 10:50 Last Admin: 06/20/23 10:55 Dose: 0.5 mg Documented By: YOUSIF Hydromorphone HCl (Hydromorphone 0.5 Mg Inj) 0.5 mg IV NOW ONE Stop: 06/20/23 11:43 Last Admin: 06/20/23 11:44 Dose: 0.5 mg Documented By: YOUSIF Hydromorphone HCl (Hydromorphone 0.5 Mg Inj) 0.5 mg IV NOW ONE Stop: 06/20/23 13:05 Sodium Chloride (Normal Saline 0.9%) 1,000 mls @ 1,000 mls/hr IV BOLUS ONE Stop: 06/20/23 11:48 Last Admin: 06/20/23 10:56 Dose: 1,000 mls/hr Documented By: YOUSIF Ondansetron HCl (Ondansetron 4 Mg/2 Ml Inj) 4 mg IV NOW ONE Stop: 06/20/23 10:50 Last Admin: 06/20/23 10:54 Dose: 4 mg Documented By: YOUSIF Vital Signs Vital signs: Vital Signs - 8 hr 06/20/23 10:35 06/20/23 10:35 06/20/23 10:36 Temperature 97.7 F Pulse Rate 92 H 85 Respiratory Rate 20 Blood Pressure 145/72 H 145/72 H Pulse Oximetry 98 97 Oxygen Delivery Method Room Air 06/20/23 10:59 06/20/23 10:59 06/20/23 11:00 Temperature Pulse Rate 62 68 Respiratory Rate 21 25 H Blood Pressure 148/70 H Pulse Oximetry 98 98 Oxygen Delivery Method 06/20/23 11:00 06/20/23 11:30 06/20/23 11:47 Temperature Pulse Rate 72 Respiratory Rate 20 Blood Pressure 152/69 H 157/71 H Pulse Oximetry Oxygen Delivery Method 06/20/23 11:47 06/20/23 12:00 06/20/23 12:00 Temperature Pulse Rate 65 63 Respiratory Rate 24 17 Blood Pressure 154/72 H Pulse Oximetry 97 96 Oxygen Delivery Method Medical Decision Making Lab Data 06/20/23 10:46 06/20/23 10:46 Labs: Lab Results 06/20/23 06/20/23 Range/Units 10:46 11:38 WBC 10.2 (4.5-11.0) X10^3/uL RBC 5.14 (4.5-5.9) X10^6/uL Hgb 16.8 (13.5-17.5) g/dL Hct 48.2 (41-53) % MCV 93.8 (80-100) fL MCH 32.7 (26-34) PG MCHC 34.8 (30-36) % RDW 13.2 (11.6-14.8) % Plt Count 154 (150-400) X10^3/uL Neut % (Auto) 87.4 H (50-75) % Lymph % (Auto) 7.0 L (25-40) % [place] % (Auto) 5.2 (3-14) % Eos % (Auto) 0.2 L (2-4) % Baso % (Auto) 0.2 (0-2) % Neut # (Auto) 8900 H (2496-8744) /uL Lymph # (Auto) 700 L (4111-6931) /uL [place] # (Auto) 500 (0-900) /uL Eos # (Auto) 0 (0-450) /uL Baso # (Auto) 0 (0-100) /uL Sodium 136 L (137-145) mmol/L Potassium 4.4 (3.4-5.1) mmol/L Chloride 100 (98-107) mmol/L Carbon Dioxide 28 (22-32) mmol/L BUN 14 (9-20) mg/dL Creatinine 0.84 (0.66-1.25) mg/dL Estimated GFR > 60 (>60) mL/min BUN/Creatinine Ratio 16.7 (6-22) Glucose 121 H (80-110) mg/dL Lactate 2.3 H (0.7-2.1) mmol/L Calcium 10.0 (8.4-10.2) mg/dL Total Bilirubin 1.3 (0.2-1.3) mg/dL AST 34 (17-59) IU/L ALT 21 (<50) IU/L Alkaline Phosphatase 72 (38-126) U/L Total Protein 7.6 (6.3-8.2) g/dL Albumin 4.3 (3.5-5.0) g/dL Globulin 3.3 (1.7-4.1) g/dL Albumin/Globulin Ratio 1.3 (1.0-2.8) Lipase 84 (23-300) U/L Urine Color Yellow Urine Appearance Clear Urine pH 8.0 (4.5-8.0) Ur Specific [place] <=1.005 (1.000-1.035) Urine Protein Negative (Negative) Urine Glucose (UA) Negative (Negative) g/dL Urine Ketones 2+ H (NEGATIVE) Urine Occult Blood 3+ H (Negative) Urine Nitrate Negative (Negative) Urine Bilirubin Negative (NEGATIVE) Urine Urobilinogen 0.2 (0.2) E.U./dL Ur Leukocyte Esterase Negative (NEGATIVE) Urine RBC 30-100/hpf H (0-5/HPF) Urine WBC 0-1/hpf (0-5/HPF) Ur Squamous Epith Cells None seen (0-5/HPF) Urine Bacteria None seen (None) Ur Culture Indicated? Cult not indicated Vol Urine Centrifuged 10ml (spun) Discharge Plan Departure Admit Date/Time: 06/20/23 12:46 Admit Provider: Yojana Blanchard
[2023-06-20] MEDS: ONDANSETRON 4 MG/2 ML INJ IV ×3 (10:54→20:19)
[2023-06-20] MEDS: HYDROMORPHONE 0.5 MG INJ IV ×4 (10:55→14:22)
[2023-06-20] MEDS: SODIUM CHLORIDE 0.9% 1,000 ML 1000 ML IV (10:56)
--- NOTE | 2023-06-20 10:58 | DI.CT.S_ITS ---
PROCEDURE: CT ABDOMEN PELVIS W CON INDICATIONS: recent hernia surgery, post op diffuse pain TECHNIQUE: After the administration of intravenous contrast, axial sections acquired from the lung bases to the pubic symphysis. Coronal and sagittal reformats were performed. For radiation dose reduction, the following was used: automated exposure control, adjustment of mA and/or kV according to patient size. COMPARISON: [facility], CT, CT ABDOMEN PELVIS W CON, 10/07/2022, 15:14. FINDINGS: Lower thorax: The lung bases are clear. Heart size normal. Small hiatal hernia. Liver: Normal in size and attenuation. No contour deformity present. Biliary system: Cholecystectomy. Mild central intrahepatic bile duct prominence. Pancreas: Unremarkable without mass or inflammation evident. Spleen: Normal in size and density. Adrenals: Normal morphology and density. Reproductive system: Unremarkable as visualized. Urinary system: Normal renal size and attenuation. No renal calculi, hydronephrosis, or solid mass present. Bird catheter in the bladder Gastrointestinal system: Small-bowel obstruction associated with ventral hernia containing a small loop of bowel with dilated small bowel measure up to 4 cm decompressed bowel distal to the hernia. Trace intraperitoneal free air and subcutaneous ventral free air consistent with recent surgery. Small bowel side to side anastomosis noted in the left upper quadrant. Suture line appears intact. Small amount of free fluid in the pelvis as well. Perihepatic free fluid Appendix: No findings to suggest acute appendicitis. Peritoneal spaces: No mesenteric or retroperitoneal adenopathy. Vasculature: The IVC, aorta and iliac vasculature are unremarkable. Abdominal wall: Abdominal wall intact without evidence of ventral or inguinal hernias. Musculoskeletal: Normal bone mineralization. No acute fractures. IMPRESSION: 1. Small-bowel obstruction associated with ventral hernia containing trapped loop of distal small bowel. 2. Small amount of intraperitoneal free air as well as subcutaneous air in the ventral abdominal wall consistent with recent surgery. 3. Free fluid in the pelvis as well as adjacent to the liver without definitive evidence of mature abscess. Note: Critical results were discussed with patient's physician in the ER at 11:30 AM [place] time on 06/20/23 Approved by: Edward Snyder M.D. on 06/20/2023 at 11:33
[2023-06-20 11:05] LABS: Add Manual Diff / Slide Review NO; Basophils Absolute Auto 0 /uL (0-100); Basophils Percent Auto 0.2 % (0-2); Eosinophils Absolute Auto 0 /uL (0-450); Eosinophils Percent Auto 0.2 % (2-4); Hematocrit 48.2 % (41-53); Hemoglobin 16.8 g/dL (13.5-17.5); Lymphocytes Absolute Auto 700 /uL (1100-4500); Mean Corpuscular HGB Conc 34.8 % (30-36); Mean Corpuscular Hemoglobin 32.7 PG (26-34); Mean Corpuscular Volume 93.8 fL (80-100); Monocytes Absolute Auto 500 /uL (0-900); Monocytes Percent Auto 5.2 % (3-14); Neutrophils Absolute Auto 8900 /uL (1500-7000); Neutrophils Percent Auto 87.4 % (50-75); Platelet Count 154 X10^3/uL (150-400); Red Blood Cell Count 5.14 X10^6/uL (4.5-5.9); Red Cell Distribution Width 13.2 % (11.6-14.8); White Blood Cell Count 10.2 X10^3/uL (4.5-11.0)
[2023-06-20 11:20] LABS: Alanine Aminotransferase 21 IU/L (<50); Albumin 4.3 g/dL (3.5-5.0); Albumin Globulin Ratio 1.3 (1.0-2.8); Alkaline Phosphatase 72 U/L (38-126); Aspartate Aminotransferase 34 IU/L (17-59); BUN Creatinine Ratio 16.7 (6-22); Bilirubin Total 1.3 mg/dL (0.2-1.3); Blood Urea Nitrogen 14 mg/dL (9-20); Carbon Dioxide 28 mmol/L (22-32); Chloride 100 mmol/L (98-107); Estimated Glomerular Filt Rate > 60 mL/min (>60); Globulin 3.3 g/dL (1.7-4.1); Glucose 121 mg/dL (80-110); HEMOLYSIS 20 (0-50); Lipase 84 U/L (23-300); Potassium 4.4 mmol/L (3.4-5.1); Sodium 136 mmol/L (137-145); Total Protein 7.6 g/dL (6.3-8.2)
[2023-06-20 11:52] LABS: Appearance Urine UA CLEAR; Bilirubin Urine UA NEGATIVE (NEGATIVE); Color Urine UA YELLOW; Glucose Urine UA NEGATIVE (Negative); Ketones Urine UA 2+ (NEGATIVE); Leukocyte Esterase Urine UA NEGATIVE (NEGATIVE); Nitrite Urine UA NEGATIVE (Negative); Occult Blood Urine UA 3+ (Negative); Protein Urine UA NEGATIVE (Negative); Specific Gravity Urine UA <=1.005 (1.000-1.035); Urobilinogen Urine UA 0.2 E.U./dL (0.2)
[2023-06-20 12:00] LABS: Bacteria Urine None Seen; Culture Indicated Urine Cult Not Indicated; RBC Urine 30-100/HPF (0-5/HPF); Squamous Epithelial Cell Urine None Seen (0-5/HPF); Urine Volume 10mL (spun); WBC Urine 0-1/HPF (0-5/HPF)
--- NOTE | 2023-06-20 12:29 | DI.RAD.S_ITS ---
PROCEDURE: XR CHEST 1V INDICATIONS: post NGT placement TECHNIQUE: One view of the chest was acquired. COMPARISON: [facility], , XR CHEST FOR PICC 1V, 10/11/2022, 14:38. FINDINGS: Surgical changes and devices: Nasogastric tube in the stomach Lungs and pleura: Lungs are clear. No pleural effusions or pneumothorax. Mediastinum: Mediastinal contours appear normal. Heart size is normal. Bones and chest wall: No suspicious bony lesions. Overlying soft tissues appear unremarkable. IMPRESSION: Nasogastric tube in the stomach. No acute cardiopulmonary findings Approved by: Edward Snyder M.D. on 06/20/2023 at 13:26
[2023-06-20 12:42] LABS: Lactate (Lactic Acid) 2.3 mmol/L (0.7-2.1)
[2023-06-20] MEDS: LACTATED RINGERS 1,000 ML 100 ML IV (13:50)
[2023-06-20 14:05] LABS: Reflexed Lactate in 2 Hours Y
[2023-06-20 14:09] LABS: Lactate 2HR (Lactic Acid Rflx) 1.2 mmol/L (0.7-2.1)
[2023-06-20] MEDS: HYDROMORPHONE 1 MG INJ IV ×3 (16:34→22:11)
[2023-06-20] MEDS: METOCLOPRAMIDE 10 MG/2 ML INJ IV ×2 (16:43→22:53)
--- NOTE | 2023-06-20 19:25 | PC.NURSE ---
Pt having increased pain and nausea. MD called and order recieved for zofran and reglan and pt reported they were effective. Dilaudid was increased to 1mg q2hr and pt reported better relief og pain. Patient and spouse also concerned because they had been told they would see Dr. Santo packer and had not. MD Blanchard recalled and she spoke with both on the phone. They were happy this had occurred and had their questions answered.
[2023-06-21] VITALS (16 sets, daily range): BP systolic 114–156; BP diastolic 52–82; PULSE 60–80; RESP 12–19; TEMP 36.7–37.4; O2SAT 91–97; BMI 25.1
[2023-06-21] MEDS: HYDROMORPHONE 1 MG INJ IV ×3 (00:06→06:20)
[2023-06-21] MEDS: LACTATED RINGERS 1,000 ML 100 ML IV ×3 (00:22→09:19)
[2023-06-21] MEDS: ONDANSETRON 4 MG/2 ML INJ IV (01:05)
--- NOTE | 2023-06-21 01:35 | PC.NURSE ---
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 Patient has complaints of 7-8/10 pain, 1mg IV Dilaudid given Q2hrs. Also has complaints of nausea w/ dry heaving, IV Zofran & IV Reglan given Q6hrs. Had issues w/ NG tube suction at start of shift, restarted suction @ approximately 2000, 650cc brown/green drainage out so far. Patient denies chest pain or difficulty breathing. HOB remaining >30 degrees. Plan of care ongoing.
[2023-06-21] MEDS: METOCLOPRAMIDE 10 MG/2 ML INJ IV (06:21)
[2023-06-21 07:01] LABS: HEMOLYSIS 40 (0-50); Potassium 4.6 mmol/L (3.4-5.1)
[2023-06-21 07:02] LABS: Alanine Aminotransferase 18 IU/L (<50); Albumin 3.7 g/dL (3.5-5.0); Albumin Globulin Ratio 1.3 (1.0-2.8); Alkaline Phosphatase 50 U/L (38-126); Aspartate Aminotransferase 32 IU/L (17-59); BUN Creatinine Ratio 17.6 (6-22); Bilirubin Total 0.9 mg/dL (0.2-1.3); Blood Urea Nitrogen 12 mg/dL (9-20); Calcium 8.4 mg/dL (8.4-10.2); Carbon Dioxide 25 mmol/L (22-32); Chloride 104 mmol/L (98-107); Estimated Glomerular Filt Rate > 60 mL/min (>60); Globulin 2.9 g/dL (1.7-4.1); Glucose 117 mg/dL (80-110); Sodium 133 mmol/L (137-145); Total Protein 6.6 g/dL (6.3-8.2)
--- NOTE | 2023-06-21 07:45 | P.HP_ITS ---
History of Present Illness History of Present Illness Date Patient Seen: 06/21/23 Time Patient Seen: 07:45 Chief complaint: surgery T-3/ pain and nausea Narrative: S/p ventral hernia repair with mesh 06/17/23 now with >24 SBO related to transition point at surgical site. Pain is sharp, crampy, generalized with emesis as well as constipation. Surgical incision site is tender to palpation as expected. [facility] Medical History Witnessed episode of apnea Medicare annual wellness visit, subsequent Preventative health care Essential tremor History of basal cell carcinoma Hyperlipidemia BPH (benign prostatic hyperplasia) Surgical History Previous back surgery S/P laparoscopic hernia repair Hx laparoscopic cholecystectomy Social History household members: spouse Smoking Status: Never smoker alcohol intake: current substance use type: does not use Meds Home Medications and Allergies Home Medications Medication Instructions Recorded Confirmed Type tamsulosin 0.4 mg capsule 0.4 mg PO DAILY #90 caps 07/25/22 06/20/23 Rx diazepam 5 mg tablet 5 mg PO DAILY PRN anxiety #30 tabs 08/05/22 06/20/23 Rx acetaminophen 325 mg capsule 650 mg (2 x 325 mg) PO QID PRN 06/17/23 06/20/23 Rx (Tylenol) pain #60 caps docusate sodium 100 mg capsule 100 mg PO BID #30 caps 06/17/23 06/20/23 Rx (Colace) ibuprofen 200 mg tablet 400 mg (2 x 200 mg) PO Q6H #60 tabs 06/17/23 06/20/23 Rx ondansetron 4 mg disintegrating 4 mg PO Q6H PRN nausea and 06/17/23 06/20/23 Rx tablet vomiting #20 tabs oxycodone 5 mg tablet 5 mg PO Q6H PRN pain #20 tabs 06/17/23 06/20/23 Rx Allergies Allergy/AdvReac Type Severity Reaction Status Date / Time No Known Drug Allergies Allergy Verified 06/17/23 10:12 Review of Systems Review of Systems ROS: Yes All systems reviewed with the patient and are negative except as otherwise documented Exam Vital Signs (past 8 hours): - 06/21/23 02:53 06/21/23 05:30 Temperature 98.0 F 98.6 F Pulse Rate 80 80 Respiratory Rate 19 17 Blood Pressure 154/77 H 146/80 H Pulse Oximetry 97 96 Oxygen Flow Rate 3.5 3 Oxygen Delivery Method Room Air Oxygen Flow Rate 3 Const General: cooperative Nutritional Appearance: average body habitus [facility] Head: normocephalic and atraumatic Eyes General: appearance normal, both eyes and all related structures Sclera: sclerae normal Neck Neck: trachea midline and No JVD Chest Chest: normal inspection of the chest Resp Effort & Inspection: normal respiratory effort and able to speak in complete sentences Cardio Rate: tachycardic Rhythm: regular rhythm GI Inspection: distended and incision Palpation: soft and tender Skin General: turgor normal and atrophy Neuro General: patient alert, patient awake and patient oriented x3 Cognition: normal cognition Psych Appearance: grossly normal Mental Status: mental status grossly normal Judgment: judgment good Objective Labs 06/20/23 10:46 06/21/23 06:05 Labs: Laboratory Results - last 24 hr 06/20/23 06/20/23 06/20/23 10:46 11:38 13:10 WBC 10.2 RBC 5.14 Hgb 16.8 Hct 48.2 MCV 93.8 MCH 32.7 MCHC 34.8 RDW 13.2 Plt Count 154 Neut % (Auto) 87.4 H Lymph % (Auto) 7.0 L Moore % (Auto) 5.2 Eos % (Auto) 0.2 L Baso % (Auto) 0.2 Neut # (Auto) 8900 H Lymph # (Auto) 700 L Moore # (Auto) 500 Eos # (Auto) 0 Baso # (Auto) 0 Sodium 136 L Potassium 4.4 Chloride 100 Carbon Dioxide 28 BUN 14 Creatinine 0.84 Estimated GFR > 60 BUN/Creatinine Ratio 16.7 Glucose 121 H Lactate 2.3 H 1.2 Calcium 10.0 Total Bilirubin 1.3 AST 34 ALT 21 Alkaline Phosphatase 72 Total Protein 7.6 Albumin 4.3 Globulin 3.3 Albumin/Globulin Ratio 1.3 Lipase 84 Urine Color Yellow Urine Appearance Clear Urine pH 8.0 Ur Specific [place] <=1.005 Urine Protein Negative Urine Glucose (UA) Negative Urine Ketones 2+ H Urine Occult Blood 3+ H Urine Nitrate Negative Urine Bilirubin Negative Urine Urobilinogen 0.2 Ur Leukocyte Esterase Negative Urine RBC 30-100/hpf H Urine WBC 0-1/hpf Ur Squamous Epith Cells None seen Urine Bacteria None seen Ur Culture Indicated? Cult not indicated Vol Urine Centrifuged 10ml (spun) 06/21/23 06:05 WBC RBC Hgb Hct MCV MCH MCHC RDW Plt Count Neut % (Auto) Lymph % (Auto) Moore % (Auto) Eos % (Auto) Baso % (Auto) Neut # (Auto) Lymph # (Auto) Moore # (Auto) Eos # (Auto) Baso # (Auto) Sodium 133 L Potassium 4.6 Chloride 104 Carbon Dioxide 25 BUN 12 Creatinine 0.68 Estimated GFR > 60 BUN/Creatinine Ratio 17.6 Glucose 117 H Lactate Calcium 8.4 Total Bilirubin 0.9 AST 32 ALT 18 Alkaline Phosphatase 50 Total Protein 6.6 Albumin 3.7 Globulin 2.9 Albumin/Globulin Ratio 1.3 Lipase Urine Color Urine Appearance Urine pH Ur Specific [place] Urine Protein Urine Glucose (UA) Urine Ketones Urine Occult Blood Urine Nitrate Urine Bilirubin Urine Urobilinogen Ur Leukocyte Esterase Urine RBC Urine WBC Ur Squamous Epith Cells Urine Bacteria Ur Culture Indicated? Vol Urine Centrifuged Assessment & Plan Assessment & Plan narrative: SBO following Ventral Hernia repair with mesh. Plan: Xlap Time Spent With Patient Time with patient: 30 to 49 minutes with 50% spent counseling/coordinating care
--- NOTE | 2023-06-21 09:07 | CM.DANOTE ---
Brief DCP Ax Note pt is a 73yo M here following a hernia mesh repair on 06/17/23. Pt was dc'd home on 06/17, returned to ED on for concerns of urinary hesitancy and dc'd home, and returned to the ED on 06/20/23 for worsening pain at the surgical site. Was admitted by Dr Blanchard due to SBO following hernia repair. PCP Elie Collins Payer A[employer] Medicare and self pay. [employer] reviewed EMR. Pt in surg during attempted assessment. Lives in [place] with spouse. Indep at baseline. Last admission in October 10, d/c'd home with walker and no other CM needs. Per RN notes, on this admission pt is A/Ox4. Plan; anticipate home with spouse at d/c when medically stable. CM team will follow closely for any PT/OT needs following surg/additional DCP needs. CLAUDIO Suazo Discharge Planning/Care Management Advanced directive, confirm from FAMILY Start: 06/20/23 13:58 Freq: Q24H Status: Complete Protocol: Document 06/20/23 13:58 CEW (Rec: 06/20/23 15:17 CEW [id number]) Advance Directive, confirm on record Time 15:16 Person contacted Pt/spouse. Is FC, They brought in advance directive, scanned in. 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 Yes Advance Directives on File Yes History Provided By Patient,Family Member,Medical Record Prior Living Arrangements House Household Members spouse Independent with ADL's Yes Is patient alert and oriented? Yes DME Already Rented / Owned FWW / Walker Discharge Plan Home Transportation Arrangement spouse in POV Whiteboard Updated in Patient Room with No name and ext. # of Asphalt Blender Comment pt in surg during time of attempted assessment Review Status In Process Next Review Type Continued Stay Review
--- NOTE | 2023-06-21 09:10 | SUR.OPER ---
Supine on padded OR bed, head on pillow, arms secured on padded arm boards at <90 degrees abduction, legs uncrossed, safety belt at thigh, tape over blanket over lower legs.
[2023-06-21] MEDS: BUPIVACAINE 0.25% (PF) 30 ML, EPINEPHrine 0.15 MG INJ (09:20)
[2023-06-21] MEDS: CEFAZOLIN 2 GM/100 ML PREMIX 100 ML IV (09:21)
--- NOTE | 2023-06-21 09:50 | PM.OP.1 ---
Operative Date/Time/Diagnoses Date of procedure: 06/21/23 Time of procedure: 09:51 Pre-op diagnosis: Small bowel obstruction Post-op diagnosis: same Procedure & Clinicians Procedure: Exploratory laparotomy, replacement of mesh. Same procedure as scheduled: Yes Indications: Small bowel obstruction Surgeon: Yojana Blanchard Click Yes if Unassisted: Yes Anesthesia Type: General and Local Operative Notes Findings: Small separation of posterior fascia/peritoneum 3 cm by 1 cm with incarcerated small bowel Closure Type: non-primary Specimen(s): none sent Prosthetic devices, grafts, tissues, transplants, or devices: 8 cm oval mesh Applied: drain(s) (Single 15 Lithuanian drain in the subcu) Estimated Blood Loss (mL): 15 Blood products transfused: none Procedure in detail: Preop diagnosis: Small bowel obstruction status post ventral hernia repair Postop diagnosis: Same Procedure: Repair of recurrent ventral hernia with exchange of mesh. Defect currently 3 cm x 1 cm Anesthetic: General with ET tube intubation and local Surgeon: Vilma Blanchard MD Findings: Separation of the posterior sheath with entry of a knuckle of small bowel between the posterior sheath and the mesh. Small bowel incarcerated but not ischemic. Procedure: Patient placed in a supine position. Prepped and draped in sterile fashion to expose his abdomen. I went back through the existing incision. Removed the existing mesh and closed the posterior sheath with a running 2-0 Ethibond. Similar mesh was replaced and tacked in a clocklike fashion to the muscle layer and anterior sheath with 2-0 Ethibond. Then closed the fascia midline with a running Prolene. Tissues were irrigated between each closure of a layer. Final skin closure with a running 4-0 PDS over a 15 Lithuanian drain. Steri-Strips and sterile dressings were placed. Patient was awakened, extubated, taken to recovery room in stable condition. Needle, instrument, sponge counts were correct. Okay to remove NG tube during recovery. Bird catheter to remain in place Blood loss: 10 mL Specimen: None
[2023-06-21] MEDS: IBUPROFEN 400 MG TABLET PO (11:20)
[2023-06-21] MEDS: TAMSULOSIN 0.4 MG CAPSULE PO (11:20)
[2023-06-21] MEDS: PRENATAL VIT,CALC/IRON/FOLIC 1 TABLET 1 TAB PO (15:33)
[2023-06-21] MEDS: polyethylene glycoL 3350 17 GM POWD.PACK PO ×2 (15:33→20:18)
[2023-06-21] MEDS: CELECOXIB 200 MG CAPSULE PO ×2 (15:33→20:17)
[2023-06-21] MEDS: DOCUSATE 100 MG CAPSULE PO (20:18)
[2023-06-21] MEDS: ACETAMINOPHEN 325 MG TABLET 650 MG PO (20:18)
[2023-06-21] MEDS: GABAPENTIN 300 MG CAPSULE PO (20:18)
[2023-06-22] MEDS: ACETAMINOPHEN 325 MG TABLET 650 MG PO (00:49)
[2023-06-22 07:00] VITALS: BP 100/47; PULSE 49; RESP 19; TEMP 36.4; O2SAT 94
[2023-06-22 08:04] VITALS: BP 102/54; PULSE 47; RESP 18; TEMP 37.1; O2SAT 96
[2023-06-22] MEDS: DOCUSATE 100 MG CAPSULE PO (09:21)
[2023-06-22] MEDS: PRENATAL VIT,CALC/IRON/FOLIC 1 TABLET 1 TAB PO (09:21)
[2023-06-22] MEDS: polyethylene glycoL 3350 17 GM POWD.PACK PO (09:21)
[2023-06-22] MEDS: CELECOXIB 200 MG CAPSULE PO (09:21)
[2023-06-22] MEDS: TAMSULOSIN 0.4 MG CAPSULE PO (09:21)
--- NOTE | 2023-06-22 10:16 | PC.NURSE ---
Addendum entered by Erin Carrion R.N. 06/22/23 15:22: Patient was able to void on his own 300cc, again patient had 3cc of urine pvr. She is resting comfortably and visiting with his . Addendum entered by Erin Carrion R.N. 06/22/23 14:06: Patient has not been able to void as of yet, gonzalez catheter taken out at 0933. Will give patient 8 hours to void and if she is unable will notify . Original Note: Assess- Patient is ambulating in the halls now. Gonzalez catheter taken out at 0933, patient had a 3cc pvr. We will give patient time to void and then do another pvr on him. He has an aquacel dressing on his ml with germaine drain putting out minimal drainage in tube. He also has an abdominal binder on. Denies pain. Visiting with his .
--- NOTE | 2023-06-22 11:05 | CM.DPNOTE ---
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 Per RN note, pt ambulating in hallways. at bedside. Anticipate home today/when medically stable with spouse no CM needs identified from chart review. CM team will continue to follow as needed. CALUDIO Suazo
[2023-06-22 15:14] VITALS: BP 142/79; PULSE 57; RESP 18; TEMP 36.7; O2SAT 98
== END 2023-06-22 17:52 | disposition home or self-care (01) ==
LOC: ED 10:46 → AC 13:11
PROVIDERS: Admitting Provider Surgery; Emergency Provider Emergency Medicine; Family Provider Family Medicine; PCP Family Medicine; Referring Provider Emergency Medicine; Visit Provider Surgery
PROC: (CPT 49000; principal; 2023-06-21 08:00)
DX: K91.30 Postprocedural intestinal obstruction, unspecified as to partial versus complete (principal); K43.6 Other and unspecified ventral hernia with obstruction, without gangrene; R33.8 Other retention of urine
CPT/HCPCS: 49616; 49623; 36415; 49593; 51702; 51798; 71045; 74177; 80053; 81001; 81003; 81015; 83605; 83690; 85025; 87086; 93005; 99221; 99283; 99284; G0378; C9290; J0136; J0171; J0690; J1100; J1170; J2405; J2704; J2765; J3010; J3490; Q9967

== ENCOUNTER → 2023-07-22 09:07 | Outpatient (CLI) | payer MEDICARE, SELFPAY ==
[2022-10-15 11:15] VITALS: BMI 25.1
[2023-06-20 13:44] VITALS: BMI 25.1
--- NOTE | 2023-07-22 09:08 | DI.ECHO.S_ITS ---
[facility] +---------+ : : [address] : : : : [id number] : : : : Phone: [phone]+ Echocardiogram Report + + :Name: CYNTHIA MUHAMMAD Study Date: 07/22/2023 Height: 70 in : :[facility] ReadingLocation: Weight: 165 lb : : Gender: Male BSA: 1.9 m2 : :: 1950 Age: 73 yrs BP: 118/67 mmHg: :Reason For Study: MITRAL INSUFFICIENCY : :Ordering Physician: ALIX, : :HI Performed By: Frances Hu : :Referring: HI TEIXEIRA : + + Interpretation Summary 1) Normal left ventricular thickness, size, wall motion, and systolic function (EF 60-65%). 2) Mildly enlarged right ventricle with normal function. 3) There is mild mitral regurgitation. 4) Compared to the Echo done 10/08/2022, no significant change. Procedure: A two-dimensional transthoracic echocardiogram with color flow and Doppler was performed. The study quality was technically adequate. There is no prior echocardiogram noted for this patient. The patient was in sinus rhythm with heart rates between 55-63 bpm during the exam. Left Ventricle: The left ventricle is normal in size and wall thickness. The ejection fraction is estimated to be 60-65%. Left ventricular systolic function appears normal without focal wall motion abnormalities. Diastolic parameters suggest a relaxation abnormality of the left ventricle, consistent with probable normal filling pressures. Right Ventricle: The right ventricle is mildly dilated. The right ventricular systolic function is normal. Atria: The left atrial size is normal. Right atrial size is normal. There is no Doppler evidence for an interatrial shunt. Mitral Valve: The mitral valve is normal in structure and function. There is mild mitral regurgitation. Aortic Valve: The aortic valve is trileaflet. The aortic valve opens well. There is no aortic valve stenosis. There is trace aortic regurgitation. Tricuspid Valve: The tricuspid valve is normal in structure and function. There is mild tricuspid regurgitation. The right ventricular systolic pressure is estimated to be at least 20 mmHg based on an estimated right atrial pressure of 3 mm Hg. Pulmonic Valve: The pulmonic valve leaflets are thin and pliable; valve motion is normal. There is mild pulmonic regurgitation. Great Vessels: The aortic root is normal size. The dimensions of the ascending aorta are normal. The IVC is of normal diameter and collapses greater than 50% with a sniff. This suggests a low right atrial pressure of 3 mm Hg. Pericardium/ Pleura There is no pericardial effusion. There is no pleural effusion. MMode/2D Measurements & Calculations LVIDd: 5.1 cm LVOT diam: 2.1 cm LVIDs: 3.4 cm Ao root diam: 3.6 cm FS: 33.6 % asc Aorta Diam: 3.3 cm IVSd: 0.98 cm Ao Arch Diam (Prox Trans): 2.5 cm LVPWd: 0.99 cm LV hill. diameter/BSA (cm/m^2): 2.6 LV sys. diameter/BSA (cm/m^2): 1.7 LA A2 area: 24.3 cm2 RA long axis: 5.1 cm LA A4 area: 15.0 cm2 RA area: 16.8 cm2 LA length (vol): 5.2 cm RA vol: 47.1 ml LA vol: 59.6 ml RA : 24.5 ml/m2 LA vol index: 31.0 ml/m2 IVC diam: 1.5 cm RVD1 (basal): 4.4 cm TAPSE: 2.1 cm Doppler Measurements & Calculations Ao V2 max: 129.0 cm/sec LVOT Max Reagan: 112.3 cm/sec Ao V2 mean: 94.0 cm/sec LV V1 max P.0 mmHg Ao max P.7 mmHg LV V1 VTI: 23.6 cm Ao mean P.8 mmHg GOLDY(I,D): 3.1 cm2 Ao V2 VTI: 27.2 cm GOLDY(V,D): 3.1 cm2 sev ratio: 0.87 GOLDY indexed to BSA (cm^2/m^2): 1.6 MV E max reagan: 55.0 cm/sec TR max reagan: 203.9 cm/sec MV A max reagan: 62.0 cm/sec TR max P.6 mmHg MV E/A: 0.89 PA V2 max: 107.4 cm/sec Med Peak E' Reagan: 7.8 cm/sec PA V2 mean: 74.5 cm/sec E/E' med: 7.1 PA mean P.5 mmHg Lat Peak E' Reagan: 10.7 cm/sec PA pr(Accel): 49.9 mmHg E/E' lat: 5.1 E/e' average: 6.1 MV dec time: 0.24 sec SV(LVOT): 85.2 ml Reading Physician:11:03 AM
== END ==
LOC: ECHO 09:07
PROVIDERS: Family Provider Family Medicine; PCP Family Medicine; Referring Provider Internal Medicine Cardiovascular Disease; Visit Provider Internal Medicine Cardiovascular Disease
DX: I08.1 Rheumatic disorders of both mitral and tricuspid valves (principal)
CPT/HCPCS: 93306

== ENCOUNTER 2023-08-11 10:10 | Day surgery (SDC) | payer MEDICARE, SELFPAY ==
[2023-05-21 10:32] VITALS: BMI 25.1
[2023-06-20 13:44] VITALS: BMI 25.1
[2023-08-11 10:59] VITALS: BP 128/69; PULSE 63; RESP 18; TEMP 36.5; O2SAT 97
[2023-08-11] MEDS: LACTATED RINGERS 1,000 ML 42 ML IV (11:10)
--- NOTE | 2023-08-11 11:36 | P.HP_ITS ---
History of Present Illness History of Present Illness Date Patient Seen: 08/11/23 Time Patient Seen: 11:36 Chief complaint: Colonoscopy Narrative: 73-year-old man here for screening colonoscopy. Last colonoscopy 10 years ago normal. No family history of intestinal malignancy. No abdominal concerns today. [facility] Medical History Witnessed episode of apnea Medicare annual wellness visit, subsequent Preventative health care Essential tremor History of basal cell carcinoma Hyperlipidemia BPH (benign prostatic hyperplasia) Surgical History Hx of ventral hernia repair Previous back surgery S/P laparoscopic hernia repair Hx laparoscopic cholecystectomy Social History household members: spouse Smoking Status: Never smoker alcohol intake: current substance use type: does not use Meds Home Medications and Allergies Home Medications Medication Instructions Recorded Confirmed Type diazepam 5 mg tablet 5 mg PO DAILY PRN anxiety #30 tabs 08/05/22 08/11/23 Rx tamsulosin 0.4 mg capsule 0.4 mg PO DAILY #90 caps 08/08/23 08/11/23 Rx Allergies Allergy/AdvReac Type Severity Reaction Status Date / Time No Known Drug Allergies Allergy Verified 08/11/23 10:55 Exam Vital Signs (past 8 hours): - 08/11/23 10:59 Temperature 97.7 F Pulse Rate 63 Respiratory Rate 18 Blood Pressure 128/69 Pulse Oximetry 97 Oxygen Delivery Method Room Air Oxygen Delivery Method Room Air Narrative Exam Narrative: General adult man alert oriented no acute distress Chest nonlabored respiration Extremities warm well perfused Assessment & Plan Assessment & Plan narrative: The patient requires colorectal screening and colonoscopy is recommended. Technical details were discussed. Risks, benefits, alternatives explained. Risks including but not limited to myocardial infarction, aspiration, bleeding, pain, missed lesion, incomplete examination, need for further radiographic studies, intestinal injury, and need for major abdominal surgery were discussed. All questions were answered to their satisfaction, and they are in agreement with this plan.
--- NOTE | 2023-08-11 11:37 | P.OP.COLON_ITS ---
Operative Date/Time/Diagnoses Date of procedure: 08/11/23 Time of procedure: 12:04 Pre-op diagnosis: Colorectal screening Procedure & Clinicians Study performed: Screening colonoscopy Indications: Colorectal screening Surgeon: Sam Angel Procedure Notes Procedure in detail: The history and physical was performed/updated and the patient is ASA class is 2. The procedure was discussed in detail with the patient. Potential risks complications including infection, bleeding, missed diagnosis, perforation, need for surgery, and were explained. Their questions were answered and informed consent was obtained. Patient was brought to the procedure room and placed standard monitoring equipment. The patient's vital signs were monitored continuously throughout the entire procedure. Prior to starting time-out was performed. The patient was placed in the left lateral recumbent position. Procedural sedation was administered by anesthesia. Examination began with a thorough inspection of the perianal area there was no evidence of fissures, fistulae, external hemorrhoids or cutaneous malignancy. The colonoscopy scope was then placed into the anal canal and was advanced right colon. We could not intubate the cecum despite stiffening of the scope and external compression however we could see the ileocecal bowel. The scope was then slowly withdrawn examining colon thoroughly in all directions, irrigating it of any residual stool. The scope was retroflexed within the rectum The patient tolerated the procedure well. They will be discharged once criteria are met. The prep was of good/excellent quality. The withdrawl time was 10 minutes. FINDINGS * No masses or polyps * Scattereddiverticulum Specimen(s): none sent Impression: Normal colonoscopy Post-procedure Plan for aftercare: No further colonoscopy necessary unless symptomatic Disposition: same day surgery
[2023-08-11 12:06] VITALS: BP 121/52; PULSE 65; RESP 17; TEMP 36.1; O2SAT 98
[2023-08-11 12:11] VITALS: BP 112/55; PULSE 53; RESP 14; O2SAT 98
[2023-08-11 12:16] VITALS: BP 110/58; PULSE 53; RESP 11; O2SAT 98
[2023-08-11 12:22] VITALS: BP 118/66; PULSE 59; RESP 16; O2SAT 98
[2023-08-11 12:25] VITALS: BP 132/62; PULSE 54; RESP 16; O2SAT 98
== END 2023-08-11 12:32 | disposition home or self-care (01) ==
PROVIDERS: Family Provider Family Medicine; PCP Family Medicine; Referring Provider Surgery; Visit Provider Surgery
PROC: 0DJD8ZZ Inspection of Lower Intestinal Tract, Via Natural or Artificial Opening Endoscopic (ICD-10-PCS; CPT 45378; principal; 2023-08-11 11:15)
DX: Z12.11 Encounter for screening for malignant neoplasm of colon (principal); K57.30 Diverticulosis of large intestine without perforation or abscess without bleeding
CPT/HCPCS: G0121; J2704

== ENCOUNTER → 2023-09-09 07:26 | Outpatient (CLI) | payer MEDICARE, SELFPAY ==
[2023-06-20 13:44] VITALS: BMI 25.1
[2023-09-09 08:30] LABS: Add Manual Diff / Slide Review NO; Basophils Absolute Auto 0 /uL (0-100); Basophils Percent Auto 0.6 % (0-2); Eosinophils Absolute Auto 200 /uL (0-450); Eosinophils Percent Auto 3.5 % (2-4); Hematocrit 41.3 % (41-53); Hemoglobin 14.2 g/dL (13.5-17.5); Lymphocytes Absolute Auto 1400 /uL (1100-4500); Lymphocytes Percent Auto 28.3 % (25-40); Mean Corpuscular HGB Conc 34.4 % (30-36); Mean Corpuscular Hemoglobin 32.7 PG (26-34); Mean Corpuscular Volume 95.2 fL (80-100); Monocytes Absolute Auto 300 /uL (0-900); Neutrophils Absolute Auto 3100 /uL (1500-7000); Neutrophils Percent Auto 61.6 % (50-75); Platelet Count 184 X10^3/uL (150-400); Red Blood Cell Count 4.34 X10^6/uL (4.5-5.9); Red Cell Distribution Width 13.3 % (11.6-14.8)
[2023-09-09 08:49] LABS: Alanine Aminotransferase 23 IU/L (<50); Albumin 3.9 g/dL (3.5-5.0); Albumin Globulin Ratio 1.9 (1.0-2.8); Alkaline Phosphatase 62 U/L (38-126); Aspartate Aminotransferase 29 IU/L (17-59); BUN Creatinine Ratio 18.4 (6-22); Bilirubin Total 0.8 mg/dL (0.2-1.3); Blood Urea Nitrogen 14 mg/dL (9-20); Carbon Dioxide 30 mmol/L (22-32); Chloride 106 mmol/L (98-107); Cholesterol 173 mg/dL (140-199); Estimated Glomerular Filt Rate > 60 mL/min (>60); Globulin 2.1 g/dL (1.7-4.1); Glucose 104 mg/dL (80-110); HDL Cholesterol 64 mg/dL (40-60); HEMOLYSIS < 15 (0-50); LDL Cholesterol Calculated 97 mg/dL (<100); Potassium 5.2 mmol/L (3.4-5.1); Sodium 138 mmol/L (137-145); Triglycerides 59 mg/dL (35-150)
[2023-09-09 09:14] LABS: Prostate Specific Antigen 1.61 ng/mL (0.10-4.00)
[2023-09-10 04:17] LABS: Apolipoprotein B 81 mg/dL (<90)
== END ==
PROVIDERS: Family Provider Family Medicine; PCP Family Medicine; Referring Provider Family Medicine; Visit Provider Family Medicine
DX: E78.2 Mixed hyperlipidemia (principal); N40.1 Benign prostatic hyperplasia with lower urinary tract symptoms; G25.0 Essential tremor
CPT/HCPCS: 36415; 80053; 80061; 82172; 84153; 85025

== ENCOUNTER → 2024-09-16 06:35 | Outpatient (CLI) | payer MEDICARE, SELFPAY ==
[2023-06-20 13:44] VITALS: BMI 25.1
[2024-09-16 07:26] LABS: Add Manual Diff / Slide Review NO; Basophils Absolute Auto 0 /uL (0-100); Basophils Percent Auto 0.9 % (0-2); Eosinophils Absolute Auto 200 /uL (0-450); Eosinophils Percent Auto 3.9 % (2-4); Hematocrit 41.7 % (41-53); Hemoglobin 14.4 g/dL (13.5-17.5); Lymphocytes Absolute Auto 1600 /uL (1100-4500); Lymphocytes Percent Auto 35.1 % (25-40); Mean Corpuscular HGB Conc 34.6 % (30-36); Mean Corpuscular Hemoglobin 33.5 PG (26-34); Mean Corpuscular Volume 96.7 fL (80-100); Monocytes Absolute Auto 300 /uL (0-900); Monocytes Percent Auto 7.3 % (3-14); Neutrophils Absolute Auto 2400 /uL (1500-7000); Neutrophils Percent Auto 52.8 % (50-75); Platelet Count 129 X10^3/uL (150-400); Red Blood Cell Count 4.31 X10^6/uL (4.5-5.9); Red Cell Distribution Width 13.3 % (11.6-14.8); White Blood Cell Count 4.5 X10^3/uL (4.5-11.0)
[2024-09-16 07:46] LABS: Alanine Aminotransferase 23 IU/L (<50); Albumin 3.8 g/dL (3.5-5.0); Albumin Globulin Ratio 1.5 (1.0-2.8); Alkaline Phosphatase 63 U/L (38-126); Aspartate Aminotransferase 31 IU/L (17-59); Bilirubin Total 0.7 mg/dL (0.2-1.3); Blood Urea Nitrogen 15 mg/dL (9-20); Calcium 8.9 mg/dL (8.4-10.2); Carbon Dioxide 26 mmol/L (22-32); Chloride 105 mmol/L (98-107); Cholesterol 186 mg/dL (140-199); Estimated Glomerular Filt Rate > 60 mL/min (>60); Globulin 2.5 g/dL (1.7-4.1); Glucose 104 mg/dL (70-99); HDL Cholesterol 62 mg/dL (40-60); HEMOLYSIS < 15 (0-50); LDL Cholesterol Calculated 113 mg/dL (<100); Potassium 4.4 mmol/L (3.4-5.1); Sodium 137 mmol/L (137-145); Total Protein 6.3 g/dL (6.3-8.2); Triglycerides 56 mg/dL (35-150)
[2024-09-16 08:17] LABS: Prostate Specific Antigen Scrn 1.74 ng/mL (0.1-4.0)
[2024-09-16 08:19] LABS: TSH w/ Reflex to FT4 1.81 uIU/mL (0.47-4.68)
== END ==
PROVIDERS: Family Provider Family Medicine; PCP Family Medicine; Referring Provider Internal Medicine Cardiovascular Disease; Visit Provider Internal Medicine Cardiovascular Disease
DX: Z00.00 Encounter for general adult medical examination without abnormal findings (principal); I48.0 Paroxysmal atrial fibrillation; E78.5 Hyperlipidemia, unspecified; Z12.5 Encounter for screening for malignant neoplasm of prostate; G25.0 Essential tremor; I87.8 Other specified disorders of veins; N40.0 Benign prostatic hyperplasia without lower urinary tract symptoms
CPT/HCPCS: 36415; 80053; 80061; 84443; 85025; G0103

== ENCOUNTER 2024-12-24 02:17 | Emergency (ER) | payer MEDICARE, SELFPAY ==
[2023-06-20 13:44] VITALS: BMI 25.1
[2024-12-24 02:51] VITALS: BP 137/70; PULSE 51; RESP 16; TEMP 36.5; O2SAT 98; BMI 23.6
--- NOTE | 2024-12-24 03:34 | ED.MALEGU ---
HPI - Male Genitourinary General Chief complaint: Urogenital-Male Stated complaint: Urinary retention, pain Time Seen by Provider: 12/24/24 03:33 Source: patient, RN notes reviewed and old records reviewed Mode of arrival: Ambulatory Limitations: no limitations History of Present Illness HPI Narrative: 74-year-old male history of atrial fibrillation on rivaroxaban, BPH with Flomax patient presents with complaint of difficulty urinating overnight. Noticed some dysuria and a sense of incomplete emptying in the evening got worse overnight. Just before he was evaluated he was able to urinate and he felt like has a really good output and feels much better. Denies any testicular pain, no discharge. Denies fevers or chills. No nausea or vomiting. Denies any back or flank pain. He states suprapubic discomfort has not resolved. States it was not painful to urinate here but did have a sense of dysuria just before urinating this evening. Patient has a required a catheter in the past but not recently. States he has had prior cholecystectomy, hernia repair inguinal and umbilical. Denies any drug allergies. No tobacco, occasional alcohol, no recreational drugs. Does not follow up with Urology. Dr. Collins is his primary care physician. Related Data Home Medications ?Medication ?Instructions ?Recorded ?Confirmed rivaroxaban 20 mg tablet 20 mg PO DAILY Atrial fibrillation 09/15/24 12/24/24 episodes Previous Rx's ?Medication ?Instructions ?Recorded diazepam 5 mg tablet 5 mg PO DAILY PRN anxiety #30 tabs 09/15/24 tamsulosin 0.4 mg capsule 0.4 mg PO DAILY #90 caps 09/15/24 colchicine 0.6 mg capsule 0.6 mg PO .COMPLEX #14 caps 12/17/24 Allergies Allergy/AdvReac Type Severity Reaction Status Date / Time No Known Drug Allergies Allergy Verified 12/24/24 02:50 Review of Systems Review of Systems ROS Unobtainable: All systems reviewed & are unremarkable except as noted in HPI and below Patient History Medical History Chronic venous stasis Lower extremity edema Witnessed episode of apnea Medicare annual wellness visit, subsequent Preventative health care Essential tremor History of basal cell carcinoma Hyperlipidemia BPH (benign prostatic hyperplasia) Surgical History Hx of ventral hernia repair Previous back surgery S/P laparoscopic hernia repair Hx laparoscopic cholecystectomy Social History household members: spouse Smoking Status: Never smoker alcohol intake: current substance use type: does not use Smoking Status: Never smoker alcohol intake frequency: a few times a week Alcohol type: beer Exam Narrative Exam Narrative: GENERAL: Alert and oriented x three, male in mild distress HEENT: Head normocephalic, atraumatic, EOMI, pupils reactive, face symmetric, moist mucous membranes NECK: Supple, full range of motion CARDIOVASCULAR: Regular rate and rhythm without murmurs, rubs or gallops. RESPIRATORY: Breath sounds equal bilaterally, no wheezes rales or rhonchi. ABDOMEN: Soft, nontender. Normoactive bowel sounds all 4 quadrants. No guarding or rebound, rigidity, no mass : No CVA tenderness EXTREMITIES: Normal range of motion, no clubbing or edema. Neurovascularly intact NEUROLOGICAL: Cranial nerves II through XII grossly intact. Moving all extremities SKIN: Warm, dry, no petechiae, no rashes or lesions. Initial Vital Signs Initial Vital Signs: Vital Signs Temperature 97.7 F 12/24/24 02:51 Pulse Rate 51 L 12/24/24 02:51 Respiratory Rate 16 12/24/24 02:51 Blood Pressure 137/70 12/24/24 02:51 Pulse Oximetry 98 12/24/24 02:51 Oxygen Delivery Method Room Air 12/24/24 02:51 Course Orders Ordered: ED Orders 12/24/24 03:31 Urine Microscopic Stat Vital Signs Vital signs: Vital Signs - 8 hr 12/24/24 02:51 Temperature 97.7 F Pulse Rate 51 L Respiratory Rate 16 Blood Pressure 137/70 Pulse Oximetry 98 Oxygen Delivery Method Room Air MDM - Male Genitourinary Lab Data Labs: Lab Results 12/24/24 Range/Units 03:31 Urine RBC None seen (0-5/HPF) Urine WBC None seen (0-5/HPF) Ur Squamous Epith Cells None seen (0-5/HPF) Urine Bacteria None seen (None) Ur Culture Indicated? Cult not indicated Vol Urine Centrifuged 10ml (spun) Urine Dip Bedside Urine Glucose Negative Bedside Urine Bilirubin - Negative Bedside Urine Ketone - Negative Urine Specific Smilax 1.010 Bedside Urine Occult Blood - Negative Bedside Urine pH 7.0 Bedside Urine Protein - Negative Bedside Urine Urobilinogen - Negative Bedside Urine Nitrite - Negative Bedside Urine Leukocytes - Negative Esterase MDM Narrative Medical decision making narrative: Patient presents with sensation of urinary retention. Was able to give a urine sample here in the department and feels much relief. Bedside bladder scan shows 7 mL postvoid. Urine sample Discharge Plan Departure Patient Disposition: Home Clinical Impression: Dysuria Instructions: DI for Dysuria -- Adult Activity Restrictions/Additional Instructions: Follow up for recheck if you are having persistent issues you may need to follow up with Urology, Dr. Mccann is the local urologist his contact information is below. Please return if you have recurrent symptoms, fevers, new abdominal back or flank pain, persistent vomiting, inability to urinate or other new or concerning changes. Prescriptions: No Action colchicine 0.6 mg capsule 0.6 mg PO .COMPLEX Qty: 14 0RF Rx Instructions: 0.6 mg orally; 2 caps day 1 can take 3rd cap 1 hour following if no improvement for gout pain. Following days 1 cap b.i.d. as needed rivaroxaban 20 mg tablet 20 mg PO DAILY Patient Comments: Episodes are rare maybe every three to six months. Thankfully. diazepam 5 mg tablet 5 mg PO DAILY PRN (Reason: anxiety) Qty: 30 5RF tamsulosin 0.4 mg capsule 0.4 mg PO DAILY Qty: 90 3RF Referrals: Micky Mccann DO [Physician, Urology] Papo Collins MD [Primary Care Provider, Family Practice] Stand Alone Forms: Patient Portal/API
[2024-12-24 04:10] LABS: Culture Indicated Urine Cult Not Indicated
[2024-12-24 04:41] VITALS: BP 130/68; PULSE 60; RESP 16; O2SAT 100
== END 2024-12-24 04:42 | disposition home or self-care (01) ==
PROVIDERS: Emergency Provider Emergency Medicine; Family Provider Family Medicine; PCP Family Medicine
DX: R30.0 Dysuria (principal)
CPT/HCPCS: 51798; 81003; 81015; 99282